=== PATIENT | male | born 1950 | race Caucasian/White ===

== ENCOUNTER → 2017-01-08 | Outpatient (CLI) | payer MEDICARE, OTHER ==
[~2017-01-08] MED LIST: ACET65TA; ATENPOW; ATENPOW PO; ATOR40TA PO; DEPA250T32 PO; DEPA500T PO; DIGO0.257 PO; ECOT325T5; ECOT325T5 PO; GABA600T PO; HYDR-3716 PO; LEXAPRO; VICO5TAB OR; zoloft PO
--- NOTE | 2017-01-08 13:51 | REP ---
Clinical: Lung screening. History of nicotine dependence. Comparison: None Technique: Axial low-dose noncontrast images from the thoracic inlet to the upper abdomen using lung screening technique. Findings: The lung santiago are well-aerated. No consolidation, significant nodule or mass lesion is appreciated. However, there is mild bibasilar scarring and bronchiectasis which likely represents chronic change and 4 mm nodule in the medial right lower lobe (image 54) cannot be excluded. No pleural effusion/reaction or pneumothorax. Mediastinum demonstrates either large hiatal hernia or suggestions for prior esophagogastric surgery. Impression: Lung-RADS category 2. Chronic-appearing changes at the bilateral lung bases with possible 4 mm right lower lobe pulmonary nodule. Signed by Felix Ford MD 01/08/2017 01:42 P
== END ==
LOC: M RAD 12:51
PROVIDERS: ATTEND Emergency Medicine
DX: Z12.2 Encounter for screening for malignant neoplasm of respiratory organs (principal); F17.210 Nicotine dependence, cigarettes, uncomplicated

== ENCOUNTER 2017-04-11 09:43 | Outpatient (CLI) | payer MEDICARE, OTHER ==
[~2017-04-11] VITALS: Ht 170.2 cm; Wt 86.2 kg
[~2017-04-11 09:43] MED LIST changes: +ASPI1TAB PO; +ATEN25TA PO; +ATIV1TAB10 PO; -ATOR40TA PO; +ATOR40TA75 PO; +DEPA500T2 PO; +FERR325T3 PO; +VITA100072 PO
[2017-04-11] MEDS ORDERED: NS 1,000 ML IV ONE (10:15)
[2017-04-11] MEDS ORDERED: LIDOCAINE 2% INJ 100 MG/5 ML SDV (FOR ANES.) As Ordered ONE (11:34)
[2017-04-11] MEDS ORDERED: PROPOFOL 200 MG/20 ML VIAL As Ordered ONE (11:34)
--- NOTE | 2017-04-11 11:47 | ROOR ---
Patient Name: Judah Romo Procedure Date: 04/11/2017 11:13 AM Date of : 1950 Age: 66 Room: [facility] Gender: Male Note Status: Finalized Procedure: Total Colonoscopy to Cecum Indications: Screening for colorectal malignant neoplasm Providers: Freddy Treadwell MD Referring MD: OTTO SALMERON MD Requesting Provider: Medicines: Monitored Anesthesia Care Complications: No immediate complications. Procedure: Pre-Anesthesia Assessment: - The heart rate, respiratory rate, oxygen saturations, blood pressure, adequacy of pulmonary ventilation, and response to care were monitored throughout the procedure. The Colonoscope was introduced through the anus and advanced to the cecum, identified by appendiceal orifice and ileocecal valve. The colonoscopy was performed without difficulty. The patient tolerated the procedure well. The quality of the bowel preparation was excellent. Findings: The perianal and digital rectal examinations were normal. Non-bleeding internal hemorrhoids were found during retroflexion. The hemorrhoids were small and Grade I (internal hemorrhoids that do not prolapse). Multiple small and large-mouthed diverticula were found in the recto-sigmoid colon, sigmoid colon and descending colon. The exam was otherwise without abnormality on direct and retroflexion views. Impression: - Non-bleeding internal hemorrhoids. - Diverticulosis in the recto-sigmoid colon, in the sigmoid colon and in the descending colon. - The examination was otherwise normal on direct and retroflexion views. - No specimens collected. - The exam was otherwise normal to the cecum. Recommendation: - Patient has a contact number available for emergencies. The signs and symptoms of potential delayed complications were discussed with the patient. Return to normal activities tomorrow. Written discharge instructions were provided to the patient. - High fiber diet. - Discharge patient to home. - Continue present medications. - Repeat colonoscopy in 10 years for screening purposes. - Return to referring physician. - The findings and recommendations were discussed with the patient's family. Freddy Treadwell MD Freddy Treadwell MD 04/11/2017 11:47:00 AM This report has been signed electronically. Number of Addenda: 0 Note Initiated On: 04/11/2017 11:13 AM Estimated Blood Loss: Estimated blood loss: none.
[2017-04-11 12:14] VITALS: BP 132/73
== END 2017-04-11 12:16 | disposition home or self-care (01) ==
LOC: M OPP 09:43
PROVIDERS: ATTEND Internal Medicine Gastroenterology
DX: Z12.11 Encounter for screening for malignant neoplasm of colon (principal); K64.0 First degree hemorrhoids; K57.30 Diverticulosis of large intestine without perforation or abscess without bleeding; I10 Essential (primary) hypertension; E78.5 Hyperlipidemia, unspecified; D50.9 Iron deficiency anemia, unspecified; M19.90 Unspecified osteoarthritis, unspecified site; M54.5 Low back pain; K59.00 Constipation, unspecified; L40.9 Psoriasis, unspecified; I67.1 Cerebral aneurysm, nonruptured; F41.9 Anxiety disorder, unspecified; F32.9 Major depressive disorder, single episode, unspecified; R56.9 Unspecified convulsions; J44.9 Chronic obstructive pulmonary disease, unspecified; G47.30 Sleep apnea, unspecified; R06.83 Snoring; R06.02 Shortness of breath; R07.89 Other chest pain; F17.210 Nicotine dependence, cigarettes, uncomplicated; Z79.82 Long term (current) use of aspirin; Z79.899 Other long term (current) drug therapy

== ENCOUNTER → 2017-07-04 | Outpatient (CLI) | payer MEDICARE, OTHER ==
[~2017-07-04] MED LIST changes: +ISOVUE-370 76% 100ML VIAL (Q9967) As Ordered ONE
--- NOTE | 2017-07-04 14:43 | REP ---
Clinical: Follow-up pulmonary nodule. Comparison: 12/19/2016. Technique: Axial contrast enhanced images from the thoracic inlet to the upper abdomen using 100 ml Isovue 370 intravenous contrast material with coronal and sagittal re-formations. Findings: The lung santiago demonstrate mild chronic age-related interstitial changes and subtle perihilar bronchiectasis. Minimal scarring to the medial lower lobes and lingula remains stable. Previously identified subtle ground-glass opacity and 4 mm medial right lower lobe nodule have resolved and likely represented areas of atelectasis. No acute consolidation, significant nodule or mass lesion is appreciated. No pleural effusion or reaction. No pneumothorax. No adenopathy. Moderate hiatal hernia identified at the gastroesophageal junction. Thoracic aorta, heart and pericardium are within normal limits. Surrounding musculoskeletal structures demonstrate age-related changes without focal osseous abnormality. Limited evaluation of the upper abdomen demonstrates hepatic and renal hypodensities likely representing cysts along with normal bilateral adrenal glands. Impression: 1. Minimal chronic age-related changes to the lung santiago as described above. No acute mediastinal or pleuroparenchymal process. 2. Previously identified subtle basilar ground-glass opacities and 4 mm right lower lobe nodule have resolved and likely represented elements of atelectasis. 3. Hepatic and renal hypodensities most compatible with cysts. Signed by Felix Ford MD 07/04/2017 02:33 P
== END ==
LOC: M RAD 13:45
PROVIDERS: ATTEND Emergency Medicine
DX: D38.1 Neoplasm of uncertain behavior of trachea, bronchus and lung (principal)
CPT/HCPCS: 71260; Q9967

== ENCOUNTER 2019-01-19 16:06 | Inpatient (IN) | payer MEDICARE, OTHER ==
[~2019-01-19] VITALS: Ht 167.6 cm; Wt 81.8 kg
[~2019-01-19 16:06] MED LIST changes: -ASPI1TAB PO; +ASPI81TA26 PO; -GABA600T PO; +GABA600T4 PO; -ISOVUE-370 76% 100ML VIAL (Q9967) As Ordered ONE; +LEXA1TAB; -LEXAPRO; +VITA100018 PO; -VITA100072 PO
[2019-01-19] MEDS ORDERED: CARV3.12 PO (16:15)
[2019-01-19] MEDS ORDERED: ROSU40TA3 PO (16:15)
[2019-01-19] MEDS ORDERED: ELIQ5TAB PO (16:15)
[2019-01-19] MEDS ORDERED: DULO1CAP3 PO (16:15)
[2019-01-19] MEDS ORDERED: MORPHINE 4 MG/ML 1ML VIAL/SYRINGE (J2270) IV ONE (17:30)
[2019-01-19] MEDS ORDERED: NS 500 ML IV ONE ×2 (17:30→19:30)
--- NOTE | 2019-01-19 17:45 | REP ---
Clinical: Syncope. Comparison: 05/25/2009 . Findings: Age-related atrophy and microvascular ischemic changes are appreciated. The ventricles and sulci are symmetric. Saunders-white differentiation is maintained. There is no evidence for acute intracranial hemorrhage, mass/mass effect, pathology or infarction. No extra-axial fluid collection. Calvarium is intact. Paranasal sinuses and mastoid air cells are clear. Impression: Age related atrophy and microvascular ischemic changes. No acute intracranial hemorrhage, infarction, or mass/mass effect. Electronically Signed by Felix Ford MD 01/19/2019 05:37 P
--- NOTE | 2019-01-19 18:01 | REP ---
Clinical: Left-sided rib pain. Technique: Frontal view of the chest with four views of the left hemithorax. Findings: Old healed left rib fractures are identified. No obvious acute rib fracture is appreciated. Frontal view of the chest demonstrates no acute cardiopulmonary process. Impression: Old healed left rib fractures. No acute rib fracture identified. Electronically Signed by Felix Ford MD 01/19/2019 05:53 P
[2019-01-19 18:17] LABS: BASO # 0.1 10^3/uL (0.0-0.2); BASO % 0.7 % (0.0-1.0); EOS # 0.2 10^3/uL (0.0-0.50); EOS % 1.9 % (0.0-3.0); HEMATOCRIT 34.1 % (42.0-52.0); HEMOGLOBIN 10.7 g/dl (13.5-17.5); LYMPH # 2.6 10^3/uL (1.5-4.5); MEAN CORPUSCULAR HEMOGLOBIN 26.6 pg (27.0-33.0); MEAN CORPUSCULAR HGB CONC 31.4 g/dl (32.0-36.5); MEAN CORPUSCULAR VOLUME 84.8 fl (80.0-96.0); MONO # 0.9 10^3/uL (0.0-0.8); MONO % 10.2 % (0.0-5.0); NEUTROPHILS # 4.7 10^3/uL (1.8-7.7); NEUTROPHILS % 55.8 % (36.0-66.0); PLATELET COUNT, AUTOMATED 276 10^3/uL (150-450); RED BLOOD COUNT 4.02 10^6/uL (4.30-6.10); WHITE BLOOD COUNT 8.4 10^3/uL (4.0-10.0)
[2019-01-19 18:31] LABS: INR 1.01; PROTHROMBIN TIME 13.4 SECONDS (12.1-14.4)
[2019-01-19 18:32] LABS: PARTIAL THROMBOPLASTIN TIME 31.9 SECONDS (25.4-37.6)
[2019-01-19 18:46] LABS: BLOOD UREA NITROGEN 21 MG/DL (7-18); CALCIUM LEVEL 8.6 MG/DL (8.8-10.2); CARBON DIOXIDE LEVEL 25 MEQ/L (21-32); CHLORIDE LEVEL 108 MEQ/L (98-107); CK-MB VALUE MASS < 1.0 NG/ML (<3.6); CPK CREATINE PHOSPHOKINASE 97 U/L (39-308); CREATININE FOR GFR 0.79 MG/DL (0.70-1.30); GLOMERULAR FILTRATION RATE > 60.0 (>49); GLUCOSE, FASTING 92 MG/DL (70-100); MB/CK RELATIVE INDEX 1.03 (< OR =4); POTASSIUM SERUM 3.7 MEQ/L (3.5-5.1); SODIUM LEVEL 142 MEQ/L (136-145); TROPONIN I < 0.02 NG/ML (< 0.10); VALPROIC ACID (DEPAKOTE) 19.4 UG/ML (50.0-100.0)
[2019-01-19] MEDS ORDERED: PANTOPRAZOLE 40MG INJ (PROTONIX) (C9113) IV ONE (19:30)
[2019-01-19] MEDS ORDERED: MORPHINE 2 MG/ML 1ML SYRINGE (J2270) IV ONE (19:30)
--- NOTE | 2019-01-19 19:49 | ECGEPIP ---
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
[2019-01-19] MEDS ORDERED: MAALOX 30 ML SUSP *UDC PO PRN (20:00)
[2019-01-19] MEDS ORDERED: MOM 30ML SUSPENSION UDC PO PRN (20:00)
[2019-01-19] MEDS ORDERED: ACETAMINOPHEN TAB 650MG DOSE (2X325MG) PO PRN (20:00)
[2019-01-19] MEDS ORDERED: HYDR-643 PO (20:29)
--- NOTE | 2019-01-19 20:29 | HPEPDOC ---
General Date of Admission Jan 19, 2019 at 19:55 Date of Service: Jan 19, 2019 Chief Complaint The patient is a 68-year-old male admitted with a reason for visit of Gi Bleed, Synocpe. Source: Patient, Family, Old records History of Present Illness Mr. Romo is a 68 years old man with hx/o AF on Eliquis. He was brought to Er for evaluation of weakness and dizziness for a week. Pt and family report syncopal episode on while standing on. He has left chest wall pain due to fall. He also reports melena for about one week. Pt denies any other symptoms including abdominal pain. Pt reports findings of benign polyps in colonoscopy in 2017. In the ER, pt had Hb of 10; no recent labs to compare. FOBT is positive. Vitals are normal. Pt feels extremely weak, and unable to ambulate. Discussed with GI Dr. Treadwell; recommend holding Eliquis and possible scope on Sun. Home Medications Scheduled Divalproex Sodium (Depakote ER) 500 Mg Tab, 500 MG PO BID, (Reported) Lorazepam (Ativan) 0.5 Mg Tab, 0.5 MG PO TID, (Reported) Scheduled PRN Hydrocodone/Acetaminophen (Hydrocodone-Acetamin 7.5-325) 1 Tab Tab, 1 TAB PO QIDP PRN for PAIN, (Reported) Miscellaneous Medications Apixaban (Eliquis) 5 Mg Tablet, (Reported) Carvedilol (Carvedilol) 3.125 Mg Tablet, (Reported) Cyanocobalamin (Vitamin B-12) (Vitamin B-12) 1,000 Mcg Tab, 1,000 MCG PO, (Reported) Duloxetine Hcl (Duloxetine HCl) 60 Mg Capsule., (Reported) Rosuvastatin Calcium (Rosuvastatin Calcium) 40 Mg Tablet, (Reported) Allergies Coded Allergies: No Known Allergies (Verified , 04/05/17) Past Medical History Medical History AF, HLD, Seizure d/o Surgical History Gamma knife procedure ofr brain aneurysm Family History Significant Family History: No pertinent family hx Social History * Smoker: current smoker Alcohol: occationally Drugs: denies A-FIB/CHADSVASC A-FIB History Current/History of A-Fib/PAF?: Yes Current PO Anticoag Therapy: Yes Treatment Treatment ordered: NONE Reason Anticoagulant not given: Current bleeding Review of Systems Constitutional: Denies: Chills, Fever Eyes: Denies: Pain Skin: Denies: Rash, Lesions Pulmonary: Denies: Dyspnea, Cough Cardiovascular: Denies: Chest Pain, Palpitations, Edema Gastrointestinal: Denies: Nausea, Vomiting, Abdominal Pain, Diarrhea Genitourinary: Denies: Dysuria, Frequency Musculoskeletal: Denies: Neck Pain, Back Pain Neurological: Reports: Weakness; Denies: Numbness, Change in speech, Confusion Psych: Reports: Mood Normal; Denies: Anxiety Physical Examination General Exam: Positive: Alert, Cooperative, No Acute Distress Eye Exam: Positive: PERRLA ENT Exam: Positive: Atraumatic Neck Exam: Positive: Supple; Negative: JVD Chest Exam: Positive: Clear to auscultation, Normal air movement Heart Exam: Positive: Rate Normal, Irregular Rhythm Abdomen Exam: Positive: Normal bowel sounds, Soft; Negative: Tenderness Vital Signs Vital Signs Date Time Temp Pulse Resp B/P (MAP) Pulse Ox O2 Delivery O2 Flow Rate FiO2 01/19/19 19:48 18 01/19/19 19:21 83 159/76 (103) 76 158/73 (101) 92 168/91 (116) 01/19/19 19:21 98.1 98 Room Air Laboratory Data Labs 24H Laboratory Tests 2 01/19/19 17:51: Immature Granulocyte % (Auto) 0.4, White Blood Count 8.4, Red Blood Count 4.02L, Hemoglobin 10.7L, Hematocrit 34.1L, Mean Corpuscular Volume 84.8, Mean Corpuscular Hemoglobin 26.6L, Mean Corpuscular Hemoglobin Concent 31.4L, Red Cell Distribution Width 16.1H, Platelet Count 276, Neutrophils (%) (Auto) 55.8, Lymphocytes (%) (Auto) 31.0, Monocytes (%) (Auto) 10.2H, Eosinophils (%) (Auto) 1.9, Basophils (%) (Auto) 0.7, Neutrophils # (Auto) 4.7, Lymphocytes # (Auto) 2.6, Monocytes # (Auto) 0.9H, Eosinophils # (Auto) 0.2, Basophils # (Auto) 0.1, Nucleated Red Blood Cells % (auto) 0.0, Prothrombin Time 13.4, Prothromb Time International Ratio 1.01, Activated Partial Thromboplast Time 31.9, Anion Gap 9, Glomerular Filtration Rate > 60.0, Blood Urea Nitrogen 21H, Creatinine 0.79, Sodium Level 142, Potassium Level 3.7, Chloride Level 108H, Carbon Dioxide Level 25, Calcium Level 8.6L, Total Creatine Kinase 97, Creatine Kinase MB < 1.0, Creatine Kinase MB Relative Index 1.03, Troponin I < 0.02, Thyroid Stimulating Hormone (TSH) 1.220, Valproic Acid (Depakene) Level 19.4L CBC/BMP Laboratory Tests 01/19/19 17:51 Red Blood Count 4.02 L, Mean Corpuscular Volume 84.8, Mean Corpuscular Hemoglobin 26.6 L, Mean Corpuscular Hemoglobin Concent 31.4 L, Red Cell Di stribution Width 16.1 H, Neutrophils (%) (Auto) 55.8, Lymphocytes (%) (Auto) 31.0, Monocytes (%) (Auto) 10.2 H, Eosinophils (%) (Auto) 1.9, Basophils (%) (Auto) 0.7, Neutrophils # (Auto) 4.7, Lymphocytes # (Auto) 2.6, Monocytes # (Auto) 0.9 H, Eosinophils # (Auto) 0.2, Basophils # (Auto) 0.1, Calcium Level 8.6 L, Total Creatine Kinase 97 Assessment/Plan Symptomatic Anemia due to GI Bleeding, on Eliquis for AF - Admit to inpatient; GI consulted - IV PPI, Clear liquid diet - Monitor h/h - Hold Eliquis - No indication for blood transfusion at this time - Echo in the morning - Pt declined offer for NRT Continue med for other chronic illness Plan / VTE VTE Prophylaxis Ordered?: Yes VTE Exclusion Mechanical Proph: N/A:VTE Prophy Ordered VTE Exclusion Pharmacological: Active Bleeding Plan Anticipated Discharge: Home JUICE MANCILLA MD Jan 19, 2019 20:29
[2019-01-19] MEDS ORDERED: LORazepam 0.5 MG TAB PO PRN (21:45)
[2019-01-19 23:45] VITALS: BP 144/82
[2019-01-19] MEDS: DOCUSATE SODIUM 100 MG CAP PO SCH (23:46)
[2019-01-19] MEDS: CARVedilol 3.125 MG TAB PO SCH (23:47)
[2019-01-19] MEDS: DIVALPROEX 500MG *ER* TAB PO SCH (23:48)
[2019-01-19] MEDS: ROSUVASTATIN 10 MG TAB (CRESTOR) PO SCH (23:48)
[2019-01-19] MEDS: PERCOCET 5MG/325MG TAB PO PRN (23:49)
[2019-01-20] MEDS: PERCOCET 5MG/325MG TAB PO PRN ×4 (04:26→21:10)
[2019-01-20 06:00] VITALS: BP 114/63
[2019-01-20 06:31] LABS: HEMATOCRIT 30.5 % (42.0-52.0); HEMOGLOBIN 9.5 g/dl (13.5-17.5); MEAN CORPUSCULAR HEMOGLOBIN 27.3 pg (27.0-33.0); MEAN CORPUSCULAR HGB CONC 31.1 g/dl (32.0-36.5); MEAN CORPUSCULAR VOLUME 87.6 fl (80.0-96.0); PLATELET COUNT, AUTOMATED 249 10^3/uL (150-450); RED BLOOD COUNT 3.48 10^6/uL (4.30-6.10); WHITE BLOOD COUNT 8.6 10^3/uL (4.0-10.0)
[2019-01-20 06:57] LABS: BLOOD UREA NITROGEN 20 MG/DL (7-18); CALCIUM LEVEL 8.4 MG/DL (8.8-10.2); CARBON DIOXIDE LEVEL 28 MEQ/L (21-32); CHLORIDE LEVEL 111 MEQ/L (98-107); CREATININE FOR GFR 0.69 MG/DL (0.70-1.30); GLOMERULAR FILTRATION RATE > 60.0 (>49); GLUCOSE, FASTING 90 MG/DL (70-100); POTASSIUM SERUM 4.2 MEQ/L (3.5-5.1); SODIUM LEVEL 143 MEQ/L (136-145)
[2019-01-20] MEDS: DULoxetine 30 MG CAP (CYMBALTA) PO SCH (09:16)
[2019-01-20] MEDS: DOCUSATE SODIUM 100 MG CAP PO SCH ×2 (09:16→21:10)
[2019-01-20] MEDS: CARVedilol 3.125 MG TAB PO SCH ×2 (09:17→21:10)
[2019-01-20] MEDS: PANTOPRAZOLE 40MG INJ (PROTONIX) (C9113) IV SCH ×2 (09:18→21:09)
[2019-01-20] MEDS: DIVALPROEX 500MG *ER* TAB PO SCH ×2 (09:18→21:09)
[2019-01-20 14:00] VITALS: BP 132/75
[2019-01-20 14:04] LABS: HEMATOCRIT 31.4 % (42.0-52.0); HEMOGLOBIN 9.7 g/dl (13.5-17.5)
--- NOTE | 2019-01-20 16:58 | IPNPDOC ---
Text Note Date of Service The patient was seen on 01/20/19. NOTE Mr. Romo is seen on bedside rounds this morning, he is doing well, has some right sided chest wall pain from where he fell prior to admission. His breathing is good., he otherwise feels okay, he has no complaints today. SUBJECTIVE: Patient is sitting comfortably in bed, NAD. Otherwise patient denies chest pain, shortness breath, nausea, vomiting, fevers, chills OBJECTIVE PHYSICAL EXAMINATION: VITAL SIGNS: Please see below. GENERAL: [Pleasant 68 y/o male sitting up in bed awake alert oriented speaking in complete sentences no acute distress HEENT: Moist mucous membranes no elevation and CVP] CARDIOVASCULAR: S1 S2 regular no additional heart sounds appreciated RESPIRATORY: Clear to auscultation bilaterally ABDOMINAL: Bowel sounds present abdomen soft and nontender, no hepatosplenomegaly, no masses appreciated, no rebound ridgity or guarding EXTREMITIES: No clubbing cyanosis or edema NEUROLOGICAL: Spontaneously moves all 4 extremities, no focal deficits appre ciated PSYCHOLOGICAL: Appropriate affect LABORATORY DATA, MICROBIOLOGY: Please see below. ASSESSMENT AND PLAN: This is a 68 yo male admitted for weakness, light headedness and syncope and found to be FOBT positive and anemic. PROBLEMS: 1. Acute blood loss anemia -FOBT positive, GI consulted appreciate their help, plan for colonoscopy Sun01.22.19, clear liquid diet tomorrow and Golytely, NPO after midnight tomorrow night -h/h today is 9.5/30.5 stable, no transfusions yet -continue to monitor -Holding home eliqus, c/w IV PPI 2. Chronic A. fiib -Home eliquis on hold as discussed above -C/w Coreg., rate controlled now 3. DLP -c.w statin therapy 4. Depression/anxiety -c/w home medications DISPOSITION: Pending Colonoscopy on Sun with GI., c/w close monitoring h/h, transfuse if needed. VS,Fishbone, I+O VS, Fishbone, I+O Laboratory Tests 01/19/19 17:51 Red Blood Count 4.02 L, Mean Corpuscular Volume 84.8, Mean Corpuscular Hemoglobin 26.6 L, Mean Corpuscular Hemoglobin Concent 31.4 L, Red Cell Distribution Width 16.1 H, Neutrophils (%) (Auto) 55.8, Lymphocytes (%) (Auto) 31.0, Monocytes (%) (Auto) 10.2 H, Eosinophils (%) (Auto) 1.9, Basophils (%) (Auto) 0.7, Neutrophils # (Auto) 4.7, Lymphocytes # (Auto) 2.6, Monocytes # (Auto) 0.9 H, Eosinophils # (Auto) 0.2, Basophils # (Auto) 0.1, Calcium Level 8.6 L, Total Creatine Kinase 97 01/20/19 06:17 Red Blood Count 3.48 L, Mean Corpuscular Volume 87.6, Mean Corpuscular Hemoglobin 27.3, Mean Corpuscular Hemoglobin Concent 31.1 L, Red Cell Distribution Width 16.2 H, Calcium Level 8.4 L 01/20/19 13:51 Vital Signs Date Time Temp Pulse Resp B/P (MAP) Pulse Ox O2 Delivery O2 Flow Rate FiO2 01/20/19 14:51 16 01/20/19 09:17 152/95 01/20/19 09:17 76 01/20/19 06:00 97.1 96 01/19/19 23:00 Room Air I&O- Last 24 Hours up to 6 AM 01/20/19 05:59 Intake Total 500 ml Output Total 0 ml Balance 500 ml GME ATTESTATION GME ATTESTATION My faculty preceptor for this patient encounter was physically present during the encounter and was fully available. All aspects of the patient interview, examination, medical decision making process, and medical care plan development were reviewed and approved by the faculty preceptor. The faculty preceptor is aware and concurs with the plan as stated in the body of this note and will attest to such by his/her cosignature. ATTENDING NOTE I, Chetna Uriarte, have both independently examined this patient as well as reviewed the documentation. I have discussed in detail with the resident the findings and plan of treatment as documented in the residents documentation and agree with what is stated. I will continue to follow the patient and offer further guidance to the patients care as necessary during this hospital stay. KEVIN SUERO DO Jan 20, 2019 16:58 CHETNA URIARTE MD Jan 20, 2019 17:31
[2019-01-20] MEDS: hydrOXYzine 10 MG TAB PO SCH ×2 (21:09)
[2019-01-20] MEDS: ROSUVASTATIN 10 MG TAB (CRESTOR) PO SCH (21:11)
[2019-01-20 22:00] VITALS: BP 136/97
[2019-01-21] MEDS: PERCOCET 5MG/325MG TAB PO PRN ×5 (01:55→19:42)
[2019-01-21 06:00] VITALS: BP 133/62
--- NOTE | 2019-01-21 06:47 | ECHO ---
DATE OF PROCEDURE: 01/20/2019 AGE: 68 GENDER: Male. HEIGHT: 66 inches. WEIGHT: 180 pounds. BODY SURFACE AREA: 1.92 meters squared, LOCATION: Inpatient [address] [place] [address], Room 4236. REFERRING PHYSICIAN: Rey Xavier MD INDICATIONS: Syncope. MEASUREMENTS 2D MEASUREMENTS: RV - 3.6 cm LV - 3.7 cm Septum 1.1 cm Posterior wall 1.1 cm Aortic root 3.4 cm LA - 3.4 cm LVEF 65% DOPPLER MEASUREMENTS: AV - 1.7 m/s LVOT - 1.2 m/s LVOT diameter 2.0 cm MV-E 80, A 80, E/A ratio 1 Early mitral deceleration time 264 ms E prime 5.7, A prime 11, E/E prime ratio 14 PCWP 14.6 mmHg PV - 0.8 m/s Pulmonary artery acceleration time 123 ms PASP - 27 mmHg COMMENTS: Normal sinus rhythm without intraventricular conduction disturbance. Slightly challenging study in light of the patient's prior smoking history, but diagnostically useful information was still obtained. M-mode and two-dimensional echocardiography was performed with pulsed, continuous wave, color flow and tissue Doppler studies. Normal left ventricular size, wall thickness and wall motion. Normal left atrial size with Doppler assessment showing a degree of LV diastolic dysfunction with estimated mean left atrial pressure upper limits of normal. Normal right heart chamber sizes, wall motion and estimated pulmonary arterial pressure. Normal appearing valvular structures and function. Normal aortic root size. No apparent intracardiac mass or pericardial effusion. Unable to account for the patient's syncopal spell on the basis of a structural or functional cardiac abnormality from this study. [facility]
[2019-01-21] MEDS ORDERED: GOLYTELY SOLN 4000 ML BTL PO ONE (07:00)
[2019-01-21 08:23] LABS: BASO # 0.1 10^3/uL (0.0-0.2); BASO % 0.7 % (0.0-1.0); EOS # 0.3 10^3/uL (0.0-0.50); EOS % 3.5 % (0.0-3.0); HEMATOCRIT 30.9 % (42.0-52.0); HEMOGLOBIN 9.7 g/dl (13.5-17.5); LYMPH # 2.9 10^3/uL (1.5-4.5); LYMPH % 36.2 % (24.0-44.0); MEAN CORPUSCULAR HEMOGLOBIN 26.8 pg (27.0-33.0); MEAN CORPUSCULAR HGB CONC 31.4 g/dl (32.0-36.5); MEAN CORPUSCULAR VOLUME 85.4 fl (80.0-96.0); MONO # 0.8 10^3/uL (0.0-0.8); MONO % 9.3 % (0.0-5.0); NEUTROPHILS # 4.1 10^3/uL (1.8-7.7); NEUTROPHILS % 49.9 % (36.0-66.0); PLATELET COUNT, AUTOMATED 259 10^3/uL (150-450); RED BLOOD COUNT 3.62 10^6/uL (4.30-6.10); WHITE BLOOD COUNT 8.1 10^3/uL (4.0-10.0)
[2019-01-21 08:43] LABS: BLOOD UREA NITROGEN 19 MG/DL (7-18); CARBON DIOXIDE LEVEL 25 MEQ/L (21-32); CHLORIDE LEVEL 108 MEQ/L (98-107); CREATININE FOR GFR 0.62 MG/DL (0.70-1.30); GLOMERULAR FILTRATION RATE > 60.0 (>49); GLUCOSE, FASTING 91 MG/DL (70-100); SODIUM LEVEL 139 MEQ/L (136-145)
[2019-01-21] MEDS: DOCUSATE SODIUM 100 MG CAP PO SCH ×2 (09:02→21:12)
[2019-01-21] MEDS: DULoxetine 30 MG CAP (CYMBALTA) PO SCH (09:02)
[2019-01-21] MEDS: DIVALPROEX 500MG *ER* TAB PO SCH ×2 (09:03→21:11)
[2019-01-21] MEDS: PANTOPRAZOLE 40MG INJ (PROTONIX) (C9113) IV SCH ×2 (09:03→21:10)
[2019-01-21] MEDS: CARVedilol 3.125 MG TAB PO SCH ×2 (09:05→21:11)
--- NOTE | 2019-01-21 11:00 | IPNPDOC ---
Date Seen The patient was seen on 01/21/19. Progress Note Mr. Romo is seen on bedside rounds this morning sitting comfortably. He is doing well but complains of some left sided chest wall pain from where he fell prior to admission during a syncopal episode. He states his left chest wall feels sore and is causing difficulty sleeping and breathing deeply. He reports some LLQ tenderness. He denies sob and chest pain. SUBJECTIVE: Patient is a 68 year old man sitting comfortably in bed, NAD. Patient reports left sided chest wall pain and LLQ discomfort. He denies chest pain, sob, nausea, vomiting, fever, chills and dizziness. OBJECTIVE PHYSICAL EXAMINATION: VITAL SIGNS: Please see below. GENERAL: Pleasant 68 y/o male sitting in bed awake, alert, and oriented speaking in complete sentences and in no acute distress. HEENT: Moist mucous membranes no elevation in CVP CARDIOVASCULAR: S1 S2 regular, no additional heart sounds appreciated RESPIRATORY: Clear to auscultation bilaterally ABDOMINAL: Bowel sounds present in all 4 quadrants. Abdomen soft, no hepatosplenomegaly, no masses appreciated. Tender LLQ on light and deep palpation. RUQ, RLQ, and LUQ nontender to palpation. No rebound rigidity or guarding. EXTREMITIES: No clubbing cyanosis or edema NEUROLOGICAL: Spontaneously moves all 4 extremities, no focal deficits appreciated. PSYCHOLOGICAL: Appropriate affect LABORATORY DATA, IMAGING STUDIES, MICROBIOLOGY: Please see below. ASSESSMENT AND PLAN: This is a 68 yo male admitted for weakness, light headedness and syncope and found to be FOBT positive and anemic. PROBLEMS: 1. Acute blood loss anemia: - FOBT positive, GI consulted, appreciate their help, plan and started prep for colonoscopy Wed 01.22.19, clear liquid diet today and Goltely, NPO after midnight tonight. - h/h today is 9.7/30.9 stable, no transfusions yet - Continue to monitor - Holding home Eliqus, c/w IV PPI 2. Chronic A. Fib - Home Eliquis on hold as discussed above - c/w Coreg., rate controlled now 3. DLP - C/w Statin therapy 4. Depression/anxiety -c/w home medications 5. Left sided chest pain - likely 2/2 rib fractures - Rib XR 01/19: Old healed left rib fractures. No acute rib fracture identified. - increase amount of pain medications to alleviate pain - Added incentive spirometry DISPOSITION: Pending Colonoscopy on Sun with GI., c/w close monitoring h/h, transfuse if needed. VS, I&O, 24H, Fishbone Vital Signs/I&O Vital Signs Date Time Temp Pulse Resp B/P (MAP) Pulse Ox O2 Delivery O2 Flow Rate FiO2 01/21/19 09:05 71 146/71 01/21/19 07:06 20 01/21/19 06:00 97.0 97 01/19/19 23:00 Room Air I&O- Last 24 Hours up to 6 AM 01/21/19 06:00 Intake Total 540 ml Output Total 550 ml Balance -10 ml Laboratory Data 24H LABS Laboratory Tests 2 01/21/19 07:57: Immature Granulocyte % (Auto) 0.4, White Blood Count 8.1, Red Blood Count 3.62L, Hemoglobin 9.7L, Hematocrit 30.9L, Mean Corpuscular Volume 85.4, Mean Corpuscular Hemoglobin 26.8L, Mean Corpuscular Hemoglobin Concent 31.4L, Red Cell Distribution Width 16.0H, Platelet Count 259, Neutrophils (%) (Auto) 49.9, Lymphocytes (%) (Auto) 36.2, Monocytes (%) (Auto) 9.3H, Eosinophils (%) (Auto) 3.5H, Basophils (%) (Auto) 0.7, Neutrophils # (Auto) 4.1, Lymphocytes # (Auto) 2.9, Monocytes # (Auto) 0.8, Eosinophils # (Auto) 0.3, Basophils # (Auto) 0.1, Nucleated Red Blood Cells % (auto) 0.0, Anion Gap 6L, Glomerular Filtration Rate > 60.0, Blood Urea Nitrogen 19H, Creatinine 0.62L, Sodium Level 139, Potassium Level 4.0, Chloride Level 108H, Carbon Dioxide Level 25, Calcium Level 9.0, Magnesium Level 2.0 CBC/BMP Laboratory Tests 01/20/19 13:51 01/21/19 07:57 Red Blood Count 3.62 L, Mean Corpuscular Volume 85.4, Mean Corpuscular Hemoglobin 26.8 L, Mean Corpuscular Hemoglobin Concent 31.4 L, Red Cell Distribution Width 16.0 H, Neutrophils (%) (Auto) 49.9, Lymphocytes (%) (Auto) 36.2, Monocytes (%) (Auto) 9.3 H, Eosinophils (%) (Auto) 3.5 H, Basophils (%) (Auto) 0.7, Neutrophils # (Auto) 4.1, Lymphocytes # (Auto) 2.9, Monocytes # (Auto) 0.8, Eosinophils # (Auto) 0.3, Basophils # (Auto) 0.1, Calcium Level 9.0 GME ATTESTATION GME ATTESTATION My faculty preceptor for this patient encounter was physically present during the encounter and was fully available. All aspects of the patient interview, examination, medical decision making process, and medical care plan development were reviewed and approved by the faculty preceptor. The faculty preceptor is aware and concurs with the plan as stated in the body of this note and will attest to such by his/her cosignature. ATTENDING NOTE I, Chetna Uriarte, have both independently examined this patient as well as reviewed the documentation. I have discussed in detail with the resident the findings and plan of treatment as documented by the resident. I agree with their findings and treatment plan. I will continue to follow the patient and offer further guidance to the patients care as necessary during this hospital stay. YONAS PALMA OMS-3 Jan 21, 2019 11:00 CHETNA URIARTE MD Jan 21, 2019 14:23
[2019-01-21 14:00] VITALS: BP 115/72
[2019-01-21] MEDS: ROSUVASTATIN 10 MG TAB (CRESTOR) PO SCH (21:11)
[2019-01-21] MEDS: hydrOXYzine 10 MG TAB PO SCH (21:11)
[2019-01-21 22:00] VITALS: BP 118/68
[2019-01-22] MEDS: PERCOCET 5MG/325MG TAB PO PRN ×2 (03:25→08:42)
[2019-01-22 06:00] VITALS: BP 120/70
[2019-01-22 06:12] LABS: BASO # 0.1 10^3/uL (0.0-0.2); BASO % 0.6 % (0.0-1.0); EOS # 0.3 10^3/uL (0.0-0.50); EOS % 3.3 % (0.0-3.0); HEMATOCRIT 30.4 % (42.0-52.0); HEMOGLOBIN 9.5 g/dl (13.5-17.5); LYMPH # 2.4 10^3/uL (1.5-4.5); LYMPH % 29.4 % (24.0-44.0); MEAN CORPUSCULAR HEMOGLOBIN 27.4 pg (27.0-33.0); MEAN CORPUSCULAR HGB CONC 31.3 g/dl (32.0-36.5); MEAN CORPUSCULAR VOLUME 87.6 fl (80.0-96.0); MONO # 0.8 10^3/uL (0.0-0.8); MONO % 9.7 % (0.0-5.0); NEUTROPHILS # 4.7 10^3/uL (1.8-7.7); NEUTROPHILS % 56.5 % (36.0-66.0); PLATELET COUNT, AUTOMATED 268 10^3/uL (150-450); RED BLOOD COUNT 3.47 10^6/uL (4.30-6.10); WHITE BLOOD COUNT 8.3 10^3/uL (4.0-10.0)
[2019-01-22 06:29] LABS: BLOOD UREA NITROGEN 20 MG/DL (7-18); CALCIUM LEVEL 8.8 MG/DL (8.8-10.2); CARBON DIOXIDE LEVEL 24 MEQ/L (21-32); CHLORIDE LEVEL 107 MEQ/L (98-107); CREATININE FOR GFR 0.58 MG/DL (0.70-1.30); GLOMERULAR FILTRATION RATE > 60.0 (>49); GLUCOSE, FASTING 79 MG/DL (70-100); POTASSIUM SERUM 3.8 MEQ/L (3.5-5.1); SODIUM LEVEL 140 MEQ/L (136-145)
[2019-01-22] MEDS: PANTOPRAZOLE 40MG INJ (PROTONIX) (C9113) IV SCH (08:41)
[2019-01-22 08:42] VITALS: BP 188/88
[2019-01-22] MEDS: CARVedilol 3.125 MG TAB PO SCH (08:42)
[2019-01-22] MEDS: DULoxetine 30 MG CAP (CYMBALTA) PO SCH (08:43)
[2019-01-22] MEDS: DOCUSATE SODIUM 100 MG CAP PO SCH (08:43)
[2019-01-22] MEDS: DIVALPROEX 500MG *ER* TAB PO SCH (08:43)
[2019-01-22 09:45] LABS: ALBUMIN 2.9 GM/DL (3.2-5.2); ALT/SGPT 14 U/L (12-78); BILIRUBIN,DIRECT 0.1 MG/DL (0.0-0.2); BILIRUBIN,TOTAL 0.4 MG/DL (0.2-1.0)
--- NOTE | 2019-01-22 12:05 | IPNPDOC ---
Text Note Date of Service The patient was seen on 01/22/19. NOTE Mr. Romo is seen on bedside rounds this morning sitting comfortably. He is playing on his computer. He states he wants his liver checked out because hes on a lot of pain meds at home for chronic back pain, he just thinks they should be monitored as such. He finished his GoLytely. He is doing well but complains of some left sided chest wall pain from where he fell prior to admission during a syncopal episode, but this is better since we have started Percocet for pain. He denies sob and chest pain. SUBJECTIVE: Patient is a 68 year old man sitting comfortably in bed playing on his computer, [employer]. Patient reports left sided chest wall pain and LLQ discomfort that has improved since being given Percocet. He denies chest pain, sob, nausea, vomiting, fever, chills and dizziness. OBJECTIVE PHYSICAL EXAMINATION: VITAL SIGNS: Please see below. GENERAL: Pleasant 68 y/o male sitting in bed awake, alert, and oriented speaking in complete sentences and in no acute distress. HEENT: Moist mucous membranes no elevation in CVP CARDIOVASCULAR: S1 S2 regular, no additional heart sounds appreciated RESPIRATORY: Clear to auscultation bilaterally without wheezing rales or r honchi, some minor left upper chest wall pain on palpation without erythema, bruising, swelling or mass ABDOMINAL: Bowel sounds present in all 4 quadrants. Abdomen soft, no hepatosplenomegaly, no masses appreciated. Nontender. No rebound rigidity or guarding. EXTREMITIES: No clubbing cyanosis or edema NEUROLOGICAL: Spontaneously moves all 4 extremities, no focal deficits appreciated. PSYCHOLOGICAL: Appropriate affect LABORATORY DATA, IMAGING STUDIES, MICROBIOLOGY: Please see below. ASSESSMENT AND PLAN: This is a 68 yo male admitted for weakness, light headedness and syncope and found to be FOBT positive and anemic. PROBLEMS: 1. Acute blood loss anemia: - FOBT positive, GI consulted, appreciate their help, plan and completed prep for colonoscopy, he is having this done today with GI - h/h today is 9.5/30.4 stable, no transfusions yet - Continue to monitor - Holding home Eliqus, c/w IV PPI 2. Chronic A. Fib - Home Eliquis on hold as discussed above - c/w Coreg., rate controlled now 3. DLP - C/w Statin therapy 4. Depression/anxiety -c/w home medications 5. Left sided chest pain - likely 2/2 rib fractures - Rib XR 01/19: Old healed left rib fractures. No acute rib fracture identified - increasing amount of pain medications helped to alleviate pain - c/w incentive spirometry DISPOSITION: Pending Colonoscopy today with GI., c/w close monitoring h/h, transfuse if needed. VS,Fishbone, I+O VS, Fishbone, I+O Laboratory Tests 01/22/19 05:32 Red Blood Count 3.47 L, Mean Corpuscular Volume 87.6, Mean Corpuscular Hemoglobin 27.4, Mean Corpuscular Hemoglobin Concent 31.3 L, Red Cell Distribution Width 16.0 H, Neutrophils (%) (Auto) 56.5, Lymphocytes (%) (Auto) 29.4, Monocytes (%) (Auto) 9.7 H, Eosinophils (%) (Auto) 3.3 H, Basophils (%) (Auto) 0.6, Neutrophils # (Auto) 4.7, Lymphocytes # (Auto) 2.4, Monocytes # (Auto) 0.8, Eosinophils # (Auto) 0.3, Basophils # (Auto) 0.1 Vital Signs Date Time Temp Pulse Resp B/P (MAP) Pulse Ox O2 Delivery O2 Flow Rate FiO2 01/22/19 09:40 16 01/22/19 08:42 188/88 01/22/19 08:42 69 01/22/19 06:00 97.7 91 01/19/19 23:00 Room Air I&O- Last 24 Hours up to 6 AM 01/22/19 06:00 Intake Total 960 ml Output Total 0 ml Balance 960 ml GME ATTESTATION GME ATTESTATION My faculty preceptor for this patient encounter was physically present during the encounter and was fully available. All aspects of the patient interview, examination, medical decision making process, and medical care plan development were reviewed and approved by the faculty preceptor. The faculty preceptor is aware and concurs with the plan as stated in the body of this note and will at test to such by his/her cosignature. KEVIN SUERO DO Jan 22, 2019 12:05
[2019-01-22 13:05] VITALS: BP 138/64
--- NOTE | 2019-01-22 14:17 | ROOR ---
Patient Name: Judah Romo Procedure Date: 01/22/2019 12:45 PM Date of : 1950 Age: 68 Gender: Male Note Status: Finalized Procedure: Upper GI endoscopy Indications: Iron deficiency anemia, Melena Providers: Freddy Treadwell MD Referring MD: Annie Saenz MD Requesting Provider: Medicines: Monitored Anesthesia Care Complications: No immediate complications. Procedure: Pre-Anesthesia Assessment: - The heart rate, respiratory rate, oxygen saturations, blood pressure, adequacy of pulmonary ventilation, and response to care were monitored throughout the procedure. The Endoscope was introduced through the mouth, and advanced to the second part of duodenum. The upper GI endoscopy was accomplished without difficulty. The patient tolerated the procedure well. Findings: The Z-line was regular and was found 35 cm from the incisors. A medium-sized hiatal hernia was present. No other significant abnormalities were identified in a careful examination of the stomach. Diffuse mildly erythematous mucosa without active bleeding and with no stigmata of bleeding was found in the duodenal bulb and in the first portion of the duodenum. The exam was otherwise without abnormality. Impression: - Z-line regular, 35 cm from the incisors. - Medium-sized hiatal hernia. - Erythematous duodenopathy. - The examination was otherwise normal. - No specimens collected. - The examination was otherwise normal. Recommendation: - Patient has a contact number available for emergencies. The signs and symptoms of potential delayed complications were discussed with the patient. Return to normal activities tomorrow. Written discharge instructions were provided to the patient. - High fiber diet. - Continue present medications. - Use Prilosec (omeprazole) 40 mg PO daily. - [facility]. - The findings and recommendations were discussed with the referring physician. - The findings and recommendations were discussed with the patient. Freddy Treadwell MD Freddy Treadwell MD 01/22/2019 2:17:01 PM Electronically signed by Freddy Treadwell MD Number of Addenda: 0 Note Initiated On: 01/22/2019 12:45 PM Estimated Blood Loss: Estimated blood loss: none.
--- NOTE | 2019-01-22 14:39 | ROOR ---
Patient Name: Judah Romo Procedure Date: 01/22/2019 12:43 PM Date of : 1950 Age: 68 Gender: Male Note Status: Finalized Procedure: Total Colonoscopy to Cecum + Cold Snare Polypectomy + Hemoclips Indications: Melena, Unexplained iron deficiency anemia Providers: Freddy Treadwell MD Referring MD: Annie Saenz MD Requesting Provider: Medicines: Monitored Anesthesia Care Complications: No immediate complications. Procedure: Pre-Anesthesia Assessment: - The heart rate, respiratory rate, oxygen saturations, blood pressure, adequacy of pulmonary ventilation, and response to care were monitored throughout the procedure. The Colonoscope was introduced through the anus and advanced to the cecum, identified by appendiceal orifice and ileocecal valve. The colonoscopy was performed without difficulty. The patient tolerated the procedure well. The quality of the bowel preparation was excellent. Findings: The perianal and digital rectal examinations were normal. Non-bleeding internal hemorrhoids were found during retroflexion. The hemorrhoids were small and Grade I (internal hemorrhoids that do not prolapse). Multiple small and large-mouthed diverticula were found in the recto-sigmoid colon, sigmoid colon and descending colon. A small polyp was found at 20 cm proximal to the anus. The polyp was sessile. The polyp was removed with a cold snare. Resection and retrieval were complete. A small polyp was found in the hepatic flexure. The polyp was semi-pedunculated. The polyp was removed with a cold snare. Resection and retrieval were complete. To prevent bleeding after the polypectomy, one hemostatic clip was successfully placed (MR conditional). There was no bleeding at the end of the procedure. The exam was otherwise without abnormality on direct and retroflexion views. Impression: - Non-bleeding internal hemorrhoids. - Diverticulosis in the recto-sigmoid colon, in the sigmoid colon and in the descending colon. - One small polyp at 20 cm proximal to the anus, removed with a cold snare. Resected and retrieved. - One small polyp at the hepatic flexure, removed with a cold snare. Resected and retrieved. Clip (MR conditional) was placed. - The examination was otherwise normal on direct and retroflexion views. - The exam was otherwise normal to the cecum. Recommendation: - Patient has a contact number available for emergencies. The signs and symptoms of potential delayed complications were discussed with the patient. Return to normal activities tomorrow. Written discharge instructions were provided to the patient. - High fiber diet. - Discharge patient to home. - Continue present medications. - Await pathology results. - Telephone GI clinic for pathology results in 1 week. - Repeat colonoscopy in 5 years for surveillance based on pathology results. - Return to referring physician. - The findings and recommendations were discussed with the patient's family. Freddy Treadwell MD Freddy Treadwell MD 01/22/2019 2:38:47 PM Electronically signed by Freddy Treadwell MD Number of Addenda: 0 Note Initiated On: 01/22/2019 12:43 PM Estimated Blood Loss: Estimated blood loss: none.
--- NOTE | 2019-01-22 14:40 | CR ---
DATE OF CONSULTATION: 01/22/2019 This is a 68-year-old white male who has been seen in consultation by GI for evaluation of melena and mild anemia. The patient has known atrial fibrillation and has been on Eliquis for approximately 1 year, apparently has had atrial fibrillation (AFib) for at least 2 years. He has had weakness and dizziness and melena for approximately 2 weeks prior to admission. No complaints of abdominal pain, weight loss, change in bowel habits, or bright red blood per rectum. The patient had weakness and dizziness to the point where he had a syncopal episode. He has no fevers, night sweats, or shaking chills. He denies any history of hematemesis and denies any episodes of abdominal pain. Laboratory studies on admission showed a hemoglobin of 10.7, hematocrit 34.1, platelets were 276,0000. Hemoglobin and hematocrit on 01/22/2019 showed a count of 9.5 and 30.4. The patient did not require any blood transfusions. The patient's international normalized ratio (INR) was 1.4. Laboratory studies also included a CT of the head, which was normal, no acute processes were seen and rib films on the left, which did not show any fracture since the patient sustained trauma from the syncopal episode. His last colonoscopy was in 2017, which was normal except for hemorrhoids and diverticulosis. PHYSICAL EXAMINATION: General: Well-developed, well-nourished, white male, in no acute distress. Appears stated age. Abdomen: Soft, nontender. No masses, guarding, rebound, hepatosplenomegaly. Bowel sounds positive. ANALYSIS: 1. Melena. 2. Anemia of unknown etiology. 3. The patient has atrial fibrillation and has been off his Eliquis since admission. PLAN: The plan will be to set the patient up for upper and lower endoscopy for further evaluation of a possible cause of the patient's anemia.
[2019-01-22 15:15] VITALS: BP 153/68
[2019-01-22] MEDS ORDERED: OMEP40CA2 PO (15:28)
[2019-01-22 15:45] VITALS: BP 149/68
[2019-01-23 10:24] VITALS: BP 149/68
== END 2019-01-22 16:50 | disposition home or self-care (01) | DRG 378 ==
LOC: M ED 16:06 → M ED INP 19:55 → M MSPAV 23:25
PROVIDERS: ADMIT Internal Medicine; ATTEND Internal Medicine
PROC: 0DBF8ZX Excision of Right Large Intestine, Via Natural or Artificial Opening Endoscopic, Diagnostic (ICD-10-PCS; 2019-01-22)
PROC: 0DBQ8ZX Excision of Anus, Via Natural or Artificial Opening Endoscopic, Diagnostic (ICD-10-PCS; 2019-01-22)
PROC: 0DJ08ZZ Inspection of Upper Intestinal Tract, Via Natural or Artificial Opening Endoscopic (ICD-10-PCS; principal; 2019-01-22 15:00)
DX: K92.2 Gastrointestinal hemorrhage, unspecified (principal); D62 Acute posthemorrhagic anemia; I48.2 Chronic atrial fibrillation; E78.5 Hyperlipidemia, unspecified; G40.909 Epilepsy, unspecified, not intractable, without status epilepticus; F32.9 Major depressive disorder, single episode, unspecified; K63.5 Polyp of colon; K64.0 First degree hemorrhoids; K57.30 Diverticulosis of large intestine without perforation or abscess without bleeding; K44.9 Diaphragmatic hernia without obstruction or gangrene; K62.0 Anal polyp; F41.9 Anxiety disorder, unspecified; Z86.010 Personal history of colon polyps; Z79.01 Long term (current) use of anticoagulants; Z79.899 Other long term (current) drug therapy

== ENCOUNTER 2019-05-23 07:57 | Inpatient (IN) | payer MEDICARE, OTHER ==
[~2019-05-23] VITALS: Ht 170.2 cm; Wt 78.1 kg
[2019-05-23] VITALS (13 sets, daily range): BP systolic 129–170; BP diastolic 70–102
[~2019-05-23 07:57] MED LIST changes: +CARV3.12 PO; +DULO1CAP6 PO; +ELIQ5TAB PO; +HYDR-643 PO; +OMEP40CA97 PO; +ROSU40TA4 PO
[2019-05-23] MEDS ORDERED: ONDANSETRON 4MG/2ML VIAL (J2405) IV ONE (08:15)
[2019-05-23] MEDS ORDERED: IPRATROPIUM 0.5MG/ALBUTEROL 2.5MG INH SOL UD 3ML (DUONEB)(J7620) NEB ONE (08:15)
--- NOTE | 2019-05-23 08:37 | REP ---
CT brain without contrast: History: Trauma. Comparison head CT study January 19, 2019. 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 Bone window settings demonstrate an intact bony calvarium. No skull fracture is appreciated. There is some mucosal thickening in the left ethmoid and and in the visualized maxillary sinuses. No intraorbital abnormality is seen. On soft tissue window settings, there is mild generalized atrophy. There is no evidence of intracranial hemorrhage. No extra-axial fluid collection is seen. No mass or midline shift is seen. There is no evidence of infarct. Saunders-white differentiation pattern is normal. Impression: Mild generalized volume loss. Otherwise negative head CT. No skull fracture or intracranial injury seen. Electronically Signed by Robles Mendoza MD 05/23/2019 08:29 A
--- NOTE | 2019-05-23 08:40 | REP ---
CT study of the cervical spine without contrast: History: Trauma. Technique: Helical scanning is acquired and overlapping 2 mm high resolution axial images were generated and reviewed at bone and soft tissue window settings. Coronal and sagittal multiplanar re-formations images are generated. CT findings: There is no evidence of cervical spine element fracture. No skull base fracture is seen. Cervical vertebral body heights are preserved. Alignment is normal. Facet joints are normally aligned bilaterally at each cervical level on multiplanar re-formations images. There is no evidence of intraspinal or paraspinal hematoma. No extra vertebral abnormality is seen. There are mild degenerative spondylosis changes in the cervical spine. There is bilateral uncovertebral spurring at the C5-6 disc level mild in degree. Anterior discogenic spurring is seen at multiple levels. 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 Some facet hypertrophy is present bilaterally. Impression: Degenerative spondylosis changes. Otherwise negative CT study of the cervical spine without contrast. No fracture seen. Electronically Signed by Robles Mendoza MD 05/23/2019 08:32 A
--- NOTE | 2019-05-23 08:56 | REP ---
CHEST X-RAY: Two views. HISTORY: Trauma. Comparison chest x-ray January 19, 2019. FINDINGS: There is volume loss in the right hemithorax. There appears to be dilated bowel loop above the slightly elevated right hemidiaphragm. There are multiple posterior rib deformities on the right consistent with fractures somewhat displaced. These involve rib numbers 4, 5, 6, 7, 8, and probably, rib #9. There are old healed rib fractures on the left. There is no visible pneumothorax. The patient is rotated somewhat to the right. There is evidence of a hiatal hernia behind the heart. The heart is not enlarged. Thoracic aorta is tortuous as before. IMPRESSION: Multiple displaced right posterior rib fractures. Hiatal hernia. Some volume loss right hemithorax suspected. Patient is rotated. No evidence of pneumothorax. Electronically Signed by Robles Mendoza MD 05/23/2019 10:50 A
[2019-05-23] MEDS: MOM 30ML SUSPENSION UDC PO SCH (09:00)
[2019-05-23] MEDS: MULTIVITAMINS/MINERALS THERAP 1 TAB PO SCH (09:00)
[2019-05-23] MEDS: DOCUSATE SODIUM 100 MG CAP PO SCH ×2 (09:00→21:05)
[2019-05-23] MEDS: FOLIC ACID 1 MG TAB PO SCH (09:00)
[2019-05-23] MEDS: HEPARIN SOD (PORCINE) 5000 UNITS/ML VIAL SC SCH ×2 (09:00→21:06)
[2019-05-23] MEDS: MORPHINE 2 MG/ML 1ML VIAL (J2270) IV PRN ×2 (09:08→10:20)
[2019-05-23 09:27] LABS: BASO % 0.2 % (0.0-1.0); EOS % 0.1 % (0.0-3.0); HEMATOCRIT 39.4 % (42.0-52.0); HEMOGLOBIN 12.1 g/dl (13.5-17.5); LYMPH # 1.7 10^3/uL (1.5-5.0); LYMPH % 13.6 % (24.0-44.0); MEAN CORPUSCULAR HGB CONC 30.7 g/dl (32.0-36.5); MEAN CORPUSCULAR VOLUME 81.4 fl (80.0-96.0); MONO # 1.9 10^3/uL (0.0-0.8); MONO % 15.7 % (0.0-5.0); NEUTROPHILS # 8.5 10^3/uL (1.5-8.5); NEUTROPHILS % 69.6 % (36.0-66.0); PLATELET COUNT, AUTOMATED 298 10^3/uL (150-450); RED BLOOD COUNT 4.84 10^6/uL (4.30-6.10); WHITE BLOOD COUNT 12.3 10^3/uL (4.0-10.0)
[2019-05-23 09:56] LABS: ALBUMIN 3.3 GM/DL (3.2-5.2); ALT/SGPT 17 U/L (12-78); BILIRUBIN,DIRECT 0.2 MG/DL (0.0-0.2); BILIRUBIN,TOTAL 0.4 MG/DL (0.2-1.0); BLOOD UREA NITROGEN 21 MG/DL (7-18); CALCIUM LEVEL 8.9 MG/DL (8.8-10.2); CARBON DIOXIDE LEVEL 27 MEQ/L (21-32); CHLORIDE LEVEL 103 MEQ/L (98-107); CREATININE FOR GFR 0.75 MG/DL (0.70-1.30); GLOMERULAR FILTRATION RATE > 60.0 (>49); GLUCOSE, FASTING 130 MG/DL (70-100); POTASSIUM SERUM 4.1 MEQ/L (3.5-5.1); SODIUM LEVEL 141 MEQ/L (136-145); TOTAL PROTEIN 7.8 GM/DL (6.4-8.2)
[2019-05-23 09:57] LABS: INR 1.2; PROTHROMBIN TIME 14.9 SECONDS (11.8-14.0)
[2019-05-23] MEDS ORDERED: OMEP-221 PO (10:52)
--- NOTE | 2019-05-23 10:58 | REP ---
REASON FOR EXAM: Trauma. COMPARISON: Multiple, the latest 07/04/2017. Lack of intravenous contrast decreases the sensitivity of the exam. There is no gross mediastinal or hilar adenopathy. There is a large hiatal hernia. There is a small right pleural effusion. Limited evaluation of the imaged upper abdomen shows a cyst in the posterior segment of the right lobe of the liver and suspected left renal cysts, the larger of the two measures 2.1 cm and both having Hounsfield density readings of water density. A small right renal cyst measuring 1.2 cm is suspected, however, this has higher than water density Hounsfield unit readings. These were present on the prior 07/04/2017 CT, but have gotten larger and there are associated peripheral calcifications and the large cyst on the left representing a change. There is also either a new or previously not imaged intrarenal calcification in the interpolar region of the left kidney anteriorly. This not causing obstructive phenomena. There is a tiny pericardial effusion. Bone window technique throughout the exam shows multiple fractures involving the right 3rd-10th ribs inclusive. Evaluation of the lung santiago shows a large opacity in the right lower lobe with some air bronchograms. There is no evidence of a pneumothorax. There is increased soft tissue density in the right lower lobe bronchus obscured by motion artifact. I cannot exclude the possibility of right and left mainstem bronchus fluid levels due to the extreme motion artifact. Present it would be subtle. I cannot exclude the possibility of right lower lobe bronchial obstruction. I see no definite evidence of a bronchopleural fistula at this time. IMPRESSION: 1. Abnormal right lower lobe opacity suspicious for atelectasis/pulmonary contusion/possible aspiration pneumonia. This is seen in conjunction with right lung potential bronchial abnormalities as described above. 2. Multiple right sided rib fractures as described above. 3. Large hiatal hernia. I cannot discount the possibility of at least a portion of this hernia being posttraumatic. A smaller hiatal hernia was present on the 07/04/2017 exam. Other findings involving the imaged upper abdomen as described above which may require additional CT abdomen and pelvis followup. A phone call was placed to the emergency department and although these findings do not fall into the critical value category nor do they necessarily fall into the unexpected findings category since the patient has been involved in trauma the findings were discussed with the patient's ER provider, Dr. Breanna Euceda at this time. Electronically Signed by Stu Baugh DO 05/23/2019 11:39 A
[2019-05-23] MEDS ORDERED: DIVALPROEX 500MG *ER* TAB PO ONE (11:15)
[2019-05-23] MEDS: HYDROMORPHONE HCL 0.5 MG/ 0.5 ML SYRINGE (J1170 PER 1) IV PRN ×2 (11:31→13:02)
[2019-05-23] MEDS ORDERED: NORCO, ANEXSIA 5/325MG TABLET (HYDROcodone/ACETAMINOPHEN) PO PRN (12:00)
[2019-05-23] MEDS ORDERED: BISACODYL 10 MG SUPP PR PRN (12:00)
[2019-05-23] MEDS ORDERED: PERCOCET 5MG/325MG TAB PO PRN ×2 (12:00)
[2019-05-23] MEDS ORDERED: ACETAMINOPHEN TAB 650MG DOSE (2X325MG) PO PRN (12:00)
[2019-05-23] MEDS ORDERED: ONDANSETRON 4MG/2ML VIAL (J2405) IV PRN (12:00)
[2019-05-23] MEDS ORDERED: NS 1,000 ML IV SCH ×2 (12:07→23:15)
[2019-05-23] MEDS ORDERED: MORPHINE 1MG/ML IN 0.9% NACL 100ML IV BAG IV PRN (12:15)
[2019-05-23] MEDS ORDERED: diphenhydrAMINE INJ 50MG/ML VIAL (J1200) IV PRN (12:15)
[2019-05-23] MEDS ORDERED: NALBUPHINE HCL 10 MG/ML AMP (J2300) IV PRN (12:15)
[2019-05-23] MEDS ORDERED: NALOXONE INJ 0.4 MG/1 ML VIAL (J2310) IV PRN (12:15)
[2019-05-23] MEDS ORDERED: EPIDURAL/PCA KEYS XX PRN (12:15)
[2019-05-23] MEDS: KCL 20MEQ IN D5/NS 1000ML 1,000 ML IV SCH (13:53)
[2019-05-23] MEDS: KETOROLAC 30 MG/ML VIAL (J1885) IV SCH ×2 (13:54→21:06)
--- NOTE | 2019-05-23 14:51 | CR.PDOC ---
General Date of Consultation: May 23, 2019 Consultation REASON FOR CONSULTATION/CHIEF COMPLAINT: Respiratory distress secondary to multiple right sided rib fracture HISTORY OF PRESENT ILLNESS: Pt is a 68 yo male with PMH of paroxysmal A. fib on eliquis, seizure disorder, and anemia presented to [facility] ER after falling in his bathroom around 2AM this morning. It was noted that patient was drinking with his friend last night and 2 of them shared 3 bottles of wine as well as beer. Pt reported it was mechanical fall as he slipped, denied any lightheadedness, dizziness, vertigo, palpitation, or other prodrome prior to the fall. Patient's who lived next door heard him yelling then saw him laying on the right side on the floor. Patient is unsure if he lost consciousness, and it is unknown how long he has been on the floor after he fell. Denies any confusion after the fall, and there was no seizure activities observed by . Patient was noted to hit left sided of his forehead in addition to the right side of the chest wall. Reported right sided chest wall pain extending to the right sided back which is aggravated with inspiration, movement, breathing, and coughing. He has a medical hx of seizure disorder with the last seizure activity noted in 05/24/09 and denies any recent change of seizure meds. ALLERGIES: Please see below. HOME MEDICATIONS: Please see below. PAST MEDICAL HISTORY: 1. Paroxysmal A. fib 2. Seizure disorder 3. Hyperlipidemia 4. Mild anemia 5. Melena 6. Duodenitis 7. Hiatal hernia 8. Diverticulosis 9. Hemorrhoids 10. Colon polyps 11. Depression/anxiety 12. Brain aneurysm 13. Alcohol use disorder 14. Tobacco use disorder PAST SURGICAL HISTORY: 1. Gamma knife procedure X2, 03/29/2007 and 06/07/2007 2. Upper and lower endoscopy 01/22/2019 SOCIAL HISTORY: Marital status and/or living arrangements: . noted to live next door Tobacco use: 2pk/year for 30 years ETOH: Average 6pk beer per week Illicit drug use: Denies IV drug use: Denies REVIEW OF SYSTEMS: CONSTITUTIONAL: Denies fever or chills HEENT: Hitting left sided forehead CARDIOVASCULAR: Denies palpitation RESPIRATORY: no dyspnea or cough reported MUSCULOSKELETAL: Reported right sided chest wall pain GASTROINTESTINAL: Denies nausea or vomiting. NEUROLOGICAL: seizure disorder history ENDOCRINE: positive for alcohol use HEMATOLOGIC/LYMPHATIC: history of anemia PHYSICAL EXAMINATION: VITAL SIGNS: 89% O2 sat on 12 L oxygen FiO2 35, temp 97.5, HR 107, RR 38 GENERAL APPEARANCE: Alert and awake, appears to be moderate distress HEENT: Head normocephalic, atraumatic, mucosa appears to be dry. Poor dentation. Mallampalti score at 4 although limited examination due to mask and clinical condition. Venturi mask noted on face RESPIRATORY: Paradoxical breathing and splinting. Decreased breath sounds on right. No prolonged expiratory phase. Decreased breath sounds bilaterally worse on right. No rales, rhonchi, or wheezing. CARDIOVASCULAR: Tachycardic, sinus rhythm. No murmur noted ABDOMEN: Soft, bowel sound aus in all 4 quadrants, no guarding or distention EXTREMITIES: Radial pulse pal equally b/l, no obvious leg swelling or edema noted. NEUROLOGICAL: CN2-12 grossly intact. Pt memory grossly intact. Interactive and responds appropriately PSYCHIATRIC: Appropriate to situation LABORATORY DATA: CBC WBC 12.3, Hg 12.1, Hct 39.4, plt 298, MCV 81.4. PT 14.9, INR 1.2 Chest X ray: Multiple displaced right posterior rib fractures. Hiatal hernia and some right hemithorax volume loss Head CT: mild degenerative volume loss. Cervical spine CT: Degenerative spondylosis changes Chest CT without contrast: RLL opacity due to lung contusion vs atelectasis vs possible aspiration pneumonia. Multiple right rib fractures . Large hiatal hernia ASSESSMENT/PLAN: 1. Respiratory distress secondary to flail chest. -paradoxical breathing and splinting noted -high risk for hypoxemic and ventilation failure -currently will attempt aggressive hyperinflation with CPAP set at 10cm H20 -Continue to monitor pulse ox with vital signs -reported flail chest 2/2 mechanical fall from slipping 2. Abnormal chest CT findings -right lower lobe opacity due to lung contusion vs atelectasis vs possible aspi ration pneumonia -multiple right rib fractures -large hiatal hernia -Aggressive hyperventilation with CPAP. Continue to monitor pulse ox and pt's clinical condition. Pt may require BiPAP for ventilatory support -hold eliquis for now. INR 1.2 3. Flail chest/multiple right sided rib fracture -secondary to mechanical fall -pt also noted to drink heavily sharing 3 bottles of wine with a friend in ad dition to beer -currently patient is on NUMEROLOGIST,Toradol, and tylenol for pain control. Plan for epidural analgesia for pain control to prevent prolonged use of NIPPV; Anticipating Sunday as he has been on eliquis with last dose likely on 05/22/19 -Respiratory orders xopenex PRN and albuterol scheduled. Acapella -OOB encourage ambulation 4. Atrial fibrillation -Hold home eliquis -cont home med Carvedilol. Pt currently sinus tachycardia -Continue on tele monitor 5. Seizure disorder -Continue home medication depakote -Seizure precaution -Hospitalist team was consulted, and we appreciate for Dr. Brantley's assist and input. Critical care time spent with this patient was 35 minutes. The above physical findings, imaging results, assessment, and plans were discussed with supervising attending Dr. Greene. Vital Signs/I&O Vital Signs Date Time Temp Pulse Resp B/P (MAP) Pulse Ox O2 Delivery O2 Flow Rate FiO2 05/23/19 13:02 97.5 107 38 150/82 87 12.0 35 05/23/19 10:05 Venturi Mask Laboratory Data Labs 24H Laboratory Tests 2 05/23/19 09:10: Immature Granulocyte % (Auto) 0.8, White Blood Count 12.3H, Red Blood Count 4.84, Hemoglobin 12.1L, Hematocrit 39.4L, Mean Corpuscular Volume 81.4, Mean Corpuscular Hemoglobin 25.0L, Mean Corpuscular Hemoglobin Concent 30.7L, Red Cell Distribution Width 18.4H, Platelet Count 298, Neutrophils (%) (Auto) 69.6H, Lymphocytes (%) (Auto) 13.6L, Monocytes (%) (Auto) 15.7H, Eosinophils (%) (Auto) 0.1, Basophils (%) (Auto) 0.2, Neutrophils # (Auto) 8.5, Lymphocytes # (Auto) 1.7, Monocytes # (Auto) 1.9H, Eosinophils # (Auto) 0.0, Basophils # (Auto) 0.0, Nucleated Red Blood Cells % (auto) 0.0, Prothrombin Time 14.9H, Prothromb Time International Ratio 1.20, Anion Gap 11, Glomerular Filtration Rate > 60.0, Calcium Level 8.9, Aspartate Amino Transf (AST/SGOT) 24, Alanine Aminotransferase (ALT/SGPT) 17, Alkaline Phosphatase 61, Total Bilirubin 0.4, Direct Bilirubin 0.2, Total Protein 7.8, Albumin 3.3, Albumin/Globulin Ratio 0.73L, Thyroid Stimulating Hormone (TSH) 2.120 05/23/19 09:21: POC Glucose (Misc Panel) 139H, POC Sodium (Misc Panel) 139, POC Potassium (Misc Panel) 3.9, POC Chloride (Misc Panel) 103, POC Total CO2 (Misc Panel) 28.0H, POC Blood Urea Nitrogen (Misc Panel 21, POC Ionized Calcium (Misc Panel) 4.6, POC Creatinine (Misc Panel) 0.6, POC Hematocrit (Misc Panel) 40.0 05/23/19 10:03: POC Total CO2 (Misc Panel) 27.0, POC pH (Misc Panel) 7.415, POC Base Excess (Misc Panel) 2.0, POC Saturated Percent O2 (Misc) 90L, POC pO2 (Misc Panel) 58.0L, POC pCO2 (Misc Panel) 40.6, POC HCO3 (Misc Panel) 26.1H CBC/BMP Laboratory Tests 05/23/19 09:10 Red Blood Count 4.84, Mean Corpuscular Volume 81.4, Mean Corpuscular Hemoglobin 25.0 L, Mean Corpuscular Hemoglobin Concent 30.7 L, Red Cell Distribution Width 18.4 H, Neutrophils (%) (Auto) 69.6 H, Lymphocytes (%) (Auto) 13.6 L, Monocytes (%) (Auto) 15.7 H, Eosinophils (%) (Auto) 0.1, Basophils (%) (Auto) 0.2, Neutrophils # (Auto) 8.5, Lymphocytes # (Auto) 1.7, Monocytes # (Auto) 1.9 H, Eosinophils # (Auto) 0.0, Basophils # (Auto) 0.0 Allergies Coded Allergies: No Known Allergies (Verified , 04/05/17) Home Medications Scheduled Apixaban (Eliquis) 5 Mg Tablet, 5 MG PO BID, (Reported) Carvedilol (Carvedilol) 3.125 Mg Tablet, 3.125 MG PO BID, (Reported) Cyanocobalamin (Vitamin B-12) (Vitamin B-12) 1,000 Mcg Tab, 1,000 MCG PO DAILY, (Reported) Divalproex Sodium (Depakote ER) 500 Mg Tab, 500 MG PO BID, (Reported) Duloxetine Hcl (Duloxetine HCl) 60 Mg Capsule.dr, 60 MG PO DAILY, (Reported) Omeprazole (Omeprazole) 40 Mg Capsule.dr, 40 MG PO DAILY, (Reported) Rosuvastatin Calcium (Rosuvastatin Calcium) 40 Mg Tablet, 40 MG PO QHS, (Reported) Scheduled PRN Hydrocodone/Acetaminophen (Hydrocodone-Acetamin 7.5-325) 1 Tab Tab, 1 TAB PO QID PRN for PAIN, (Reported) Hydroxyzine HCl (Hydroxyzine HCl) 10 Mg Tablet, 10 MG PO QHS PRN for SLEEP, (Rep orted) Lorazepam (Ativan) 0.5 Mg Tab, 0.5 MG PO TID PRN for ANXIETY, (Reported) TARUN DENIS DO May 23, 2019 14:51
[2019-05-23] MEDS ORDERED: LORazepam 2 MG TAB PO PRN (15:15)
[2019-05-23] MEDS: LEVALBUTEROL 1.25 MG/0.5 ML CONCENTRATE NEB NEB SCH ×2 (15:35→19:20)
[2019-05-23] MEDS ORDERED: ALBUTEROL SULFATE 2.5 MG/0.5 ML INH NEB SOLN NEB PRN (15:45)
--- NOTE | 2019-05-23 16:24 | CR ---
DATE OF CONSULTATION: 05/23/2019 The patient is seen at the request of Dr. Arora of the emergency room. HISTORY: The history is very difficult to obtain both from the patient and from his . The course of events over the last 24 hours is slightly unclear. He has multiple rib fractures, flail chest with lung contusions. His story perhaps starts last night. Initially, his found him at 2:00 o'clock in the morning on the floor in the bathroom. First it was thought that he had fallen down some steps; however, the does not think that he actually went down the steps but rather fell in the bathroom. Prior to her discovery of him at 2:00 o'clock in the morning, she was sleeping next door. A friend had left a note on the dining room table probably some time in the early evening indicating that Mr. Romo's dinner was ready but the friend who had come to see him could not get him up off the floor. So he has probably been down at least since the early evening yesterday. He managed to yell out his 's name and she heard him next door and came and got him to bed and then called the ambulance after he was complaining that he could not breathe. She also discovered numerous bottles of wine and another type of drink of which I am not familiar. He does smoke and drink. Today when I see him in the emergency room, he is visibly short of breath and audibly wheezing. He is having difficulty talking, although he has been medicated with narcotic IV analgesia. He has known atrial fibrillation for which he is on Eliquis. According to the patient's , he has not had a cough. He smokes up to two packs a day of [place]'s. There is no sputum productions, according to the . He has not complained of chest pain prior to last night's incident. There has been no dysphagia, no weight loss that she knows of. It should be noted that obtaining history from his is also rather difficult. She also does not know if he has had fevers, chills or sweats. PAST MEDICAL ILLNESSES: According to his : 1. Atrial fibrillation. 2. Prior seizures. 3. Perhaps anxiety. PAST SURGICAL HISTORY: Unknown. ALLERGIES: None. MEDICATIONS AT HOME: - Eliquis 5 mg twice a day - carvedilol 3.125 mg twice a day - vitamin B12 1000 mcg daily - Depakote ER 500 mg twice a day - duloxetine 60 mg daily - Frederick 7.5/325 four times a day as needed for pain - hydroxyzine 10 mg as needed for sleep at night - lorazepam 0.5 mg as needed for anxiety three times a day - omeprazole 40 mg daily - Crestor 40 mg at night TRAVEL HISTORY: They have been to [place] and to [place] but nothing on the [facility] or [place]. EXPOSURES: No exposures to tuberculosis. They have a toy poodle at home and a cat. 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 HABITS: Smokes two packs per day of [place]'s. He also has an unknown but sounding as a significant alcohol history. He denies illicit drugs. REVIEW OF SYSTEMS: According to the : CONSTITUTIONAL: Without fevers, chills, sweats or weight loss. EYES: Without diplopia. Without amaurosis fugax. NOSE: Without epistaxis. MOUTH: Has his own teeth. RESPIRATORY: He has chronic obstructive pulmonary disease (COPD). See history of present illness. CARDIAC: Has atrial fibrillation but no prior myocardial infarctions and she denies that he has peripheral edema. GASTROINTESTINAL: Without nausea, vomiting, diarrhea. Does not recall his bowel movements. GENITOURINARY: Without hematuria. ENDOCRINE: Without diabetes. Without thyroid disease. PSYCHIATRIC: With the above depression and anxiety. NEUROLOGIC: He has seizures, which started about 6 years ago at a time when he was probably drinking in a cabin with other people for about 3 days. PHYSICAL EXAMINATION: Well developed, well nourished, 68-year-old white male in acute distress with audible wheezing and not able to complete full sentences. Temperature 97.5, heart rate 102 in sinus tachycardia, blood pressure is 154/89, he is 88% saturated on 12 liters nasal cannula with an FiO2 of 35%. EYES: Pupils are equal, round and reactive to light. Extraocular muscles intact. Sclerae nonicteric. NOSE: Without deformity. MOUTH: Mucous membranes are pink and moist. Lips and commissures without lesions. There is no thrush. NECK: Supple. There is no jugular venous distention (JVD). No subcutaneous emphysema. No thyromegaly or lymphadenopathy. 2+ carotids without bruits. LUNGS: Audible wheezing in both inspiration and expiration. He is tender over the right lateral chest. CARDIAC: Sinus tachycardia. I do not detect murmurs, clicks, gallops or rubs. I cannot feel his point of maximum impulse (PMI). ABDOMEN: Soft, nontender. Bowel sounds are present but hypoactive. There is no hepatomegaly. Costovertebral angle on the right referable to rib fractures. EXTREMITIES: No pretibial edema. No calf tenderness. No differential swelling of the upper extremities. SKIN: Warm, dry and perfused without cyanosis or mottling, including that of the nail beds and knees. NEUROLOGIC: Gross motor and gross sensation intact. Grossly II-XII intact. PSYCHIATRIC: Shows him to be rather somnolent secondary to IV narcotics for pain control. He is able to answer some historical questions. INVESTIGATIONS: His white count is 12.3 with a hemoglobin and hematocrit of 12.1 and 39.4, respectively, with a platelet count of 298. Differential shows 69% neutrophils, 13% lymphocytes, 50% monocytes. There are no immature forms and no toxic granulations. His electrolytes are normal with a BUN and creatinine of 21 and 0.75, glucose of 130, calcium 8.9 with corresponding albumin of 3.3. AST and ALT are normal. PT/INR 14.9 and 1.20, respectively. His chest x-ray shows multiple displaced rib fractures on the right side with volume also on the right side. I do not see any pneumothorax. There is air appearance in the esophagus, although I may be being fooled by the chest wall swelling. His CT scan done this morning shows multiple rib fractures of 3, 4, 5, 6, 7, 8, 9, 10 with flail segments at rib 10, 9, 8, 7, 6 giving him a 6 segment flail. Lung windows show lung contusions and atelectasis of the right lower lobe with probable contra coup lung contusion on the left upper lobe lingula. The atelectasis compression of the right lower lobe is probably a lung contusion. There is some air in the esophagus but not as much as I thought that there was on the chest x-ray. IMPRESSION: 1. Multiple rib fractures. 2. Flail chest. 3. Lung contusions. 4. Expected respiratory failure. 5. Probable alcohol abuse. 6. Tobacco abuse. 7. Atrial fibrillation on Eliquis, now in a sinus rhythm. PLAN/DISCUSSION: While it is difficult to reconstruct the events of last night, U suspect alcohol had something to do with it. It looks as though he probably fell and hit his chest on the bathtub rather than falling down the stairs. The main contributor to rib fractures will be pain control and the fact that he has Eliquis on board, we will not be able to place an epidural for about 2 days until Sunday. I suspect that he will need intermittent BiPAP support or at least CPAP support and I have asked Dr. Greene of pulmonology to see him. This could be a fatal injury. I would treat him expectantly for alcohol withdrawal. At this point in time, he does not need to be on antibiotics. We will try and mobilize him and give him chest expansion therapy, including Acapella, PEP, and incentive spirometry. FRANK
[2019-05-23] MEDS ORDERED: FLUBLOK(EGG FREE)(QUAD)INFLUENZA VACC 0.5ML SYRINGE (90682)18YRS&OLDER IM PRN (16:30)
[2019-05-23] MEDS: THIAMINE 100 MG TAB PO SCH ×2 (17:10→21:05)
--- NOTE | 2019-05-23 17:35 | CR ---
DATE OF CONSULTATION: 05/23/2019 PRIMARY CARE PROVIDER: Unknown. Consult is for the hospitalist group. Hospitalists were consulted by inventory control coordinator for general medical care. The patient had recent hospitalization on 01/19/2019 to 01/22/2019 for acute blood loss anemia, had a history of atrial fibrillation and was anticoagulated with Eliquis prior to that admission. EGD and colonoscopy, small polyps found. No bleeding area found. Had rib pain then from frequent falls and apparently was admitted this time after falling and fracturing multiple ribs with a flail chest. PAST MEDICAL HISTORY: Shows atrial fibrillation, hyperlipidemia, seizure disorder, heavy alcohol abuse. SURGICAL HISTORY: Last history and physical (H and P) says he underwent Gamma knife procedure for a brain aneurysm, I am not sure exactly what was treated there. He was not able to give me a further history today. ALLERGIES: None. SOCIAL HISTORY: Heavy alcohol use. He smokes. HOME MEDICATIONS: - Eliquis 5 mg twice a day - carvedilol 3.125 mg twice a day - vitamin B12 1000 mcg by mouth daily - Depakote extended release (ER)500 mg twice a day - duloxetine 60 mg daily - omeprazole 40 mg daily - rosuvastatin 40 mg daily PHYSICAL EXAMINATION: He has labored respirations in the intensive care unit (ICU). is at the bedside. He is not able to answer questions due to dyspnea. HEENT: Unremarkable. HEART: Regular rhythm, no murmur. No peripheral edema. NECK: No masses. LUNGS: Have rhonchi, decreased breath sounds. Right chest wall is tender to palpate. ABDOMEN: Soft, nontender, no masses. IMPRESSION: 1. Flail chest per inventory control coordinator/Dr. Lomas. 2. Seizure disorder. Continue his Depakote extended release (ER). 3. Recent gastrointestinal (GI) bleed. Nothing was found on upper endoscopy. He is currently receiving ketorolac. He has proton pump inhibitor (PPI) coverage with Protonix. 4. Alcohol abuse. Clinical [place] Withdrawal Assessment (CIWA) protocol has been ordered. 5. Atrial fibrillation. Recommend holding Eliquis until his cardiopulmonary situation stabilizes. Hospitalist will be providing general medical care while in the intensive care unit (ICU) per Dr. Greene's request.
[2019-05-23] MEDS: DIVALPROEX 500MG *ER* TAB PO SCH (21:05)
[2019-05-24] VITALS (183 sets, daily range): BP systolic 65–222; BP diastolic 39–99; O2SAT 100
[2019-05-24] MEDS: LEVALBUTEROL 1.25 MG/0.5 ML CONCENTRATE NEB NEB SCH ×4 (01:15→19:26)
[2019-05-24] MEDS: KCL 20MEQ IN D5/NS 1000ML 1,000 ML IV SCH ×3 (01:48→20:43)
[2019-05-24] MEDS: KETOROLAC 30 MG/ML VIAL (J1885) IV SCH ×4 (01:48→20:44)
[2019-05-24 05:23] LABS: BASO % 0.2 % (0.0-1.0); EOS % 0.2 % (0.0-3.0); HEMATOCRIT 34.4 % (42.0-52.0); HEMOGLOBIN 10.5 g/dl (13.5-17.5); LYMPH # 1.8 10^3/uL (1.5-5.0); LYMPH % 16.4 % (24.0-44.0); MEAN CORPUSCULAR HEMOGLOBIN 24.9 pg (27.0-33.0); MEAN CORPUSCULAR HGB CONC 30.5 g/dl (32.0-36.5); MEAN CORPUSCULAR VOLUME 81.7 fl (80.0-96.0); MONO # 1.5 10^3/uL (0.0-0.8); MONO % 13.4 % (0.0-5.0); NEUTROPHILS # 7.6 10^3/uL (1.5-8.5); NEUTROPHILS % 69.5 % (36.0-66.0); PLATELET COUNT, AUTOMATED 258 10^3/uL (150-450); RED BLOOD COUNT 4.21 10^6/uL (4.30-6.10)
[2019-05-24 05:48] LABS: BLOOD UREA NITROGEN 27 MG/DL (7-18); CALCIUM LEVEL 8.8 MG/DL (8.8-10.2); CARBON DIOXIDE LEVEL 30 MEQ/L (21-32); CHLORIDE LEVEL 105 MEQ/L (98-107); CREATININE FOR GFR 0.71 MG/DL (0.70-1.30); GLOMERULAR FILTRATION RATE > 60.0 (>49); GLUCOSE, FASTING 121 MG/DL (70-100); POTASSIUM SERUM 3.9 MEQ/L (3.5-5.1); SODIUM LEVEL 140 MEQ/L (136-145)
--- NOTE | 2019-05-24 08:47 | REP ---
PA and lateral chest: Comparison is 05/23/2019. The patient is rotated. There are multiple displaced right rib fractures, unchanged. Suspect there is a small pneumothorax medially in the right apex. There is atelectasis inferiorly in the right lung. Left lung is clear. Cardiac size is normal. I suspect there is a large hiatal hernia with an air-fluid level. Impression: Multiple displaced right rib fractures, unchanged. Possible small right apical pneumothorax medially. Large hiatal hernia with air-fluid level. Electronically Signed by Vinnie Ellison MD 05/24/2019 08:39 A
[2019-05-24] MEDS: DOCUSATE SODIUM 100 MG CAP PO SCH ×2 (09:09→20:44)
[2019-05-24] MEDS: MULTIVITAMINS/MINERALS THERAP 1 TAB PO SCH (09:09)
[2019-05-24] MEDS: THIAMINE 100 MG TAB PO SCH ×2 (09:09→20:44)
[2019-05-24] MEDS: FOLIC ACID 1 MG TAB PO SCH (09:09)
[2019-05-24] MEDS: DIVALPROEX 500MG *ER* TAB PO SCH ×2 (09:09→20:44)
[2019-05-24] MEDS: PANTOPRAZOLE 40MG TAB (PROTONIX) PO SCH (09:09)
[2019-05-24] MEDS: MOM 30ML SUSPENSION UDC PO SCH (09:10)
[2019-05-24 09:45] LABS: INR 1.22; PROTHROMBIN TIME 15.2 SECONDS (11.8-14.0)
[2019-05-24 09:46] LABS: PARTIAL THROMBOPLASTIN TIME 35.4 SECONDS (25.0-38.4)
[2019-05-24] MEDS ORDERED: MIDAZOLAM INJ 2 MG/2 ML VIAL (J2250) As Ordered ONE (10:28)
[2019-05-24] MEDS ORDERED: MIDAZOLAM INJ 2 MG/2 ML VIAL (J2250) IV SCH (10:30)
[2019-05-24] MEDS ORDERED: EPIDURAL/PCA KEYS XX PRN ×2 (12:00→20:15)
[2019-05-24] MEDS ORDERED: FENTANYL/BUPIVACAINE BAG 250 ML EPIDURAL SCH (12:00)
[2019-05-24] MEDS ORDERED: diphenhydrAMINE INJ 50MG/ML VIAL (J1200) IV PRN ×2 (12:00→20:15)
[2019-05-24] MEDS ORDERED: METOCLOPRAMIDE INJ 10MG/2ML VIAL (J2765) IV PRN ×2 (12:00→20:15)
[2019-05-24] MEDS ORDERED: WALLBOXKEY XX PRN ×2 (12:00→20:15)
[2019-05-24] MEDS ORDERED: NALOXONE INJ 0.4 MG/1 ML VIAL (J2310) IV PRN ×2 (12:00→20:15)
[2019-05-24] MEDS ORDERED: ONDANSETRON 4MG/2ML VIAL (J2405) IV PRN ×2 (12:00→20:15)
[2019-05-24] MEDS ORDERED: LIDOCAINE 1% MDV 20ML VIAL As Ordered ONE (12:09)
[2019-05-24] MEDS ORDERED: PHENYLEPHRINE INJ 10MG/ML VIAL (J2370) As Ordered ONE (12:50)
[2019-05-24] MEDS: PHENYLEPHRINE INJ 10MG/ML VIAL (J2370) IV PRN ×4 (12:52→13:43)
[2019-05-24] MEDS: PHENYLEPHRINE HCL INJ 50 MG in D5W 500 ML IV SCH ×2 (12:59→14:00)
--- NOTE | 2019-05-24 13:00 | CCN ---
DATE: 05/24/2019 NOTE: Mr. Romo remains sick, critically ill with acute hypoxemic respiratory failure secondary to flail chest. He did well overnight on CPAP therapy with less paradoxical motion of his chest and acceptable oxygen saturations. He did desaturate when placed on nasal cannula to go to x-ray this morning. He is able to take pills. He indicates his pain is reasonably well controlled, but he still has some underlying discomfort. He is using a morphine TERMINAL BLOCK ASSEMBLER pump. The plan is to have an epidural placed today. He denies a significant cough. No chest pressure. No nausea or emesis. No other complaints. His who is present this morning states that she has clarified his history. She states his friend who was cooking dinner him heard him fall and came around to check on him. He was found lying down near the bottom of the stairs. Apparently he told his friend that he wanted to just lie there a few minutes. They have 24 steps and do not know how many of the steps tripped down, but one of the steps was broken. His then heard him yelling out for her and she went and found him naked in the bathroom upstairs with his clothes off. She said his clothes were wet. She is assuming he was trying to take a bath. OBJECTIVE/PHYSICAL EXAMINATION: GENERAL: Mr. Romo is lying in bed synchronous with the CPAP device. VITAL SIGNS: Temperature 97.5, pulse 62, blood pressure 145/75 with a MAP of 98, pulse SpO2 99% on CPAP at 10 cm, H2 an FiO2 of 0.4. HEENT: Anicteric, PERRL. Nares and oropharynx not examined secondary to full face mask. NECK: Supple, without apparent JVD, though exam difficult with straps in place. Trachea is midline. CHEST: Less paradoxical motion on CPAP. LUNGS: Symmetric excursion with less splinting than yesterday, good air entry. No wheeze, rhonchi or significant crackle on exam done anteriorly. Normal I:E. No accessory muscle usage or retractions. CARDIOVASCULAR: Regular rate and rhythm with a normal S1-S2, no murmur, rub or gallop appreciated. ABDOMEN: Positive bowel sounds, soft, nondistended, nontender, no hepatosplenomegaly or masses appreciated. EXTREMITIES: Warm and well-perfused without clubbing, cyanosis or edema. Palpable pedal pulses bilaterally. LABORATORY DATA: INR 1.22, PTT 35.4. CBC shows a hemoglobin of 10.5, hematocrit 34.4, platelet count during 258,000, white blood cell count 11,000 with a differential of 70% neutrophils, 16% lymphocytes and 13% monocytes. Chemistries show sodium 140, potassium 3.9, chloride 105, bicarbonate 30, anion gap 5, BUN 27, creatinine 0.71, glucose 121, calcium 8.8. Yesterday's intake and output showed 1201 in and 400 out making him positive 801. Weight 79.2. Thus far today 540 in and no recorded output. I reviewed his chest x-ray as well as report from earlier today. The film was rotated. There remain multiple displaced right rib fractures. On the lateral view it appears that perhaps there was some improvement in the right lower lobe opacity. There is a hiatal hernia. IMPRESSION: 1. Acute hypoxemic respiratory failure secondary to flail chest. 2. Right lower lobe opacity. Likely contusion and/or atelectasis. Aspiration would be in the differential. 3. Multiple broken ribs after a fall. 4. Atrial fibrillation. 5. Seizure disorder, on Depakote. 6. Atrial fibrillation on carvedilol. Anticoagulation being held secondary to multiple broken ribs. 7. Significant alcohol usage. On the CIWA protocol. On a multivitamin, folate and thiamine. 8. Significant tobacco usage. 9. Deep vein thrombosis (DVT) prophylaxis in place with subcutaneous heparin, sequential compression devices (SCD) and thromboembolic deterrent stockings (TEDS). 10. Stress ulcer prophylaxis with proton pump inhibitor. RECOMMENDATIONS: 1. Will continue on CPAP for the majority of the day. 2. Will try high flow nasal cannula to see if he will be able to eat with that device in place. If not, will need to consider placing an NG tube. This has been discussed with the patient and his . 3. Will add a nicotine patch. 4. Continue on alcohol withdrawal precautions.
[2019-05-24] MEDS ORDERED: LR 500 ML IV ONE (13:45)
[2019-05-24] MEDS ORDERED: ePHEDrine SULFATE 25 MG/5 ML(5MG/ML) SYRINGE As Ordered ONE (13:55)
[2019-05-24 14:41] LABS: ABG BASE EXCESS 2.5 (-2.0-2.0); ABG HCO3 26.2 MEQ/L (22.0-26.0); ABG O2 SATURATION 99.1 % (95.0-99.0); ABG PARTIAL PRESSURE CO2 37.3 mmHg (35.0-45.0); ABG PARTIAL PRESSURE O2 169.9 mmHg (75.0-100.0); ABG STANDARD HCO3 26.7 MEQ/L (22.0-26.0); ABG TOTAL CO2 27.4 MEQ/L (23.0-31.0); ABG pH (ARTERIAL) 7.465 UNITS (7.350-7.450)
[2019-05-24] MEDS: HEPARIN SOD (PORCINE) 5000 UNITS/ML VIAL SC SCH ×2 (14:53→20:43)
[2019-05-24] MEDS: OXAZEPAM 10 MG CAP PO SCH ×2 (14:53→18:40)
[2019-05-24] MEDS: CARVedilol 3.125 MG TAB PO SCH ×2 (14:54→18:40)
[2019-05-24] MEDS ORDERED: MIDAZOLAM INJ 2 MG/2 ML VIAL (J2250) IV ONE ×2 (15:00)
[2019-05-24] MEDS ORDERED: NS 500 ML IV ONE ×2 (15:00→18:30)
[2019-05-24] MEDS: NICOTINE 21MG/24HR 1 EA TRANSDERMAL TD SCH (15:10)
[2019-05-24] MEDS ORDERED: NS 1,000 ML IV SCH (16:45)
[2019-05-24 20:07] LABS: HEMATOCRIT 33.8 % (42.0-52.0); HEMOGLOBIN 10.1 g/dl (13.5-17.5); MEAN CORPUSCULAR HEMOGLOBIN 25.1 pg (27.0-33.0); MEAN CORPUSCULAR HGB CONC 29.9 g/dl (32.0-36.5); MEAN CORPUSCULAR VOLUME 84.1 fl (80.0-96.0); PLATELET COUNT, AUTOMATED 271 10^3/uL (150-450); RED BLOOD COUNT 4.02 10^6/uL (4.30-6.10); WHITE BLOOD COUNT 15.6 10^3/uL (4.0-10.0)
[2019-05-24 20:31] LABS: BLOOD UREA NITROGEN 23 MG/DL (7-18); CALCIUM LEVEL 8.1 MG/DL (8.8-10.2); CARBON DIOXIDE LEVEL 25 MEQ/L (21-32); CHLORIDE LEVEL 106 MEQ/L (98-107); CREATININE FOR GFR 0.87 MG/DL (0.70-1.30); GLOMERULAR FILTRATION RATE > 60.0 (>49); GLUCOSE, FASTING 166 MG/DL (70-100); POTASSIUM SERUM 3.9 MEQ/L (3.5-5.1); SODIUM LEVEL 138 MEQ/L (136-145)
[2019-05-24] MEDS: FENTANYL/BUPIVACAINE/NACL BAG 250 ML EPIDURAL SCH (20:40)
[2019-05-25] VITALS (32 sets, daily range): BP systolic 80–172; BP diastolic 47–74; O2SAT 96–99
[2019-05-25] MEDS: LEVALBUTEROL 1.25 MG/0.5 ML CONCENTRATE NEB NEB SCH ×4 (01:02→19:38)
[2019-05-25] MEDS: KETOROLAC 30 MG/ML VIAL (J1885) IV SCH ×4 (03:09→21:38)
[2019-05-25 05:01] LABS: BASO % 0.3 % (0.0-1.0); EOS # 0.1 10^3/uL (0.0-0.5); EOS % 0.8 % (0.0-3.0); HEMOGLOBIN 8.5 g/dl (13.5-17.5); LYMPH % 22.3 % (24.0-44.0); MEAN CORPUSCULAR HEMOGLOBIN 25.2 pg (27.0-33.0); MEAN CORPUSCULAR HGB CONC 30.4 g/dl (32.0-36.5); MEAN CORPUSCULAR VOLUME 83.1 fl (80.0-96.0); NEUTROPHILS # 5.9 10^3/uL (1.5-8.5); NEUTROPHILS % 65.3 % (36.0-66.0); PLATELET COUNT, AUTOMATED 196 10^3/uL (150-450); RED BLOOD COUNT 3.37 10^6/uL (4.30-6.10)
[2019-05-25 05:22] LABS: BLOOD UREA NITROGEN 23 MG/DL (7-18); CALCIUM LEVEL 7.5 MG/DL (8.8-10.2); CARBON DIOXIDE LEVEL 26 MEQ/L (21-32); CHLORIDE LEVEL 113 MEQ/L (98-107); CREATININE FOR GFR 0.62 MG/DL (0.70-1.30); GLOMERULAR FILTRATION RATE > 60.0 (>49); GLUCOSE, FASTING 106 MG/DL (70-100); POTASSIUM SERUM 4.1 MEQ/L (3.5-5.1); SODIUM LEVEL 144 MEQ/L (136-145)
--- NOTE | 2019-05-25 07:56 | ECGEPIP ---
[facility] - ED Test Date: 2019-05-23 Pat Name: GOOD GOMEZ Department: Room: - Gender: Male Fixture Maker: TC : [id number] Requested By: Breanna Euceda Order Number: [id number] Reading MD: Breanna Euceda Measurements Intervals [place] Rate: 90 P: 36 NH: 152 QRS: 44 QRSD: 91 T: 45 QT: 329 QTc: 404 Interpretive Statements SINUS RHYTHM INCOMPLETE RIGHT BUNDLE BRANCH BLOCK similar to prior EKG 01/19/19 Electronically Signed on 05-25-2019 7:56:08 EDT by Breanna Euceda
--- NOTE | 2019-05-25 08:22 | REP ---
Portable chest, 07:45 p.m., single AP view with the patient semi upright: Comparison is 08:19 a.m. this same date. The suspected pneumothorax medially in the right apex on the comparison study is not identified on the current study. Multiple right rib fractures are again identified. There is an incomplete inspiratory effort with under aeration of the lung bases. The costophrenic angles are mildly effaced as an interval change. This could be from the incomplete inspiratory effort or could represent small bilateral pleural effusions. Cardiac size is normal. The nitesh and mediastinum are unremarkable. There is an epidural catheter as an interval change. Electronically Signed by Vinnie Ellison MD 05/25/2019 08:13 A
--- NOTE | 2019-05-25 08:31 | REP ---
Chest AP and lateral views with the patient sitting: Comparison is 05/24/2019 at 07:45 p.m. There are multiple right rib fractures. The the patient is rotated. There is a small right apical pneumothorax. The costophrenic angles are effaced bilaterally suggesting bilateral pleural fluid collections, effusions versus hemothorax. The left lung is clear. Cardiac size is normal. There is an epidural catheter. Impression: Small right apical pneumothorax. Bilateral pleural fluid collections. Multiple right rib fractures. Electronically Signed by Vinnie Ellison MD 05/25/2019 08:22 A
[2019-05-25] MEDS: NICOTINE 21MG/24HR 1 EA TRANSDERMAL TD SCH (09:00)
--- NOTE | 2019-05-25 09:07 | IPN ---
DATE OF SERVICE: 05/24/2019 Mr. Romo got his epidural done today by Dr. Salmeron. Throughout the day, his pain has been well controlled, however he has been hypotensive. He is doubly concentrated and Dr. Ashton has opted to drop it back down to a single concentration fentanyl. On the duller concentration, he is absolutely pain free at 6 mL/hr. His vital signs show a T-max of 98.9 with a heart rate that ranges between 59 and 62 in sinus rhythm, respiratory rate of 16-24 on CPAP of 10 on FiO2 of 60%. His intake and output over the past 24 hours has been 1200 in and 400 out for a positivity of 800 mL. Since 12 midnight and for the past 20 hours, he has had 311 in and 238 out for a positivity of merely 3 liters. His urine output is hovering around 25-30 mL/hr. His total urine output has been only 238 mL. There is no weight on him today. On physical examination, I hear breath sounds with equal entry on either side on his CPAP. He has inspiratory rales on the right side. Percussion note is full to the diaphragm. He does have a chest paradox consistent with his flail on the lateral chest wall. This is more evident posteriorly. Percussion notes are full to the diaphragm. Cardiac exam is without murmurs, clicks, gallops or rubs. I cannot feel his PMI. S1 and S2 are normal. Abdomen is soft, nontender, bowel sounds are positive but hypoactive. He is tympanic however and slightly distended. He has been passing flatus. Extremities show no pretibial edema. No calf tenderness. No differential swelling of the upper extremities. Skin is warm, dry and perfused without cyanosis or mottling including that of the nail beds and knees. Neck is supple. There is no jugular venous distention. No subcutaneous emphysema. Trachea is midline. Mouth shows his mucous membranes to be pink and moist. Lips and commissures are without lesions. No thrush. Eyes show his pupils to be equal and reactive. Extraocular motor intact. Sclera anicteric. Neuro shows II through XII intact with gross motor and gross sensation intact. Gait is not tested. Psychiatric shows him to be awake and alert, and able to answer questions through his CPAP mask. His white count this morning was 11.0 with hemoglobin and hematocrit of 10.5 and 34.4, platelet count of 258 and stable. Differential shows 69% neutrophils, 16% lymphocytes, 13% monocytes. There are no immature forms. No toxic granulations. His electrolytes are essentially normal with a BUN and creatinine of 27 and 0.71, glucose of 121 and calcium of 8.8. PT/INR 15.2 and 1.22 respectively with a PTT of 35 seconds. Blood gases this morning show a pH of 7.46, pCO2 of 37, pO2 of 169, on the above oxygen settings, the base excess of 2.5. His chest x-ray this morning shows that he is quite rotated. I do not actually see a pneumothorax. I think that he is just rotated giving the impression of an air space. He has multiple fractured displaced ribs. On a chest x-ray this evening when he was hypotensive, his lung is again fully expanded to the chest wall. There is minimal blunting of the right costophrenic angle. He has multiple rib fractures and there is no evidence of pneumothorax and there is no subcutaneous emphysema. IMPRESSION: 1. Multiple rib fractures. 2. Flail chest both right side. 3. Lung contusion. 4. Expected respiratory failure on CPAP now. 5. Probable alcohol abuse. 6. Prior tobacco abuse. 7. History of atrial fibrillation. 8. History of prior seizures. 9. Hypoxia. PLAN AND DISCUSSION: I came in this evening to look at his chest x-ray. I was concerned with his hypotension and not responding to fluid challenges or to phenylephrine, I was concerned there was going to be a large hemothorax. His chest x-ray, however, shows his lung fully expanded to the chest wall with only minimal blunting of the right costophrenic angle. With decrease in concentration in the epidural by Dr. Salmeron, his blood pressure is improved. We will continue on the same course. He is on Toradol and I have reordered creatinine this evening along with a hemoglobin and hematocrit which I suspect is going to be decreased from hemodilution.
[2019-05-25] MEDS: PANTOPRAZOLE 40MG TAB (PROTONIX) PO SCH (09:38)
[2019-05-25] MEDS: HEPARIN SOD (PORCINE) 5000 UNITS/ML VIAL SC SCH ×2 (09:38→21:39)
[2019-05-25] MEDS: THIAMINE 100 MG TAB PO SCH ×2 (09:38→21:38)
[2019-05-25] MEDS: DOCUSATE SODIUM 100 MG CAP PO SCH ×2 (09:38→21:38)
[2019-05-25] MEDS: MULTIVITAMINS/MINERALS THERAP 1 TAB PO SCH (09:38)
[2019-05-25] MEDS: OXAZEPAM 10 MG CAP PO SCH ×3 (09:39→21:38)
[2019-05-25] MEDS: DIVALPROEX 500MG *ER* TAB PO SCH ×2 (09:39→21:39)
[2019-05-25] MEDS: MOM 30ML SUSPENSION UDC PO SCH (09:39)
[2019-05-25] MEDS: FOLIC ACID 1 MG TAB PO SCH (09:39)
[2019-05-25] MEDS: KCL 20MEQ IN D5/NS 1000ML 1,000 ML IV SCH (09:42)
[2019-05-25] MEDS ORDERED: FUROSEMIDE 20 MG/2 ML VIAL (J1940) IV ONE (10:30)
--- NOTE | 2019-05-25 11:06 | IPN ---
DATE: 05/25/2019 This is now the second hospital day for Mr. Romo. He had some difficulty with pain last night but the epidural was increased. He still remains relatively hypotensive, but the phenylephrine is off, and his current blood pressure is in the low 100s systolically. He is coughing but not bringing up any sputum. He sounds as though he has a lot of mucous within his tracheobronchial tree that he is not mobilizing. Urine output has been adequate but marginal. On physical examination, is maximum temperature (T max) is 98.6 with a heart rate that ranges between 55 and 61 and is sinus rhythm, respiratory rate of 18 to 24 without the use of accessory muscles, who is 99% saturated now on 40% FiO2. His blood pressure is ranging between 87/47 to presently 105/58. His intake and output the past 24 hours has been recorded as 4653 in and 408 out for a positivity of 4200 mL. He weighs 79.4 kg today compared to 79.2 kg on 05/23/2019. On physical examination, he has bilateral rhonchi, which do not clear with coughing on both sides. These occurred during expiration and inspiration. I do not hear any wheezing. Percussion note is full to the diaphragm. Cardiac exam is without murmurs, clicks, gallops or rubs. I cannot feel his point of maximum impulse (PMI). S1, S2 are normal. Abdomen is soft and nontender. Bowel sounds are positive. He is slightly distended and tympanitic. Extremities show trace pretibial edema. No calf tenderness. No differential swelling of the upper extremities. His skin is warm, dry and perfused without cyanosis or mottling, including that of the nail beds and the knees. Neck is supple. There is no jugular venous distention, no subcutaneous emphysema. Trachea is midline. Mouth shows his mucous membranes to be pink and moist. Lips and commissures without lesions. There is no thrush. Eyes show his pupils to be equal and reactive. Extraocular motions intact. Sclerae anicteric. Neurologic shows II-XII intact along with gross motor and gross sensation intact. Gait is not tested. Psychiatric shows him to be awake and alert, oriented times three. His white count today is 9.0 down from 15.6 yesterday. Hemoglobin and hematocrit is 8.5 and 28.0, down from 10.5 and 34.4 yesterday secondary to hemodilution. Platelet count is 196. Differential shows 65% neutrophils, 22% lymphocytes, and 11% monocytes. There are no immature forms. No toxic granulations. His electrolytes are essentially normal with a BUN and creatinine of 23 and 0.62, improved from 23 and 0.87 yesterday. Glucose is 106 with a calcium of 7.5. His chest x-ray is done AP/lateral today with the plate behind his back rather than anterior to his chest. It does show a left pleural effusion. The lung is expanded to the chest wall. There looks to be a small pneumothorax now at the apical portion of the right lung. There is no subcutaneous emphysema, however. He has some atelectatic changes in the right lower lobe. IMPRESSION: 1. Multiple rib fractures. 2. Flail chest on right side. 3. Lung contusion. 4. Respiratory failure, hypoxia. 5. Alcohol abuse. 6. Prior tobacco abuse. 7. History of atrial fibrillation, in sinus rhythm now. 8. History of prior seizures. 9. Hypoxia. 10. New left pleural effusion. PLAN AND DISCUSSION: I am going to gently diurese him with 20 mg of IV Lasix. His BUN and creatinine are acceptable. I am gratified that he does not have a large right-sided hemothorax. The purists would critique me for starting to diurese him considering that he is probably vasodilated from his epidural. I have asked them to use the phenylephrine as needed for a blood pressure less than 100 systolic. I will also start him on hypertonic saline nebs to get him to mobilize his secretions.
[2019-05-25] MEDS: SODIUM CHLORIDE HYPERTONIC 3% 15ML NEB SOL INH SCH ×4 (11:32→23:59)
[2019-05-25] MEDS: CARVedilol 3.125 MG TAB PO SCH ×2 (12:00→23:56)
[2019-05-25] MEDS: LR 1,000 ML IV SCH ×2 (12:52→23:56)
--- NOTE | 2019-05-25 13:23 | CCN ---
DATE: 05/25/2019 CRITICAL CARE NOTE NOTE: Mr. Romo remains critically ill with acute respiratory failure secondary to flail chest. Yesterday he had an epidural placed. Following that procedure, there were time periods when he was hypotensive. He was also likely intravascularly dry as he had not eaten in over 36 hours and had been using alcohol. He, therefore, was given 1.5 total liter bolus. He also had adjustments in his epidural. He was on Brijesh-Synephrine until around 6:00 a.m. His pain is now well controlled. He has been started on Serax, which was held yesterday because of his hypotension. His heart rate is in the 60s, so his carvedilol is still held. He is sleeping comfortably. He arouses to voice. He has a good cough and has been using the Acapella. No other concerns expressed. OBJECTIVE: PHYSICAL EXAMINATION General: Ms. Romo is lying in bed in no acute distress. He is on 2 liters. He has reasonable chest movement and is not significantly paradoxical. Vital signs: Temperature 97.6 with a maximum temperature (T max) of 98.6, pulse 67, respiratory rate 20, blood pressure 133/64 with a mean arterial pressure (MAP) of 87, SPO2 of 97% on 2 liters. HEENT: Anicteric, pupils equal, round, and reactive to light and accommodation. Nares: Patent bilaterally with moist mucosa. Oropharynx: Clear, moist mucosa. Neck: Supple, without jugular venous distention (JVD), without thyromegaly or masses, trachea is midline. Lungs: Symmetric excursion, fair air entry, scattered rhonchi. No wheeze or crackle (anteriorly). Normal I:E. No accessory muscle usage or retractions. Cardiovascular: Regular rate and rhythm with a normal S1, S2. No murmur, rub or gallop appreciated. Abdomen: Positive bowel sounds, soft, nondistended, nontender, no hepatosplenomegaly or masses appreciated. Extremities: Warm and well perfused, without clubbing, cyanosis, or edema. LABORATORY DATA: CBC from this morning showed a hemoglobin of 8.5, hematocrit 28.0, platelet count 196,000, white blood cell count 9000 with a differential of 65% neutrophils, 22% lymphocytes, 11% monocytes. Chemistry shows sodium 144, potassium 4.1, chloride 113, bicarbonate 26, anion gap 5, BUN 23, creatinine 0.6, glucose 106, calcium 7.5. Yesterday's intake and output were 4653 in and 408 out making him positive 4245. Thus far today 1923 in and 1335 out making him positive 588. Weight 79.4 kg. Yesterday's Gram stain shows a good quality with many WBCs and few gram-positive cocci in pairs, chains and clusters. Culture is pending. Procalcitonin is pending. I reviewed his chest x-ray as well as the report from earlier today. That x-ray showed normal appearing cardiac silhouette and pulmonary vascular shadows. There are bilateral tiny effusions. Otherwise the left lung is clear. The right lung shows a small apical pneumothorax and multiple rib fractures. There is also slight opacity in the right lower lobe. IMPRESSION: 1. Acute hypoxemic respiratory failure secondary to flail chest. 2. Right lower lobe opacity. Likely contusion and/or atelectasis. Aspiration pneumonitis is in the differential. 3. Multiple broken ribs after a fall. 4. History of atrial fibrillation, in sinus rhythm. Off anticoagulation. 5. Seizure disorder, on Depakote. 6. Significant alcohol usage, on Clinical [place] Withdrawal Assessment (CIWA) protocol. Also on multivitamin, folate and thiamine. 7. Significant tobacco usage, on nicotine patch. 8. Deep vein thrombosis (DVT) prophylaxis and stress ulcer prophylaxis in place. 9. Anemia. I suspect that this is dilutional as I suspect he was mildly dehydrated when he came in, and he was given fluids yesterday as part of the response to his hypotension. RECOMMENDATIONS: 1. Agree with gentle diuresis. 2. Will change his continuous positive airway pressure (CPAP) to hyperinflation therapy. He will, therefore, receive 20 minutes at a pressure of 10 cm of water four times daily, and this could be used as needed. I have spoken to nursing to institute it should he start having more paradoxical movement in his chest or get hypoxemic. 3. Encourage oral intake. 4. Will change his IV fluid to lactated Ringer's (LR) given his hyperkalemic metabolic acidosis, but will decrease the rate. We continue to decrease the rate as he increases oral intake. 5. Await procalcitonin level. If it is elevated, would consider starting antibiotics, although he now has a normal white count and no temperature. Also would consider antibiotics depending upon the quantity of growth if there is any growth on his sputum culture.
[2019-05-25] MEDS: FENTANYL/BUPIVACAINE/NACL BAG 250 ML EPIDURAL SCH (15:17)
[2019-05-25 17:16] LABS: MAGNESIUM LEVEL 1.9 MG/DL (1.8-2.4); POTASSIUM SERUM 4.1 MEQ/L (3.5-5.1)
[2019-05-25] MEDS ORDERED: KETOROLAC 30 MG/ML VIAL (J1885) IV ONE (18:30)
[2019-05-25] MEDS: LEVALBUTEROL 1.25 MG/0.5 ML CONCENTRATE NEB NEB PRN (23:58)
[2019-05-26] VITALS (26 sets, daily range): BP systolic 124–191; BP diastolic 59–86
[2019-05-26] MEDS: KETOROLAC 30 MG/ML VIAL (J1885) IV SCH ×4 (01:04→19:26)
[2019-05-26] MEDS: LEVALBUTEROL 1.25 MG/0.5 ML CONCENTRATE NEB NEB SCH ×4 (02:00→20:05)
[2019-05-26] MEDS: LEVALBUTEROL 1.25 MG/0.5 ML CONCENTRATE NEB NEB PRN (05:09)
[2019-05-26] MEDS: SODIUM CHLORIDE HYPERTONIC 3% 15ML NEB SOL INH SCH ×5 (05:09→23:37)
[2019-05-26 05:22] LABS: BASO % 0.4 % (0.0-1.0); EOS # 0.3 10^3/uL (0.0-0.5); EOS % 2.6 % (0.0-3.0); HEMATOCRIT 28.5 % (42.0-52.0); HEMOGLOBIN 8.8 g/dl (13.5-17.5); LYMPH # 3.3 10^3/uL (1.5-5.0); LYMPH % 33.9 % (24.0-44.0); MEAN CORPUSCULAR HEMOGLOBIN 25.3 pg (27.0-33.0); MEAN CORPUSCULAR HGB CONC 30.9 g/dl (32.0-36.5); MEAN CORPUSCULAR VOLUME 81.9 fl (80.0-96.0); MONO # 1.1 10^3/uL (0.0-0.8); MONO % 11.2 % (0.0-5.0); NEUTROPHILS # 4.9 10^3/uL (1.5-8.5); NEUTROPHILS % 51.4 % (36.0-66.0); PLATELET COUNT, AUTOMATED 210 10^3/uL (150-450); RED BLOOD COUNT 3.48 10^6/uL (4.30-6.10); WHITE BLOOD COUNT 9.6 10^3/uL (4.0-10.0)
[2019-05-26 05:36] LABS: BLOOD UREA NITROGEN 20 MG/DL (7-18); CALCIUM LEVEL 7.8 MG/DL (8.8-10.2); CARBON DIOXIDE LEVEL 27 MEQ/L (21-32); CHLORIDE LEVEL 111 MEQ/L (98-107); CREATININE FOR GFR 0.66 MG/DL (0.70-1.30); GLOMERULAR FILTRATION RATE > 60.0 (>49); GLUCOSE, FASTING 88 MG/DL (70-100); POTASSIUM SERUM 4.2 MEQ/L (3.5-5.1); SODIUM LEVEL 143 MEQ/L (136-145)
[2019-05-26] MEDS: FENTANYL/BUPIVACAINE/NACL BAG 250 ML EPIDURAL SCH (07:15)
[2019-05-26] MEDS ORDERED: LIDOCAINE 2% W/EPIN INJ 20ML **PRES FREE As Ordered ONE (07:36)
[2019-05-26] MEDS ORDERED: MIRALAX *UNIT DOSE* 17GM PACKET PO PRN (11:00)
[2019-05-26] MEDS: NICOTINE 21MG/24HR 1 EA TRANSDERMAL TD SCH (11:12)
[2019-05-26] MEDS: DOCUSATE SODIUM 100 MG CAP PO SCH ×2 (11:24→20:24)
[2019-05-26] MEDS: MULTIVITAMINS/MINERALS THERAP 1 TAB PO SCH (11:24)
[2019-05-26] MEDS: THIAMINE 100 MG TAB PO SCH (11:24)
[2019-05-26] MEDS: PANTOPRAZOLE 40MG TAB (PROTONIX) PO SCH (11:25)
[2019-05-26] MEDS: CARVedilol 3.125 MG TAB PO SCH (11:25)
[2019-05-26] MEDS: FOLIC ACID 1 MG TAB PO SCH (11:26)
[2019-05-26] MEDS: HEPARIN SOD (PORCINE) 5000 UNITS/ML VIAL SC SCH (11:26)
[2019-05-26] MEDS: OXAZEPAM 10 MG CAP PO SCH ×2 (11:26→20:25)
[2019-05-26] MEDS: DIVALPROEX 500MG *ER* TAB PO SCH ×2 (11:26→20:25)
[2019-05-26] MEDS: MOM 30ML SUSPENSION UDC PO SCH (11:26)
--- NOTE | 2019-05-26 11:38 | REP ---
MRI THORACIC SPINE WITHOUT CONTRAST: HISTORY: Pain. Question hematoma. Multiple right rib fractures with flail chest. Two days status post epidural catheter placement. Comparison is made with images from chest CT May 23, 2019. TECHNIQUE: Sagittal and axial T1- and T2-weighted scans are acquired in the usual fashion with and without fat saturation. Sequences include spin echo, turbo spin echo, and STIR imaging sequences. MRI FINDINGS: Thoracic kyphosis is exaggerated. There is a mild thoracic scoliotic curvature as well. Thoracic vertebral body heights are preserved. No thoracic vertebral body fracture is seen. STIR images show no evidence of ligament disruption. There is however a fairly large elongate dorsal epidural complex fluid collection with areas of T2 hypointensity consistent with blood breakdown products. This dorsal epidural collection extends from the level of the T1-2 disc proximally throughout the thoracic spine to the level of the dorsal aspect of the lumbar canal at the L1 level. Axial T2 images demonstrate compression of the thecal sac to some degree throughout this distribution. There is cord compression and dorsal deformity in the mid thoracic spine at T5-T6. Seen at T3-T4 and T2-3. The findings compatible with a epidural hematoma. I cannot definitely resolve the epidural catheter itself. There is no visible thoracic disc protrusion. Thoracic kyphosis is somewhat exaggerated as seen on the chest CT. No neural foraminal encroachment is appreciated. IMPRESSION: Large dorsally distributed epidural fluid collection consistent with hematoma extending from the T1-2 disc proximally to the L1 vertebral body level distally. There is extensive thecal sac compression. There is cord compression visible from T2-3 through T5-6. Electronically Signed by Robles Mendoza MD 05/26/2019 03:04 P
--- NOTE | 2019-05-26 11:56 | REP ---
PA and lateral chest: Comparison is 05/25/2019. Multiple right rib fractures are again identified, unchanged. There is a small right apical pneumothorax, unchanged. Small right pleural fluid collection, unchanged. The left pleural fluid collection has decreased. Atelectasis inferiorly in the left lung as an interval change. Epidural catheter, unchanged. The patient is rotated. Electronically Signed by Vinnie Ellison MD 05/26/2019 11:48 A
--- NOTE | 2019-05-26 11:59 | CCN ---
DATE: 05/26/2019 Patient is examined at the bedside with in the room. He reported 10/10 sharp pain at the site of the epidural when he receives pain medication. At the time of examination, he reports no pain at the site of the epidural. The patient also reports intermittent right sided chest wall pain at the posterior aspect when he coughs or takes in a deep breath. At the time of examination, he reports no chest wall pain. The patient has been doing well with his CPAP hyperinflation therapy. He denies any numbness, tingling, loss of sensation or weakness in any parts of the body. The patient also denies any other complaints including fever, chills, shortness of breath/dyspnea, chest pain or diarrhea. He reported constipation stating that he has not had a bowel movement since admission. OBJECTIVE/PHYSICAL EXAMINATION: Vitals: Pulse 56, respiratory rate 18, pulse oximetry 93% on room air, blood pressure 163/72. The patient is lying on the bed in left lateral recumbent position, without any acute distress. HEENT: Head normocephalic, atraumatic. No scleral icterus. Pupils equal and round. Nares are patent bilaterally with moist mucosa. Neck: Supple. No jugular venous distention (JVD). No obvious thyromegaly noted. Trachea midline. Lungs: Scattered rhonchi. Symmetric excursion with fair air entry. No wheezing or crackles noted. Normal I:E ratio. No accessory muscle use or retractions. Cardiovascular: Regular rhythm. Regular rate at the time of auscultation. Normal S1 and S2. No murmurs, rubs or gallops. Abdomen: Mild hypoactive bowel sounds auscultated in all four quadrants. No tenderness, guarding or distention noted. Extremities: Well perfused and warm. No obvious clubbing or cyanosis noted. Bilateral radial pulses equal, palpated. Neurological: Patient following commands and moving all 4 extremities. CN 2-12 grossly intact. No numbness, tingling, or loss of sensation upon touch in bilateral upper and lower extremities. Patient able to move his torso as well. LABS: CBC from May 26 in the morning show WBC 9.6, hemoglobin 8.8, hematocrit 8.5, platelets 210. Chemistries/BMP - sodium 143, potassium 4.2, chloride 111, carbon dioxide 27, anion gap 5, BUN 20, creatinine 0.66, GFR greater than 60, fasting glucose 88, calcium 7.8. Sputum gram stain showed many white blood cells with few gram positive cocci in pairs, chains and clusters. CXR 05/26/19 showed atelectasis in left lower lobe with small bilateral pleural effusions. Formal radiology report pending MRI thoracic spine pending. IMPRESSION: 1. Acute hypoxemic respiratory failure secondary to flail chest. 2. Right lower lobe opacity likely contusion versus atelectasis. 3. Multiple broken ribs secondary to mechanical fall. 4. History of atrial fibrillation, currently in sinus rhythm. Anticoagulation with Eliquis held. 5. Seizure disorder on Depakote. 6. Alcohol use disorder on CIWA, multivitamin, folate and thiamine. 7. Tobacco use disorder on nicotine patch. 8. Questionable epidural hematoma in thoracic spine region. MRI of thoracic spine pending. 9. Normocytic anemia which appears to be stable. Hemoglobin drop 05/25/2019 is likely secondary to volume expansion Patient suspected to be mildly dehydrated upon admission. Status post fluid bolus on 05/24/2019. RECOMMENDATIONS: Patient will remain on CPAP for hyperinflation therapy, 20 minutes with CPAP pressure 10 cm of water four times daily. Nursing staff instructed to keep an eye on paradoxical chest movements or splinting. Patient will remain on Lactated Ringer's at a rate of 17 mL/hour with encouraged by mouth intake. The patient's procalcitonin level returned to 0.08, thus it is unlikely that he has aspiration pneumonia. At this time we will not start the patient on antibiotics. The patient's sputum culture showed gram positive cocci in pairs, chains and clusters, however it is questionable if this is oral tim as the patient's procalcitonin is 0.08. Deep vein thrombosis (DVT) prophylaxis. The patient is on sequential compression devices (SCD) and thromboembolic deterrent stockings (TEDS). The patient is also on heparin 5000 units subcu every 12 hours. Will consider to discontinue subcu heparin if MRI of the thoracic spine confirms epidural hematoma. Gastrointestinal (GI) prophylaxis. Protonix 40 mg by mouth daily. Diet. Regular diet. MTDD
[2019-05-26] MEDS ORDERED: BISACODYL 10 MG SUPP PR PRN (12:00)
[2019-05-26] MEDS ORDERED: NALBUPHINE HCL 10 MG/ML AMP (J2300) IV PRN (14:15)
[2019-05-26] MEDS ORDERED: EPIDURAL/PCA KEYS XX PRN (14:15)
[2019-05-26] MEDS ORDERED: diphenhydrAMINE INJ 50MG/ML VIAL (J1200) IV PRN (14:15)
[2019-05-26] MEDS ORDERED: NALOXONE INJ 0.4 MG/1 ML VIAL (J2310) IV PRN (14:15)
[2019-05-26] MEDS ORDERED: ONDANSETRON 4MG/2ML VIAL (J2405) IV PRN (14:15)
[2019-05-26] MEDS: LR 1,000 ML IV SCH (14:34)
[2019-05-26] MEDS ORDERED: MORPHINE 1MG/ML IN 0.9% NACL 100ML IV BAG IV PRN (16:00)
--- NOTE | 2019-05-26 20:26 | IPN ---
DATE: 05/26/2019 This morning, Dr. Ruth went to check the epidural and upon injecting the epidural, the patient had excruciating pain. That led him to suspect an epidural hematoma and indeed a MRI was obtained emergently, which showed a linear hematoma. He is neurologically intact. The epidural has been discontinued, and he is now on a PRESSROOM SUPERVISOR morphine pump. His vital signs show a maximum temperature (t-max) of 98.4, with a heart rate that ranges between 51 and 59 in a sinus rhythm, respiratory rate of 16 to 19 without the use of accessory muscles, who is 95 to 97% saturated on 2 liters cannula, and whose blood pressure is ranging between 191/86 to 149/70. His intake and output over the past 24 hours has been recorded as 3158 in and 1570 out for a positivity of 1588 mL. He has put out 1570 mL in urine output. He has taken in 750 mL in oral intake. PHYSICAL EXAMINATION: LUNGS: His lungs show crackles and decreased excursion on the right side. He has tenderness along the posterolateral chest wall. Percussion note is full to the diaphragm. CARDIAC EXAM: Without murmurs, clicks, gallops or rubs. I cannot feel his point of maximum impulse (PMI). S1, S2 are normal. ABDOMEN: Soft, nontender. Bowel sounds positive but hypoactive. He has not yet had a bowel movement. EXTREMITIES: Show no pretibial edema. No calf tenderness. No differential swelling of the upper extremities. SKIN: Warm, dry and perfused without cyanosis or mottling, including that of the nail beds and knees. NECK: Supple. There is no jugular venous distention. No subcutaneous emphysema. Trachea is midline. MOUTH: Shows his mucous membranes to be pink and moist. Lips and commissures without lesions. There is no thrush. EYES: Show his pupils to be equal and reactive. Extraocular motion intact. Sclerae anicteric. NEUROLOGIC: Shows II through XII intact with gross motor and gross sensation intact. Gait is not tested. It is notable that his neuro examination is within normal limits. There is no sensory deficit in his lower legs, nor is there motor deficit. PSYCHIATRIC: Shows him to be awake and alert, oriented times three. LABORATORY DATA: His white count today is 9.6 with a hemoglobin and hematocrit of 8.8 and 28.5, essentially unchanged from yesterday with a platelet count of 210 and stable. Differential shows 51% neutrophils, 33% lymphocytes, 11% monocytes. There are no immature forms and no toxic granulations. His electrolytes are essentially normal with a BUN and creatinine of 20 and 0.66, unchanged from yesterday, with a glucose of 88 and calcium of 7.8. There are no blood gases on him today. His chest x-ray done PA and lateral with a proper PA film shows multiple displaced rib fractures. Costophrenic angle on the right side is slightly blunted, and he has atelectatic changes in the left lower base. He is rotated. I do not see any infiltrates. His MRI of his thoracic spine is discussed above. His white count today is 9.0 down from 15.6 yesterday. Hemoglobin and hematocrit is 8.5 and 28.0, down from 10.5 and 34.4 yesterday secondary to hemodilution. Platelet count is 196. Differential shows 65% neutrophils, 22% lymphocytes, and 11% monocytes. There are no immature forms. No toxic granulations. His electrolytes are essentially normal with a BUN and creatinine of 23 and 0.62, improved from 23 and 0.87 yesterday. Glucose is 106 with a calcium of 7.5. His chest x-ray is done AP/lateral today with the plate behind his back rather than anterior to his chest. It does show a left pleural effusion. The lung is expanded to the chest wall. There looks to be a small pneumothorax now at the apical portion of the right lung. There is no subcutaneous emphysema, however. He has some atelectatic changes in the right lower lobe. IMPRESSION: 1. Multiple displaced rib fractures. 2. Flail chest. 3. Lung contusion. 4. Respiratory failure, hypoxia, improving. 5. Alcohol abuse. 6. Prior tobacco abuse. 7. History of atrial fibrillation, in sinus rhythm now. 8. History of prior seizures. 9. Hypoxia. 10. New left pleural effusion. 11. Epidural hematoma. PLAN AND DISCUSSION: Again, the linchpin of his treatment is going to be pain control. He can no longer use the epidural and we have therefore converted him to a PRESSROOM SUPERVISOR pump. He is continuing on CPAP four times a day. I would recommend that we decrease his IV intake and start to diurese him. We need to get him up out of bed.
[2019-05-27] VITALS (8 sets, daily range): BP systolic 136–161; BP diastolic 65–116
[2019-05-27] MEDS: KETOROLAC 30 MG/ML VIAL (J1885) IV SCH ×4 (01:15→20:21)
[2019-05-27] MEDS ORDERED: FUROSEMIDE 20 MG/2 ML VIAL (J1940) IV ONE ×2 (02:15→05:15)
[2019-05-27] MEDS: SODIUM CHLORIDE HYPERTONIC 3% 15ML NEB SOL INH SCH ×5 (02:19→19:22)
[2019-05-27] MEDS: LEVALBUTEROL 1.25 MG/0.5 ML CONCENTRATE NEB NEB SCH ×4 (02:19→19:22)
--- NOTE | 2019-05-27 03:46 | REPVR ---
PROCEDURE INFORMATION: Exam: XR Chest, 1 View Exam date and time: 05/27/2019 3:13 AM Clinical history: 68 years old, male; Shortness of breath; Patient HX: FX ribs right side; Additional info: Increase in o2 supplementation needs w/ flail chest dx TECHNIQUE: Imaging protocol: XR of the chest Views: 1 view. COMPARISON: CR Chest, 2 view PA, Lat 05/26/2019 9:42 AM FINDINGS: Lungs: Decreased left base atelectasis since the prior study. Increased right base infiltrate and atelectasis. Pleural space: Increased right subpleural thickening and right pleural effusion. Heart/Mediastinum: The heart and mediastinum are essentially unchanged. Bones/joints: The osseous structures are unchanged with multiple right rib fractures. Other findings: Rotation to the left. IMPRESSION: 1. Increased right subpleural thickening, right pleural effusion and right base infiltrate and atelectasis since 05/26/2019. 2. Decreased left base atelectasis since the prior study. 3. Otherwise essentially stable chest. Electronically signed by: Dimitry Strickland On 05/27/2019 03:46:12 AM
[2019-05-27 05:37] LABS: BLOOD UREA NITROGEN 16 MG/DL (7-18); CALCIUM LEVEL 8.4 MG/DL (8.8-10.2); CARBON DIOXIDE LEVEL 28 MEQ/L (21-32); CHLORIDE LEVEL 104 MEQ/L (98-107); CREATININE FOR GFR 0.61 MG/DL (0.70-1.30); GLOMERULAR FILTRATION RATE > 60.0 (>49); GLUCOSE, FASTING 100 MG/DL (70-100); POTASSIUM SERUM 4.2 MEQ/L (3.5-5.1); SODIUM LEVEL 139 MEQ/L (136-145)
[2019-05-27 05:38] LABS: BASO % 0.3 % (0.0-1.0); EOS # 0.4 10^3/uL (0.0-0.5); EOS % 3.8 % (0.0-3.0); HEMATOCRIT 32.5 % (42.0-52.0); LYMPH # 2.1 10^3/uL (1.5-5.0); LYMPH % 22.2 % (24.0-44.0); MEAN CORPUSCULAR HGB CONC 30.8 g/dl (32.0-36.5); MEAN CORPUSCULAR VOLUME 81.3 fl (80.0-96.0); MONO # 1.2 10^3/uL (0.0-0.8); MONO % 12.8 % (0.0-5.0); NEUTROPHILS # 5.8 10^3/uL (1.5-8.5); NEUTROPHILS % 60.2 % (36.0-66.0); PLATELET COUNT, AUTOMATED 258 10^3/uL (150-450); WHITE BLOOD COUNT 9.6 10^3/uL (4.0-10.0)
--- NOTE | 2019-05-27 08:58 | REP ---
PA and lateral chest: Comparisons are 05/26/2019 and 05/27/2019. There are multiple right rib fractures are unchanged. No pneumothorax is identified. There are bilateral pleural effusions, unchanged. The right base atelectasis continues to improve. Cardiac size is normal. Impression: The right pneumothorax is no longer identified. The atelectasis in the left base has improved. Electronically Signed by Vinnie Ellison MD 05/27/2019 08:49 A
[2019-05-27] MEDS: NICOTINE 21MG/24HR 1 EA TRANSDERMAL TD SCH (09:00)
[2019-05-27] MEDS: THIAMINE 100 MG TAB PO SCH (09:00)
[2019-05-27] MEDS: MULTIVITAMINS/MINERALS THERAP 1 TAB PO SCH (09:16)
[2019-05-27] MEDS: FOLIC ACID 1 MG TAB PO SCH (09:16)
[2019-05-27] MEDS: MOM 30ML SUSPENSION UDC PO SCH (09:16)
[2019-05-27] MEDS: PANTOPRAZOLE 40MG TAB (PROTONIX) PO SCH (09:16)
[2019-05-27] MEDS: DOCUSATE SODIUM 100 MG CAP PO SCH ×2 (09:16→21:56)
[2019-05-27] MEDS: DIVALPROEX 500MG *ER* TAB PO SCH ×2 (09:17→21:56)
[2019-05-27] MEDS: OXAZEPAM 10 MG CAP PO SCH ×2 (09:17→21:57)
[2019-05-27] MEDS: CARVedilol 3.125 MG TAB PO SCH ×2 (12:00)
--- NOTE | 2019-05-27 12:48 | CCN ---
DATE: 05/27/2019 HISTORY OF PRESENT ILLNESS: The patient is examined at the bedside today. He reported there is only chest pain when he coughs or is taking a deep breath. As noted, patient has an epidural hematoma extending from T1 to T2 disc approximately to the L1 vertebral body level. The patient is no longer on pain control from epidural. He has been FLAMER AFTER LASTING for pain control. For his chest wall pain, he reported sharp/burning 5/10 chest wall pain on the right side radiating to the back as well as right-sided scapula. He denies any pain at the thoracic spine region or any numbness tingling, loss of sensation. Patient also denies any weakness in any parts of the body as well. It was noted that overnight patient had a period of dyspnea and 2 of 20 mg IV Lasix was given. Patient also had a brief period with increasing oxygen needs. He was noted that this morning when patient walks to get his chest x-ray done, he reported dyspnea and oxygen was increased to 12 liters. At rest, patient has been titrating well on 2 liters of oxygen. Patient denies any fever, chills, nausea or vomiting. OBJECTIVE/PHYSICAL EXAMINATION: VITALS: Temperature 97.0, pulse 78, respiratory rate 20, blood pressure 145/75, pulse ox most recent 94% on 2 liters nasal cannula. Patient was lying on the bed supine without any acute distress. HEENT: Head normocephalic, atraumatic. No scleral icterus. Pupil equal and round. Nares are patent bilaterally with moist mucosa. Nasal cannula in place. NECK: Supple. No jugular venous distention (JVD). No obvious thyromegaly noted. Trachea remains midline. LUNGS: Mild to minimal crackles bilaterally in the inferior lung santiago. Symmetric excursions with fair air entry. No accessory muscle use or retractions. Normal I:E ratios. No wheezing or rhonchi noted. CARDIOVASCULAR: Regular rate and rhythm. No murmur. Normal S1, S2. No rales or gallops. ABDOMEN: Mild hypoactive bowel sounds auscultated in all four quadrants. No tenderness guarding or distention. EXTREMITIES: Well perfused and warm. Bilateral radial pulses are equal. No obvious edema, cyanosis or clubbing noted. NEUROLOGIC: Patient follows commands and moving all four extremities and torso. Sensations intact in trunk and throughout bilateral lower extremities including thigh and leg. No numbness, tingling, loss of sensation upon touch in bilateral upper and lower extremities. Cranial nerves II through XII grossly intact. SKIN: Epidural in place in the thoracic spine region. No active bleeding noted. LABS: 05/27/2019 showed CBC: WBC 9.6, hemoglobin 10.0, hematocrit 32.5, platelet 258. BMP: Sodium 139, potassium 4.2, chloride 104, carbon dioxide 28, anion gap 7, BUN 16, creatinine 0.61, GFR is greater than 60, fasting glucose 100, calcium 8.4. Sputum Gram stain positive for many white blood cells with a few gram positive cocci in pairs, chains and clusters. Chest x-ray from 05/27/2019 at 3:00 a.m. showed increased right subpleural thinning, right pleural effusions and right base infiltrate and atelectasis since 05/26/2019. Decreased left base atelectasis compared to prior imaging. Chest x-ray from 05/27/2019 at 8:00 a.m. reviewed with attending showed right-sided small pleural effusion with atelectasis noted in the right lower lobe. I reviewed MRI thoracic spine imaging. Large dorsally distributed epidural air fluid collection consistent with a hematoma extending from T1-2 to L1 vertebral body level. Extensive thecal sac compression. Cord compression visible through T2-3 to T5-6. IMPRESSION: 1. Acute hypoxemic respiratory failure secondary to flail chest. 2. Multiple broken ribs secondary to mechanical fall. 3. History of atrial fibrillation currently in sinus rhythm. Anticoagulation with Eliquis continues to be held. 4. Thoracic spine epidural hematoma. 5. Seizure disorder on Depakote. 6. Alcohol use disorder on CIWA, multivitamin, folate and thiamine. RECOMMENDATION: Patient had a period of dyspnea overnight with increasing oxygen needs responding well to diuresis. Will recommend patient to continue CPAP for hyperinflation therapy 20 minutes at 10 cm of water four times daily and nightly CPAP. Continue to monitor paradoxical chest movements or splinting. The patient's IV fluids have been discontinued. Currently, he is only on 15 mL per hour to keep vein open. Will continue to monitor patient's input and output and gentle diuresis. Patient may receive a low dose IV Lasix in the afternoon. Pain management has been switched to OxyContin 20 mg twice a day with morphine 2 mg every 2 hours as needed for breakthrough pain. For patient's epidural hematoma, at this time we will refrain from anticoagulation use. Hopefully, the epidural hematoma will spontaneously resolve. His hemoglobin has stabilized with no active bleeding noted upon external visualization. Patient remains to be without any neurological deficits including weakness, numbness, tingling or loss of sensation. At this time, we will discontinue neural checks and continue to monitor the patient closely. For deep venous thrombosis (DVT) prophylaxis, patient will be on diligent use of sequential compression devices (SCDs) and thromboembolic deterrent stockings (TEDS). Lovenox has been discontinued due to the epidural hematoma. Gastrointestinal (GI) prophylaxis with Protonix 40 mg by mouth daily. MTDD
[2019-05-27] MEDS: oxyCODONE 20 MG CR TAB PO SCH ×2 (13:19→21:56)
[2019-05-28] VITALS (9 sets, daily range): BP systolic 117–164; BP diastolic 67–86
[2019-05-28] MEDS: CARVedilol 3.125 MG TAB PO SCH ×2 (00:59→11:25)
[2019-05-28] MEDS: KETOROLAC 30 MG/ML VIAL (J1885) IV SCH ×2 (01:02→07:58)
[2019-05-28] MEDS: MORPHINE 4 MG/ML 1ML VIAL/SYRINGE (J2270) IV PRN ×5 (01:21→23:40)
[2019-05-28] MEDS: LEVALBUTEROL 1.25 MG/0.5 ML CONCENTRATE NEB NEB SCH ×4 (01:56→20:18)
[2019-05-28] MEDS: SODIUM CHLORIDE HYPERTONIC 3% 15ML NEB SOL INH SCH ×6 (01:57→20:18)
[2019-05-28 05:10] LABS: BASO % 0.4 % (0.0-1.0); EOS # 0.4 10^3/uL (0.0-0.5); HEMOGLOBIN 9.2 g/dl (13.5-17.5); LYMPH # 2.7 10^3/uL (1.5-5.0); LYMPH % 26.6 % (24.0-44.0); MEAN CORPUSCULAR HGB CONC 30.7 g/dl (32.0-36.5); MEAN CORPUSCULAR VOLUME 81.5 fl (80.0-96.0); MONO # 1.3 10^3/uL (0.0-0.8); MONO % 13.3 % (0.0-5.0); NEUTROPHILS # 5.6 10^3/uL (1.5-8.5); NEUTROPHILS % 54.9 % (36.0-66.0); PLATELET COUNT, AUTOMATED 267 10^3/uL (150-450); RED BLOOD COUNT 3.68 10^6/uL (4.30-6.10); WHITE BLOOD COUNT 10.1 10^3/uL (4.0-10.0)
[2019-05-28 05:32] LABS: BLOOD UREA NITROGEN 19 MG/DL (7-18); CALCIUM LEVEL 8.1 MG/DL (8.8-10.2); CARBON DIOXIDE LEVEL 32 MEQ/L (21-32); CHLORIDE LEVEL 103 MEQ/L (98-107); CREATININE FOR GFR 0.73 MG/DL (0.70-1.30); GLOMERULAR FILTRATION RATE > 60.0 (>49); GLUCOSE, FASTING 102 MG/DL (70-100); SODIUM LEVEL 140 MEQ/L (136-145)
[2019-05-28] MEDS: MOM 30ML SUSPENSION UDC PO SCH (08:00)
[2019-05-28] MEDS: MULTIVITAMINS/MINERALS THERAP 1 TAB PO SCH (08:01)
[2019-05-28] MEDS: FOLIC ACID 1 MG TAB PO SCH (08:01)
[2019-05-28] MEDS: DIVALPROEX 500MG *ER* TAB PO SCH ×2 (08:01→20:56)
[2019-05-28] MEDS: DOCUSATE SODIUM 100 MG CAP PO SCH ×2 (08:01→20:56)
[2019-05-28] MEDS: OXAZEPAM 10 MG CAP PO SCH (08:01)
[2019-05-28] MEDS: THIAMINE 100 MG TAB PO SCH (08:01)
[2019-05-28] MEDS: PANTOPRAZOLE 40MG TAB (PROTONIX) PO SCH (08:01)
[2019-05-28] MEDS: NICOTINE 21MG/24HR 1 EA TRANSDERMAL TD SCH (08:01)
--- NOTE | 2019-05-28 08:15 | REP ---
PA and lateral chest: Comparisons are 05/27/2019 and 05/26/2019. They is questionably a tiny right apical pneumothorax. The right pleural effusion is unchanged. The the left costophrenic angle is excluded at the film margin. I suspect there is an infiltrate in the left lower lobe. Cardiac size is normal. The epidural catheter is unchanged. Electronically Signed by Vinnie Ellison MD 05/28/2019 08:07 A
[2019-05-28] MEDS: oxyCODONE 15 MG CR TAB PO SCH ×2 (09:07→20:55)
--- NOTE | 2019-05-28 09:14 | IPN ---
DATE: 05/27/2019 Early this morning at about 4:30 I received a call from the nursing staff with the report that Mr. Romo had begun to desaturate and required increasing oxygen supplementation. The nurse reports she heard increased rales. Chest x-ray was taken which showed increased lung markings and the hospitalist ordered Lasix. At the time the nurse called me, the patient had diuresed and was back down to 4 liters nasal cannula and sitting up and doing well. I therefore decided not to add any more Lasix at the time. This morning, Mr. Romo is doing well. He is resting comfortably and on 2 liters nasal cannula. His vital signs show a maximum temperature (t-max) of 98.0, with a heart rate that ranges between 61 and 68 in a sinus rhythm, respiratory rate of 18 to 20 without the use of accessory muscles, who is 94% saturated on 2 liters cannula, and whose blood pressure is ranging between 136/71 to 145/75. His intake and output over the past 24 hours has been recorded as 2854 in and 1330 out for a positivity of 1500 mL. Over the past two days, he is positive nearly 7000 mL. His weight today is 85 kg compared to 83.7 kg yesterday. Most notably, Mr. Romo is neurologically intact and is able to move all of his extremities, including his feet and toes. There is no sensory loss. On physical examination, his lungs show crackles on both sides with the right greater than the left. Percussion note is full to the diaphragm. Cardiac exam is without murmurs, clicks, gallops or rubs. I cannot feel his point of maximum impulse (PMI). S1 and S2 are normal. Abdomen is soft, nontender. Bowel sounds positive. He is tympanitic and slightly distended. He has had a bowel movement. Extremities show trace pretibial edema. No calf tenderness. No differential swelling of the upper extremities. Skin is warm, dry and perfused without cyanosis or mottling, including that of the nail beds and knees. Neck is supple. There is no jugular venous distention. No subcutaneous emphysema. Trachea is midline. Mouth shows his mucous membranes to be pink and moist. Lips and commissures without lesions. There is no thrush. Eyes show his pupils to be equal and reactive. Extraocular motion intact. Sclerae anicteric. Neurologic shows II through XII intact along with gross motor and gross sensation intact. Gait is not tested. Psychiatric shows him to be awake and alert and able to answer questions cogently. His white count today is 9.6 with a hemoglobin and hematocrit of 10.0 and 32.5 with a platelet count of 258. Differential shows 60% neutrophils, 22% lymphocytes, 12% monocytes. There are no immature forms and no toxic granulations. Electrolytes today are normal with a BUN and creatinine of 16 and 0.61, a glucose of 100 and calcium 8.4. Chest x-ray done PA and lateral this morning shows a right pleural effusion with a clear left costophrenic angle. Displaced rib fractures are evident. I do not see the pneumothorax I saw yesterday. The mediastinum is in the middle. Lateral chest x-ray shows the pleural effusion posteriorly. IMPRESSION: 1. Multiple displaced rib fractures. 2. Flail chest, three segments. 3. Lung contusion. 4. Respiratory failure and hypoxia, improving. 5. Alcohol abuse. 6. Prior tobacco abuse. 7. History of atrial fibrillation, now in sinus rhythm. 8. History of prior seizures. 9. Hypoxia. 10. Left pleural effusion, seemingly resolved. 11. Right pleural effusion, possibly hemothorax, worse. 11. Epidural hematoma. 12. Intake and output imbalance with increased interstitial volume. PLAN AND DISCUSSION: He is being diuresed. We are all gratified that he is not showing any neurologic defects from the epidural hematoma. He is now on a PHOTOGRAPHY MANAGER pump again and his pain looks to be fairly well controlled. In order to wean him from the PHOTOGRAPHY MANAGER pump, we can either supplement that with oral oxycodone/Percocet or Fentanyl patch. The main stay of his care again is pain control which will allow lung expansion. I would vigorously diurese him.
[2019-05-28] MEDS: FUROSEMIDE 20 MG TAB PO SCH (10:16)
--- NOTE | 2019-05-28 10:50 | IPN ---
DATE: 05/28/2019 Mr. Romo is doing remarkably well considering the extent of his injuries. His pain is being well controlled now on oxycodone. He walked to chest x-ray today. He obviously is still in pain, but he is functional. His vital signs show a maximum temperature (t-max) of 98.1, with a heart rate that ranges between 63 and 77 in a sinus rhythm, respiratory rate of 18 to 20 without the use of accessory muscles, who is 92% saturated now on 1 liter nasal cannula, and whose blood pressure is ranging between 117/70 to 136/77. His intake and output over the past 24 hours has been recorded as 1250 in and 3325 out for a negativity of 2000 mL. He weighs 84.4 kg today compared to 85 kg yesterday. On physical examination, he has markedly decreased breath sounds on both sides secondary to poor inspiratory effort. When I ask him to take deeper breaths, breath sounds are still decreased, particularly on the right side. Percussion note is dull at the very right base. I hear no rhonchi or rales. Cardiac exam is without murmurs, clicks, gallops or rubs. I cannot feel his point of maximum impulse (PMI). S1 and S2 are normal. Abdomen is soft, nontender. Bowel sounds positive. There is no hepatomegaly. He has costovertebral angle (CVA) tenderness referable to his rib fractures on the right. He has had a bowel movement. Extremities show maybe trace pretibial edema. No calf tenderness. No differential swelling of the upper extremities. Skin is warm, dry and perfused without cyanosis or mottling, including that of the nail beds and knees. Neck is supple. There is no jugular venous distention. No subcutaneous emphysema. Trachea is midline. Mouth shows his mucous membranes to be pink and moist. Lips and commissures without lesions. There is no thrush. Eyes show his pupils to be equal and reactive. Extraocular motion intact. Sclerae anicteric. Neurologic shows II through XII intact along with gross motor and gross sensation intact. It is particularly notable that he can move both feet and toes and he has full sensation in his lower extremities. His white count today is 10.1 with a hemoglobin and hematocrit of 9.2 and 30.0. Platelet count is 267. Differential shows 54% neutrophils, 26% lymphocytes and 13% monocytes. There are no immature forms and no toxic granulations. His electrolytes are normal with a BUN and creatinine of 19 and 0.73 and a glucose of 102 and calcium of 8.1. Chest x-ray today shows a blunting of the right costophrenic angle with a pleural effusion. There looks to be also atelectasis of the left lower basilar segment. I see no other infiltrates. Rib fractures are displaced. The left lung is clear. IMPRESSION: 1. Multiple displaced rib fractures. 2. Flail chest, three segments. 3. Lung contusion. 4. Respiratory failure and hypoxia, improving. 5. Alcohol abuse. 6. Prior tobacco abuse. 7. History of atrial fibrillation, now in sinus rhythm. 8. History of prior seizures. 9. Hypoxia. 10. Left pleural effusion, seemingly resolved. 11. Right pleural effusion, possibly hemothorax, stable. 11. Epidural hematoma. PLAN AND DISCUSSION: I would continue to diurese him. He is doing remarkably well all things considered. We should continue to mobilize him and treat his pain. It should be noted that he is growing Staphylococcus aureus from a sputum culture of 05/24/2019 with only a few colonies. I suspect this is more of a contaminant and I would not treat that.
--- NOTE | 2019-05-28 11:23 | CCN ---
DATE: 05/28/2019 HISTORY OF PRESENT ILLNESS: The patient is examined at the bedside today. He reports exertional dyspnea as well as an episode of dyspnea overnight. The patient is currently saturating well at 92% on 1 liter of oxygen nasal cannula compared to 2 liter yesterday. Reports right-sided chest wall pain from the shoulder radiating down anteriorly and posteriorly. He reports it there is no pain on resting but only 7/10 sharp pain with movement. The patient also reported pleuritic chest pain across anterior epigastric area radiating to the back. The patient reported that the pain is worse with inhalation and movement and improves upon leaning forward. The patient reports no pain at the site of thoracic epidural insertion site. Denies any numbness, tingling, loss of sensation or any muscle weakness in extremities. He did reports generalized weakness. The patient reports cough with yellow color sputum that is baseline. 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 The patient was initially noted to have mild shaking. However, he reported that it is due to pain. Denies any agitation or palpitations. OBJECTIVE/PHYSICAL EXAMINATION: VITAL SIGNS: Temperature 98.1, pulse 77, respiratory rate 20, blood pressure 143/67, pulse oximetry 92% on 1 liter nasal cannula. On physical exam, the patient is lying on the bed supine, appears to be in mild distress. HEENT: Head normocephalic, atraumatic. No scleral icterus. Pupil equal and round bilaterally. Nares are patent bilaterally with nasal cannula in place. Moist mucosa. NECK: Supple. No obvious jugular venous distention (JVD). Trachea appears to be midline. LUNGS: Mild diminished breath sounds bilaterally. Symmetrical excursions with fair air entry. No to minimal accessory muscle use. No obvious retractions noted. Normal I:E ratio. No wheezing, rhonchi or crackles noted. CARDIOVASCULAR: Regular rate and rhythm. No murmur. Normal S1 and S2. No rales, gallops or friction rub. ABDOMEN: Bowel sounds auscultated in all four quadrants. No tenderness, guarding or distention. EXTREMITIES: Well perfused and warm. Bilateral radial pulse equal. No edema, swelling, cyanosis or clubbing noted on extremities. NEUROLOGIC: The patient's cognitive function and memory grossly intact. Patient follows commands and moving all four extremities and torso. Sensations intact in all thoracic dermatome region. No numbness, tingling or loss of sensation upon touch. Cranial nerves II-XII grossly intact. LABS: 05/28/2019 CBC: WBC 10.1, hemoglobin 9.2, hematocrit 30.0, platelets 267. Chemistry BMP: Sodium 140, potassium 4.0, chloride 103, carbon dioxide 32, anion gap 5, BUN 19, creatinine 0.73, GFR greater than 60, fasting glucose 102, calcium 8.1. Chest x-ray from 05/28/[address] was reviewed [address] Dr[address] Greene. Chest x-ray showed right-sided pleural effusion roughly unchanged compared to yesterday. Sputum culture showed Staphylococcus aureus noted. Normal tim present. IMPRESSION: 1. Acute hypoxemic respiratory failure secondary to flail chest. 2. Multiple broken ribs on right secondary to mechanical fall. 3. History of atrial fibrillation. The patient remains to be sinus rhythm. Anticoagulation with Eliquis continued to be held. 4. Thoracic spine epidural hematoma. 5. Seizure disorder on Depakote. 6. Alcohol use disorder on clinical institute withdrawal assessment for alcohol (CIWA) protocol. Continue multivitamin, folate and thiamine. 7. Right-sided pleural effusion, possible hemothorax. 8. Alcohol use disorder. 9. Prior tobacco abuse. RECOMMENDATION: The patient reported dyspnea overnight with exertional dyspnea. He is currently saturating well on 1 liter of nasal cannula oxygen. Will continue CPAP for hyperinflation therapy 20 minutes at 10 cm of water four times daily. The patient reported difficulty in using CPAP overnight, thus at this time we will continue the hyperinflation therapy as scheduled with nightly CPAP. Continue to monitor paradoxical chest movements or splinting. Right-sided pleural effusion: The patient was auto diuresing yesterday with a negative 2075 mL balance yesterday. However due to the presence of right-sided pleural effusion and possible hemothorax, we will place the patient on Lasix by mouth 20 mg and continue to monitor intake and output status with possible increasing Lasix dose. The patient reported no pain on the chest wall during resting with pain only with movement that resolved quickly. At this time, we will increase the patient's OxyContin 20 mg twice a day to 30 mg twice a day. Continue IV morphine 2 mg every 2 hours as needed for breakthrough pain as well as continue IV Toradol. We will continue to refrain from anticoagulation use at this time due to epidural hematoma. The patient remains to have no neurological deficits, including any focal weakness, numbness, tingling or loss of sensation. The patient has very borderline leukocytosis at 10.1 due to the presence of epidural placement, blood culture times two was ordered, however it is very unlikely that patient has bacteremia. He was lacking systemic symptoms due to infection and sputum culture appears to be normal tim. Deep venous thrombosis (DVT) prophylaxis, sequential compressive device (SCD) and thromboembolism deterrents (TEDs). Will be encouraged ambulation. DVT prophylaxis Protonix by mouth 40 mg daily. MTDD
[2019-05-28 16:15] LABS: MAGNESIUM LEVEL 2.1 MG/DL (1.8-2.4)
[2019-05-29] VITALS (7 sets, daily range): BP systolic 132–159; BP diastolic 62–74
[2019-05-29] MEDS: CARVedilol 3.125 MG TAB PO SCH ×3 (00:38→23:44)
[2019-05-29] MEDS: LEVALBUTEROL 1.25 MG/0.5 ML CONCENTRATE NEB NEB SCH ×4 (01:02→20:14)
[2019-05-29] MEDS: SODIUM CHLORIDE HYPERTONIC 3% 15ML NEB SOL INH SCH ×5 (01:03→20:15)
[2019-05-29] MEDS: MORPHINE 4 MG/ML 1ML VIAL/SYRINGE (J2270) IV PRN ×5 (04:36→20:11)
[2019-05-29 05:05] LABS: BASO # 0.1 10^3/uL (0.0-0.2); BASO % 0.5 % (0.0-1.0); EOS # 0.4 10^3/uL (0.0-0.5); EOS % 3.4 % (0.0-3.0); HEMATOCRIT 33.5 % (42.0-52.0); HEMOGLOBIN 10.3 g/dl (13.5-17.5); LYMPH # 2.9 10^3/uL (1.5-5.0); LYMPH % 24.3 % (24.0-44.0); MEAN CORPUSCULAR HEMOGLOBIN 25.1 pg (27.0-33.0); MEAN CORPUSCULAR HGB CONC 30.7 g/dl (32.0-36.5); MEAN CORPUSCULAR VOLUME 81.5 fl (80.0-96.0); MONO # 1.6 10^3/uL (0.0-0.8); MONO % 13.5 % (0.0-5.0); NEUTROPHILS # 6.7 10^3/uL (1.5-8.5); NEUTROPHILS % 57.5 % (36.0-66.0); PLATELET COUNT, AUTOMATED 311 10^3/uL (150-450); RED BLOOD COUNT 4.11 10^6/uL (4.30-6.10); WHITE BLOOD COUNT 11.7 10^3/uL (4.0-10.0)
[2019-05-29 05:27] LABS: BLOOD UREA NITROGEN 14 MG/DL (7-18); CALCIUM LEVEL 8.9 MG/DL (8.8-10.2); CARBON DIOXIDE LEVEL 29 MEQ/L (21-32); CHLORIDE LEVEL 104 MEQ/L (98-107); CREATININE FOR GFR 0.76 MG/DL (0.70-1.30); GLOMERULAR FILTRATION RATE > 60.0 (>49); GLUCOSE, FASTING 96 MG/DL (70-100); POTASSIUM SERUM 4.4 MEQ/L (3.5-5.1); SODIUM LEVEL 139 MEQ/L (136-145)
[2019-05-29] MEDS: MULTIVITAMINS/MINERALS THERAP 1 TAB PO SCH (08:00)
[2019-05-29] MEDS: DIVALPROEX 500MG *ER* TAB PO SCH ×2 (08:00→21:56)
[2019-05-29] MEDS: MOM 30ML SUSPENSION UDC PO SCH (08:00)
[2019-05-29] MEDS: FUROSEMIDE 20 MG TAB PO SCH (08:00)
[2019-05-29] MEDS: DOCUSATE SODIUM 100 MG CAP PO SCH ×2 (08:00→21:56)
[2019-05-29] MEDS: THIAMINE 100 MG TAB PO SCH (08:00)
[2019-05-29] MEDS: PANTOPRAZOLE 40MG TAB (PROTONIX) PO SCH (08:00)
[2019-05-29] MEDS: oxyCODONE 15 MG CR TAB PO SCH ×3 (08:01→21:57)
[2019-05-29] MEDS: FOLIC ACID 1 MG TAB PO SCH (08:02)
--- NOTE | 2019-05-29 08:06 | REP ---
Chest x-ray: Two views. History: Flail chest, lung contusion. Comparison chest x-ray May 28, 2019. Findings: Multiple displaced right rib fractures are again seen. There are multiple old appearing left rib fractures. There is no visible pneumothorax. There is blunting of the right lateral and both posterior pleural angles. There is discoid atelectasis in the left lower lobe. These findings are unchanged. Electronically Signed by Robles Mendoza MD 05/29/2019 07:58 A
--- NOTE | 2019-05-29 10:41 | IPN ---
DATE: 05/29/2019 Mr. Romo is doing reasonably well this morning. He did note that he had to get up several times last night for urination and he had some chest pain when getting up. At his baseline, he has good pain control but with a lot of movement, he does note some discomfort. He has a cough that is productive of yellowish sputum. He denies chest pressure. No nausea or emesis. He had a bowel movement yesterday. He is able to take good oral intake. PHYSICAL EXAMINATION: GENERAL: Mr. Romo is sitting in a chair in no acute distress speaking in complete full sentences. He has occasional cough. VITAL SIGNS: Temperature 99.2 which is his T-max. Pulse 72, respiratory rate 20, blood pressure 155/74 with a MAP of 99. sPO2 94% on room air. HEENT: Anicteric, nares: Patent bilaterally moist mucosa. Oropharynx clear. No lesions. NECK: Supple, without thyromegaly or masses, trachea is midline. LYMPH: No cervical or supraclavicular lymphadenopathy. LUNGS: Slightly asymmetric excursion. Diminished breath sounds at the right base. Minimal bibasilar crackles. No rhonchi. No wheezes. Normal I:E. No accessory muscle usage or retractions. CARDIOVASCULAR: Regular rate and rhythm with a normal S1, S2, no murmur, rub or gallop appreciated. ABDOMEN: Positive bowel sounds, soft, nondistended, nontender. EXTREMITIES: Without clubbing, cyanosis or edema. Palpable pedal pulses bilaterally. LABORATORY DATA: CBC shows a hemoglobin of 10.3, hematocrit of 33.5, platelet count 311, white blood cell count 11,700 with a differential of 58% neutrophils, 24% lymphocytes, and 14% monocytes. Chemistry shows sodium 139, potassium 4.4, chloride 104, bicarbonate 29, anion gap 6, BUN 14, creatinine 0.8, glucose 96, calcium 9.0. I reviewed his chest x-ray as well as the report from earlier today. That x-ray showed normal-appearing cardiac silhouette and pulmonary vascular shadows. Normal-appearing mediastinal and hilar regions. Multiple displaced right rib fractures. There is a small right pleural effusion tracking upward. There is discoid atelectasis of left base. No change in his chest x-ray compared to that from 05/28/2019 ASSESSMENT: 1. Acute hypoxemic respiratory failure secondary to flailed chest, improving in that he intermittently requires oxygen. 2. Multiple broken ribs secondary to mechanical fall leading to flail chest. For pain management, he is doing well with OxyContin and as-needed morphine. 3. Right pleural effusion likely hemothorax. 4. Thoracic spine epidural hematoma, no clinical symptoms and likely resolving. 5. Seizure disorder, on Depakote. 6. Alcohol abuse, on Clinical [facility] Withdrawal Assessment (CIWA) protocol but no longer receiving standing medications and it is on as needed, which he has not required. He is also receiving folate, thiamine and a multivitamin. 7. Tobacco abuse on admission, on nicotine patch. 8. History of paroxysmal atrial fibrillation, not on anticoagulation. He is on Coreg. 9. Deep venous thrombosis (DVT) prophylaxis with sequential compression device (SCD) and thromboembolic deterrent stockings (TEDS). RECOMMENDATIONS: 1. Will continue hyperinflation therapy with four times daily CPAP. I also prefer he wear it at night but has declined. 2. While his sputum only a few Staphylococcus aureus and his procalcitonin was negative on admission, given we know that he is colonized with staph aureus and with his increasing white count and productive cough, we will re-send a sputum for Gram stain and culture to again see the quantity available but also will start him on an antibiotic. It is sensitive to azithromycin so will place him on the azithromycin. 3. Continue with gentle diuresis. 4. Continue with sequential compression device (SCD) and thromboembolic deterrent stockings (TEDS) as anticoagulation needs to be prevented because of his hematoma.
[2019-05-29] MEDS: AZITHROMYCIN 250 MG TAB PO SCH (21:57)
[2019-05-30] VITALS (8 sets, daily range): BP systolic 114–150; BP diastolic 58–78
[2019-05-30] MEDS: MORPHINE 4 MG/ML 1ML VIAL/SYRINGE (J2270) IV PRN ×4 (00:31→23:16)
[2019-05-30] MEDS: LEVALBUTEROL 1.25 MG/0.5 ML CONCENTRATE NEB NEB SCH ×3 (07:13→19:59)
[2019-05-30] MEDS: SODIUM CHLORIDE HYPERTONIC 3% 15ML NEB SOL INH SCH ×4 (07:14→19:59)
[2019-05-30] MEDS: DIVALPROEX 500MG *ER* TAB PO SCH ×2 (08:22→20:53)
[2019-05-30] MEDS: oxyCODONE 15 MG CR TAB PO SCH ×3 (08:22→20:53)
[2019-05-30] MEDS: DOCUSATE SODIUM 100 MG CAP PO SCH ×2 (08:22→20:53)
[2019-05-30] MEDS: THIAMINE 100 MG TAB PO SCH (08:22)
[2019-05-30] MEDS: PANTOPRAZOLE 40MG TAB (PROTONIX) PO SCH (08:22)
[2019-05-30] MEDS: MULTIVITAMINS/MINERALS THERAP 1 TAB PO SCH (08:22)
[2019-05-30] MEDS: FOLIC ACID 1 MG TAB PO SCH (08:23)
[2019-05-30] MEDS: MOM 30ML SUSPENSION UDC PO SCH (08:23)
[2019-05-30] MEDS: FUROSEMIDE 20 MG TAB PO SCH (08:23)
--- NOTE | 2019-05-30 09:22 | REP ---
PA and lateral chest: Comparisons are 04/29/2019 and 05/29/2019. Multiple right rib fractures are unchanged. Multiple old healed left rib fractures are unchanged. There is a right pleural effusion. There is an air-fluid level within a hiatal hernia. The lateral view there is a second air-fluid level as an interval change. This could represent a second air-fluid level within a large hiatal hernia s or could represent a hemopneumothorax. Impression: On the lateral view there are two air-fluid levels as described, one appears to be within a hiatal hernia, the second could also be within the hiatal hernia or could represent a pneumo hemothorax. This is a change from the comparison studies. No apical pneumothorax is identified on the right on the left. Electronically Signed by Vinnie Ellison MD 05/30/2019 09:13 A
--- NOTE | 2019-05-30 10:06 | IPN ---
DATE OF VISIT: 05/30/2019 I attended Judah Huicristino in the progressive care unit. The patient has been examined and the chart reviewed. He is feeling a bit more comfortable today. He has been able to be up and around ambulating in the room. Currently sitting in the chair. Maximum temperature (Tmax) overnight 98.2. Blood pressure 118-140 systolic. Heart rate generally 60-70s with a sinus mechanism. Respiratory rate in the mid teens without accessory muscle use. On exam, he is awake, alert and appropriate. Vital signs have been reviewed. Skin/integumentary no rashes. HEENT is normocephalic, atraumatic. Pupils react. Neck is supple. Trache is the midline. Chest shows diminished breath sound intensity on the right, especially at the base. His flail chest is still palpable. Left chest is clear. Cardiac exam is generally regular. Peripheral pulses palpable. No edema. Abdomen soft with active bowel sounds. No convincing organomegaly or masses. Extremities without cyanosis or clubbing. Neurologically, he is awake, alert and appropriate. Psychiatric with normal mood and affect. No new imaging today. IMPRESSION: 1. Atelectasis secondary to multiple rib fractures. 2. Pain secondary to the above. RECOMMENDATIONS: At this point, we will encourage increased ambulation. His pain control appears to be adequate. Bowel care has been ordered by the primary service. He has been able to eat and drink reasonably. Will continue as outlined above with expansion therapy hopefully preventing primary pneumonitis. He will be followed closely while he is here in the hospital. Further recommendations will be made in the progress record as new information becomes available.
--- NOTE | 2019-05-30 10:52 | IPN ---
DATE: 05/29/2019 Mr. Romo is sitting up comfortably this morning. However, he did have increased pain yesterday night. His oxycodone has been increased and he is in tolerable pain today. His vital signs show a maximum temperature (Tmax) of 99.2, with a heart rate that ranges between 68-81 in a sinus rhythm, respiratory rate of 16-22 without the use of accessory muscles, who is 94-97% saturated on 1 liter nasal cannula, and whose blood pressure is ranging between 159/69-124/78. His intake and output for the past 24 hours has been recorded as 885 in and 1475 out for a negativity of 590 mL. Urine output has been 1475 mL. He weighs 81.6 kg today compared to 84.4 kg yesterday. On physical examination, he has decreased breath sounds on the right side secondary to decreased excursion. I hear rhonchi, which does not completely clear with coughing. Percussion notes are full to the diaphragm. Cardiac exam is without murmurs, clicks, gallops or rubs. I cannot feel his point of maximum impulse (PMI). S1 and S2 are normal. Abdomen is soft, nontender. Bowel sounds positive. There is no hepatomegaly and no costovertebral angle (CVA) tenderness. Extremities show no pretibial edema, no calf tenderness. No differential swelling of the upper extremities. Skin is warm, dry and perfused without cyanosis or mottling, including that of the nail beds and knees. Neck is supple. There is no jugular venous distention. No subcutaneous emphysema. Trachea is midline. Mouth shows his mucous membranes to be pink and moist. Lips and commissures without lesions. There is no thrush. Eyes show his pupils to be equal and reactive. Extraocular motion intact. Sclerae anicteric. Neuro shows II-XII intact along with gross motor and gross sensation intact, and gait is not tested. Psychiatric shows him to be awake, alert, oriented times three with appropriate mood and affect and conversational. His white count today is 11.7 with hemoglobin and hematocrit of 10.3and 33.5, platelet count of 311. Differential shows 57% neutrophils, 24% lymphocytes and 13% monocytes. There are no immature forms, no toxic granulations. His electrolytes are normal with a BUN and creatinine of 14 and 0.76 and a glucose of 96 and a calcium of 8.9. Chest x-ray today shows his multiple displaced rib fractures. There looks to be increasing right pleural effusion. I see no infiltrates, however, there looks to be at least compression atelectasis in the left lower lobe. There is no subcutaneous emphysema, and the lung is fully expanded to the chest wall. IMPRESSION: 1. Multiple displaced rib fractures. 2. Flail chest, three segments. 3. Lung contusion. 4. Respiratory failure and hypoxia, improving. 5. Prior alcohol abuse. 6. Prior tobacco abuse. 7. History of atrial fibrillation, now in sinus rhythm. 8. History of prior seizures. 9. Hypoxia. 10. Left pleural effusion, seemingly resolved. 11. Right pleural effusion, slightly worse. 11. Epidural hematoma. PLAN AND DISCUSSION: He again completely neurologically intact. The right effusion looks minimally increased, although it may be secondary to poor expiration. Will continue him n oxygen supplementation. Dr. Greene has started him on azithromycin. He did grow out species of Staphylococcus aureus with a few colonies. It is sensitive to everything except penicillin G. Our next major steps are mobilizing him and continued lung expansion. I am gratified that his pain is relatively well under controlled with oral medication.
--- NOTE | 2019-05-30 10:57 | IPN ---
DATE: 05/30/2019 Mr. Romo is doing relatively well today. He is again sitting comfortably in a chair. He walked down to x-ray today behind the wheelchair. His vital signs show a maximum temperature (t-max) of 98.2, with a heart rate that ranges between 75 and 65 in a sinus rhythm, respiratory rate of 14 to 22 without the use of accessory muscles, who is 92% saturated now on air, and whose blood pressure is ranging between 118/64 to 142/76. His intake and output over the past 24 hours has been recorded as 620 and 1545 out for a negativity of 925 mL. He weighs 82 kg today compared to 81.6 kg yesterday. He has been transferred to the progressive care unit (PCU) and is in a different bed for weighing. On physical examination, his right lung still shows decreased breath sounds with some coarse rales, most of which clear with coughing. He did bring up some white sputum yesterday. His left lung shows normal vesicular sounds. Percussion notes are full to the diaphragm with some dullness at the very base on the right hemithorax. Cardiac exam is without murmurs, clicks, gallops or rubs. I cannot feel his point of maximum impulse (PMI). S1 and S2 are normal. Abdomen is soft, nontender. Bowel sounds are positive. He is slightly distended. There is no hepatomegaly. Extremities show no trace pretibial edema. No calf tenderness. No differential swelling of the upper extremities. Skin is warm, dry and perfused without cyanosis or mottling, including that of the nail beds and knees. Neck is supple. There is no jugular venous distention. No subcutaneous emphysema. Trachea is midline. Mouth shows his mucous membranes to be pink and moist. Lips and commissures without lesions. There is no thrush. Eyes show his pupils to be equal and reactive. Extraocular motion intact. Sclerae anicteric. Neurologic shows II through XII intact along with gross motor and gross sensation intact. Gait is not tested. Psychiatric shows him to be awake, alert and oriented times three with appropriate mood and affect and conversational. His white count and chemistries are pending today. His chest x-ray today shows improvement in the right pleural effusion. The multiple rib fractures of course are still present and displaced. There is no subcutaneous emphysema. The lung is fully expanded to the chest wall. I see no infiltrates, although on the lateral film there looks to be segmental atelectasis posteriorly. This could possibly represent a consolidation, but it looks more feathery. He is continuing on azithromycin. His pain medication includes OxyContin 30 mg by mouth three times a day. He is also on morphine sulfate for breakthrough pain, the last dose having been given earlier this morning at 6 o'clock. IMPRESSION: 1. Multiple displaced rib fractures. 2. Flail chest, three segments. 3. Lung contusion. 4. Respiratory failure and hypoxia, improving. 5. Alcohol abuse. 6. Prior tobacco abuse. 7. History of atrial fibrillation, now in sinus rhythm. 8. History of prior seizures. 9. Hypoxia. 10. Left pleural effusion, resolved. 11. Right pleural effusion, improving. 11. Epidural hematoma. PLAN AND DISCUSSION: We will continue to progressively mobilize him. Will obtain occupational and physical therapy evaluation and treatment. His pain control seems to be fairly adequate.
[2019-05-30] MEDS: CARVedilol 3.125 MG TAB PO SCH ×2 (12:56→23:19)
[2019-05-30] MEDS: AZITHROMYCIN 250 MG TAB PO SCH (20:53)
[2019-05-31] MEDS: LEVALBUTEROL 1.25 MG/0.5 ML CONCENTRATE NEB NEB SCH ×4 (03:05→20:41)
[2019-05-31] MEDS: SODIUM CHLORIDE HYPERTONIC 3% 15ML NEB SOL INH SCH ×6 (03:05→20:42)
[2019-05-31 04:00] VITALS: BP 125/66
[2019-05-31] MEDS: MORPHINE 4 MG/ML 1ML VIAL/SYRINGE (J2270) IV PRN ×6 (05:56→21:11)
[2019-05-31 06:25] LABS: BASO # 0.1 10^3/uL (0.0-0.2); BASO % 0.5 % (0.0-1.0); EOS # 0.3 10^3/uL (0.0-0.5); EOS % 3.1 % (0.0-3.0); HEMATOCRIT 29.6 % (42.0-52.0); LYMPH # 2.1 10^3/uL (1.5-5.0); LYMPH % 21.1 % (24.0-44.0); MEAN CORPUSCULAR HEMOGLOBIN 24.8 pg (27.0-33.0); MEAN CORPUSCULAR HGB CONC 30.4 g/dl (32.0-36.5); MEAN CORPUSCULAR VOLUME 81.5 fl (80.0-96.0); MONO # 1.9 10^3/uL (0.0-0.8); MONO % 18.9 % (0.0-5.0); NEUTROPHILS # 5.5 10^3/uL (1.5-8.5); NEUTROPHILS % 55.6 % (36.0-66.0); PLATELET COUNT, AUTOMATED 338 10^3/uL (150-450); RED BLOOD COUNT 3.63 10^6/uL (4.30-6.10)
[2019-05-31 06:54] LABS: BLOOD UREA NITROGEN 22 MG/DL (7-18); CALCIUM LEVEL 8.7 MG/DL (8.8-10.2); CARBON DIOXIDE LEVEL 30 MEQ/L (21-32); CHLORIDE LEVEL 100 MEQ/L (98-107); GLOMERULAR FILTRATION RATE > 60.0 (>49); GLUCOSE, FASTING 93 MG/DL (70-100); SODIUM LEVEL 135 MEQ/L (136-145)
[2019-05-31 08:00] VITALS: BP 135/66
[2019-05-31] MEDS ORDERED: MORPHINE 4 MG/ML 1ML VIAL/SYRINGE (J2270) IV ONE (08:00)
[2019-05-31] MEDS: MOM 30ML SUSPENSION UDC PO SCH (08:59)
[2019-05-31] MEDS: MULTIVITAMINS/MINERALS THERAP 1 TAB PO SCH (09:00)
[2019-05-31] MEDS ORDERED: FUROSEMIDE 40 MG/4 ML VIAL (J1940) IV ONE (09:00)
[2019-05-31] MEDS: THIAMINE 100 MG TAB PO SCH (09:00)
[2019-05-31] MEDS: PANTOPRAZOLE 40MG TAB (PROTONIX) PO SCH (09:00)
[2019-05-31] MEDS: oxyCODONE 15 MG CR TAB PO SCH ×3 (09:00→20:06)
[2019-05-31] MEDS: FOLIC ACID 1 MG TAB PO SCH (09:00)
[2019-05-31] MEDS: DIVALPROEX 500MG *ER* TAB PO SCH ×2 (09:01→20:06)
[2019-05-31] MEDS: FUROSEMIDE 20 MG TAB PO SCH (09:01)
[2019-05-31] MEDS: DOCUSATE SODIUM 100 MG CAP PO SCH ×2 (09:01→20:05)
--- NOTE | 2019-05-31 09:41 | REP ---
REASON FOR EXAM: Flail chest after trauma. COMPARISON: 05/30/2019 Note is again made of multiple right-sided rib fracture status quo. Once again, there are patchy opacities seen in the right lung particularly in the right lung base with a hazy opacity along the right left lateral chest wall. This is all unchanged. Subtle curvilinear opacities have developed in the left lower lobe. Cardiomediastinal silhouette is unchanged. There is an exaggerated thoracic kyphosis status quo. IMPRESSION: Right pleural effusion with bilateral lung field opacities likely subsegmental atelectasis. Certainly, developing pneumonia could not be ruled out by this exam. There are multiple right-sided rib fractures status quo. Other findings as described above. Electronically Signed by Stu Baugh DO 05/31/2019 09:44 A
--- NOTE | 2019-05-31 10:32 | IPN ---
DATE: 05/31/2019 Mr. Romo had increased pain today and needed an IV dose of morphine prior to going down to chest x-ray. When I see him this morning he is sitting fairly comfortable on a chair. He is coughing up white sputum. His vital signs show a maximum temperature (t-max) of 98.3, with a heart rate that ranges between 75 and 67 in a sinus rhythm, respiratory rate of 18 to 20 without the use of accessory muscles, who is 95% saturated now on room air, with a blood pressure that is ranging between 135/66 to 125/66. His intake and output over the past 24 hours has been recorded as near even of 1810 and 1725 out for a positivity of 85 mL. His weight is pending today. On physical examination, his right lower hemithorax now shows transmitted bronchophony. This is a new finding as I have not heard that previously. His percussion note is dull at the very base on the right side. The left side shows normal vesicular sounds. Cardiac exam is without murmurs, clicks, gallops or rubs. I cannot feel his point of maximum impulse (PMI). S1 and S2 are normal. Abdomen is soft, nontender. Bowel sounds are positive. There is no hepatomegaly. He has referred costovertebral angle (CVA) tenderness secondary to his rib fractures on the right side. Extremities show trace pretibial edema. No calf tenderness. No differential swelling of the upper extremities. Skin is warm, dry and perfused without cyanosis or mottling, including that of the nail beds and knees. Neck is supple. There is no jugular venous distention. No subcutaneous emphysema. Trachea is midline. Mouth shows his mucous membranes to be pink and moist. Lips and commissures without lesions. There is no thrush. Eyes show his pupils to be equal and reactive. Extraocular motion intact. Sclerae anicteric. Neurologic shows II through XII intact along with gross motor and gross sensation intact. Gait is also intact. Psychiatric shows him to be awake, alert and oriented times three with appropriate mood and affect and conversational. His white count today is 10.0, down from 11.7 yesterday. Hemoglobin and hematocrit are 9.0 and 29.6, down from 10.3 and 33.5. Platelet count is 338 and stable. Differential shows 55% neutrophils, 21% lymphocytes, 18% monocytes. There are no immature forms and no toxic granulations. His electrolytes are essentially normal with a BUN and creatinine of 22 and 0.8 with a glucose of 93 and a calcium of 8.7. His chest x-ray shows more consolidation in the right lower hemithorax posteriorly. This corresponds to the physical findings of bronchophony and transmitted breath sounds. His right costophrenic angle is minimally blunted. I do not see a large pleural effusion on the lateral film. IMPRESSION: 1. Multiple displaced rib fractures. 2. Flail chest, three segments. 3. Lung contusion. 4. Respiratory failure with hypoxia, improving. 5. Alcohol abuse. 6. Prior tobacco abuse. 7. History of atrial fibrillation, now in sinus rhythm. 8. History of prior seizures. 9. Hypoxia. 10. Left pleural effusion, resolved. 11. Right pleural effusion, stable. 11. Epidural hematoma. 12. New finding of right lower lobe segmental consolidation. PLAN AND DISCUSSION: His latest microbiology shows yeast-like organisms. Normal tim is present however. He has many gram positive cocci in pairs and chains per gram stain. He was previously growing staphylococcus aureus which was sensitive to everything except penicillin G and he remains on erythromycin. I will diurese him today with 40 mg of Lasix IV. Will continue to ambulate and undertake lung expansion therapy. I am a little concerned about the consolidation, no doubt secondary to decreased lung expansion.
[2019-05-31] MEDS: CARVedilol 3.125 MG TAB PO SCH ×2 (11:47→23:46)
[2019-05-31 12:00] VITALS: BP 114/67
[2019-05-31 16:00] VITALS: BP 132/69
[2019-05-31 20:00] VITALS: BP 123/75
[2019-05-31] MEDS: AZITHROMYCIN 250 MG TAB PO SCH (20:06)
[2019-06-01] VITALS (7 sets, daily range): BP systolic 106–137; BP diastolic 55–72
[2019-06-01] MEDS: MORPHINE 4 MG/ML 1ML VIAL/SYRINGE (J2270) IV PRN ×5 (00:42→19:25)
[2019-06-01] MEDS: LEVALBUTEROL 1.25 MG/0.5 ML CONCENTRATE NEB NEB SCH ×4 (00:52→20:39)
[2019-06-01] MEDS: SODIUM CHLORIDE HYPERTONIC 3% 15ML NEB SOL INH SCH ×6 (00:53→20:39)
[2019-06-01 06:16] LABS: BASO # 0.1 10^3/uL (0.0-0.2); BASO % 0.7 % (0.0-1.0); EOS # 0.3 10^3/uL (0.0-0.5); EOS % 3.7 % (0.0-3.0); HEMATOCRIT 30.3 % (42.0-52.0); HEMOGLOBIN 9.3 g/dl (13.5-17.5); LYMPH # 2.2 10^3/uL (1.5-5.0); LYMPH % 26.2 % (24.0-44.0); MEAN CORPUSCULAR HEMOGLOBIN 25.5 pg (27.0-33.0); MEAN CORPUSCULAR HGB CONC 30.7 g/dl (32.0-36.5); MONO # 1.6 10^3/uL (0.0-0.8); MONO % 18.9 % (0.0-5.0); NEUTROPHILS # 4.2 10^3/uL (1.5-8.5); NEUTROPHILS % 49.6 % (36.0-66.0); PLATELET COUNT, AUTOMATED 357 10^3/uL (150-450); RED BLOOD COUNT 3.65 10^6/uL (4.30-6.10); WHITE BLOOD COUNT 8.5 10^3/uL (4.0-10.0)
[2019-06-01 06:37] LABS: BLOOD UREA NITROGEN 19 MG/DL (7-18); CALCIUM LEVEL 8.6 MG/DL (8.8-10.2); CARBON DIOXIDE LEVEL 31 MEQ/L (21-32); CHLORIDE LEVEL 100 MEQ/L (98-107); CREATININE FOR GFR 0.75 MG/DL (0.70-1.30); GLOMERULAR FILTRATION RATE > 60.0 (>49); GLUCOSE, FASTING 94 MG/DL (70-100); POTASSIUM SERUM 3.9 MEQ/L (3.5-5.1); SODIUM LEVEL 134 MEQ/L (136-145)
[2019-06-01] MEDS: MOM 30ML SUSPENSION UDC PO SCH (09:06)
[2019-06-01] MEDS: THIAMINE 100 MG TAB PO SCH (09:07)
[2019-06-01] MEDS: PANTOPRAZOLE 40MG TAB (PROTONIX) PO SCH (09:07)
[2019-06-01] MEDS: FUROSEMIDE 20 MG TAB PO SCH (09:07)
[2019-06-01] MEDS: FOLIC ACID 1 MG TAB PO SCH (09:07)
[2019-06-01] MEDS: DOCUSATE SODIUM 100 MG CAP PO SCH ×2 (09:07→20:27)
[2019-06-01] MEDS: MULTIVITAMINS/MINERALS THERAP 1 TAB PO SCH (09:07)
[2019-06-01] MEDS: DIVALPROEX 500MG *ER* TAB PO SCH ×2 (09:07→20:28)
[2019-06-01] MEDS: oxyCODONE 15 MG CR TAB PO SCH ×3 (09:08→20:29)
--- NOTE | 2019-06-01 09:20 | IPN ---
DATE OF SERVICE: 06/01/2019 Mr. Romo is feeling better today. He is walking around, and he has not needed breakthrough morphine. He is being maintained on OxyContin. His vital signs show a maximum temperature (Tmax) of 97.5, with a heart rate that ranges between 70 and 85 in a sinus rhythm, respiratory rate is constant at 18 without the use of accessory muscles, who is 96% to 97% saturated on room air, and his blood pressure is ranging between 106/55 to 122/57. His intake and output over the past 24 hours has been recorded as 480 in and 850 out for a negativity of 1370 mL. He was given 40 mg of intravenous (IV) Lasix yesterday in addition to the 20 by mouth that he is on. Weight today 82.5 kg compared to 82 kg 2 days ago. On physical examination, I still hear bronchophony and E:A egophony in the right lower quadrant. Breath sounds are decreased in the right hemithorax additionally. His percussion note is dull at the very base. The left side shows normal vesicular sounds. Cardiac examination is without murmurs, clicks, gallops, or rubs. I cannot feel his point of maximum impulse (PMI). S1 and S2 are normal. Abdomen is soft, nontender. Bowel sounds are positive. There is no hepatomegaly. He has costovertebral angle (CVA) tenderness referable to his right rib fractures. Extremities show no pretibial edema. No calf tenderness. No differential swelling of the upper extremities. Skin is warm, dry, and perfused without cyanosis or mottling, including that of the nail beds and the knees. Neck is supple. There is no jugular venous distention. No subcutaneous emphysema. Trachea is midline. Mouth shows his mucous membranes to be pink and moist. Lips and commissures without lesions. There is no thrush. Eyes show his pupils to be equal and reactive. Extraocular motion intact. Sclerae anicteric. Neurologic shows II-XII intact, along with gross motor and gross sensation intact. Gait is not tested. Psychiatric shows him to be awake, alert, and oriented times three with appropriate mood and affect and conversational. His white count today is down to 8.5 with a hemoglobin and hematocrit of 9.3 and 30.3, respectively, with a platelet count of 357 and stable. Differential shows 49% neutrophils, 26% lymphocytes, 18% monocytes. There are no immature forms and no toxic granulations. His electrolytes are essentially normal with a marginally low sodium of 134. BUN and creatinine are 19 and 0.75 with a glucose of 94 and a calcium of 8.6. His chest x-ray today shows what looks to be an increased pleural effusion on the lateral film over yesterday. I do not know whether that is truly an effusion or whether it is a resolving consolidation. His lateral chest x-ray shows more pleural thickening in and around the rib fractures. Costophrenic angle is marginally blunted on the right side. IMPRESSION: 1. Multiple displaced rib fractures. 2. Flail chest, three segments. 3. Lung contusion. 4. Respiratory failure with hypoxia, resolving. 5. Alcohol abuse. 6. Prior tobacco abuse. 7. History of atrial fibrillation, now in sinus rhythm. 8. History of prior seizures. 9. Left pleural effusion, resolved. 10. Right pleural effusion, possibly worsening. 11. Epidural hematoma, clinically stable. PLAN AND DISCUSSION: We will continue with his pain control for what may possibly be an increased effusion on the chest x-ray. I will send him to get a CT scan. If there is fluid, I will drain it so as not to allow his lung to become entrapped later on.
--- NOTE | 2019-06-01 09:50 | REP ---
REASON: Followup. COMPARISON: Multiple. Cardiomediastinal silhouette, lung santiago, osseous structures are all unchanged. History of right-sided flail chest status quo with right lung opacities all stable. IMPRESSION: No change. Electronically Signed by Stu Baugh DO 06/01/2019 09:51 A
--- NOTE | 2019-06-01 10:19 | REP ---
REASON: Assess right pleural effusion. COMPARISON: 05/23/2019 also without contrast. The mediastinum and pulmonary hilum have not changed significantly. Note is again made of a large hiatal hernia. There is no vania adenopathy. There is a right pleural effusion which has increased slightly compared to the prior exam. There is no left pleural effusion or pericardial effusion. The imaged upper abdomen is unchanged from the prior exam. Once again, there are multiple right-sided rib fractures status quo. Evaluation of the lung santiago show a consolidation with air bronchograms in the right lower lobe surrounded by the effusion and increased slightly from the prior exam. There is fluid in the right major fissure. IMPRESSION: 1. Right pleural effusion with suspected compressive right lower lobe subsegmental atelectasis. Certainly, pneumonia cannot be ruled out. 2. Right-sided pleural effusion as described above. 3. Other findings which appear stable as described above. Electronically Signed by Stu Baugh DO 06/01/2019 10:56 A
[2019-06-01] MEDS: CARVedilol 3.125 MG TAB PO SCH (12:11)
[2019-06-01] MEDS: AZITHROMYCIN 250 MG TAB PO SCH (20:29)
[2019-06-02] MEDS: MORPHINE 4 MG/ML 1ML VIAL/SYRINGE (J2270) IV PRN ×5 (00:20→23:53)
[2019-06-02] MEDS: CARVedilol 3.125 MG TAB PO SCH ×3 (00:24→23:53)
[2019-06-02] MEDS: SODIUM CHLORIDE HYPERTONIC 3% 15ML NEB SOL INH SCH ×5 (01:31→19:58)
[2019-06-02] MEDS: LEVALBUTEROL 1.25 MG/0.5 ML CONCENTRATE NEB NEB SCH ×4 (01:31→19:58)
[2019-06-02 04:00] VITALS: BP 112/63
[2019-06-02 06:04] LABS: BASO # 0.1 10^3/uL (0.0-0.2); BASO % 0.7 % (0.0-1.0); EOS # 0.2 10^3/uL (0.0-0.5); EOS % 2.9 % (0.0-3.0); HEMATOCRIT 31.6 % (42.0-52.0); HEMOGLOBIN 9.5 g/dl (13.5-17.5); LYMPH # 2.4 10^3/uL (1.5-5.0); LYMPH % 27.9 % (24.0-44.0); MEAN CORPUSCULAR HEMOGLOBIN 25.1 pg (27.0-33.0); MEAN CORPUSCULAR HGB CONC 30.1 g/dl (32.0-36.5); MEAN CORPUSCULAR VOLUME 83.4 fl (80.0-96.0); MONO # 1.7 10^3/uL (0.0-0.8); MONO % 19.7 % (0.0-5.0); NEUTROPHILS # 4.1 10^3/uL (1.5-8.5); NEUTROPHILS % 48.2 % (36.0-66.0); PLATELET COUNT, AUTOMATED 365 10^3/uL (150-450); RED BLOOD COUNT 3.79 10^6/uL (4.30-6.10); WHITE BLOOD COUNT 8.4 10^3/uL (4.0-10.0)
[2019-06-02 06:29] LABS: BLOOD UREA NITROGEN 18 MG/DL (7-18); CALCIUM LEVEL 8.6 MG/DL (8.8-10.2); CARBON DIOXIDE LEVEL 29 MEQ/L (21-32); CHLORIDE LEVEL 101 MEQ/L (98-107); CREATININE FOR GFR 0.76 MG/DL (0.70-1.30); GLOMERULAR FILTRATION RATE > 60.0 (>49); GLUCOSE, FASTING 95 MG/DL (70-100); POTASSIUM SERUM 4.6 MEQ/L (3.5-5.1); SODIUM LEVEL 134 MEQ/L (136-145)
[2019-06-02 08:00] VITALS: BP 115/55
[2019-06-02] MEDS: FUROSEMIDE 20 MG TAB PO SCH (08:35)
[2019-06-02] MEDS: PANTOPRAZOLE 40MG TAB (PROTONIX) PO SCH (08:35)
[2019-06-02] MEDS: THIAMINE 100 MG TAB PO SCH (08:35)
[2019-06-02] MEDS: oxyCODONE 15 MG CR TAB PO SCH ×3 (08:36→20:39)
[2019-06-02] MEDS: FOLIC ACID 1 MG TAB PO SCH (08:36)
[2019-06-02] MEDS: MULTIVITAMINS/MINERALS THERAP 1 TAB PO SCH (08:36)
[2019-06-02] MEDS: DIVALPROEX 500MG *ER* TAB PO SCH ×2 (08:36→20:38)
[2019-06-02] MEDS: DOCUSATE SODIUM 100 MG CAP PO SCH ×2 (08:36→20:40)
[2019-06-02] MEDS: MOM 30ML SUSPENSION UDC PO SCH (08:38)
--- NOTE | 2019-06-02 08:39 | REP ---
Chest x-ray: Two views. History: Lung contusion. Flail chest. Comparison chest x-ray: June 01, 2019. Findings: There are multiple rather displaced acute right rib fractures again noted. Old healed rib fractures are noted on the left. There is some elevation of the right hemidiaphragm which is unchanged. There is no evidence of pneumothorax. The right lateral pleural angle remains slightly blunted. Heart is not enlarged. No infiltrate is seen. Impression: Small right effusion. Multiple displaced right rib fractures again noted. No new infiltrate. Electronically Signed by Robles Mendoza MD 06/02/2019 09:44 A
--- NOTE | 2019-06-02 08:48 | IPN ---
DATE: 06/02/2019 Mr. Cabrera looks a bit more short of breath today sitting in his chair. He thinks that he is more short of breath and did not get up and around yesterday as he had done the previous days. His pain is being fairly well controlled with the OxyContin. His vital signs show a maximum temperature (t-max) of 99.1 with a heart rate that ranges between 72 and 63 in a sinus rhythm, respiratory rate of 14 to 16 without the use of accessory muscles, who is 94% saturated on room air, and his blood pressure is ranging between 109/65 to 112/63. His intake and output over the past 24 hours has been recorded as 1680 in and 1150 out for a positivity of 530 mL. He weighs 81.4 kg today compared to 82.5 kg yesterday. He has put out 1150 mL in urine output and has taken 1680 mL in oral intake. PHYSICAL EXAMINATION: LUNGS: His left lung shows normal vesicular sounds and he has decreased breath sounds in the right lower hemithorax, along with a dull percussion note in the right lower hemithorax. I hear no wheezes, rhonchi or rales, although the respiratory excursions are decreased. CARDIAC EXAM: Without murmurs, clicks, gallops or rubs. I cannot feel his point of maximum impulse (PMI). S1, S2 are normal. ABDOMEN: Soft, nontender. Bowel sounds positive. He is slightly distended. There is no hepatomegaly. No costovertebral angle tenderness on the left. He has costovertebral angle tenderness referable to his rib fractures on the right. EXTREMITIES: Show no pretibial edema. No calf tenderness. No differential swelling of the upper extremities. SKIN: Warm, dry and perfused without cyanosis or mottling, including that of the nail beds and knees. NECK: Supple. There is no jugular venous distention. No subcutaneous emphysema. Trachea is midline. MOUTH: Shows his mucous membranes to be pink and moist. Lips and commissures without lesions. There is no thrush. EYES: Show his pupils to be equal and reactive. Extraocular motion intact. Sclerae anicteric. NEUROLOGIC: Shows II through XII intact with gross motor and gross sensation intact. Gait is not tested. PSYCHIATRIC: Shows him to be awake and alert, oriented times three with appropriate mood and affect and conversational. His white count today is 8.4 with a hemoglobin and hematocrit of 9.5 and 31.6, respectively. This is essentially unchanged from yesterday. Platelet count is 365 and stable. Differential shows 48% neutrophils, 27% lymphocytes, 19% monocytes. There are no immature forms and no toxic granulations. His electrolytes again are essentially normal today with a marginally low sodium of 134. BUN and creatinine are 18 and 0.76 with a glucose of 95 and a calcium of 8.6. His chest x-ray again shows a right sided pleural effusion. I did do a CT on him yesterday and it confirms the presence of a moderate pleural effusion in the right hemithorax. There is underlying left lower lung compression giving rise to the E-to-A egophony. There are air bronchograms within it. Adrenals have a normal configuration. IMPRESSION: 1. Multiple rib fractures. 2. Flail chest, three segments. 3. Lung contusion. 4. Respiratory failure with hypoxia, resolving. 5. Alcohol abuse. 6. Prior tobacco abuse. 7. History of atrial fibrillation, now in sinus rhythm. 8. History of prior seizures. 9. Left pleural effusion, resolved. 10. Right pleural effusion, increasing. 11. Epidural hematoma, clinically stable. PLAN/DISCUSSION: I will have x-ray place a pigtail catheter in his posterior chest to drain the fluid. I suspect that it is osmotically diluted old blood from his rib fractures. We will connect it to a Pleur-evac and drain it completely over the next day or so. I feel that it is important to drain this pleural effusion so his lung does not become entrapped. Furthermore, he is more symptomatic today.
[2019-06-02 09:17] LABS: LDH LACTATE DEHYDROGENASE 465 U/L (87-241)
[2019-06-02] MEDS ORDERED: LIDOCAINE 1% MDV 20ML VIAL As Ordered ONE (11:08)
--- NOTE | 2019-06-02 12:20 | REP ---
CHEST X-RAY: Two views. HISTORY: Post right thoracentesis and pigtail catheter placement. COMPARISON STUDY: June 02, 2019. FINDINGS: Multiple displaced right-sided rib fractures are again noted. The right percutaneous pigtail catheter is seen in the right posterior pleural angle. There is no evidence of pneumothorax. Electronically Signed by Robles Mendoza MD 06/02/2019 01:53 P
[2019-06-02 12:40] VITALS: BP 134/71
[2019-06-02 13:10] LABS: PH BODY FLUID 7.468 UNITS (NOT ESTABLISHED); SOURCE, BODY FLUID pH PLEURAL
[2019-06-02 13:34] LABS: AMYLASE, BODY FLUID 20 U/L (NOT ESTABLISHED); CHOLESTEROL, BODY FLUID 91 MG/DL (NOT ESTABLISHED); LDH, BODY FLUID 246 U/L (NOT ESTABLISHED); SOURCE, BODY FLUID ALBUMIN PLEURAL; SOURCE, BODY FLUID AMYLASE PLEURAL; SOURCE, BODY FLUID CHOL PLEURAL; SOURCE, BODY FLUID GLUCOSE PLEURAL; SOURCE, BODY FLUID LDH PLEURAL; SOURCE, BODY FLUID TOT PROTEIN PLEURAL; SOURCE, BODY FLUID TRIG PLEURAL; TOTAL PROTEIN, BODY FLUID 4.8 G/DL (NOT ESTABLISHED); TRIGLYCERIDE, BODY FLUID 53 MG/DL (NOT ESTABLISHED)
[2019-06-02 13:51] LABS: APPEARANCE, BODY FLUID TURBID (CLEAR); PLEURAL FL COLOR RED (COLORLESS); SOURCE, BODY FLUID PLEURAL
--- NOTE | 2019-06-02 15:40 | REP ---
ULTRASOUND-GUIDED RIGHT THORACENTESIS WITH CATHETER PLACEMENT The procedure was performed under the direct supervision of Dr. Mendoza. The risks and benefits of the procedure were explained to the patient and informed consent was obtained. The right pleural effusion was localized using ultrasound guidance. The skin was prepped and draped in a sterile fashion. 1% lidocaine was used as a local anesthetic. Using ultrasound guidance an 8-Ur[employer] Skater APDL catheter was inserted using trocar technique. 200 ml of low viscosity red colored fluid was withdrawn and sent to lab for analysis. The catheter was affixed to the skin and a sterile dressing was applied. The catheter was connected to a Pleur-Evac. The patient tolerated the procedure well and there were no immediate complications. After the appropriate amount of monitored convalescence the patient was discharged from the department. Electronically Signed by CHEYENNE Hess 06/02/2019 11:42 A Electronically Signed by Robles Mendoza MD 06/02/2019 01:58 P
[2019-06-02 16:00] VITALS: BP 104/58
[2019-06-02 20:00] VITALS: BP 117/59
[2019-06-02] MEDS: AZITHROMYCIN 250 MG TAB PO SCH (20:39)
[2019-06-02 23:59] VITALS: BP 137/72
[2019-06-03] MEDS: SODIUM CHLORIDE HYPERTONIC 3% 15ML NEB SOL INH SCH ×5 (02:24→19:29)
[2019-06-03] MEDS: LEVALBUTEROL 1.25 MG/0.5 ML CONCENTRATE NEB NEB SCH ×4 (02:24→19:29)
[2019-06-03 04:00] VITALS: BP 107/58
[2019-06-03 05:42] LABS: BASO # 0.1 10^3/uL (0.0-0.2); BASO % 0.6 % (0.0-1.0); EOS # 0.2 10^3/uL (0.0-0.5); EOS % 2.5 % (0.0-3.0); HEMATOCRIT 30.4 % (42.0-52.0); HEMOGLOBIN 9.2 g/dl (13.5-17.5); LYMPH # 2.6 10^3/uL (1.5-5.0); LYMPH % 29.6 % (24.0-44.0); MEAN CORPUSCULAR HEMOGLOBIN 24.9 pg (27.0-33.0); MEAN CORPUSCULAR HGB CONC 30.3 g/dl (32.0-36.5); MEAN CORPUSCULAR VOLUME 82.2 fl (80.0-96.0); MONO # 1.3 10^3/uL (0.0-0.8); MONO % 14.8 % (0.0-5.0); NEUTROPHILS # 4.6 10^3/uL (1.5-8.5); PLATELET COUNT, AUTOMATED 401 10^3/uL (150-450); WHITE BLOOD COUNT 8.8 10^3/uL (4.0-10.0)
[2019-06-03 06:06] LABS: BLOOD UREA NITROGEN 19 MG/DL (7-18); CALCIUM LEVEL 8.5 MG/DL (8.8-10.2); CARBON DIOXIDE LEVEL 29 MEQ/L (21-32); CHLORIDE LEVEL 105 MEQ/L (98-107); CREATININE FOR GFR 0.81 MG/DL (0.70-1.30); GLOMERULAR FILTRATION RATE > 60.0 (>49); GLUCOSE, FASTING 100 MG/DL (70-100); POTASSIUM SERUM 4.1 MEQ/L (3.5-5.1); SODIUM LEVEL 139 MEQ/L (136-145)
[2019-06-03] MEDS: MORPHINE 4 MG/ML 1ML VIAL/SYRINGE (J2270) IV PRN ×3 (07:52→18:35)
[2019-06-03 08:00] VITALS: BP 108/56
[2019-06-03] MEDS: MOM 30ML SUSPENSION UDC PO SCH (09:02)
[2019-06-03] MEDS: DOCUSATE SODIUM 100 MG CAP PO SCH ×2 (09:02→20:43)
[2019-06-03] MEDS: DIVALPROEX 500MG *ER* TAB PO SCH ×2 (09:03→20:43)
[2019-06-03] MEDS: THIAMINE 100 MG TAB PO SCH (09:03)
[2019-06-03] MEDS: PANTOPRAZOLE 40MG TAB (PROTONIX) PO SCH (09:03)
[2019-06-03] MEDS: MULTIVITAMINS/MINERALS THERAP 1 TAB PO SCH (09:03)
[2019-06-03] MEDS: FOLIC ACID 1 MG TAB PO SCH (09:03)
[2019-06-03] MEDS: FUROSEMIDE 20 MG TAB PO SCH (09:03)
[2019-06-03] MEDS: oxyCODONE 15 MG CR TAB PO SCH ×3 (09:04→20:45)
--- NOTE | 2019-06-03 09:36 | REP ---
Two-view chest x-ray: 06/03/2019. Indication: Pleural effusion. Comparison: Yesterday. Findings: Pigtail catheter is essentially stable in position. Multiple displaced right-sided rib fractures and chronic left-sided rib deformities are stable. There is no pneumothorax. Impression: No pneumothorax. Electronically Signed by Murphy Hernandez DO 06/03/2019 09:27 A
[2019-06-03 12:00] VITALS: BP 124/70
--- NOTE | 2019-06-03 12:39 | IPN ---
DATE OF SERVICE: 06/03/2019 Mr. Romo is breathing better after having been drained of nearly now 1000 mL of old blood. His pain control is still acceptable. His vital signs show a maximum temperature (Tmax) of 98.0 with a heart rate that ranges between 78 and 67 in a sinus rhythm, respiratory rate of 18-20 without the use of accessory muscles, who is 94% to 98% saturated on room air, and whose blood pressure is ranging between 107/58 to 134/71. His intake and output over the past 24 hours has been recorded as 220 in and 1940 out for a negativity of 1720 mL with 440 mL out of the chest tube in addition to the initial drainage of 200 mL. Weight today is 78.7 kg compared to 81.4 kg yesterday. On physical examination: His lungs show equal breath sound on either side. Percussion note in full to the diaphragm. I hear some crackles at the base of the right hemidiaphragm. CARDIAC EXAMINATION: Is without murmurs, clicks, gallops, or rubs. I cannot feel his point of maximum impulse (PMI). S1 and S2 are normal. ABDOMEN: If soft, nontender. Bowel sounds positive. He is distended and tympanitic. He had a bowel movement this morning, however, albeit small. EXTREMITIES: Show no pretibial edema. No calf tenderness. No differential swelling of the upper extremities. SKIN: Is warm, dry, and perfused without cyanosis or mottling, including that of the nail beds and the knees. NECK: Is supple. There is no jugular venous distention. No subcutaneous emphysema. Trachea is midline. MOUTH: Shows his mucous membranes to be pink and moist. Lips and commissures without lesions. There is no thrush. EYES: Show his pupils to be equal and reactive. Extraocular motion intact. Sclerae anicteric. NEUROLOGIC: Shows II-XII intact, along with gross motor and gross sensation intact. Gait is not tested. PSYCHIATRIC: Shows him to be awake and alert, oriented times three with appropriate mood and affect and conversational. His white count today is 8.8 with a hemoglobin and hematocrit of 9.2 and 30.4 essentially unchanged from yesterday, with a platelet count of 401 and stable. Differential shows 52% neutrophils, 29% lymphocytes, 14% monocytes. There are no immature forms and no toxic granulations. His electrolytes are normal with a BUN and creatinine of 19 and 0.81 with a glucose of 100 and a calcium of 8.5. His chest x-ray today shows an improvement in the right pleural effusion. Ribs still look to be markedly displaced. I did have the CT scan of 2 days ago reconstructed with a 3D representation of the thoracic cage, and the chest x-ray is certainly misleading. There is little volume loss on the reconstruction, and there is minimal displacement of those ribs. He does have four flail segments. It should be noted that there is no paradoxical motion at this point in time. IMPRESSION: 1. Multiple rib fractures. 2. Flail chest, four segments. 3. Lung contusion. 4. Respiratory failure with hypoxia, resolving. 5. Alcohol abuse. 6. Prior tobacco abuse. 7. History of atrial fibrillation, now in sinus rhythm. 8. History of prior seizures. 9. Left pleural effusion, resolved. 10. Right pleural effusion, resolved with a pigtail catheter. 11. Epidural hematoma, clinically stable. PLAN AND DISCUSSION: I will keep this pigtail catheter in at least another day. We will still have to work on mobilizing him. Once he can be mobilized, we can start thinking about sending him home. If we cannot mobilize him sufficiently, we may need to send him to a rehabilitation unit for 2-3 weeks.
[2019-06-03] MEDS: CARVedilol 3.125 MG TAB PO SCH (12:45)
[2019-06-03 16:00] VITALS: BP 120/62
[2019-06-03 20:00] VITALS: BP 147/75
[2019-06-03] MEDS: AZITHROMYCIN 250 MG TAB PO SCH (20:44)
[2019-06-03 23:59] VITALS: BP 118/58
[2019-06-04] MEDS: CARVedilol 3.125 MG TAB PO SCH ×3 (00:05→23:56)
[2019-06-04] MEDS: LEVALBUTEROL 1.25 MG/0.5 ML CONCENTRATE NEB NEB SCH ×4 (00:37→20:22)
[2019-06-04] MEDS: SODIUM CHLORIDE HYPERTONIC 3% 15ML NEB SOL INH SCH ×6 (00:37→20:23)
[2019-06-04 04:00] VITALS: BP 110/60
[2019-06-04] MEDS: MORPHINE 4 MG/ML 1ML VIAL/SYRINGE (J2270) IV PRN ×2 (05:58→09:00)
[2019-06-04 07:04] LABS: BASO # 0.1 10^3/uL (0.0-0.2); BASO % 0.6 % (0.0-1.0); EOS # 0.4 10^3/uL (0.0-0.5); EOS % 4.4 % (0.0-3.0); HEMATOCRIT 31.2 % (42.0-52.0); HEMOGLOBIN 9.3 g/dl (13.5-17.5); LYMPH # 2.4 10^3/uL (1.5-5.0); LYMPH % 28.2 % (24.0-44.0); MEAN CORPUSCULAR HEMOGLOBIN 24.5 pg (27.0-33.0); MEAN CORPUSCULAR HGB CONC 29.8 g/dl (32.0-36.5); MEAN CORPUSCULAR VOLUME 82.3 fl (80.0-96.0); MONO # 1.2 10^3/uL (0.0-0.8); MONO % 14.4 % (0.0-5.0); NEUTROPHILS # 4.3 10^3/uL (1.5-8.5); PLATELET COUNT, AUTOMATED 418 10^3/uL (150-450); RED BLOOD COUNT 3.79 10^6/uL (4.30-6.10); WHITE BLOOD COUNT 8.3 10^3/uL (4.0-10.0)
[2019-06-04 07:34] LABS: BLOOD UREA NITROGEN 19 MG/DL (7-18); CALCIUM LEVEL 8.4 MG/DL (8.8-10.2); CARBON DIOXIDE LEVEL 30 MEQ/L (21-32); CHLORIDE LEVEL 105 MEQ/L (98-107); CREATININE FOR GFR 0.76 MG/DL (0.70-1.30); GLOMERULAR FILTRATION RATE > 60.0 (>49); GLUCOSE, FASTING 94 MG/DL (70-100); POTASSIUM SERUM 4.2 MEQ/L (3.5-5.1); SODIUM LEVEL 139 MEQ/L (136-145)
[2019-06-04 07:38] VITALS: BP 139/73
[2019-06-04] MEDS: MOM 30ML SUSPENSION UDC PO SCH (09:00)
--- NOTE | 2019-06-04 09:00 | REP ---
Two-view chest: 06/04/2019. Indication: Pleural effusion. Comparison: Yesterday. Findings: Right-sided flail chest is redemonstrated. Pigtail catheters similar in position and configuration. There is no pneumothorax. Study is otherwise unchanged. Impression: Stable examination compared to yesterday. Electronically Signed by Murphy Hernandez DO 06/04/2019 08:52 A
[2019-06-04] MEDS: FUROSEMIDE 20 MG TAB PO SCH (09:06)
[2019-06-04] MEDS: DIVALPROEX 500MG *ER* TAB PO SCH ×2 (09:06→21:27)
[2019-06-04] MEDS: PANTOPRAZOLE 40MG TAB (PROTONIX) PO SCH (09:06)
[2019-06-04] MEDS: DOCUSATE SODIUM 100 MG CAP PO SCH ×2 (09:06→21:00)
[2019-06-04] MEDS: THIAMINE 100 MG TAB PO SCH (09:06)
[2019-06-04] MEDS: MULTIVITAMINS/MINERALS THERAP 1 TAB PO SCH (09:06)
[2019-06-04] MEDS: oxyCODONE 15 MG CR TAB PO SCH ×3 (09:07→21:26)
[2019-06-04] MEDS: FOLIC ACID 1 MG TAB PO SCH (09:07)
[2019-06-04 12:00] VITALS: BP 119/65
[2019-06-04 16:00] VITALS: BP 104/61
--- NOTE | 2019-06-04 19:42 | IPN ---
DATE: 06/04/2019 Mr. Romo had some increased pain this morning for which IV morphine helped. He is again sitting comfortably in a chair and he has been ambulating with physical therapy and with a walker. We walked down to his chest x-ray today. His vital signs show a maximum temperature (Tmax) of 98.1 with a heart rate that ranges between 67 and 75 in a sinus rhythm, respiratory rate of 18-20 without the use of accessory muscles, who is 90% to 94% saturated on room air, and whose blood pressure is ranging between 139/73 to 110/60. His intake and output over the past 24 hours has been recorded as 680 in and 1025 out for a negativity of 3450 mL. He has put 25 mL out the pigtail catheter and has no air leak. Weight is pending today. On physical examination: He has some faint crackles during inspiration at the right base. The remainder of his lung sounds show normal vesicular sounds. Air movement is improved. Percussion note in full to the diaphragm. CARDIAC EXAMINATION: Is without murmurs, clicks, gallops, or rubs. I cannot feel his point of maximum impulse (PMI). S1 and S2 are normal. ABDOMEN: If soft, nontender. Slightly distended and bowel sounds are positive. There is no hepatomegaly. There is CVA tenderness referable to his right rib fractures. EXTREMITIES: Show no pretibial edema. No calf tenderness. No differential swelling of the upper extremities. SKIN: Warm, dry, and perfused without cyanosis or mottling, including that of the nail beds and the knees. NECK: Is supple. There is no jugular venous distention. No subcutaneous emphysema. Trachea is midline. MOUTH: Shows his mucous membranes to be pink and moist. Lips and commissures without lesions. There is no thrush. EYES: Show his pupils to be equal and reactive. Extraocular motion intact. Sclerae anicteric. NEUROLOGIC: Shows II-XII intact, along with gross motor and gross sensation intact. Gait is not tested. PSYCHIATRIC: Shows him to be awake and alert, oriented times three with appropriate mood and affect and conversational. His white count today is 8.3 with a hemoglobin and hematocrit of 9.3 and 31.2, essentially unchanged from yesterday, with a platelet count of 418 and stable. Differential shows 52% neutrophils, 28% lymphocytes, 14% monocytes. There are no immature forms and no toxic granulations. His chemistries are normal today with a BUN and creatinine of 19 and 0.76, glucose of 94, and a calcium of 8.4. His chest x-ray today shows an improvement in the right pleural effusion. In fact I do not see a pleural effusion on the right side on the lateral film. Pigtail catheter is in good place. Rib fractures look markedly displaced however on CT reconstruction they are not. I see no other infiltrates. IMPRESSION: 1. Multiple rib fractures. 2. Flail chest, four segments. 3. Lung contusion. 4. Respiratory failure with hypoxia, resolved. 5. Alcohol abuse. 6. Prior tobacco abuse. 7. History of atrial fibrillation, now in sinus rhythm. 8. History of prior seizures. 9. Left pleural effusion, resolved. 10. Right pleural effusion, resolved with a pigtail catheter. 11. Epidural hematoma, clinically stable. PLAN AND DISCUSSION: I will discontinue her pigtail catheter today. Our next goal will be to place him in a rehabilitation unit but I do not think that he is going to be well enough to go home or physically fit enough to go home in the next week. For some reason the hospitalist service discontinued their care and I will ask them to resume their care and begin to arrange rehabilitation. The main goal of interventions now are pain control and physical therapy including ambulation.
[2019-06-04 20:00] VITALS: BP 111/61
[2019-06-05] VITALS: BP 129/65
[2019-06-05] MEDS: SODIUM CHLORIDE HYPERTONIC 3% 15ML NEB SOL INH SCH ×5 (01:43→23:59)
[2019-06-05] MEDS: LEVALBUTEROL 1.25 MG/0.5 ML CONCENTRATE NEB NEB SCH ×4 (01:43→19:58)
[2019-06-05 04:00] VITALS: BP 108/55
[2019-06-05 05:48] LABS: BASO # 0.1 10^3/uL (0.0-0.2); BASO % 0.8 % (0.0-1.0); EOS # 0.4 10^3/uL (0.0-0.5); EOS % 4.5 % (0.0-3.0); HEMATOCRIT 31.7 % (42.0-52.0); HEMOGLOBIN 9.6 g/dl (13.5-17.5); LYMPH # 2.6 10^3/uL (1.5-5.0); MEAN CORPUSCULAR HEMOGLOBIN 24.9 pg (27.0-33.0); MEAN CORPUSCULAR HGB CONC 30.3 g/dl (32.0-36.5); MEAN CORPUSCULAR VOLUME 82.3 fl (80.0-96.0); MONO % 13.1 % (0.0-5.0); NEUTROPHILS # 3.8 10^3/uL (1.5-8.5); NEUTROPHILS % 48.3 % (36.0-66.0); PLATELET COUNT, AUTOMATED 434 10^3/uL (150-450); RED BLOOD COUNT 3.85 10^6/uL (4.30-6.10); WHITE BLOOD COUNT 7.8 10^3/uL (4.0-10.0)
[2019-06-05 06:22] LABS: BLOOD UREA NITROGEN 18 MG/DL (7-18); CALCIUM LEVEL 8.6 MG/DL (8.8-10.2); CARBON DIOXIDE LEVEL 31 MEQ/L (21-32); CHLORIDE LEVEL 105 MEQ/L (98-107); CREATININE FOR GFR 0.77 MG/DL (0.70-1.30); GLOMERULAR FILTRATION RATE > 60.0 (>49); GLUCOSE, FASTING 93 MG/DL (70-100); SODIUM LEVEL 138 MEQ/L (136-145)
[2019-06-05 08:00] VITALS: BP 111/64
[2019-06-05] MEDS: oxyCODONE 15 MG CR TAB PO SCH ×3 (08:36→20:53)
[2019-06-05] MEDS: DOCUSATE SODIUM 100 MG CAP PO SCH ×2 (08:37→20:52)
[2019-06-05] MEDS: PANTOPRAZOLE 40MG TAB (PROTONIX) PO SCH (08:37)
[2019-06-05] MEDS: MOM 30ML SUSPENSION UDC PO SCH (08:37)
[2019-06-05] MEDS: FOLIC ACID 1 MG TAB PO SCH (08:37)
[2019-06-05] MEDS: FUROSEMIDE 20 MG TAB PO SCH (08:37)
[2019-06-05] MEDS: THIAMINE 100 MG TAB PO SCH (08:37)
[2019-06-05] MEDS: MULTIVITAMINS/MINERALS THERAP 1 TAB PO SCH (08:37)
[2019-06-05] MEDS: DIVALPROEX 500MG *ER* TAB PO SCH ×2 (08:37→20:52)
[2019-06-05] MEDS: CARVedilol 3.125 MG TAB PO SCH (11:30)
[2019-06-05] MEDS ORDERED: CALCIUM CARBONATE 500 MG CHEW U/D PO PRN (11:30)
[2019-06-05] MEDS: MORPHINE 4 MG/ML 1ML VIAL/SYRINGE (J2270) IV PRN (11:31)
[2019-06-05 12:00] VITALS: BP 140/82
--- NOTE | 2019-06-05 13:49 | IPN ---
DATE: 06/05/2019 Mr. Romo again is sitting comfortably. The nursing staff tells me that he is able to ambulate with supervision. His pain is being fairly well controlled. His vital signs show a maximum temperature (Tmax) of 98.1 with a heart rate that ranges between 72 and 79 in a sinus rhythm, respiratory rate of 18-20 without the use of accessory muscles, who is 94-95% saturated on room air and whose blood pressure is ranging between 140/82-111/64. His intake and output for the past 24 hours has been recorded as 1380 in and 725 out for a positivity of 655 mL. He weighs 80.5 kg compared to 78.7 kg yesterday. On physical examination, he has equal breath sounds on either side with some late expiratory wheezing on the right side. Percussion note is full to the diaphragm. Cardiac exam is without murmurs, clicks, gallops, or rubs. I cannot feel his point of maximum impulse (PMI). S1 and S2 are normal. Abdomen is soft, nontender, slightly distended. Bowel sounds are positive. Extremities show no pretibial edema. No calf tenderness. No differential swelling of the upper extremities. Skin is warm, dry, and perfused without cyanosis or mottling, including that of the nail beds and the knees. Neck is supple. There is no jugular venous distention. No subcutaneous emphysema. Trachea is midline. Mouth shows his mucous membranes to be pink and moist. Lips and commissures without lesions. There is no thrush. Eyes show his pupils to be equal and reactive. Extraocular motion intact. Sclerae anicteric. Neuro shows II-XII intact, along with gross motor and gross sensation intact. Gait is not tested. Psychiatric shows him to be awake and alert, oriented times three with appropriate mood and affect and conversational. His white count is 7.8 with a hemoglobin and hematocrit of 9.6 and 31.7, unchanged from yesterday, with a platelet count of 434 and stable. Differential shows 48% neutrophils, 33% lymphocytes, 13% monocytes. There are no immature forms. No toxic granulations. His electrolytes are normal with a BUN and creatinine of 18 and 0.77, a glucose of 93 and calcium of 8.6. There is no chest x-ray on him today. IMPRESSION: 1. Multiple rib fractures, right side. 2. Flail chest, four segments, right side. 3. Lung contusion, resolving. 4. Respiratory failure and hypoxia, resolved. 5. Alcohol abuse. 6. Prior tobacco abuse. 7. History of atrial fibrillation, now in sinus rhythm. 8. History of prior seizures. 9. Left pleural effusion, resolved. 10. Right pleural effusion, resolved with a pigtail catheter. 11. Epidural hematoma, clinically stable. PLAN AND DISCUSSION: I have again asked the hospitalist to assume care. He is going to need a period of rehab in an outside facility. Nonetheless, we should vigorously starting ambulating him and physical therapy should become actively involved in his rehabilitation until he is transferred. I will obtain a chest x-ray on him tomorrow.
[2019-06-05] MEDS ORDERED: LORazepam 0.5 MG TAB PO PRN (15:30)
--- NOTE | 2019-06-05 15:40 | CR.PDOC ---
General Date of Consultation: Jun 05, 2019 Referring Provider: Rocael Lomas M.D. Consultation REASON FOR CONSULTATION/CHIEF COMPLAINT: [We are re-consulted to assist with medical management in this 68-year-old male who is status post flail chest.]. HISTORY OF PRESENT ILLNESS: [This is a 68-year-old male who sustained multiple chest fractures after a fall. The patient had flail chest. There were complications of bilateral pleural effusions and respiratory failure. Of interest, the patient had had a fall with multiple rib fractures earlier in the year. The patient attributes his falls to having multiple projects around the house.]. ALLERGIES: Please see below. HOME MEDICATIONS: Please see below. PAST MEDICAL HISTORY: Reported history includes chronic anemia, chronic atrial fibrillation, dyslipidemia, seizure disorder, brain aneurysm requiring surgical intervention--this was 20 years ago, obstructive sleep apnea, gastroesophageal reflux disease with recent GI bleed, anxiety disorder, epidural hematoma in the past Again, most recently patient has had rib fractures, flail chest, bilateral pleural effusions. 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 He is an active smoker. He of course has not smoked while he's been in the hospital. He does not feel he requires a nicotine patch. He feels he is committed to smoking cessation.] ETOH: [The patient does not feel he has heavy or inappropriate alcohol use. There is reference to alcohol dependency in his medical record. The patient reports that alcohol is "all around him" at home. He reports that his daughter is an alcoholic.] Illicit drug use: [Patient reports using marijuana in his youth REVIEW OF SYSTEMS: The patient notes remarkable activity intolerance since admission and worsening of his baseline anxiety disorder. Otherwise, 10 system review is negative. PHYSICAL EXAMINATION: VITAL SIGNS: Please see below. GENERAL APPEARANCE: [Patient is seen sitting up in a chair. He reports being ea sily fatigued.]. HEENT: [Neck is supple with no adenopathy or thyromegaly, oral mucosa is moist, no scleral icterus or injection]. RESPIRATORY: [Bilateral coarse breath sounds, especially to expiration, no active cough]. CARDIOVASCULAR: [Regular rate and rhythm, no appreciable murmur]. ABDOMEN: [Soft, nontender, nondistended, normal bowel tones]. EXTREMITIES: [No peripheral edema, pedal pulses are palpable]. NEUROLOGICAL: [No focal neuromotor deficit. Activity is limited by fatigue and weakness]. PSYCHIATRIC: [Presents with elements of anxiety and depression.]. LABORATORY DATA: Please see below. ASSESSMENT/PLAN: Mr. Romo is a 68-year-old male who's had an extended period of hospitaliz ation due to respiratory failure associated with flail chest. The patient sustained multiple rib fractures in a fall. There were complications of lung contusions with bilateral pleural effusions as well. The patient is status post extended respiratory support. He also required drainage with chest tube. He has remarkable residual pain superimposed on his chronic back pain and reports only moderate pain control. This overall affects his demeanor and his overall activity tolerance. Plans are for the patient to be assessed by physical and occupational therapy services and evaluated for placement in the acute rehabilitation facility. The patient reports an underlying history of fairly significant anxiety. He states that at home he has been on low-dose Ativan. Certain had been raised during this hospital stay that his anxiety symptoms may be part of an alcohol withdrawal syndrome. It has been well past an interval for alcohol withdrawal. Patient may benefit from the addition of an antidepressant to his regimen to address both depression and anxiety. The patient has a history of chronic back pain. He also has more recent residual pain from his flail chest and intervention for his pleural effusions. I will restore his Cymbalta as part of his pain control regimen. Patient has chronic atrial fibrillation. He remains on rate control and anticoagulation medications. Patient has a history of seizure disorder. Seizures appear to be controlled with his Depakote. We will continue to follow with the patient from an internal medicine standpoint. Vital Signs/I&O Vital Signs Date Time Temp Pulse Resp B/P (MAP) Pulse Ox O2 Delivery O2 Flow Rate FiO2 06/05/19 11:46 20 06/05/19 11:30 79 140/82 06/05/19 08:00 97.7 90 06/04/19 09:00 1.0 40 I&O- Last 24 Hours up to 6 AM 06/05/19 06:00 Intake Total 1260 ml Output Total 725 ml Balance 535 ml Laboratory Data Labs 24H Laboratory Tests 2 06/05/19 05:29: Immature Granulocyte % (Auto) 0.3, Neutrophils (%) (Auto) 48.3, Lymphocytes (%) (Auto) 33.0, Monocytes (%) (Auto) 13.1H, Eosinophils (%) (Auto) 4.5H, Basophils (%) (Auto) 0.8, Neutrophils # (Auto) 3.8, Lymphocytes # (Auto) 2.6, Monocytes # (Auto) 1.0H, Eosinophils # (Auto) 0.4, Basophils # (Auto) 0.1, Nucleated Red Blood Cells % (auto) 0.0, Anion Gap 2L, Glomerular Filtration Rate > 60.0, Calcium Level 8.6L CBC/BMP Laboratory Tests 06/05/19 05:29 Microbiology Microbiology 06/02/19 Acid Fast Stain, Received Pending 06/02/19 Mycobacterial Culture, Received Pending 06/02/19 Fungal Smear, Received Pending 06/02/19 Fungal Culture, Received Pending 06/02/19 Gram Stain - Final, Complete 06/02/19 Anaerobic Culture - Final, Complete 06/02/19 Body Fluid Culture - Final, Complete 05/29/19 Gram Stain - Final, Complete 05/29/19 Sputum Culture - Final, Complete Staphylococcus Aureus Yeast Like Organism 05/28/19 Blood Culture - Final, Complete NO GROWTH AFTER 5 DAYS 05/28/19 Blood Culture - Final, Complete NO GROWTH AFTER 5 DAYS Allergies Coded Allergies: No Known Allergies (Verified , 04/05/17) Home Medications Scheduled Apixaban (Eliquis) 5 Mg Tablet, 5 MG PO BID, (Reported) Carvedilol (Carvedilol) 3.125 Mg Tablet, 3.125 MG PO BID, (Reported) Cyanocobalamin (Vitamin B-12) (Vitamin B-12) 1,000 Mcg Tab, 1,000 MCG PO DAILY, (Reported) Divalproex Sodium (Depakote ER) 500 Mg Tab, 500 MG PO BID, (Reported) Duloxetine Hcl (Duloxetine HCl) 60 Mg Capsule.dr, 60 MG PO DAILY, (Reported) Omeprazole (Omeprazole) 40 Mg Capsule.dr, 40 MG PO DAILY, (Reported) Rosuvastatin Calcium (Rosuvastatin Calcium) 40 Mg Tablet, 40 MG PO QHS, (Reported) Scheduled PRN Hydrocodone/Acetaminophen (Hydrocodone-Acetamin 7.5-325) 1 Tab Tab, 1 TAB PO QID PRN for PAIN, (Reported) Hydroxyzine HCl (Hydroxyzine HCl) 10 Mg Tablet, 10 MG PO QHS PRN for SLEEP, (Reported) Lorazepam (Ativan) 0.5 Mg Tab, 0.5 MG PO TID PRN for ANXIETY, (Reported) GINGER GOMEZ MD Jun 05, 2019 15:40
[2019-06-05 16:00] VITALS: BP 121/68
[2019-06-05] MEDS ORDERED: CitaloPRAM (CeleXA) 20 MG TAB PO SCH (16:00)
[2019-06-05 20:00] VITALS: BP 139/80
[2019-06-05] MEDS: hydrOXYzine 10 MG TAB PO SCH (20:54)
[2019-06-06] VITALS (7 sets, daily range): BP systolic 110–138; BP diastolic 60–82
[2019-06-06] MEDS: CARVedilol 3.125 MG TAB PO SCH ×3 (00:05→23:50)
[2019-06-06] MEDS: SODIUM CHLORIDE HYPERTONIC 3% 15ML NEB SOL INH SCH ×5 (01:55→20:00)
[2019-06-06] MEDS: LEVALBUTEROL 1.25 MG/0.5 ML CONCENTRATE NEB NEB SCH ×4 (01:56→20:52)
[2019-06-06 06:09] LABS: BASO # 0.1 10^3/uL (0.0-0.2); BASO % 0.6 % (0.0-1.0); EOS # 0.4 10^3/uL (0.0-0.5); EOS % 4.3 % (0.0-3.0); HEMATOCRIT 32.1 % (42.0-52.0); HEMOGLOBIN 9.5 g/dl (13.5-17.5); LYMPH # 3.1 10^3/uL (1.5-5.0); LYMPH % 35.9 % (24.0-44.0); MEAN CORPUSCULAR HEMOGLOBIN 24.5 pg (27.0-33.0); MEAN CORPUSCULAR HGB CONC 29.6 g/dl (32.0-36.5); MEAN CORPUSCULAR VOLUME 82.9 fl (80.0-96.0); MONO # 1.1 10^3/uL (0.0-0.8); MONO % 12.5 % (0.0-5.0); NEUTROPHILS % 46.2 % (36.0-66.0); PLATELET COUNT, AUTOMATED 446 10^3/uL (150-450); RED BLOOD COUNT 3.87 10^6/uL (4.30-6.10); WHITE BLOOD COUNT 8.6 10^3/uL (4.0-10.0)
[2019-06-06 06:31] LABS: BLOOD UREA NITROGEN 20 MG/DL (7-18); CALCIUM LEVEL 8.4 MG/DL (8.8-10.2); CARBON DIOXIDE LEVEL 32 MEQ/L (21-32); CHLORIDE LEVEL 105 MEQ/L (98-107); GLOMERULAR FILTRATION RATE > 60.0 (>49); GLUCOSE, FASTING 93 MG/DL (70-100); SODIUM LEVEL 140 MEQ/L (136-145)
[2019-06-06] MEDS: MORPHINE 4 MG/ML 1ML VIAL/SYRINGE (J2270) IV PRN (07:29)
--- NOTE | 2019-06-06 08:17 | REP ---
Chest x-ray: Two views. History: Flail chest. Comparison chest x-ray: June 04, 2019. Findings: Displaced rib fractures again noted along the right posterolateral chest wall unchanged. Old healed rib fractures are noted on the left. There is slight blunting of the right lateral pleural angle. This is improved on the lateral radiograph. The pigtail catheter previously noted in the right posterior pleural angle has been removed. No new infiltrate. There is no evidence of pneumothorax. Electronically Signed by Robles Mendoza MD 06/06/2019 08:09 A
[2019-06-06] MEDS: MULTIVITAMINS/MINERALS THERAP 1 TAB PO SCH (08:48)
[2019-06-06] MEDS: oxyCODONE 15 MG CR TAB PO SCH ×3 (08:48→20:55)
[2019-06-06] MEDS: DIVALPROEX 500MG *ER* TAB PO SCH ×2 (08:49→20:54)
[2019-06-06] MEDS: DULoxetine 30 MG CAP (CYMBALTA) PO SCH (08:49)
[2019-06-06] MEDS: DOCUSATE SODIUM 100 MG CAP PO SCH ×2 (08:49→20:54)
[2019-06-06] MEDS: THIAMINE 100 MG TAB PO SCH (08:49)
[2019-06-06] MEDS: PANTOPRAZOLE 40MG TAB (PROTONIX) PO SCH (08:50)
[2019-06-06] MEDS: FOLIC ACID 1 MG TAB PO SCH (08:50)
[2019-06-06] MEDS: FUROSEMIDE 20 MG TAB PO SCH (08:50)
[2019-06-06] MEDS: CitaloPRAM (CeleXA) 10 MG TABLET PO SCH (08:50)
[2019-06-06] MEDS: MOM 30ML SUSPENSION UDC PO SCH (08:50)
[2019-06-06] MEDS ORDERED: SLF 3 ML SYR IV PRN (12:30)
[2019-06-06] MEDS: SLF 3 ML SYR IV SCH ×2 (16:54→20:55)
--- NOTE | 2019-06-06 17:04 | IPN ---
DATE: 06/06/2019 Mr. Romo became confused this morning and had more pain. I was in the operating room and Dr. Carreno in the hospitalist group reduced his narcotic and analgesia. This afternoon when I see him he is sitting comfortably in the chair. Vital signs showed T-max of 97.9 with a heart rate that ranges between 76 and 65 in a sinus rhythm, respiratory rate of 18 to 20 without the use of accessory muscles who is 98 to 92% saturated on room air and whose blood pressure is ranging between 122/69 to 113/60. His intake and output over the past 24 hours has been reported as 900 in and 1250 out for a negativity of 350 mL. He weighs 79.2 kg compared to 80.5 kg yesterday. PHYSICAL EXAMINATION: He has some coarse rales on the right side most of which clear with coughing. Percussion note is full to the full to the diaphragm. He is filter press tender in the right posterior chest. Cardiac exam is without murmurs, clicks, gallops or rubs. I cannot feel his point of maximal impulse (PMI). S1 and S2 are normal. Abdomen is soft and nontender. Bowel sounds are positive. He is still slightly distended and tympanitic. He has costovertebral angle (CVA) tenderness referable to the rib fractures on the right side. Extremities show no pretibial edema. No calf tenderness. No differential swelling of the upper extremities. Skin is warm, dry and perfused without cyanosis or mottling including that of the nail beds and the knees. Neck is supple. There is no jugular venous distention. No subcutaneous emphysema. Trachea is midline. Mouth shows his mucous membranes to be pink and moist. Lips and commissures without lesions. There is no thrush. Eyes show his pupils to be equal and reactive. Extraocular muscles intact. Sclera anicteric. Neuro shows II through XII intact. Gross motor and gross sensation intact. Gait is not tested. Psychiatric shows him to be awake, alert and oriented times three with appropriate mood, affect and conversational. His white count today is 8.6 with a hemoglobin and hematocrit of 9.5 and 32.1, all unchanged from yesterday with a platelet count of 446 and stable. Differential shows 46% neutrophils, 35% lymphocytes, 12% monocytes. There are no immature forms, no toxic granulations. Electrolytes are normal with a BUN and creatinine of 20 and 0.8 with a glucose of 93 and calcium 8.4. His chest x-ray today again shows displaced rib fractures which do not correlate with the reconstruction on the CT scan. He has minimal blunting of the right costophrenic angle. It looks as though he may start to be having a return of the posterior effusion on the lateral film. IMPRESSION: 1. Multiple rib fractures right side. 2. Flail chest four segments right side. 3. Lung contusions, resolving. 4. Respiratory failure and hypoxia, resolved. 5. Prior alcohol abuse. 6. Prior tobacco abuse. 7. History of atrial fibrillation, now in sinus rhythm. 8. History of prior seizures. 9. Left pleural effusion, resolved. 10. Right pleural effusion, returning. 11. Epidural hematoma, clinically stable. PLAN AND DISCUSSION: We will need to find a rehabilitation unit for him. If [facility] will take him for acute rehabilitation that would be the best of all worlds. I do not think he is safe enough to go home as of yet, but should do after about two weeks. I will leave his pain analgesia to the hospitalist group at this point in time.
--- NOTE | 2019-06-06 18:50 | IPNPDOC ---
Text Note Date of Service The patient was seen on 06/06/19. NOTE SUBJECTIVE: Patient's overall status is variable. Patient was seen by this casualty underwriter working well with physical therapy and working on climbing stairs. He did not experience shortness of breath or respiratory distress with this activity. Others have reported that he has had episodes of desaturations and fatigue; it has also been reported the patient had an episode of hallucinations. The patient's severity of pain complaint is also variable. OBJECTIVE: Please see vital signs below--patient was noted to have O2 sats of 97-99% on room air with activity by this casualty underwriter HENT: Neck is supple with no adenopathy or thyromegaly, oral mucosa is moist, he has no scleral icterus or injection. Respiratory: Patient has bilateral coarse expiratory breath sounds, but no acti ve cough. Cardiovascular: Regular rate and rhythm, no appreciable murmur. Abdomen: Soft, nontender, nondistended, normal bowel tones. Extremities: No peripheral edema, pedal pulses are palpable. Neuro: Patient does not exhibit any focal neuromotor deficit, patient was able to ambulate well, making use of a walker with minimal assistance. Psych: Patient continues with elements of anxiety and depression ASSESSMENT/PLAN: 1. Flail chest. Flail chest was due to multiple rib fractures sustained in a fall. There were complications of lung contusions and bilateral pleural effusions requiring chest tube drainage. The patient had an extended hospital stay with acute hypoxic respiratory failure. Chest tube has been removed. Patient has residual pain; we continue to adjust his pain management regimen. Patient has been on OxyContin, which may be contributory to hallucinations; dosage has been reduced and we'll need to find alternative regimen. Cymbalta has been restored to his pain control regimen. 2. Depression with anxiety features. Patient relates a long-term history of anxiety, but also exhibited depression during this hospital stay. Patient has been started on low-dose Celexa. 3. Chronic atrial fibrillation. Patient remains on rate control medications and anticoagulation medications. 4. Patient has a history of seizure disorder. Seizure control was maintained with his Depakote. We are hopeful of this patient being acceptable to the acute rehabilitation unit. VS,Fishbone, I+O VS, Fishbone, I+O Laboratory Tests 06/06/19 05:52 Vital Signs Date Time Temp Pulse Resp B/P (MAP) Pulse Ox O2 Delivery O2 Flow Rate FiO2 06/06/19 16:54 97.6 71 18 110/62 91 Room Air 1.0 40 I&O- Last 24 Hours up to 6 AM 06/06/19 06:00 Intake Total 1020 ml Output Total 1580 ml Balance -560 ml GINGER GOMEZ MD Jun 06, 2019 18:50
[2019-06-06] MEDS: hydrOXYzine 10 MG TAB PO SCH (20:55)
[2019-06-07] VITALS: BP 110/61
[2019-06-07] MEDS: LEVALBUTEROL 1.25 MG/0.5 ML CONCENTRATE NEB NEB SCH ×4 (02:14→19:21)
[2019-06-07 04:00] VITALS: BP 103/59
[2019-06-07] MEDS: SODIUM CHLORIDE HYPERTONIC 3% 15ML NEB SOL INH SCH ×6 (04:00→19:21)
[2019-06-07] MEDS: SLF 3 ML SYR IV SCH ×3 (04:59→20:26)
[2019-06-07 06:01] LABS: BASO # 0.1 10^3/uL (0.0-0.2); BASO % 0.6 % (0.0-1.0); EOS # 0.4 10^3/uL (0.0-0.5); EOS % 4.7 % (0.0-3.0); HEMATOCRIT 29.9 % (42.0-52.0); HEMOGLOBIN 9.1 g/dl (13.5-17.5); LYMPH # 2.2 10^3/uL (1.5-5.0); LYMPH % 26.8 % (24.0-44.0); MEAN CORPUSCULAR HEMOGLOBIN 25.1 pg (27.0-33.0); MEAN CORPUSCULAR HGB CONC 30.4 g/dl (32.0-36.5); MEAN CORPUSCULAR VOLUME 82.4 fl (80.0-96.0); MONO # 1.2 10^3/uL (0.0-0.8); MONO % 14.6 % (0.0-5.0); NEUTROPHILS # 4.4 10^3/uL (1.5-8.5); NEUTROPHILS % 52.9 % (36.0-66.0); PLATELET COUNT, AUTOMATED 431 10^3/uL (150-450); RED BLOOD COUNT 3.63 10^6/uL (4.30-6.10); WHITE BLOOD COUNT 8.3 10^3/uL (4.0-10.0)
[2019-06-07 06:30] LABS: BLOOD UREA NITROGEN 21 MG/DL (7-18); CALCIUM LEVEL 8.8 MG/DL (8.8-10.2); CARBON DIOXIDE LEVEL 29 MEQ/L (21-32); CHLORIDE LEVEL 105 MEQ/L (98-107); CREATININE FOR GFR 0.76 MG/DL (0.70-1.30); GLOMERULAR FILTRATION RATE > 60.0 (>49); GLUCOSE, FASTING 91 MG/DL (70-100); POTASSIUM SERUM 4.1 MEQ/L (3.5-5.1); SODIUM LEVEL 139 MEQ/L (136-145)
[2019-06-07 08:00] VITALS: BP 131/72
--- NOTE | 2019-06-07 08:16 | REP ---
Chest x-ray: Two views. History: Flail chest. Findings: Multiple right-sided rib fractures are again seen. Old healed rib fractures are noted on the left. There is mild plate-like atelectasis in the right base and there is blunting of the right posterior pleural angle consistent with a small amount of right pleural effusion. This is essentially unchanged from yesterday's radiograph. Electronically Signed by Robles Mendoza MD 06/07/2019 08:07 A
[2019-06-07] MEDS: MOM 30ML SUSPENSION UDC PO SCH (08:53)
[2019-06-07] MEDS: DIVALPROEX 500MG *ER* TAB PO SCH ×2 (08:54→20:26)
[2019-06-07] MEDS: DOCUSATE SODIUM 100 MG CAP PO SCH ×2 (08:54→20:26)
[2019-06-07] MEDS: PANTOPRAZOLE 40MG TAB (PROTONIX) PO SCH (08:54)
[2019-06-07] MEDS: FOLIC ACID 1 MG TAB PO SCH (08:54)
[2019-06-07] MEDS: DULoxetine 30 MG CAP (CYMBALTA) PO SCH (08:55)
[2019-06-07] MEDS: oxyCODONE 15 MG CR TAB PO SCH ×2 (08:55→20:25)
[2019-06-07] MEDS: THIAMINE 100 MG TAB PO SCH (08:55)
[2019-06-07] MEDS: FUROSEMIDE 20 MG TAB PO SCH (08:55)
[2019-06-07] MEDS: MULTIVITAMINS/MINERALS THERAP 1 TAB PO SCH (08:55)
[2019-06-07] MEDS: CitaloPRAM (CeleXA) 10 MG TABLET PO SCH (08:55)
[2019-06-07 12:00] VITALS: BP 112/62
[2019-06-07] MEDS: KETOROLAC 30 MG/ML VIAL (J1885) IV SCH ×3 (13:41→23:55)
[2019-06-07] MEDS: CARVedilol 3.125 MG TAB PO SCH ×2 (13:41→23:54)
--- NOTE | 2019-06-07 13:41 | IPN ---
DATE: 06/07/2019 Mr. Romo was a bit confused and reportedly hallucinating this morning, as I was informed by the nursing staff. He is on 50 mg three times a day of OxyContin, having been reduced from 30 three times a day yesterday. Upon my examination, he is perfectly lucid and conversational. This happened earlier this morning. His pain is being fairly well controlled and he does ambulate down to x-ray. His vital signs show a maximum temperature (t-max) of 99.7 with a heart rate that is ranging between 72 and 66 in a sinus rhythm, respiratory rate of 16 to 18 without the use of accessory muscles, who is 94 to 97% saturated on room air. Blood pressure is ranging between 110/61 to 103/59. His intake and output over the past 24 hours has been recorded as only 420 in and 580 out for a negativity of 160 mL. He weighs 79.3 kg today, which is unchanged from yesterday's of 79.2. He is recorded as only taking in 420 mL of oral intake. PHYSICAL EXAMINATION: LUNGS: He has slightly decreased breath sounds on the right side but a percussion note that is full to the diaphragm. He is not as tender posteriorly as he has been to percussion. I hear no wheezes, rhonchi or rales. CARDIAC EXAM: Without murmurs, clicks, gallops or rubs. I cannot feel his point of maximum impulse (PMI). S1, S2 are normal. ABDOMEN: Soft, nontender but tympanitic and distended. Bowel sounds are positive. There is no hepatomegaly. He does have costovertebral angle tenderness referable to his right rib fractures. EXTREMITIES: Show no pretibial edema. No calf tenderness. No differential swelling of the upper extremities. SKIN: Warm, dry and perfused without cyanosis or mottling, including that of the nail beds and knees. NECK: Supple. There is no jugular venous distention. No subcutaneous emphysema. Trachea is midline. MOUTH: Shows his mucous membranes to be pink and moist. Lips and commissures without lesions. There is no thrush. EYES: Show his pupils to be equal and reactive. Extraocular motion intact. Sclerae anicteric. NEUROLOGIC: Shows II through XII intact with gross motor and gross sensation intact. Gait is not tested. PSYCHIATRIC: Shows him to be awake and alert, oriented times three with appropriate mood and affect and conversational. His white count today is 8.3 with a hemoglobin and hematocrit of 9.1 and 29.9, slightly down from 9.5 and 32.1 yesterday. Platelet count is 431. Differential shows 52% neutrophils, 26% lymphocytes, and 14% monocytes. There are no immature forms and no toxic granulations. His electrolytes are normal with a BUN and creatinine of 21 and 0.76, glucose of 91 and a calcium of 8.8. Chest x-ray today shows return of his right pleural effusion. He looks to have an air fluid level on the PA film; however, on the lateral film it is truly meniscus. I will observe that carefully, although he may need to have that drained, and I will probably repeat his CAT scan on Sunday. He is not in any respiratory distress. IMPRESSION: 1. Multiple rib fractures, right side. 2. Flail chest, four segments, right side. 3. Lung contusions, resolved. 4. Respiratory failure and hypoxia, resolved. 5. Prior tobacco abuse. 6. Prior alcohol abuse. 7. History of atrial fibrillation, now in sinus rhythm. 8. History of prior seizures. 9. Left pleural effusion, resolved. 10. Right pleural effusion, returning. 11. Epidural hematoma, clinically stable. PLAN/DISCUSSION: I will let the hospitalist group adjust his narcotic medications. It looks as though they may need to come some more. We still have to try and place him in a rehabilitation unit. It would be optimal if he went to the acute rehabilitation unit here in the hospital. I suspect his rehabilitation period will be about 2 weeks. I do not see where he is on Toradol anymore, and I will restart that and continue to check his daily BUN and creatinine. Perhaps that will allow us to decrease his narcotic analgesia.
--- NOTE | 2019-06-07 15:27 | IPNPDOC ---
Text Note Date of Service The patient was seen on 06/07/19. NOTE SUBJECTIVE: The patient is up in a chair. He is awake, alert, conversant and cooperative with exam. There continued to be reports of him having hallucinations, but it just may be that he is dreaming vividly. The patient does not otherwise relate any complaints of pain. Patient has had difficulty with rib fractures resulting in flail chest and pleural effusions requiring chest tube drainage. He is remarkably medically stable. OBJECTIVE: Please see vital signs below--O2 sats are 94-97% on room air Physical exam: HENT: Neck is supple with no adenopathy or thyromegaly, oral mucosa is moist, he has no scleral icterus or injection. Respiratory: Patient has bilateral coarse expiratory breath sounds, but no active cough. Cardiovascular: Regular rate and rhythm, no appreciable murmur. Abdomen: Soft, nontender, nondistended, normal bowel tones. Extremities: No peripheral edema, pedal pulses are palpable. Neuro: Patient does not exhibit any focal neuromotor deficit, patient was able to ambulate well, making use of a walker with minimal assistance. Psych: Patient continues with elements of anxiety and depression ASSESSMENT/PLAN: 1. Flail chest. Flail chest was due to multiple rib fractures sustained in a fall. There were complications of lung contusions and bilateral pleural effusions requiring chest tube drainage. The patient had an extended hospital stay with acute hypoxic respiratory failure. Chest tube has been removed. Patient has residual pain; we continue to adjust his pain management regimen. Patient has been on OxyContin, which may be contributory to hallucinations; dosage is being reduced and we'll need to find alternative regimen. Cymbalta has been restored to his pain control regimen. 2. Depression with anxiety features. Patient relates a long-term history of anxiety, but also exhibited depression during this hospital stay. Patient has been started on low-dose Celexa. 3. Chronic atrial fibrillation. Patient remains on rate control medications and anticoagulation medications. 4. Patient has a history of seizure disorder. Seizure control was maintained with his Depakote. 5. Nutrition. Patient had been reported to have very poor intake with nutritional concerns. Nutrition notes reviewed; patient appears to be slowly increasing his intake and making an effort. We can always make additional use of nutritional supplements. We are hopeful of this patient being acceptable to the acute rehabilitation unit. VS,Esmer, I+O VS, Fishbone, I+O Laboratory Tests 06/07/19 05:36 Vital Signs Date Time Temp Pulse Resp B/P (MAP) Pulse Ox O2 Delivery O2 Flow Rate FiO2 06/07/19 13:41 67 112/62 06/07/19 12:00 97.6 20 94 Room Air 06/06/19 16:54 1.0 40 I&O- Last 24 Hours up to 6 AM 06/07/19 06:00 Intake Total 300 ml Output Total 0 ml Balance 300 ml GINGER GOMEZ MD Jun 07, 2019 15:27
[2019-06-07 16:00] VITALS: BP 115/55
[2019-06-07 20:00] VITALS: BP 102/56
[2019-06-07] MEDS: hydrOXYzine 10 MG TAB PO SCH (20:24)
[2019-06-08] VITALS: BP 104/67
[2019-06-08] MEDS: LEVALBUTEROL 1.25 MG/0.5 ML CONCENTRATE NEB NEB SCH ×4 (01:25→19:21)
[2019-06-08 04:00] VITALS: BP 110/66
[2019-06-08] MEDS: SLF 3 ML SYR IV SCH ×3 (05:12→20:22)
[2019-06-08 05:24] LABS: BASO # 0.1 10^3/uL (0.0-0.2); BASO % 0.8 % (0.0-1.0); EOS # 0.4 10^3/uL (0.0-0.5); EOS % 5.9 % (0.0-3.0); HEMATOCRIT 30.9 % (42.0-52.0); HEMOGLOBIN 9.3 g/dl (13.5-17.5); LYMPH # 2.9 10^3/uL (1.5-5.0); LYMPH % 47.1 % (24.0-44.0); MEAN CORPUSCULAR HEMOGLOBIN 24.8 pg (27.0-33.0); MEAN CORPUSCULAR HGB CONC 30.1 g/dl (32.0-36.5); MEAN CORPUSCULAR VOLUME 82.4 fl (80.0-96.0); MONO # 0.7 10^3/uL (0.0-0.8); NEUTROPHILS # 2.1 10^3/uL (1.5-8.5); NEUTROPHILS % 34.9 % (36.0-66.0); PLATELET COUNT, AUTOMATED 399 10^3/uL (150-450); RED BLOOD COUNT 3.75 10^6/uL (4.30-6.10); WHITE BLOOD COUNT 6.1 10^3/uL (4.0-10.0)
[2019-06-08 05:43] LABS: BLOOD UREA NITROGEN 23 MG/DL (7-18); CALCIUM LEVEL 8.8 MG/DL (8.8-10.2); CARBON DIOXIDE LEVEL 28 MEQ/L (21-32); CHLORIDE LEVEL 105 MEQ/L (98-107); CREATININE FOR GFR 0.83 MG/DL (0.70-1.30); GLOMERULAR FILTRATION RATE > 60.0 (>49); GLUCOSE, FASTING 83 MG/DL (70-100); SODIUM LEVEL 139 MEQ/L (136-145)
[2019-06-08] MEDS: KETOROLAC 30 MG/ML VIAL (J1885) IV SCH ×3 (06:10→18:41)
[2019-06-08] MEDS: SODIUM CHLORIDE HYPERTONIC 3% 15ML NEB SOL INH SCH ×5 (07:10→19:21)
[2019-06-08 08:00] VITALS: BP 149/69
[2019-06-08] MEDS: CitaloPRAM (CeleXA) 10 MG TABLET PO SCH (08:19)
[2019-06-08] MEDS: MOM 30ML SUSPENSION UDC PO SCH (08:19)
[2019-06-08] MEDS: DIVALPROEX 500MG *ER* TAB PO SCH ×2 (08:19→20:19)
[2019-06-08] MEDS: MULTIVITAMINS/MINERALS THERAP 1 TAB PO SCH (08:19)
[2019-06-08] MEDS: FOLIC ACID 1 MG TAB PO SCH (08:19)
[2019-06-08] MEDS: FUROSEMIDE 20 MG TAB PO SCH (08:19)
[2019-06-08] MEDS: DOCUSATE SODIUM 100 MG CAP PO SCH ×2 (08:19→20:20)
[2019-06-08] MEDS: DULoxetine 30 MG CAP (CYMBALTA) PO SCH (08:19)
[2019-06-08] MEDS: THIAMINE 100 MG TAB PO SCH (08:19)
[2019-06-08] MEDS: PANTOPRAZOLE 40MG TAB (PROTONIX) PO SCH (08:19)
[2019-06-08] MEDS: oxyCODONE 15 MG CR TAB PO SCH ×2 (08:20→20:19)
--- NOTE | 2019-06-08 08:34 | REP ---
Chest x-ray: Two views. History: Flail chest. Comparison study: June 07, 2019. Findings: EKG monitoring electrodes overlie the right chest. Multiple recent right rib fractures are again seen. Old rib fractures are noted on the left as before. There is a hiatal hernia behind the heart. Slight blunting of the right lateral pleural angle persists. There is blunting posteriorly as well unchanged. There is no evidence of pneumothorax or new infiltrate. Electronically Signed by Robles Mendoza MD 06/08/2019 08:26 A
--- NOTE | 2019-06-08 11:24 | IPN ---
DATE: 06/08/2019 Mr. Romo is resting comfortable in bed. His pain is being well controlled. He is now on OxyContin 50 mg twice a day which seems to be holding him. He is awake and alert. His vital signs show a maximum temperature (t-max) of 98.5 with a heart rate that is ranging between 59 and 65 and is sinus rhythm, respiratory rate of 18 to 22 without the use of accessory muscles, who is 96% saturated now on room air. His blood pressure is ranging between 104/65 to 149/69. His intake and output over the past 24 hours has been recorded as 600 in and nothing out. I suspect the intake and output are off. He weighs 74.3 kg. He weighed 79.3 kg yesterday. He has had two voids which evidently have not been recorded. PHYSICAL EXAMINATION: He has equal breath sounds on either side. I hear no wheezes, rhonchi, or rales. Percussion was full to the diaphragm. Most significantly his excruciating pain to percussion and to auscultation is now gone. CARDIAC EXAM: Without murmurs, clicks, gallops or rubs. I cannot feel his point of maximum impulse (PMI). S1, S2 are normal. ABDOMEN: Soft, nontender but tympanitic and slightly distended. He did have bowel movement yesterday. Bowel sounds are positive. EXTREMITIES: Show no pretibial edema. No calf tenderness. No differential swelling of the upper extremities. SKIN: Warm, dry and perfused without cyanosis or mottling, including that of the nail beds and knees. NECK: Supple. There is no jugular venous distention. No subcutaneous emphysema. Trachea is midline. MOUTH: Shows his mucous membranes to be pink and moist. Lips and commissures without lesions. There is no thrush. EYES: Show his pupils to be equal and reactive. Extraocular motion intact. Sclerae anicteric. NEUROLOGIC: Shows II through XII intact with gross motor and gross sensation intact. Gait is not tested. PSYCHIATRIC: Shows him to be awake and alert, oriented times three with appropriate mood and affect and conversational. His white count today is 6.1 with a hemoglobin and hematocrit of 9.3 and 30.9, unchanged from yesterday with a platelet count of 399, stable. Differential shows 34% neutrophils, 47% lymphocytes, and 11% monocytes. There are no immature forms and no toxic granulations. Normal electrolytes with a BUN and creatinine of 23 and 0.83, glucose of 83 and a calcium of 8.8. His chest x-ray today again shows the posterior pleural effusion which is stable from yesterday. I see no other infiltrates. IMPRESSION: 1. Multiple rib fractures, right side. 2. Flail chest, four segments, right side, stabilized. 3. Lung contusions, resolved. 4. Respiratory failure and hypoxia, resolved. 5. Prior tobacco abuse. 6. Prior alcohol abuse. 7. History of atrial fibrillation, now in sinus rhythm. 8. History of prior seizures. 9. Left pleural effusion, resolved. 10. Right pleural effusion, stable. 11. Epidural hematoma, clinically stable. PLAN AND DISCUSSION: Yesterday I was contemplating a CT scan with a pleuracentesis, however, I am more inclined today to watch the chest x-ray to see if this pleural effusion gets any worse. Over the last 24 hours this has been stable. We are still awaiting placement at acute rehabilitation. I will ask for home safety evaluation.
[2019-06-08 12:00] VITALS: BP 131/75
[2019-06-08] MEDS: CARVedilol 3.125 MG TAB PO SCH (12:00)
--- NOTE | 2019-06-08 14:51 | IPNPDOC ---
Text Note Date of Service The patient was seen on 06/08/19. NOTE SUBJECTIVE: The patient is up in a chair. He is awake, alert, conversant and cooperative with exam. There continued to be reports of him having hallucinations, but it just may be that he is dreaming vividly, he is immediately alert during these episodes. The patient does have some increased pain with increased activity that he rates a 5 out of 10. Patient has had difficulty with rib fractures resulting in flail chest and pleural effusions requiring chest tube drainage. He is remarkably medically stable. OBJECTIVE: Please see vital signs below--O2 sats are 94-97% on room air Physical exam: HENT: Neck is supple with no adenopathy or thyromegaly, oral mucosa is moist, he has no scleral icterus or injection. Respiratory: Patient has bilateral coarse expiratory breath sounds, but no active cough, I don't really elicit pain to palpation of the chest wall Cardiovascular: Regular rate and rhythm, no appreciable murmur. Abdomen: Soft, nontender, nondistended, normal bowel tones. Extremities: No peripheral edema, pedal pulses are palpable. Neuro: Patient does not exhibit any focal neuromotor deficit, patient was able to ambulate well, making use of a walker with minimal assistance. Psych: Patient continues with elements of anxiety and depression, he is ot herwise able to articulate goals of improved appetite and improved mobility. ASSESSMENT/PLAN: 1. Flail chest. Flail chest was due to multiple rib fractures sustained in a fall. There were complications of lung contusions and bilateral pleural effusions requiring chest tube drainage. The patient had an extended hospital stay with acute hypoxic respiratory failure. Chest tube has been removed. Patient has residual pain; we continue to adjust his pain management regimen. Patient has been on OxyContin, which may be contributory to hallucinations; dosage is being reduced and we should be able to transition to a less concentrated formulation such as Vicodin or [place]. Cymbalta has been restored to his pain control regimen. 2. Depression with anxiety features. Patient relates a long-term history of anxiety, but also exhibited depression during this hospital stay. Patient has been started on low-dose Celexa. 3. Chronic atrial fibrillation. Patient remains on rate control medications and anticoagulation medications. 4. Patient has a history of seizure disorder. Seizure control was maintained with his Depakote. 5. Nutrition. Patient had been reported to have very poor intake with nutritional concerns. Nutrition notes reviewed; patient appears to be slowly increasing his intake and making an effort. We can always make additional use of nutritional supplements. We are hopeful of this patient being acceptable to the acute rehabilitation unit. VS,Rigoe, I+O VS, [place], I+O Laboratory Tests 06/08/19 05:09 Vital Signs Date Time Temp Pulse Resp B/P (MAP) Pulse Ox O2 Delivery O2 Flow Rate FiO2 06/08/19 12:00 98.1 56 18 131/75 (93) 94 Room Air 06/06/19 16:54 1.0 40 I&O- Last 24 Hours up to 6 AM 06/08/19 06:00 Intake Total 600 ml Output Total 0 ml Balance 600 ml GINGER GOMEZ MD Jun 08, 2019 14:51
[2019-06-08 16:00] VITALS: BP 101/56
[2019-06-08 20:00] VITALS: BP 122/58
[2019-06-08] MEDS: hydrOXYzine 10 MG TAB PO SCH (20:19)
[2019-06-09] VITALS: BP 153/65
[2019-06-09 01:04] VITALS: BP 153/65
[2019-06-09] MEDS: CARVedilol 3.125 MG TAB PO SCH (01:04)
[2019-06-09] MEDS: KETOROLAC 30 MG/ML VIAL (J1885) IV SCH ×3 (01:05→13:00)
[2019-06-09] MEDS: LEVALBUTEROL 1.25 MG/0.5 ML CONCENTRATE NEB NEB SCH ×2 (01:07→08:47)
[2019-06-09] MEDS: SODIUM CHLORIDE HYPERTONIC 3% 15ML NEB SOL INH SCH ×2 (01:07→08:47)
[2019-06-09 04:00] VITALS: BP 118/67
[2019-06-09 05:53] LABS: BASO # 0.1 10^3/uL (0.0-0.2); BASO % 1.2 % (0.0-1.0); EOS # 0.3 10^3/uL (0.0-0.5); EOS % 4.8 % (0.0-3.0); HEMATOCRIT 30.3 % (42.0-52.0); HEMOGLOBIN 9.2 g/dl (13.5-17.5); LYMPH # 2.6 10^3/uL (1.5-5.0); LYMPH % 44.7 % (24.0-44.0); MEAN CORPUSCULAR HEMOGLOBIN 24.9 pg (27.0-33.0); MEAN CORPUSCULAR HGB CONC 30.4 g/dl (32.0-36.5); MEAN CORPUSCULAR VOLUME 82.1 fl (80.0-96.0); MONO # 0.6 10^3/uL (0.0-0.8); MONO % 10.5 % (0.0-5.0); NEUTROPHILS # 2.3 10^3/uL (1.5-8.5); NEUTROPHILS % 38.5 % (36.0-66.0); PLATELET COUNT, AUTOMATED 423 10^3/uL (150-450); RED BLOOD COUNT 3.69 10^6/uL (4.30-6.10); WHITE BLOOD COUNT 5.9 10^3/uL (4.0-10.0)
[2019-06-09] MEDS: SLF 3 ML SYR IV SCH (06:14)
[2019-06-09 06:15] LABS: BLOOD UREA NITROGEN 31 MG/DL (7-18); CALCIUM LEVEL 8.6 MG/DL (8.8-10.2); CARBON DIOXIDE LEVEL 29 MEQ/L (21-32); CHLORIDE LEVEL 107 MEQ/L (98-107); GLOMERULAR FILTRATION RATE > 60.0 (>49); GLUCOSE, FASTING 81 MG/DL (70-100); POTASSIUM SERUM 4.1 MEQ/L (3.5-5.1); SODIUM LEVEL 142 MEQ/L (136-145)
[2019-06-09 08:00] VITALS: BP 114/64
[2019-06-09] MEDS: MOM 30ML SUSPENSION UDC PO SCH (09:00)
[2019-06-09] MEDS ORDERED: FOLI1TAB11 PO ×2 (09:46→12:45)
[2019-06-09] MEDS ORDERED: MULTCAP PO ×2 (09:46→12:45)
[2019-06-09] MEDS ORDERED: OXYC15TA66 PO ×2 (09:46→12:45)
[2019-06-09] MEDS ORDERED: CELE10TA PO ×2 (09:46→12:45)
[2019-06-09] MEDS ORDERED: THIA100TA PO ×2 (09:46→12:45)
[2019-06-09] MEDS ORDERED: FURO20TA2 PO ×2 (09:46→12:45)
[2019-06-09] MEDS: DIVALPROEX 500MG *ER* TAB PO SCH (09:50)
[2019-06-09] MEDS: FUROSEMIDE 20 MG TAB PO SCH (09:50)
[2019-06-09] MEDS: CitaloPRAM (CeleXA) 10 MG TABLET PO SCH (09:50)
[2019-06-09] MEDS: oxyCODONE 15 MG CR TAB PO SCH (09:50)
[2019-06-09] MEDS: PANTOPRAZOLE 40MG TAB (PROTONIX) PO SCH (09:50)
[2019-06-09] MEDS: DOCUSATE SODIUM 100 MG CAP PO SCH (09:50)
[2019-06-09] MEDS: THIAMINE 100 MG TAB PO SCH (09:51)
[2019-06-09] MEDS: MULTIVITAMINS/MINERALS THERAP 1 TAB PO SCH (09:51)
[2019-06-09] MEDS: DULoxetine 30 MG CAP (CYMBALTA) PO SCH (09:51)
[2019-06-09] MEDS: FOLIC ACID 1 MG TAB PO SCH (09:51)
--- NOTE | 2019-06-09 10:07 | REP ---
CHEST, TWO VIEWS: Two views of the chest are performed. COMPARISON: 06/08/2019 Once again, multiple right rib fractures are visualized. The heart is not enlarged. Hiatal hernia is again noted. There is mild tortuosity of the thoracic aorta. The mediastinal silhouette is unchanged. Right pleural effusion appears stable. No pneumothorax is seen. IMPRESSION: Stable exam. Electronically Signed by Vinnie Saunders MD 06/10/2019 05:28 P
[2019-06-09 12:00] VITALS: BP 118/67
--- NOTE | 2019-06-09 14:09 | DS.PDOC ---
Discharge Summary General Date of Admission May 23, 2019 at 12:12 Date of Discharge 06/09/2019 Discharge Summary PROCEDURES PERFORMED DURING STAY: Chest tube Epidural ADMITTING DIAGNOSES / DISCHARGE DIAGNOSES: Multiple rib fractures, right side. Flail chest, four segments, right side, stabilized. Lung contusions, resolved. Respiratory failure and hypoxia, resolved. Prior tobacco abuse. Prior alcohol abuse. History of atrial fibrillation, now in sinus rhythm. History of prior seizures. Left pleural effusion, resolved. Right pleural effusion, stable. Epidural hematoma, clinically stable. Depression / Anxiety Seizure disorder Poor nutrition DVT prophylaxis COMPLICATIONS/CHIEF COMPLAINT: Shortness of breath / Chest pain HISTORY OF PRESENT ILLNESS / HOSPITAL COURSE: Patient is a 68-year-old male with past medical history of paroxysmal A. fib, seizure disorder, dyslipidemia, Anxiety / Depression, alcohol abuse, active tobacco use who presented to the emergency room with complaints of right- sided chest pain after a mechanical fall at home. In the emergency room, patient was found to have several right-sided fractures and was admitted to intensivists service for further evaluation and treatment. Cardiac thoracic surgery was called on consultation. Throat hospitalization. Patient was found to have multiple rib fractures, flail chest, lung contusions and respiratory failure with hypoxia. Patient was initially put on BiPAP while in the ICU. Please continue to work with physical therapy and occupation therapy. Patient ultimately received an epidural for pain control. This is been discontinued. He did develop a hematoma from epidural that was evaluated by MRI. Patient daily to work with physical therapy and occupational therapy and was officially cleared on 06/09/2019. Cardiac thoracic surgery has cleared patient for chart home with outpatient follow-up with her next 10 days. Anesthesia was contacted about restarting anticoagulation for his atrial fibrillation, given his epidural hematoma has stabilized; they have reported that anticoagulation can resume at this time. Patient has been advised to follow-up with his primary care provider as well as Dr. Lomas within the next 7-10 days he's been advised to remain compliant with treatment plan and medications and return to the emergency room if he experiences any problems. DISCHARGE MEDICATIONS: Please see below. ALLERGIES: Please see below. PHYSICAL EXAMINATION ON DISCHARGE: Vitals (See below) General: Lying in bed, no acute distress, comfortable, AAOx3 HEENT: NC, AT CVS: RRR, +S1S2 Lungs: Fair air entry b/l, -w/r/r Abdomen: Soft, ND, NT Extremities: - Edema, - Calf tenderness LABORATORY DATA: Please see below. ACTIVITY: [As tolerated]. DISCHARGE PLAN: Advised to follow up with primary care provider as well as Dr. Lomas within the next 7-10 days Advised to remain compliant with treatment plan and medications Advised to return to the emergency room if he experiences any problems. DISPOSITION: Home with services DISCHARGE CONDITION: [Stable]. TIME SPENT ON DISCHARGE: 40 minutes Vital Signs/I&Os Vital Signs Date Time Temp Pulse Resp B/P (MAP) Pulse Ox O2 Delivery O2 Flow Rate FiO2 06/09/19 12:00 97.6 60 19 118/67 (84) 99 Room Air 06/09/19 09:50 1.0 40 I&O- Last 24 Hours up to 6 AM 06/09/19 06:00 Intake Total 1440 ml Output Total 800 ml Balance 640 ml Laboratory Data Labs 24H Laboratory Tests 2 06/09/19 05:36: Immature Granulocyte % (Auto) 0.3, Neutrophils (%) (Auto) 38.5, Lymphocytes (%) (Auto) 44.7H, Monocytes (%) (Auto) 10.5H, Eosinophils (%) (Auto) 4.8H, Basophils (%) (Auto) 1.2H, Neutrophils # (Auto) 2.3, Lymphocytes # (Auto) 2.6, Monocytes # (Auto) 0.6, Eosinophils # (Auto) 0.3, Basophils # (Auto) 0.1, Nucleated Red Blood Cells % (auto) 0.0, Anion Gap 6L, Glomerular Filtration Rate > 60.0, Calcium Level 8.6L CBC/BMP Laboratory Tests 06/09/19 05:36 Microbiology Microbiology 06/02/19 Acid Fast Stain, Received Pending 06/02/19 Mycobacterial Culture, Received Pending 06/02/19 Fungal Smear, Received Pending 06/02/19 Fungal Culture, Received Pending 06/02/19 Gram Stain - Final, Complete 06/02/19 Anaerobic Culture - Final, Complete 06/02/19 Body Fluid Culture - Final, Complete Discharge Medications Scheduled Apixaban (Eliquis) 5 Mg Tablet, 5 MG PO BID, (Reported) Carvedilol (Carvedilol) 3.125 Mg Tablet, 3.125 MG PO BID, (Reported) Citalopram Hydrobromide (Celexa) 10 Mg Tablet, 10 MG PO DAILY Cyanocobalamin (Vitamin B-12) (Vitamin B-12) 1,000 Mcg Tab, 1,000 MCG PO DAILY, (Reported) Divalproex Sodium (Depakote ER) 500 Mg Tab, 500 MG PO BID, (Reported) Duloxetine Hcl (Duloxetine HCl) 60 Mg Capsule.dr, 60 MG PO DAILY, (Reported) Folic Acid (Folic Acid) 1 Mg Tablet, 1 MG PO DAILY Furosemide (Furosemide) 20 Mg Tablet, 20 MG PO DAILY Multivitamin (Multivitamins) 1 Each Capsule, 1 CAP PO DAILY Omeprazole (Omeprazole) 40 Mg Capsule.dr, 40 MG PO DAILY, (Reported) Oxycodone HCl (Oxycontin) 15 Mg Tab.er.12h, 15 MG PO BID Rosuvastatin Calcium (Rosuvastatin Calcium) 40 Mg Tablet, 40 MG PO QHS, (Reported) Thiamine Hcl (Vitamin B-1) 100 Mg Tablet, 100 MG PO DAILY Scheduled PRN Hydrocodone/Acetaminophen (Hydrocodone-Acetamin 7.5-325) 1 Tab Tab, 1 TAB PO QID PRN for PAIN, (Reported) Hydroxyzine HCl (Hydroxyzine HCl) 10 Mg Tablet, 10 MG PO QHS PRN for SLEEP, (Reported) Lorazepam (Ativan) 0.5 Mg Tab, 0.5 MG PO TID PRN for ANXIETY, (Reported) Allergies Coded Allergies: No Known Allergies (Verified , 04/05/17) CAN URIARTE MD Jun 09, 2019 14:09
== END 2019-06-09 15:13 | disposition home or self-care (01) | DRG 205 ==
LOC: EDBD 07:57 → M ED 07:57 → M ED INP 12:12 → M ICU 12:53 → M PCU 05-29 16:12
PROVIDERS: ADMIT Thoracic Surgery (Cardiothoracic Vascular Surgery); ATTEND General Practice
PROC: 0W9930Z Drainage of Right Pleural Cavity with Drainage Device, Percutaneous Approach (ICD-10-PCS; principal; 2019-06-02 11:00)
DX: S27.329A Contusion of lung, unspecified, initial encounter (principal); J96.01 Acute respiratory failure with hypoxia; S22.5XXA Flail chest, initial encounter for closed fracture; S22.41XA Multiple fractures of ribs, right side, initial encounter for closed fracture; J90 Pleural effusion, not elsewhere classified; J98.11 Atelectasis; T85.830A Hemorrhage due to nervous system prosthetic devices, implants and grafts, initial encounter; J94.2 Hemothorax; I48.20 Chronic atrial fibrillation, unspecified; F10.10 Alcohol abuse, uncomplicated; I48.0 Paroxysmal atrial fibrillation; G40.909 Epilepsy, unspecified, not intractable, without status epilepticus; D64.9 Anemia, unspecified; W18.09XA Striking against other object with subsequent fall, initial encounter; Y92.002 Bathroom of unspecified non-institutional (private) residence as the place of occurrence of the external cause; Y99.8 Other external cause status; E78.5 Hyperlipidemia, unspecified; K44.9 Diaphragmatic hernia without obstruction or gangrene; K57.90 Diverticulosis of intestine, part unspecified, without perforation or abscess without bleeding; F32.9 Major depressive disorder, single episode, unspecified; F41.9 Anxiety disorder, unspecified; F17.210 Nicotine dependence, cigarettes, uncomplicated; Z79.01 Long term (current) use of anticoagulants; Z79.899 Other long term (current) drug therapy; Y83.1 Surgical operation with implant of artificial internal device as the cause of abnormal reaction of the patient, or of later complication, without mention of misadventure at the time of the procedure

== ENCOUNTER 2019-06-13 13:19 | Outpatient (RCR) | payer MEDICARE, OTHER ==
[~2019-06-13 13:19] MED LIST changes: +CELE10TA PO; +FOLI1TAB11 PO; +FURO20TA2 PO; +MULTCAP PO; +OMEP-221 PO; +OXYC15TA66 PO; +THIA100TA PO
== END 2019-06-19 ==
LOC: M PT 13:19
PROVIDERS: ATTEND Family Medicine
DX: S22.41XA Multiple fractures of ribs, right side, initial encounter for closed fracture (principal); S22.5XXA Flail chest, initial encounter for closed fracture; X58.XXXA Exposure to other specified factors, initial encounter; Y92.9 Unspecified place or not applicable; Y93.9 Activity, unspecified; Y99.9 Unspecified external cause status

== ENCOUNTER 2019-07-02 13:56 | Outpatient (RCR) | payer MEDICARE, OTHER | END 2019-07-19 | LOC: M PT 13:56 | PROVIDERS: ATTEND Family Medicine | DX: S22.41XA Multiple fractures of ribs, right side, initial encounter for closed fracture (principal); S22.5XXA Flail chest, initial encounter for closed fracture; X58.XXXA Exposure to other specified factors, initial encounter; Y92.9 Unspecified place or not applicable; Y93.9 Activity, unspecified; Y99.9 Unspecified external cause status ==

== ENCOUNTER → 2019-10-28 | Outpatient (REF) | payer MEDICARE, OTHER | LOC: M LAB REF 16:47 | PROVIDERS: ATTEND Nurse Practitioner Family | DX: R31.0 Gross hematuria (principal) ==

== ENCOUNTER → 2019-11-28 | Outpatient (REF) | payer MEDICARE, OTHER ==
[2019-11-28 17:52] LABS: APPEARANCE, URINE CLOUDY (CLEAR); BACTERIA, URINE AUTO NEGATIVE (NEGATIVE); BILIRUBIN, URINE AUTO NEGATIVE (NEGATIVE); BLOOD, URINE BLOOD 3+ (NEGATIVE); CALCIUM OXALATE CRYSTALS MODERATE; COLOR, URINE AMBER (YELLOW); GLUCOSE, URINE (UA) AUTO NEGATIVE (NEGATIVE); KETONE, URINE AUTO TRACE mg/dL (NEGATIVE); LEUKOCYTE ESTERASE, URINE AUTO NEGATIVE (NEGATIVE); MUCUS, URINE SMALL (NEGATIVE); NITRITE, URINE AUTO NEGATIVE (NEGATIVE); PROTEIN, URINE AUTO 1+ mg/dL (NEGATIVE); RBC, URINE AUTO TNTC /HPF (0-3); SPECIFIC GRAVITY URINE AUTO 1.026 (1.002-1.035); SQUAMOUS EPITHELIAL CELL UR AU 0 /HPF (0-6); WBC, URINE AUTO 4 /HPF (0-3)
== END ==
LOC: M SMT 16:44
PROVIDERS: ATTEND Urology
DX: R31.0 Gross hematuria (principal)
CPT/HCPCS: 81001; 87086; G0463

== ENCOUNTER → 2019-12-05 | Outpatient (CLI) | payer MEDICARE, OTHER ==
[~2019-12-05] MED LIST changes: +ISOVUE-370 76% 100ML VIAL (Q9967) As Ordered ONE
--- NOTE | 2019-12-06 07:23 | REP ---
CT ABDOMEN AND PELVIS WITH AND WITHOUT IV CONTRAST (CT UROGRAM): TECHNIQUE: CT abdomen and pelvis performed prior to and following the intravenous administration of 100 mL of Isovue-370. Sagittal, coronal and 3D MIP reconstruction images are performed. There is fibrotic scarring in the visualized lung bases particularly in the right lower lobe. There are old right rib fractures notes. There is a large hiatal hernia present. There is no cardiomegaly. There are a couple of small cysts in the liver. The gallbladder is grossly unremarkable. The spleen is unremarkable with normal size. Adrenal glands are normal. The pancreas demonstrates no mass. There is a 6 mm calculus in the lower pole of the left kidney. Several small cysts are seen of each kidney. The largest on the right is in the lower pole and measures 1.9 cm in diameter. The largest on the left is in the upper pole and measures 3 cm in diameter. There is mild dilatation of the left pelvicaliceal system with no dilatation of the ureter. The findings suggest a possible partial left UPJ obstruction. The appearance is similar to the prior CT of the chest 06/01/2019. There is no right hydronephrosis. Neither ureter demonstrates a stone or abnormal soft tissue thickening. The urinary bladder is not well distended and not well evaluated. Prostate is moderately enlarged and impresses upon the base of the bladder. There is mild atherosclerotic calcification of the abdominal aorta without aneurysm. I see no adenopathy. There is no free air or free fluid. There is no bowel wall thickening. The appendix is normal. There are degenerative changes of the spine. There is a tiny umbilical hernia containing fat as well as small bilateral inguinal hernias containing fat. IMPRESSION: 1. Large hiatal hernia. 2. Right lower lobe scarring with adjacent old right rib fractures. 3. There is a 6 mm calculus in the lower pole of the left renal collecting system. The left renal collecting system is mildly dilated, possibly due to a partial left UPJ obstruction. There are multiple bilateral renal cysts as discussed above. Urinary bladder is not well distended and not well evaluated. The prostate is moderately enlarged. 4. There is a very small umbilical hernia and very small bilateral inguinal hernias all containing fat. Electronically Signed by Vinnie Saunders MD 12/08/2019 10:52 A
== END ==
LOC: M RAD 13:58
PROVIDERS: ATTEND Urology
DX: R31.0 Gross hematuria (principal)
CPT/HCPCS: 74178; Q9967

== ENCOUNTER → 2019-12-23 | Outpatient (CLI) | payer MEDICARE, OTHER ==
[~2019-12-23] MED LIST changes: -ISOVUE-370 76% 100ML VIAL (Q9967) As Ordered ONE
[2019-12-23 12:08] LABS: HEMATOCRIT 33.9 % (42.0-52.0); HEMOGLOBIN 10.1 g/dl (13.5-17.5); MEAN CORPUSCULAR HEMOGLOBIN 23.9 pg (27.0-33.0); MEAN CORPUSCULAR HGB CONC 29.8 g/dl (32.0-36.5); MEAN CORPUSCULAR VOLUME 80.1 fl (80.0-96.0); PLATELET COUNT, AUTOMATED 311 10^3/uL (150-450); RED BLOOD COUNT 4.23 10^6/uL (4.30-6.10); WHITE BLOOD COUNT 7.9 10^3/uL (4.0-10.0)
[2019-12-23 12:19] LABS: INR 0.99; PROTHROMBIN TIME 12.8 SECONDS (11.8-14.0)
[2019-12-23 12:20] LABS: PARTIAL THROMBOPLASTIN TIME 33.9 SECONDS (25.0-38.4)
--- NOTE | 2019-12-23 12:23 | REP ---
REASON: Preoperative evaluation. COMPARISON: Multiple, the latest 09/06/2018. Cardiomediastinal silhouette and lung santiago are unchanged. Multiple healed bilateral rib fractures status quo. Hiatal hernia status quo. Basilar fibrotic changes are mild and unchanged. No acute patchy parenchymal opacities or pleural effusions have developed. The heart is not enlarged. IMPRESSION: Stable appearing chronic changes. Electronically Signed by Stu Baugh DO 12/23/2019 12:34 P
[2019-12-23 12:44] LABS: BLOOD UREA NITROGEN 18 MG/DL (7-18); CALCIUM LEVEL 9.1 MG/DL (8.8-10.2); CARBON DIOXIDE LEVEL 26 MEQ/L (21-32); CHLORIDE LEVEL 106 MEQ/L (98-107); CREATININE FOR GFR 0.75 MG/DL (0.70-1.30); GLOMERULAR FILTRATION RATE > 60.0 (>49); GLUCOSE, FASTING 114 MG/DL (70-100); POTASSIUM SERUM 4.4 MEQ/L (3.5-5.1); SODIUM LEVEL 139 MEQ/L (136-145)
--- NOTE | 2019-12-23 23:27 | ECGEPIP ---
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
== END ==
LOC: M LAB 10:59
PROVIDERS: ATTEND Urology
DX: Z01.818 Encounter for other preprocedural examination (principal); Z12.5 Encounter for screening for malignant neoplasm of prostate; N20.0 Calculus of kidney; N39.0 Urinary tract infection, site not specified; R31.0 Gross hematuria
CPT/HCPCS: 36415; 71046; 80048; 85027; 85610; 85730; 93005; G0103

== ENCOUNTER → 2019-12-30 | Outpatient (REF) | payer MEDICARE, OTHER ==
[~2019-12-30] MED LIST changes: +LEVO750T14 PO
== END ==
LOC: M SMT 11:39
PROVIDERS: ATTEND Urology
DX: R31.0 Gross hematuria (principal); N20.0 Calculus of kidney; Z01.818 Encounter for other preprocedural examination; N39.0 Urinary tract infection, site not specified

== ENCOUNTER → 2019-12-30 | Outpatient (CLI) | payer MEDICARE, OTHER ==
[~2019-12-30] MED LIST changes: -LEVO750T14 PO
== END ==
LOC: M LABSMTC 10:58
PROVIDERS: ATTEND Anesthesiology
DX: Z01.818 Encounter for other preprocedural examination (principal); Z11.59 Encounter for screening for other viral diseases
CPT/HCPCS: C9803; U0003

== ENCOUNTER 2020-01-02 10:14 | Day surgery (SDC) | payer MEDICARE, OTHER ==
[~2020-01-02] VITALS: Ht 170.2 cm; Wt 87.1 kg
[~2020-01-02 10:14] MED LIST changes: +LIDOCAINE 1% MDV 20ML VIAL SQ PRN; +LIDOCAINE 2% 100MG/5ML SDV (FOR ANES.) As Ordered ONE; +MIDAZOLAM INJ 2MG/2ML VIAL (J2250 PER 1MG) As Ordered ONE; +ONDANSETRON 4MG/2ML VIAL As Ordered ONE; +ROCURONIUM BROMIDE 50 MG/5 ML VIAL As Ordered ONE; +ceFAZolin SOD 2 GM in IV 1 EA IV ONE; +dexameTHASONE 4 MG/ML 1ML VIAL (J1100 PER 1MG) As Ordered ONE; +fentaNYL 100 MCG/2 ML INJECTION (J3010) As Ordered ONE; +propofoL 200 MG/20 ML VIAL As Ordered ONE
[2020-01-02] MEDS ORDERED: CONRAY-60 60% 50ML VIAL (Q9961) As Ordered ONE (12:57)
[2020-01-02] MEDS ORDERED: ACETAMINOPHEN 1000MG 100ML IV BTL (OFIRMEV) (J0131 PER 10MG) As Ordered ONE (13:25)
[2020-01-02] MEDS ORDERED: fentaNYL 100 MCG/2 ML INJECTION (J3010) As Ordered ONE (14:24)
[2020-01-02] MEDS ORDERED: ONDANSETRON 4MG/2ML VIAL IV PRN (14:30)
[2020-01-02] MEDS ORDERED: LR 1,000 ML IV SCH (14:30)
[2020-01-02] MEDS: fentaNYL 100 MCG/2 ML INJECTION (J3010) IV PRN ×4 (14:31→14:58)
[2020-01-02] MEDS: oxyCODONE 5MG TAB PO PRN ×2 (14:36→15:10)
[2020-01-02] MEDS ORDERED: PERCOCET 5MG/325MG TAB PO PRN (14:45)
--- NOTE | 2020-01-02 15:18 | REP ---
RETROGRADE PYELOGRAM: TWO VIEWS. HISTORY: Cystoscopy. 15 seconds of fluoroscopy time is reported. FINDINGS: A sequence of two last image hold fluoroscopically obtained spot radiographs of the abdomen document left ureteral cannulation, contrast injection, and double pigtail stent placement. Electronically Signed by Robles Mendoza MD 01/02/2020 05:10 P
[2020-01-02 17:40] VITALS: BP 128/67
--- NOTE | 2020-01-06 16:40 | RO ---
DATE OF PROCEDURE: 01/02/2020 PREPROCEDURE DIAGNOSIS: Gross hematuria, left kidney stone. POSTPROCEDURE DIAGNOSIS: Gross hematuria, left kidney stone. PROCEDURE: Cystoscopy, left ureteroscopy with laser lithotripsy and basket extraction of stones, left retrograde pyelogram with intraoperative interpretation of images, left ureteral stent placement. SURGEON: Cesar Flores MD STAVE SAW OPERATOR: None. ANESTHESIA: General. OPERATIVE INDICATIONS: This is a 69-year-old male who was seen in the office for cystoscopy recently for gross hematuria. I was unable to perform the cystoscopy in the office as he was having a lot of bladder spasms. Also, on his CT scan, he had a 6 mm stone in his left kidney. He was brought to the operating room today to better evaluate his bladder with cystoscopy and then to treat his left kidney stone. DESCRIPTION OF PROCEDURE: The patient was brought to the operating room and general anesthesia was induced. Prophylactic antibiotics were infused. He was then placed in the dorsal lithotomy position and prepped and draped in the usual sterile fashion. A rigid cystoscope was inserted into the urethral meatus and advanced into the bladder. The bladder was then thoroughly examined with both the 30- and the 70-degre lenses and no bladder tumors were seen. No mucosal lesions were seen. Both ureteral orifices were orthotopic and effluxed clear urine. I then advanced a guidewire up the left collecting system. I then advanced the ureteral access sheath over the wire. I went up the access sheath with a flexible ureteroscope, and of note, the proximal ureter was very narrow. I was ultimately able to get the scope through the proximal ureter and into the kidney. The kidney was examined, and the 6 mm stone was seen in the mid pole calyx. The stone was fragmented into smaller pieces using a 272 micron laser fiber. All the larger fragments were then removed using a basket. Any fragments remaining were small enough to pass. I examined the remaining calyces and no masses were seen in the kidney and no additional stones were seen. A retrograde pyelogram was performed and was notable for moderate left hydronephrosis with no extravasation. I then withdrew the ureteroscope along with the access sheath and no additional stones were seen within the ureter. No masses were seen inside the ureter. I then utilized a wire to advance a 6-Tamazight x 22- 32 cm JJ ureteral stent into the left collecting system. The wire was removed, and there were adequate curls of the stent in the left renal pelvis and in the bladder. 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 The bladder was emptied of all fluids, and this marked the conclusion of the procedure. The patient was taken out of the dorsal lithotomy position, awakened from anesthesia and transported to the recovery room in stable condition. Estimated blood loss: 10 mL. Complications: None. Specimens: Kidney stones. PLAN: The patient will followup in the clinic for a postop visit. Of note, I suspect his hematuria was related to his enlarged prostate. Also of note, a PSA was obtained on him preoperatively and was elevated. The patient will likely need a prostate biopsy in the near future. We will set him up to remove his stent at the same time that we perform the prostate biopsy. FRANK
== END 2020-01-02 17:43 | disposition home or self-care (01) ==
LOC: M SDC 10:14
PROVIDERS: ATTEND Urology
DX: N20.0 Calculus of kidney (principal); R31.0 Gross hematuria; I10 Essential (primary) hypertension; E78.49 Other hyperlipidemia; G47.30 Sleep apnea, unspecified; Z79.01 Long term (current) use of anticoagulants; Z79.899 Other long term (current) drug therapy; L40.8 Other psoriasis; F41.9 Anxiety disorder, unspecified; F32.9 Major depressive disorder, single episode, unspecified; J44.9 Chronic obstructive pulmonary disease, unspecified
CPT/HCPCS: 52356; 74420; 82365; 88300; C1769; C2617; J0131; J0690; J1100; J2250; J2405; J3010; Q9961

== ENCOUNTER → 2020-01-27 | Outpatient (CLI) | payer MEDICARE, OTHER ==
[~2020-01-27] MED LIST changes: -LIDOCAINE 1% MDV 20ML VIAL SQ PRN; -LIDOCAINE 2% 100MG/5ML SDV (FOR ANES.) As Ordered ONE; -MIDAZOLAM INJ 2MG/2ML VIAL (J2250 PER 1MG) As Ordered ONE; -ONDANSETRON 4MG/2ML VIAL As Ordered ONE; -ROCURONIUM BROMIDE 50 MG/5 ML VIAL As Ordered ONE; -ceFAZolin SOD 2 GM in IV 1 EA IV ONE; -dexameTHASONE 4 MG/ML 1ML VIAL (J1100 PER 1MG) As Ordered ONE; -fentaNYL 100 MCG/2 ML INJECTION (J3010) As Ordered ONE; -propofoL 200 MG/20 ML VIAL As Ordered ONE
--- NOTE | 2020-01-27 16:48 | REPPI ---
TRANSRECTAL ULTRASOUND PROSTATE WITH ULTRASOUND GUIDANCE FOR PROSTATE BIOPSY: Transrectal prostate ultrasound performed. Prostate measures 5.7 x 4.0 x 5.8 cm for a total volume of 70.0 mL. Echotexture is heterogeneous. There are scattered small cysts and calcifications. No peripheral zone mass is seen. Seminal vesicles appear symmetrical. Ultrasound guidance was provide for Dr. Flores who performed ultrasound-guided biopsy of the prostate. Electronically Signed by Vinnie Saunders MD 01/29/2020 12:55 A
== END ==
LOC: M SMT PRO 08:15
PROVIDERS: ATTEND Urology
DX: R97.20 Elevated prostate specific antigen [PSA] (principal)
CPT/HCPCS: 52310; 55700; 76872; 76942; G0416

== ENCOUNTER 2020-06-04 10:16 | Emergency (ER) | payer MEDICARE, OTHER ==
[~2020-06-04] VITALS: Ht 167.6 cm; Wt 82.9 kg
--- NOTE | 2020-06-04 11:19 | REPVR ---
PROCEDURE INFORMATION: Exam: XR Chest, 1 View Exam date and time: 06/04/2020 11:11 AM Age: 69 years old Clinical indication: Shortness of breath; Chest pain; Type not specified TECHNIQUE: Imaging protocol: XR of the chest Views: 1 view. COMPARISON: CR Chest, 2 view PA, Lat 12/23/2019 12:06 PM FINDINGS: Lungs: Mild parenchymal stranding and interstitial prominence. Pleural space: No significant pleural effusion. Heart/Mediastinum: Hiatal hernia. Vasculature: Ectasia of the thoracic aorta. Bones/joints: Old bilateral rib fractures. Degenerative change. IMPRESSION: Mild parenchymal stranding and interstitial prominence. Electronically signed by: Judah Ybarra On 06/04/2020 11:19:20 AM
[2020-06-04 11:20] LABS: BASO % 0.6 % (0.0-1.0); EOS # 0.2 10^3/uL (0.0-0.5); HEMATOCRIT 29.4 % (42.0-52.0); HEMOGLOBIN 8.2 g/dl (13.5-17.5); LYMPH # 1.6 10^3/uL (1.5-5.0); LYMPH % 25.2 % (24.0-44.0); MEAN CORPUSCULAR HEMOGLOBIN 19.5 pg (27.0-33.0); MEAN CORPUSCULAR HGB CONC 27.9 g/dl (32.0-36.5); MEAN CORPUSCULAR VOLUME 69.8 fl (80.0-96.0); MONO # 1.1 10^3/uL (0.0-0.8); NEUTROPHILS # 3.4 10^3/uL (1.5-8.5); NEUTROPHILS % 53.9 % (36.0-66.0); PLATELET COUNT, AUTOMATED 247 10^3/uL (150-450); RED BLOOD COUNT 4.21 10^6/uL (4.30-6.10); WHITE BLOOD COUNT 6.3 10^3/uL (4.0-10.0)
[2020-06-04 11:58] LABS: ALBUMIN 3.4 GM/DL (3.2-5.2); ALT/SGPT 24 U/L (12-78); BILIRUBIN,DIRECT < 0.1 MG/DL (0.0-0.2); BILIRUBIN,TOTAL 0.4 MG/DL (0.2-1.0); LIPASE 85 U/L (73-393); NT-PRO BNP 26 PG/ML (<125); THYROID STIMULATING HORMONE 0.983 uIU/ML (0.358-3.740); TOTAL PROTEIN 7.4 GM/DL (6.4-8.2)
[2020-06-04] MEDS ORDERED: ISOVUE-370 76% 100ML VIAL As Ordered ONE (13:49)
--- NOTE | 2020-06-04 14:15 | REPVR ---
PROCEDURE INFORMATION: Exam: CT Angiography Chest With Contrast Exam date and time: 06/04/2020 1:53 PM Age: 69 years old Clinical indication: Chest pain; Additional info: Cp TECHNIQUE: Imaging protocol: Computed tomographic angiography of the chest with intravenous contrast. 3D rendering (Not supervised by radiologist): MIP and/or 3D reconstructed images were created by the technologist. Radiation optimization: All CT scans at this facility use at least one of these dose optimization techniques: automated exposure control; mA and/or kV adjustment per patient size (includes targeted exams where dose is matched to clinical indication); or iterative reconstruction. Contrast material: ISOVUE 370; Contrast volume: 100 ml; Contrast route: INTRAVENOUS (IV); COMPARISON: CT Chest without contrast 06/01/2019 9:30 AM FINDINGS: Pulmonary arteries: Opacification of the distal pulmonary arterial branches is somewhat limited. No pulmonary embolus in the opacified central pulmonary arteries. Aorta: Ectasia of the thoracic aorta. Lungs: Evaluation of the lung santiago is somewhat limited by motion artifact. Interstitial prominence and mild bibasilar airspace disease. Pleural space: No significant pleural effusion. Heart: No cardiomegaly. Mediastinal space: Large hiatal hernia. Lymph nodes: Subcentimeter lymph nodes. Upper abdomen: Hepatic and renal cysts. Diverticula and prominent stool. Questionable wall thickening in the nondistended stomach. Bones/joints: Old rib fractures. Degenerative change, exaggerated thoracic kyphosis, and ligamentous calcification. IMPRESSION: 1. Opacification of the distal pulmonary arterial branches is somewhat limited. No pulmonary embolus in the opacified central pulmonary arteries. 2. Interstitial prominence and mild bibasilar airspace disease. 3. Additional findings as described above. Electronically signed by: Judah Ybarra On 06/04/2020 14:15:24 PM
[2020-06-04] MEDS ORDERED: LEVO750T14 PO (15:04)
[2020-06-04 15:49] VITALS: BP 135/72
--- NOTE | 2020-06-05 07:43 | ECGEPIP ---
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
== END 2020-06-04 16:22 | disposition home or self-care (01) ==
LOC: M ED 10:16
DX: J18.9 Pneumonia, unspecified organism (principal); I48.91 Unspecified atrial fibrillation; E56.9 Vitamin deficiency, unspecified; Z86.79 Personal history of other diseases of the circulatory system; K44.9 Diaphragmatic hernia without obstruction or gangrene; K76.89 Other specified diseases of liver; N28.1 Cyst of kidney, acquired; Z79.01 Long term (current) use of anticoagulants; Z79.899 Other long term (current) drug therapy; Z88.8 Allergy status to other drugs, medicaments and biological substances
CPT/HCPCS: 36415; 71045; 71275; 80047; 80076; 83605; 83690; 83880; 84443; 84484; 85025; 87040; 93005; 93041; 94760; 99284; Q9967; U0003

== ENCOUNTER → 2020-06-28 | Outpatient (CLI) | payer MEDICARE, OTHER ==
[~2020-06-28] MED LIST changes: +LEVO750T14 PO
--- NOTE | 2020-06-30 00:57 | ECWPNPC ---
PATIENT NAME: GOOD GOMEZ : 1950 GENDER: MALE VISIT DATE: 06/28/2020 DISCHARGE DATE: 06/28/20 1403 VISIT LOCKED DATE TIME: PHYSICIAN: ANGIE GONZALEZ RESOURCE: ANGIE GONZALEZ REASON FOR APPOINTMENT 1. LOW BACK HISTORY OF PRESENT ILLNESS GENERAL: 69-YEAR-OLD GENTLEMAN BEING REFERRED BY [facility] FOR PERSISTENT LOW BACK PAIN. REPORTS LONG HISTORY OF INTERMITTENT EPISODES OF BACK PAIN SINCE HIS 20S. DENIES ANY SPECIFIC PRECIPITATING EVENT. STATES LOW BACK PAIN HAS GOTTEN WORSE OVER THE PAST YEAR. WAS ON HYDROCODONE 7.5/325 3 TABLETS A DAY FOR SEVERAL YEARS. RECENTLY NEUROLOGY HAS BEEN DECREASING HYDROCODONE AND RECENTLY INTRODUCED LYRICA 50 MG TWICE A DAY. TODAY WE HAD A LONG DISCUSSION ON THE USE OF CHRONIC NARCOTIC PAIN MEDICATIONS. POTENTIAL RISKS WERE REVIEWED. HE WILL NOT HAVE SURGERY BUT WOULD ENTERTAIN POSSIBLY LOOKING AT INJECTION THERAPY HERE. MRI OF THE LUMBOSACRAL SPINE IS REVIEWED. - - -. FALL RISK SCREENING: SCREENING :ONE FALL WITH INJURY IN THE PAST YEAR 10/2019 FX 8 RIBS, PT WAS HOSPITALIZED @ [facility] PAIN SCREENING: PATIENT HAS A COMPLAINT OF ACUTE OR CHRONIC PAIN :YES LOCATION OF PAIN:LOW BACK, LEG(S) INTENSITY OF PAIN (SCALE OF 1 TO 10):4 WHAT DOES YOUR PAIN FEEL LIKE:SHARP, THROBBING DURATION:CONTINOUS, CONSTANT PAIN IS INCREASED BY:ACTIVITIES PAIN IS DECREASED BY:USE OF PAIN MEDICATIONS HOT SHOWERS TREATMENT/MEDICATIONS USED TO MANAGE PAIN:OPIOIDS LEVEL OF RELIEF FROM PAIN TREATMENTS IN THE PAST:25% PAIN HAS INTERFERED WITH THE FOLLOWING:BATHING/DRESSING, WALKING ABILITY, HOUSEWORK, SLEEP, TRANSPORTATION, TOILETING NURSING NOTE: - - -. PAIN CENTER INTAKE QUESTIONS: DO YOU HAVE A HISTORY OF MRSA? :NO DO YOU TAKE A BLOOD THINNERS? :YES ELIQUIS A FIB DO YOU HAVE ANY BLEEDING DISORDERS? :NO ANY NEW NUMBNESS OR WEAKNESS IN YOUR LEGS OR ARMS? :YES LEFT HAND AND LEFT LEG ANY PACEMAKER,DEFIBRILLATOR, OR DORSAL COLUMN STIMULATOR? :NO DO YOU HAVE ANY RASHES OR OPEN SORES? :NO ARE YOU ALLERGIC TO IV DYE? :NO ARE YOU DIABETIC? :NO ANY NEW PROBLEMS WITH YOUR MEDICATIONS? :NO HAVE YOU RECEIVED A VACCINE IN THE PAST 30 DAYS? :YES IF SO WHAT VACCINE AND WHEN? FLU VACCINE 1 MOS AGO DO YOU PLAN TO RECEIVE A VACCINE IN THE NEXT 21 DAYS? :NO DO YOU NEED ANY PRESCRIPTION? :NO DO YOU TAKE ANY IMMUNOSUPPRESSIVE MEDICATIONS? :NO CURRENT MEDICATIONS TAKING FOLIC ACID 1 MG TABLET 1 TABLET ORALLY ONCE A DAY TAKING MULTIVITAMIN ADULTS 50+ - TABLET DIRECTED ORALLY TAKING HYDROCODONE-ACETAMINOPHEN 7.5-325 MG TABLET 1 TABLET NEEDED ORALLY EVERY 6 HRS TAKING ELIQUIS 5 MG TABLET DIRECTED ORALLY TAKING CARVEDILOL 3.125 MG TABLET 1 TABLET WITH FOOD ORALLY TWICE A DAY TAKING VITAMIN B-12 1000 MCG TABLET CHEWABLE DIRECTED ORALLY TAKING ROSUVASTATIN CALCIUM 40 MG TABLET 1 TABLET ORALLY ONCE A DAY TAKING VITAMIN D3 50 MCG (2000 UT) CAPSULE 1 CAPSULE ORALLY ONCE A DAY TAKING DEPAKOTE 500 MG TABLET DELAYED RELEASE 1 TABLET ORALLY TWICE A DAY TAKING LORAZEPAM 0.5 MG TABLET 1 TABLET AT BEDTIME NEEDED ORALLY ONCE A DAY TAKING THIAMINE HCL 100 MG TABLET 1 TABLET ORALLY ONCE A DAY TAKING LYRICA 50 MG CAPSULE 1 CAPSULE ORALLY BID TAKING OMEPRAZOLE 40 MG CAPSULE DELAYED RELEASE 1 CAPSULE 30 MINUTES BEFORE MORNING MEAL ORALLY ONCE A DAY TAKING HYDROXYZINE HCL 10 MG TABLET DIRECTED ORALLY BEFORE BEDTIME TAKING DULOXETINE HCL 60 MG CAPSULE DELAYED RELEASE PARTICLES 1 CAPSULE ORALLY ONCE A DAY TAKING LORAZEPAM 0.5 MG TABLET 1 TABLET AT BEDTIME NEEDED ORALLY ONCE A DAY NOT-TAKING LASIX 20 MG TABLET 1 TABLET ORALLY ONCE A DAY NOT-TAKING OMEPRAZOLE 40 MG CAPSULE DELAYED RELEASE 1 CAPSULE 30 MINUTES BEFORE MORNING MEAL ORALLY ONCE A DAY NOT-TAKING HYDROXYZINE HCL 10 MG TABLET DIRECTED ORALLY NOT-TAKING CYMBALTA 60 MG CAPSULE DELAYED RELEASE PARTICLES 1 CAPSULE ORALLY ONCE A DAY NOT-TAKING CITALOPRAM HYDROBROMIDE 10 MG TABLET 1 TABLET ORALLY ONCE A DAY NOT-TAKING FUROSEMIDE 20 MG TABLET 1 TABLET ORALLY ONCE A DAY MEDICATION LIST REVIEWED AND RECONCILED WITH THE PATIENT PAST MEDICAL HISTORY DEPRESSION ARTHRITIS OSTEO EPILEPSY HYPERCHOLESTEROLEMIA AFIB PNEUMONIA ALLERGIES SOMA: "MADE ME WHAKED" - CONTRAINDICATION SURGICAL HISTORY TONSILLECTOMY W/ ADENOIDECTOMY GAMMA KNIFE. BRAIN ANEURYSM COLONOSCOPY/POLYPECTOMY CYSTOSCOPY 12/08/2019 TRUS BIOPSY (PROSTATE) CYSTO STENT REMOVAL 01/27/2020 FAMILY HISTORY FATHER: MOTHER: 1 BROTHER(S) . 1 SON(S) , 1 DAUGHTER(S) . MOTHER COPD, FATHER UNKNOWN, 1 BROTHER , NO KNOWN UROLOGICAL FAMILY HISTORY. SOCIAL HISTORY GENERAL: TOBACCO USE ARE YOU A:FORMER SMOKER LATEX QUESTIONNAIRE LATEX ALLERGY : HAVE YOU EVER DEVELOPED ANY TYPE OF REACTION AFTER HANDLING LATEX PRODUCTS SUCH RUBBER GLOVES, CONDOMS, DIAPHRAGMS, BALLOONS, SOCKS, OR UNDERWEAR?NO LATEX ALLERGY : HAVE YOU EVER DEVELOPED ANY TYPE OF REACTION DURING OR AFTER DENTAL APPOINTMENT, VAGINAL/RECTAL EXAMINATION, SURGICAL PROCEDURE, OR ANY OTHER EXPOSURE?NO LATEX RISK : HAVE YOU EVER HAD ANY DIFFICULTY BREATHING OR HIVES AFTER EATING OR HANDLING ANY FRUITS, OR VEGETABLES; SUCH KIWI, BANANAS, STONE FRUITS, OR CHESTNUTSNO LATEX RISK : DO YOU HAVE A PREVIOUS PERSONAL HISTORY OF MORE THAN NINE SURGERIES, SPINA BIFIDA, OR REPEATED CATHERIZATIONS? NO LATEX RISK : ARE YOU FREQUENTLY EXPOSED TO LATEX PRODUCTS IN YOUR OCCUPATION?NO DATE ASKED : 01/27/2020 ALCOHOL SCREENING DID YOU HAVE A DRINK CONTAINING ALCOHOL IN THE PAST YEAR?YES HOW OFTEN DID YOU HAVE A DRINK CONTAINING ALCOHOL IN THE PAST YEAR?TWO TO FOUR TIMES A MONTH (2 POINTS) HOW MANY DRINKS DID YOU HAVE ON A TYPICAL DAY WHEN YOU WERE DRINKING IN THE PAST YEAR?3 OR 4 (1 POINT) HOW OFTEN DID YOU HAVE SIX OR MORE DRINKS ON ONE OCCASION IN THE PAST YEAR?LESS THAN MONTHLY (1 POINT) POINTS4 INTERPRETATIONPOSITIVE RECREATIONAL DRUG USE DRUG USE?YES MARIJUANA HOW OFTEN AND HOW MUCH? MONTHLY CAFFEINE CAFFEINE USE?YES HOW OFTEN AND HOW MUCH? COFFEE 1 CUP DAILY SEXUAL HX HAD SEX IN THE LAST 12 MONTHS (VAGINAL, ORAL, OR ANAL)?NO HAVE YOU EVER HAD AN STD?NO JEW JEW NO SAMARITAN BELIEFS THAT WOULD IMPACT HEALTH CARE. 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 NEEDED?NO DOMESTIC VIOLENCE STATUS: LIVES WITH SPOUSE DO YOU FEEL SAFE IN YOUR ENVIRONMENT?YES PAIN CLINIC PFS, CLERGY, PUBLIC HEALTH REFERRALS HAS THE PATIENT BEEN EDUCATED REGARDING HIS/HER PLAN OF CARE?YES HAS THE PATIENT BEEN EDUCATED REGARDING PAIN, THE RISK FOR PAIN, THE IMPORTANCE OF EFFECTIVE PAIN MANAGEMENT, AND THE PAIN ASSESSMENT PROCESS?YES ADVANCE DIRECTIVE ADVANCE DIRECTIVE DISCUSSED WITH PATIENT:YES YANNI GOMEZ HOSPITALIZATION/MAJOR DIAGNOSTIC PROCEDURE SURGERY RELATED SEVERAL RIB FX VITAL SIGNS WT 188.0 LBS, HT 70 IN, BMI 26.97 INDEX, BP 122/62 MM HG, HR 88 /MIN, RR 18 /MIN, TEMP 98.1 F, OXYGEN SAT % 98%, NA INITIALS AW 1314, REVIEWED BY: EM. EXAMINATION GENERAL EXAMINATION: GENERALNO ACUTE DISTRESS, WELL NOURISHED AND HYDRATED. PSYCHAPPROPRIATE MOOD AND AFFECT . FACE:UNREMARKABLE. NECK:NO LYMPHADENOPATHY, . LUNGS:CLEAR TO AUSCULTATION BILATERALLY, NO WHEEZES, RHONCHI, RALES. HEART:NO MURMURS, REGULAR RATE AND RHYTHM. LUMBAR: PALPATION: NEGATIVE FOR PAIN OVER L/S SPINE. NEGATIVE FOR PAIN OVER L/S PARSPINALS. DIAGNOSTIC TESTS REVIEWEDMRI L/S SPINE 2019 . ASSESSMENTS SPONDYLOSIS OF LUMBOSACRAL JOINT - M47.817 (PRIMARY) CHRONIC PRESCRIPTION OPIATE USE - Z79.891 TREATMENT SPONDYLOSIS OF LUMBOSACRAL JOINT DECREASE HYDROCODONE-ACETAMINOPHEN TABLET, 7.5-325 MG, 1 TABLET NEEDED, ORALLY, EVERY 8 HOURS NEEDED FOR SEVERE PAIN MDD 3 #45 TABLETS SHOULD LAST 30 DAYS, 30 DAYS, 45, REFILLS 0 INCREASE LYRICA CAPSULE, 100 MG, 1 CAPSULE, ORALLY, BID MDD2, 30 DAYS, 60, REFILLS 2 NOTES: ADVISED TO INCREASE LYRICA 50 MG CAPSULE 1 CAPSULE IN A.M. AND 2 AT NIGHT FOR 7 DAYS. INCREASE LYRICA TO 2 TABLETS MORNING AND NIGHT UNTIL 50 MG CAPSULES ARE USED UP AND THEN WE WILL SEND IN A PRESCRIPTION FOR LYRICA 100 MG CAPSULE TWICE DAILY. ADVISED TO USE HYDROCODONE 7.5/325 ONE EVERY 8 HOURS NEEDED FOR SEVERE PAIN EPISODES WITH 45 TABLETS TO LAST 30 DAYS. HE IS AWARE THAT HE WILL NOT BE ABLE TO USE MARIJUANA LONG WE ARE PRESCRIBING ANY NARCOTIC PAIN MEDICATION. HE IS WILLING TO STOP USING MARIJUANA AND SIGNED NARCOTIC AGREEMENT WITH US TODAY. URINE TOXICOLOGY WILL BE DONE AT FOLLOW-UP. OTHERS NOTES: 06/25/20 LEFTY CHEUNG DIRECTOR BUSINESS INTEGRATION. PROCEDURE CODES FA211 ESTABILISHED PATIENT [facility] CHARGE DISPOSITION & COMMUNICATION FOLLOW UP 3 MONTHS (REASON: MEDICATION MANAGEMENT/URINE TOX) ELECTRONICALLY SIGNED BY CLAUDE VANG ON 06/29/2020 AT 01:45 PM EST DISCLAIMER : THIS IS A VISIT SUMMARY EXTRACTED FROM THE [facility] [employer] [facility] CHART. IT IS NOT A COPY OF THE [facility] PROGRESS NOTE. FRANK
== END ==
LOC: M PAIN 13:00
PROVIDERS: ATTEND Nurse Practitioner Family
DX: M47.817 Spondylosis without myelopathy or radiculopathy, lumbosacral region (principal); F32.9 Major depressive disorder, single episode, unspecified; G40.909 Epilepsy, unspecified, not intractable, without status epilepticus; E78.00 Pure hypercholesterolemia, unspecified; I48.91 Unspecified atrial fibrillation; Z87.891 Personal history of nicotine dependence; Z79.891 Long term (current) use of opiate analgesic; Z79.01 Long term (current) use of anticoagulants; Z79.899 Other long term (current) drug therapy; Z88.8 Allergy status to other drugs, medicaments and biological substances

== ENCOUNTER → 2020-09-28 | Outpatient (CLI) | payer MEDICARE, OTHER ==
--- NOTE | 2020-10-01 06:42 | ECWPNPC ---
PATIENT NAME: GOOD GOMEZ : 1950 GENDER: MALE VISIT DATE: 09/28/2020 DISCHARGE DATE: 09/28/20 1453 VISIT LOCKED DATE TIME: PHYSICIAN: ANGIE GONZALEZ RESOURCE: ANGIE GONZALEZ REASON FOR APPOINTMENT 1. MEDICATION MANAGEMENT/URINE TOX HISTORY OF PRESENT ILLNESS DEPRESSION SCREENING: PHQ-9 LITTLE INTEREST OR PLEASURE IN DOING THINGSNEARLY EVERY DAY FEELING DOWN, DEPRESSED, OR HOPELESSSEVERAL DAYS TROUBLE FALLING OR STAYING ASLEEP, OR SLEEPING TOO MUCHNEARLY EVERY DAY FEELING TIRED OR HAVING LITTLE ENERGYNEARLY EVERY DAY POOR APPETITE OR OVEREATING NOT AT ALL FEELING BAD ABOUT YOURSELF-OR THAT YOU ARE A FAILURE OR HAVE LET YOURSELF OR YOUR FAMILY DOWN NOT AT ALL TROUBLE CONCENTRATING ON THINGS, SUCH READING THE NEWSPAPER OR WATCHING TELEVISION NOT AT ALL MOVING OR SPEAKING SO SLOWLY THAT OTHER PEOPLE COULD HAVE NOTICED. OR THE OPPOSITE- BEING SO FIDGETY OR RESTLESS THAT YOU HAVE BEEN MOVING AROUND A LOT MORE THAN USUALNOT AT ALL THOUGHTS THAT YOU WOULD BE BETTER OFF , OR OF HURTING YOURSELF IN SOME WAY?NOT AT ALL TOTAL SCORE:10 INTERPRETATIONMODERATE DEPRESSION PHQ-2 (2015 EDITION) LITTLE INTEREST OR PLEASURE IN DOING THINGS?NEARLY EVERY DAY FEELING DOWN, DEPRESSED, OR HOPELESS?SEVERAL DAYS TOTAL SCORE4 GENERAL: HERE FOR FOLLOW-UP AND MEDICATION MANAGEMENT OF CHRONIC LOW BACK PAIN. WE STARTED HIM ON LYRICA 100 MG TWICE A DAY AT HIS LAST VISIT. HE IS FINDING THIS SOMEWHAT HELPFUL. ADMITS TO RUNNING OUT OF HYDROCODONE EARLY. AT INITIAL VISIT IN JUNE WE HAD A LONG DISCUSSION ON INTENTIONS OF USE OF NARCOTIC PAIN MEDICATIONS. I'VE ADVISED HIM THAT WE CAN WORK AT ADJUSTING MEDICATIONS BUT I WOULD NEED TO SEE COMPLIANCE IN REGARDS TO TREATMENT PLAN IN ORDER TO CONTINUE CARING FOR HIM WITH NARCOTIC PAIN MEDICATIONS. HE FORGOT TO BRING IN HIS MEDICATIONS TODAY. STATES HE IS UNABLE TO URINATE BUT WILL DO A ORAL SWAB TOXICOLOGY. AT OUR LAST VISIT HE AGREED TO STOP USING MARIJUANA AND STATES THAT HE HASN'T USED MARIJUANA SINCE OUR AGREEMENT. -. FALL RISK SCREENING: SCREENING :NO FALLS REPORTED IN THE LAST YEAR PAIN SCREENING: PATIENT HAS A COMPLAINT OF ACUTE OR CHRONIC PAIN :YES LOCATION OF PAIN:LOW BACK INTENSITY OF PAIN (SCALE OF 1 TO 10):2 WHAT DOES YOUR PAIN FEEL LIKE:ACHING, TENDER, SORE DURATION:CONTINOUS, CONSTANT, ALL DAY PAIN IS INCREASED BY:ACTIVITIES PAIN IS DECREASED BY:USE OF PAIN MEDICATIONS NURSING NOTE: -. PAIN CENTER INTAKE QUESTIONS: DO YOU HAVE A HISTORY OF MRSA? :NO DO YOU TAKE A BLOOD THINNERS? :YES ELIQUIS A FIB DO YOU HAVE ANY BLEEDING DISORDERS? :NO ANY NEW NUMBNESS OR WEAKNESS IN YOUR LEGS OR ARMS? :NO ANY PACEMAKER,DEFIBRILLATOR, OR DORSAL COLUMN STIMULATOR? :NO DO YOU HAVE ANY RASHES OR OPEN SORES? :NO ARE YOU ALLERGIC TO IV DYE? :NO ARE YOU DIABETIC? :NO ANY NEW PROBLEMS WITH YOUR MEDICATIONS? :NO HAVE YOU RECEIVED A VACCINE IN THE PAST 30 DAYS? :NO DO YOU PLAN TO RECEIVE A VACCINE IN THE NEXT 21 DAYS? :YES IF SO WHAT VACCINE AND WHEN? COVID DO YOU NEED ANY PRESCRIPTION? :NO DO YOU TAKE ANY IMMUNOSUPPRESSIVE MEDICATIONS? :NO CURRENT MEDICATIONS TAKING FOLIC ACID 1 MG TABLET 1 TABLET ORALLY ONCE A DAY TAKING MULTIVITAMIN ADULTS 50+ - TABLET DIRECTED ORALLY TAKING ELIQUIS 5 MG TABLET DIRECTED ORALLY TAKING CARVEDILOL 3.125 MG TABLET 1 TABLET WITH FOOD ORALLY TWICE A DAY TAKING VITAMIN B-12 1000 MCG TABLET CHEWABLE DIRECTED ORALLY TAKING ROSUVASTATIN CALCIUM 40 MG TABLET 1 TABLET ORALLY ONCE A DAY TAKING VITAMIN D3 50 MCG (2000 UT) CAPSULE 1 CAPSULE ORALLY ONCE A DAY TAKING DEPAKOTE 500 MG TABLET DELAYED RELEASE 1 TABLET ORALLY TWICE A DAY TAKING LORAZEPAM 0.5 MG TABLET 1 TABLET AT BEDTIME NEEDED ORALLY ONCE A DAY TAKING THIAMINE HCL 100 MG TABLET 1 TABLET ORALLY ONCE A DAY TAKING OMEPRAZOLE 40 MG CAPSULE DELAYED RELEASE 1 CAPSULE 30 MINUTES BEFORE MORNING MEAL ORALLY ONCE A DAY TAKING HYDROXYZINE HCL 10 MG TABLET DIRECTED ORALLY BEFORE BEDTIME TAKING LYRICA 100 MG CAPSULE 1 CAPSULE ORALLY BID MDD2 TAKING CYCLOBENZAPRINE HCL 10 MG TABLET 1 TABLET AT BEDTIME NEEDED ORALLY Q8H PRN FOR SEVERE PAIN MDD3 TAKING HYDROCODONE-ACETAMINOPHEN 7.5-325 MG TABLET 1 TABLET NEEDED ORALLY EVERY 8 HOURS NEEDED FOR SEVERE PAIN MDD 3 #45 TABLETS SHOULD LAST 30 DAYS NOT-TAKING DULOXETINE HCL 60 MG CAPSULE DELAYED RELEASE PARTICLES 1 CAPSULE ORALLY ONCE A DAY NOT-TAKING LORAZEPAM 0.5 MG TABLET 1 TABLET AT BEDTIME NEEDED ORALLY ONCE A DAY NOT-TAKING LASIX 20 MG TABLET 1 TABLET ORALLY ONCE A DAY NOT-TAKING OMEPRAZOLE 40 MG CAPSULE DELAYED RELEASE 1 CAPSULE 30 MINUTES BEFORE MORNING MEAL ORALLY ONCE A DAY NOT-TAKING HYDROXYZINE HCL 10 MG TABLET DIRECTED ORALLY NOT-TAKING CYMBALTA 60 MG CAPSULE DELAYED RELEASE PARTICLES 1 CAPSULE ORALLY ONCE A DAY NOT-TAKING CITALOPRAM HYDROBROMIDE 10 MG TABLET 1 TABLET ORALLY ONCE A DAY NOT-TAKING FUROSEMIDE 20 MG TABLET 1 TABLET ORALLY ONCE A DAY MEDICATION LIST REVIEWED AND RECONCILED WITH THE PATIENT PAST MEDICAL HISTORY DEPRESSION ARTHRITIS OSTEO EPILEPSY HYPERCHOLESTEROLEMIA AFIB PNEUMONIA EPISODE FOR LOW BACK PAIN ALLERGIES SOMA: "MADE ME WHAKED" - CONTRAINDICATION SOCIAL HISTORY GENERAL: TOBACCO USE ARE YOU A:CURRENT SMOKER LATEX QUESTIONNAIRE LATEX ALLERGY : HAVE YOU EVER DEVELOPED ANY TYPE OF REACTION AFTER HANDLING LATEX PRODUCTS SUCH RUBBER GLOVES, CONDOMS, DIAPHRAGMS, BALLOONS, SOCKS, OR UNDERWEAR?NO LATEX ALLERGY : HAVE YOU EVER DEVELOPED ANY TYPE OF REACTION DURING OR AFTER DENTAL APPOINTMENT, VAGINAL/RECTAL EXAMINATION, SURGICAL PROCEDURE, OR ANY OTHER EXPOSURE?NO LATEX RISK : HAVE YOU EVER HAD ANY DIFFICULTY BREATHING OR HIVES AFTER EATING OR HANDLING ANY FRUITS, OR VEGETABLES; SUCH KIWI, BANANAS, STONE FRUITS, OR CHESTNUTSNO LATEX RISK : DO YOU HAVE A PREVIOUS PERSONAL HISTORY OF MORE THAN NINE SURGERIES, SPINA BIFIDA, OR REPEATED CATHERIZATIONS? NO LATEX RISK : ARE YOU FREQUENTLY EXPOSED TO LATEX PRODUCTS IN YOUR OCCUPATION?NO DATE ASKED : 09/28/2020 ALCOHOL USE: YES. ALCOHOL SCREENING DID YOU HAVE A DRINK CONTAINING ALCOHOL IN THE PAST YEAR?YES HOW OFTEN DID YOU HAVE SIX OR MORE DRINKS ON ONE OCCASION IN THE PAST YEAR?LESS THAN MONTHLY (1 POINT) HOW MANY DRINKS DID YOU HAVE ON A TYPICAL DAY WHEN YOU WERE DRINKING IN THE PAST YEAR?3 OR 4 (1 POINT) HOW OFTEN DID YOU HAVE A DRINK CONTAINING ALCOHOL IN THE PAST YEAR?TWO TO FOUR TIMES A MONTH (2 POINTS) POINTS4 INTERPRETATIONPOSITIVE RECREATIONAL DRUG USE DRUG USE?NO CAFFEINE CAFFEINE USE?YES HOW OFTEN AND HOW MUCH? COFFEE 1 CUP DAILY SEXUAL HX HAD SEX IN THE LAST 12 MONTHS (VAGINAL, ORAL, OR ANAL)?NO HAVE YOU EVER HAD AN STD?NO RESTORATIONIST RESTORATIONIST NO CONFUCIANIST BELIEFS THAT WOULD IMPACT HEALTH CARE. LANGUAGE LANGUAGES SPOKEN:OCCITAN LEARNING BARRIERS / SPECIAL NEEDS CHANGE FROM LAST VISIT?YES BARRIERS TO LEARNING?NO HEARING IMPAIRED?NO VISION IMPAIRED?YES :CORRECTIVE LENSES COGNITIVELY IMPAIRED?NO READINESS TO LEARN?YES LEARNING PREFERENCES?NO LEARNING CAPABILITIES PRESENT?YES EMOTIONAL BARRIERS?NO SPECIAL DEVICES?NO DIRECTOR OF REVENUE NEEDED?NO DOMESTIC VIOLENCE STATUS: LIVES WITH SPOUSE DO YOU FEEL SAFE IN YOUR ENVIRONMENT?YES - HAS THE PATIENT BEEN EDUCATED REGARDING HIS/HER PLAN OF CARE?YES HAS THE PATIENT BEEN EDUCATED REGARDING PAIN, THE RISK FOR PAIN, THE IMPORTANCE OF EFFECTIVE PAIN MANAGEMENT, AND THE PAIN ASSESSMENT PROCESS?YES ADVANCE DIRECTIVE ADVANCE DIRECTIVE DISCUSSED WITH PATIENT:YES YANNI GOMEZ REVIEW OF SYSTEMS CONSTITUTIONAL: ANY RECENT FEVER NO . CHILLS NO . WEIGHT CHANGE OF UNKNOWN REASONS NO . GASTROENTEROLOGY: NEW UNEXPLAINABLE CHANGES IN BOWEL CONTROL NO . CONSTIPATION NO . GENITOURINARY: ANY NEW CHANGE IN BLADDER CONTROL? NO . NEUROLOGY: NEW ONSET DIZZINESS OR NEUROLOGICAL CHANGES NOT MENTIONED NO . NEW NUMBNESS OR PAIN PATTERNS NOT MENTIONED AND PERTINENT TO TODAY'S VISIT NO . CARDIOLOGY: NEW CHEST PRESSURE NO . NEW CHEST PAIN NO . RESPIRATORY: UNEXPLAINABLE COUGH NO . NEW SHORTNESS OF BREATH NO . VITAL SIGNS WT 191 LBS, HT 70 IN, BMI 27.40 INDEX, BP 125/71 MM HG, HR 83 /MIN, RR 18 /MIN, TEMP 97.5 F, OXYGEN SAT % 98%, SAFE IN ENV? (Y/N) [employer]. EXAMINATION GENERAL EXAMINATION: GENERALNO ACUTE DISTRESS, WELL NOURISHED AND HYDRATED. PSYCHFLAT AFFECT . LUNGS:CLEAR TO AUSCULTATION BILATERALLY, NO WHEEZES, RHONCHI, RALES. HEART:NO MURMURS, REGULAR RATE AND RHYTHM. LUMBAR:TENDERNESS NOTED OVER LEFT UPPER LUMBAR THORACIC PARASPINAL REGION. SLIGHT TENDERNESS NOTED OVER LEFT SIJ. . ASSESSMENTS SPONDYLOSIS OF LUMBOSACRAL JOINT - M47.817 (PRIMARY) TREATMENT SPONDYLOSIS OF LUMBOSACRAL JOINT INCREASE LYRICA CAPSULE, 200 MG, 1 CAPSULE, ORALLY, BID MDD2, 30 DAYS, 60, REFILLS 2 CONTINUE HYDROCODONE-ACETAMINOPHEN TABLET, 7.5-325 MG, 1 TABLET NEEDED, ORALLY, EVERY 8 HOURS NEEDED FOR SEVERE PAIN MDD 3 #45 TABLETS SHOULD LAST 30 DAYS CONTINUE CYCLOBENZAPRINE HCL TABLET, 10 MG, 1 TABLET AT BEDTIME NEEDED, ORALLY, Q8H PRN FOR SEVERE PAIN MDD3, 30 DAYS, 45, REFILLS 1 NOTES: REVIEWED MRI OF LUMBOSACRAL SPINE AND DISCUSSED TREATMENT OPTIONS. OVERALL HE IS DOING OKAY AND STATES HE'S HAVING A GOOD DAY TODAY. I'VE AGREED TO INCREASE LYRICA TO 200 MG CAPSULE TWICE A DAY. ADVISED TO CONTINUE HYDROCODONE PERIODICALLY FOR SEVERE PAIN EPISODES WITH 45 TABLETS FOR 30 DAY SUPPLY. ADVISED TO BRING PAIN MEDICATIONS INTO ALL APPOINTMENTS AT THE PAIN CLINIC PER CLINIC POLICY. ADVISED NOT TO ADJUST MEDICATION ON HIS OWN OR OVERTAKE HYDROCODONE. ORAL SWAB TOXICOLOGY TODAY. FOLLOW-UP IS SCHEDULED IN 6 WEEKS. PROCEDURE CODES FA211 ESTABILISHED PATIENT [facility] CHARGE DISPOSITION & COMMUNICATION FOLLOW UP 6 WEEKS (REASON: MED GMNT/ORAL TOX EVAL) ELECTRONICALLY SIGNED BY CLAUDE VANG ON 09/30/2020 AT 09:02 PM EST DISCLAIMER : THIS IS A VISIT SUMMARY EXTRACTED FROM THE [employer] CHART. IT IS NOT A COPY OF THE [employer] PROGRESS NOTE. FRANK
== END ==
LOC: M PAIN 13:45
PROVIDERS: ATTEND Nurse Practitioner Family
DX: M47.817 Spondylosis without myelopathy or radiculopathy, lumbosacral region (principal); F32.9 Major depressive disorder, single episode, unspecified; G40.909 Epilepsy, unspecified, not intractable, without status epilepticus; E78.00 Pure hypercholesterolemia, unspecified; I48.91 Unspecified atrial fibrillation; F17.210 Nicotine dependence, cigarettes, uncomplicated; Z79.891 Long term (current) use of opiate analgesic; Z79.899 Other long term (current) drug therapy; Z88.8 Allergy status to other drugs, medicaments and biological substances

== ENCOUNTER 2021-01-08 12:11 | Inpatient (IN) | payer MEDICARE, OTHER ==
[2021-01-08] VITALS (12 sets, daily range): BP systolic 102–138; BP diastolic 57–84
[~2021-01-08] VITALS: Ht 167.6 cm; Wt 85.8 kg
[2021-01-08 12:50] LABS: VENOUS BASE EXCESS -3.2 (-2.0-2.0); VENOUS HCO3 21.1 MEQ/L (23.0-27.0); VENOUS O2 SATURATION 94.5 % (60.0-80.0); VENOUS PARTIAL PRESSURE CO2 34.4 mmHg (38.0-50.0); VENOUS PARTIAL PRESSURE O2 78.3 mmHg (30.0-50.0); VENOUS PH 7.406 UNITS (7.330-7.430); VENOUS STANDARD HCO3 21.7 MEQ/L; VENOUS TOTAL CO2 22.2 MEQ/L (24.0-28.0)
[2021-01-08 12:58] LABS: BASO # 0.1 10^3/uL (0.0-0.2); BASO % 0.3 % (0.0-1.0); EOS # 0.3 10^3/uL (0.0-0.5); EOS % 1.8 % (0.0-3.0); HEMATOCRIT 24.4 % (42.0-52.0); LYMPH # 1.9 10^3/uL (1.5-5.0); LYMPH % 12.5 % (24.0-44.0); MEAN CORPUSCULAR HGB CONC 26.6 g/dl (32.0-36.5); MEAN CORPUSCULAR VOLUME 67.6 fl (80.0-96.0); MONO # 1.7 10^3/uL (0.0-0.8); NEUTROPHILS # 11.4 10^3/uL (1.5-8.5); NEUTROPHILS % 73.9 % (36.0-66.0); PLATELET COUNT, AUTOMATED 304 10^3/uL (150-450); RED BLOOD COUNT 3.61 10^6/uL (4.30-6.10)
--- NOTE | 2021-01-08 13:04 | REP ---
INDICATION: pain right. COMPARISON: None. TECHNIQUE: Right lower extremity duplex venous sonography. FINDINGS: The deep veins are anechoic and fully compressible from the groin to the popliteal fossa in the right lower extremity. Color flow imaging is homogeneous. Spectral Doppler interrogation demonstrates intact respiratory variation in flow and normal manual augmentation of flow. There is no evidence of deep vein thrombosis. IMPRESSION: Negative right lower extremity duplex venous ultrasound. No evidence of deep vein thrombosis. <Electronically signed by Ridge Mendoza > 01/08/21 [id number]
[2021-01-08 13:11] LABS: INR 1.14; PROTHROMBIN TIME 14.9 SECONDS (12.5-14.3)
[2021-01-08 13:15] LABS: WHITE BLOOD COUNT 15.5 10^3/uL (4.0-10.0)
[2021-01-08 13:16] LABS: HEMOGLOBIN 6.5 g/dl (13.5-17.5)
[2021-01-08 13:24] LABS: RSV AMPLIFICATION NEGATIVE (NEGATIVE)
--- NOTE | 2021-01-08 13:24 | REP ---
INDICATION: DYSPNEA/COUGH. COMPARISON: Comparison chest x-ray June 04, 2020. TECHNIQUE: Portable upright AP chest radiograph. FINDINGS: Multiple old healed rib fractures are noted bilaterally. There is bibasilar linear fibrosis again noted. No acute infiltrate is seen. The pleural angles are sharp. The heart is not felt to be enlarged. Aorta is somewhat tortuous. Monitoring electrodes are seen.. IMPRESSION: Multiple bilateral rib fractures. Bibasilar linear fibrosis right a little more so than left. No acute infiltrate.. <Electronically signed by Ridge Mendoza > 01/08/21 [id number]
[2021-01-08 13:38] LABS: ALT/SGPT 15 U/L (12-78); BILIRUBIN,DIRECT < 0.1 MG/DL (0.0-0.2); BILIRUBIN,TOTAL 0.3 MG/DL (0.2-1.0); BLOOD UREA NITROGEN 16 MG/DL (7-18); CALCIUM LEVEL 8.2 MG/DL (8.8-10.2); CARBON DIOXIDE LEVEL 22 MEQ/L (21-32); CHLORIDE LEVEL 109 MEQ/L (98-107); CK-MB VALUE MASS < 1.0 NG/ML (<3.6); CPK CREATINE PHOSPHOKINASE 105 U/L (39-308); CREATININE FOR GFR 0.68 MG/DL (0.70-1.30); GLOMERULAR FILTRATION RATE > 60.0 (>42); GLUCOSE, FASTING 96 MG/DL (70-100); MB/CK RELATIVE INDEX 0.95 (< OR =4); NT-PRO BNP 73 PG/ML (<125); POTASSIUM SERUM 4.2 MEQ/L (3.5-5.1); SODIUM LEVEL 139 MEQ/L (136-145); TROPONIN I < 0.02 NG/ML (< 0.10)
[2021-01-08 14:15] LABS: FERRITIN 3 NG/ML (26-388); IRON (FE) 18 UG/DL (65-175); PERCENT SATURATION 4.1 % (19.7-50.0); TOTAL IRON BINDING CAPACITY 436 UG/DL (250-450)
[2021-01-08] MEDS ORDERED: PREG200C PO (14:21)
[2021-01-08] MEDS ORDERED: THIA100T7 PO (14:21)
[2021-01-08] MEDS ORDERED: ROSU40TA4 PO (14:21)
[2021-01-08] MEDS ORDERED: FOLI1TAB11 PO (14:21)
[2021-01-08] MEDS ORDERED: ACETAMINOPHEN TAB 650MG DOSE (2X325MG) PO PRN (14:30)
[2021-01-08] MEDS ORDERED: MAALOX 30 ML SUSP *UDC PO PRN (14:30)
[2021-01-08] MEDS ORDERED: ANEXSIA, NORCO 7.5MG/325MG TABLET(HYDROCODONE/APAP) PO PRN (14:45)
[2021-01-08] MEDS ORDERED: hydrOXYzine 10 MG TAB PO PRN (14:45)
[2021-01-08] MEDS ORDERED: IRON SUCROSE 100MG 5ML VIAL (J1756 PER 1MG) IV SCH (15:10)
[2021-01-08] MEDS: DULoxetine 30 MG CAP (CYMBALTA) PO SCH (17:28)
[2021-01-08] MEDS: IRON SUCROSE 100 MG in NS 100 ML OVER 1 HR IV SCH (19:16)
[2021-01-08] MEDS: CARVedilol 3.125 MG TAB PO SCH (20:27)
[2021-01-08] MEDS: ROSUVASTATIN 10 MG TAB (CRESTOR) PO SCH (20:27)
[2021-01-08] MEDS: PREGABALIN 100 MG CAP (LYRICA) PO SCH (20:28)
[2021-01-08] MEDS: PANTOPRAZOLE 40MG VIAL (C9113 PER 1) IV SCH (20:28)
[2021-01-08] MEDS: DIVALPROEX 500MG *ER* TAB PO SCH (20:28)
[2021-01-09] VITALS (7 sets, daily range): BP systolic 120–158; BP diastolic 62–98
[2021-01-09 04:16] LABS: HEMOGLOBIN 8.9 g/dl (13.5-17.5); MEAN CORPUSCULAR HEMOGLOBIN 20.4 pg (27.0-33.0); MEAN CORPUSCULAR HGB CONC 28.7 g/dl (32.0-36.5); MEAN CORPUSCULAR VOLUME 70.9 fl (80.0-96.0); PLATELET COUNT, AUTOMATED 287 10^3/uL (150-450); RED BLOOD COUNT 4.37 10^6/uL (4.30-6.10); WHITE BLOOD COUNT 11.4 10^3/uL (4.0-10.0)
[2021-01-09 04:25] LABS: ALBUMIN 2.8 GM/DL (3.2-5.2); ALT/SGPT 13 U/L (12-78); BILIRUBIN,TOTAL 0.4 MG/DL (0.2-1.0); BLOOD UREA NITROGEN 11 MG/DL (7-18); CALCIUM LEVEL 8.3 MG/DL (8.8-10.2); CARBON DIOXIDE LEVEL 22 MEQ/L (21-32); CHLORIDE LEVEL 112 MEQ/L (98-107); CREATININE FOR GFR 0.62 MG/DL (0.70-1.30); GLOMERULAR FILTRATION RATE > 60.0 (>42); GLUCOSE, FASTING 94 MG/DL (70-100); POTASSIUM SERUM 3.8 MEQ/L (3.5-5.1); SODIUM LEVEL 141 MEQ/L (136-145); TOTAL PROTEIN 7.5 GM/DL (6.4-8.2)
[2021-01-09] MEDS ORDERED: NS 1,000 ML IV SCH (07:20)
--- NOTE | 2021-01-09 07:46 | ECGEPIP ---
[facility] - ED Test Date: 2021-01-08 Pat Name: GOOD GOMEZ Department: Room: [place] [address] Gender: Male Folder Operator: RU : 1950 Requested By: Breanna Euceda Order Number: [id number] Reading MD: Elijah Stern Measurements Intervals [place] Rate: 84 P: 27 W[place]: 174 QRS: 6 QRSD: 90 T: 16 QT: 346 QTc: 408 Interpretive Statements Normal sinus rhythm INCOMPLETE RIGHT BUNDLE BRANCH BLOCK SIMILAR TO 06/04/20 Electronically Signed on 01-09-2021 7:46:06 EDT by Elijah Stern
[2021-01-09] MEDS: PANTOPRAZOLE 40MG VIAL (C9113 PER 1) IV SCH ×2 (08:30→20:11)
[2021-01-09] MEDS ORDERED: fentaNYL 100 MCG/2 ML INJECTION (J3010) As Ordered ONE (09:58)
[2021-01-09] MEDS ORDERED: LIDOCAINE 2% 100MG/5ML SDV (FOR ANES.) As Ordered ONE (09:58)
[2021-01-09] MEDS ORDERED: propofoL 200 MG/20 ML VIAL As Ordered ONE (09:58)
--- NOTE | 2021-01-09 10:32 | ROOR ---
Patient Name: Judah Romo Procedure Date: 01/09/2021 9:46 AM Date of : 1950 Age: 70 Room: Main OR Gender: Male Note Status: Finalized Procedure: Upper GI endoscopy Indications: Acute post hemorrhagic anemia, Iron deficiency anemia Providers: Robby Ash MD Referring MD: 2. Inpatient 2. Inpatient Requesting Provider: Medicines: Monitored Anesthesia Care Complications: No immediate complications. Procedure: Pre-Anesthesia Assessment: - Prior to the procedure, a History and Physical was performed, and patient medications and allergies were reviewed. The patient is competent. The risks and benefits of the procedure and the sedation options and risks were discussed with the patient. All questions were answered and informed consent was obtained. Patient identification and proposed procedure were verified by the physician, the nurse and the oxygen therapist in the procedure room. Mental Status Examination: alert and oriented. Airway Examination: normal oropharyngeal airway and neck mobility. Respiratory Examination: clear to auscultation. CV Examination: normal. Prophylactic Antibiotics: The patient does not require prophylactic antibiotics. Prior Anticoagulants: The patient has taken Eliquis (apixaban), last dose was 2 days prior to procedure. ASA Grade Assessment: III - A patient with severe systemic disease. After reviewing the risks and benefits, the patient was deemed in satisfactory condition to undergo the procedure. The anesthesia plan was to use monitored anesthesia care (MAC). Immediately prior to administration of medications, the patient was re-assessed for adequacy to receive sedatives. The heart rate, respiratory rate, oxygen saturations, blood pressure, adequacy of pulmonary ventilation, and response to care were monitored throughout the procedure. The physical status of the patient was re-assessed after the procedure. The Colonoscope [id number] #[id number] was introduced through the mouth, and advanced to the second part of duodenum. The upper GI endoscopy was accomplished without difficulty. The patient tolerated the procedure well. Findings: There is no endoscopic evidence of bleeding, areas of erosion or esophagitis in the entire esophagus. A medium-sized hiatal hernia was present. Four non-bleeding linear gastric ulcers with no stigmata of bleeding were found in the cardia. The largest lesion was 1 mm in largest dimension. Biopsies were taken with a cold forceps for Helicobacter pylori testing. Hieu Ulcers at the fundus, cardia related to the hiatal hernia. No active bleeding The first portion of the duodenum and second portion of the duodenum were normal. Impression: - Medium-sized hiatal hernia. - Non-bleeding gastric ulcers with no stigmata of bleeding. Biopsied. - Normal first portion of the duodenum and second portion of the duodenum. Recommendation: - Admit the patient to hospital [facility] for ongoing care. - Use Protonix (pantoprazole) 40 mg PO daily indefinitely. - Avoid NSAIDs if possible Consider repair of hiatal hernia Procedure Code(s): --- Professional --- 33883, Esophagogastroduodenoscopy, flexible, transoral; with biopsy, single or multiple Diagnosis Code(s): --- Professional --- K44.9, Diaphragmatic hernia without obstruction or gangrene K25.9, Gastric ulcer, unspecified as acute or chronic, without hemorrhage or perforation D62, Acute posthemorrhagic anemia D50.9, Iron deficiency anemia, unspecified CPT copyright 2019 [employer]. All rights reserved. The codes documented in this report are preliminary and upon respiratory care specialist review may be revised to meet current compliance requirements. Robby Ash MD Robby B. Barayuga, MD 01/09/2021 10:32:04 AM Electronically signed by Robby Ash MD Number of Addenda: 0 Note Initiated On: 01/09/2021 9:46 AM Estimated Blood Loss: Estimated blood loss was minimal.
[2021-01-09] MEDS: DULoxetine 30 MG CAP (CYMBALTA) PO SCH (11:10)
[2021-01-09] MEDS: DIVALPROEX 500MG *ER* TAB PO SCH ×2 (11:10→20:11)
[2021-01-09] MEDS: CARVedilol 3.125 MG TAB PO SCH ×2 (11:11→20:12)
[2021-01-09] MEDS: PREGABALIN 100 MG CAP (LYRICA) PO SCH ×2 (11:12→20:11)
[2021-01-09] MEDS ORDERED: LR 1,000 ML IV SCH (11:50)
[2021-01-09] MEDS ORDERED: ONDANSETRON 4MG/2ML VIAL IV PRN (11:50)
--- NOTE | 2021-01-09 13:59 | IPNPDOC ---
Subjective Date Seen The patient was seen on 01/09/21. Subjective Chief Complaint/HPI Judah is well to's morning. He is nothing by mouth awaiting EGD. He denies having any hematemesis or melena. He is not expressing any chest discomfort, shortness of breath or lightheadedness. Objective Physical Examination General Exam: Positive: Alert, No Acute Distress Neck Exam: Positive: Supple; Negative: JVD, thyromegaly Chest Exam: Positive: Clear to auscultation, Normal air movement Heart Exam: Positive: Rate Normal, Regular Rhythm, Normal S1, Normal S2; Negative: Murmurs, Rubs Abdomen Exam: Positive: Normal bowel sounds, Soft; Negative: Tenderness, Hepatospenomegaly Extremity Exam: Positive: Normal pulses; Negative: Clubbing, Cyanosis, Edema Assessment /Plan Assessment # Acute JOSE MIGUEL 2/2 Acute GIB # Acute blood loss anemia - awaiting EGD - continue to hold eliquis - CBC daily - IV protonix bid - IV iron day #2 # PAF - currently nsr - continue low dose coreg - holding # Hx seizure disorder - continue depakote Dispo: possibly home in am Plan/VTE VTE Prophylaxis Ordered?: No VTE Exclusion Mechanical Proph: Low Risk for VTE VTE Exclusion Pharmacological: Bleeding Risk VS, I&O, 24H, Fishbone Vital Signs/I&O Vital Signs Date Time Temp Pulse Resp B/P (MAP) Pulse Ox O2 Delivery O2 Flow Rate FiO2 01/09/21 12:00 2.0 01/09/21 11:11 127/60 01/09/21 10:37 97.0 68 18 96 Nasal Cannula 01/08/21 18:26 97 I&O- Last 24 Hours up to 6 AM 01/09/21 06:00 Intake Total 1100 ml Balance 1100 ml Laboratory Data 24H LABS Laboratory Tests 2 01/09/21 03:46: Nucleated Red Blood Cells % (auto) 0.3H, Anion Gap 7L, Glomerular Filtration Rate > 60.0, Calcium Level 8.3L, Total Bilirubin 0.4, Aspartate Amino Transf (AST/SGOT) 11, Alanine Aminotransferase (ALT/SGPT) 13, Alkaline Phosphatase 48, Total Protein 7.5, Albumin 2.8L, Albumin/Globulin Ratio 0.6 CBC/BMP Laboratory Tests 01/09/21 03:46 Microbiology Microbiology 01/08/21 Blood Culture - Preliminary, Resulted No growth after 24 hours . All specim... 01/08/21 Blood Culture - Preliminary, Resulted No growth after 24 hours . All specim... ARIAN SOMERS MD January 09, 2021 13:59
--- NOTE | 2021-01-09 15:18 | HPE ---
HISTORY AND PHYSICAL DATE OF ADMISSION: 01/08/2021 Patient is seen on 01/08/2021 at 2:30 p.m. in the emergency room. CHIEF COMPLAINT: Shortness of breath for approximately 2 weeks. HISTORY OF PRESENT ILLNESS: Mr. Romo is a 70-year-old gentleman who has a past medical history of atrial fibrillation, for which he is on Eliquis. He also has a history of chronic pain syndrome. He reports taking anywhere from five to six [id number] tablets of ibuprofen. Over the last several weeks he has had increasing shortness of breath and was concerned that he might have a pneumonia. His forced him to come to the emergency room today. On arrival, he was noted to be hemodynamically stable, and hemoglobin level was found to be 6.5. The patient refused to have a rectal exam and denied having any melena or hematemesis. My review of his records indicates that he has a hemoglobin usually between 9-10. His last hemoglobin was 8.2 in May. He had an esophagogastroduodenoscopy (EG) and scope in 2018 when he presented with complaints of gastrointestinal (GI) bleeding. At that time he was noted to have a medium-sized hiatal hernia with some diverticulosis. At present moment, patient denies having any abdominal pain over the last several weeks. He is actually complaining of constipation. ALLERGIES: Carisoprodol. CURRENT HOME MEDICATIONS: - Eliquis 5 mg twice a day - Coreg 3.125 mg twice a day. - Depakote 500 mg twice a day - Duloxetine 60 mg by mouth daily - [place] one tablet every 6 hours as needed for pain - hydroxyzine 10 mg at bedtime as needed for sleep - omeprazole 40 mg daily - Lyrica 200 mg twice a day - rosuvastatin 4 mg at bedtime - thiamine 100 mg by mouth daily MEDICAL HISTORY: Notable for: 1. Internal hemorrhoids, stage I. 2. Diverticulosis. 3. Medium-size hiatal hernia. 4. Paroxysmal atrial fibrillation. 5. Hyperlipidemia. 6. Seizure disorder. 7. He had a cerebral aneurysm, status post gamma knife surgery. SURGICAL HISTORY: Notable for: 1. Cystoscopy in 2019. 2. Colonoscopy and EGD in 2018. SOCIAL HISTORY: The patient is . He smokes a pack per day. He lives with his , Starr. He does not use any alcohol or illicit drugs. FAMILY HISTORY: Notable for his mother, who has chronic obstructive pulmonary disease (COPD). Does not know anything about his father. REVIEW OF SYSTEMS: All systems reviewed with the patient, otherwise negative. PHYSICAL EXAMINATION: Today, the patient's temperature is 99.3, pulse is 87 and regular, respirations 20, blood pressure 107/55, oxygen saturation 97% on 2 liters. General: The patient is alert and oriented times three. He appears pale in color. He is in no distress at this time. His head is atraumatic. Pupils symmetric and reactive to light. He has no scleral icterus. Conjunctivae are pale. Oropharynx without exudate, erythema, or thrush. No petechiae noted on his soft palate. His neck is supple. No palpable thyromegaly. No jugular venous distention (JVD). Lungs sounds are heard without rales, wheezing, or rhonchi. Heart is S1, S2. No audible murmurs or gallops. He is currently in normal sinus rhythm. His abdomen is protuberant, nontender, nondistended with active bowel sounds. No ascites is noted. Extremities are without any significant cyanosis, clubbing, or edema. Neurologic: Cranial nerves II-XII grossly intact. His speech is intact. He has no facial asymmetry. Muscle strength 5/5 in the upper and lower extremities, proximal and distal muscle groups. Gait is not tested secondary to his low hemoglobin count., PERTINENT IMAGING STUDIES: Chest x-ray, one view, is otherwise unremarkable. Right lower extremity venous duplex ultrasound is negative. PERTINENT LABORATORY DATA: White count is 15.5, hemoglobin 6.5, hematocrit 24.4, platelet count 304,000. Sodium 139, potassium 4.2, chloride 109, bicarbonate 22, anion gap 8, BUN is 16, creatinine 0.68, glucose 96, lactic acid 1.1. Iron is 18, TIBC 436, transferrin is 4.1, ferritin is 3. Total bilirubin 0.3, direct bilirubin less than 0.1, AST 8, ALT 15, alkaline phosphatase 52. CPK is 105. Troponin is less than 0.02. NT proBNP is 73. Total protein 7, albumin 3. TSH 0.49. PT is 14.9, INR is 1.14. COVID swab was negative. Valproic acid level was 40. IMPRESSION: 1. Symptomatic anemia, likely secondary to iron deficiency anemia. 2. Chronic nonsteroidal anti-inflammatory drugs (NSAIDs) use. 3. Subtherapeutic valproic acid level. 4. Chronic Eliquis use. 5. Paroxysmal atrial fibrillation. 6. History of hiatal hernia. PLAN: Patient will be admitted to inpatient status. He will be monitored on telemetry. We will monitor him in the progressive care unit (PCU). Patient's Eliquis will be held for now. He will typed and crossed and transfused 2 units of packed red blood cells. Initially we will give him intravenous (IV) iron times three for the next [address] Ash of general surgery will be consulted to see the patient and is not planning on doing any scopes at this time. Patient will be placed on a full liquid diet for now. He will be placed on sequential compression devices (SCDs) for deep venous thrombosis (DVT) prophylaxis. Patient will be a full code. He will be continued on the majority of his home medications. Please see my orders for details.
[2021-01-09] MEDS: IRON SUCROSE 100 MG in NS 100 ML OVER 1 HR IV SCH (17:11)
[2021-01-09] MEDS: ROSUVASTATIN 10 MG TAB (CRESTOR) PO SCH (20:11)
[2021-01-10] VITALS: BP 166/79
[2021-01-10 04:00] VITALS: BP 157/78
[2021-01-10 05:53] LABS: HEMATOCRIT 31.7 % (42.0-52.0); HEMOGLOBIN 9.1 g/dl (13.5-17.5); MEAN CORPUSCULAR HEMOGLOBIN 20.5 pg (27.0-33.0); MEAN CORPUSCULAR HGB CONC 28.7 g/dl (32.0-36.5); MEAN CORPUSCULAR VOLUME 71.6 fl (80.0-96.0); PLATELET COUNT, AUTOMATED 283 10^3/uL (150-450); RED BLOOD COUNT 4.43 10^6/uL (4.30-6.10); WHITE BLOOD COUNT 9.2 10^3/uL (4.0-10.0)
[2021-01-10 08:00] VITALS: BP 158/78
[2021-01-10] MEDS: DIVALPROEX 500MG *ER* TAB PO SCH (08:57)
[2021-01-10] MEDS: PREGABALIN 100 MG CAP (LYRICA) PO SCH (08:57)
[2021-01-10] MEDS: DULoxetine 30 MG CAP (CYMBALTA) PO SCH (08:57)
[2021-01-10] MEDS: PANTOPRAZOLE 40MG VIAL (C9113 PER 1) IV SCH (08:57)
[2021-01-10 08:59] VITALS: BP 158/78
[2021-01-10] MEDS: CARVedilol 3.125 MG TAB PO SCH (08:59)
[2021-01-10] MEDS ORDERED: FERR150C PO (09:15)
[2021-01-10] MEDS ORDERED: PROTPAK PO (09:15)
--- NOTE | 2021-01-10 14:27 | DSES ---
DISCHARGE SUMMARY DATE OF ADMISSION: 01/08/2021 DATE OF DISCHARGE: 01/10/2021 DISCHARGE DIAGNOSES: 1. Acute blood loss anemia causing symptomatic anemia. 2. Acute iron deficiency anemia. 3. Paroxysmal atrial fibrillation. 4. Chronic anticoagulation with Eliquis. 5. History of seizure disorder. COMPUTER ANALYST SUPERVISOR(S) ON THE CASE: Dr. Ash of general surgery. PROCEDURE(S) PERFORMING DURING THIS HOSPITALIZATION: EGD with biopsies. DISPOSITION: The patient is discharged home. CONDITION ON DISCHARGE: Stable. DISCHARGE INSTRUCTIONS: The patient is instructed to take Protonix 40 mg twice a day. He is to abstain from taking any nonsteroidal anti-inflammatory medications. He is advised to resume his Eliquis. He is to monitor his stool for any melena or hematochezia. IMAGING STUDIES DURING THIS HOSPITALIZATION: 1. Chest x-ray, which showed no acute pathology. 2. Right lower extremity venous duplex ultrasound, which showed no evidence of DVT. RELEVANT LABORATORY DATA: Blood cultures x2 showed no growth. COVID swab was negative. On admission, the patient's hemoglobin was 6.5. He was transfused two units of packed red blood cells with improvement in his hemoglobin to 9.1 with hematocrit of 31.17, white count 9.2, platelet count 283,000. Retic percentage was 2%. PT was 14.9, INR 1.14. Sodium 141, potassium 3.8, chloride 112, bicarb 22, anion gap 7, BUN 11, creatinine 0.62, calcium 8.3. Iron level 18, TIBC 436, transferrin 4.1, ferritin 3. AST 8, ALT 15, alkaline phosphatase 52. CPK 105. TSH was 0.49. Albumin was 3. Valproic acid level was 4. HOSPITAL COURSE: Mr. Romo is a 70-year-old gentleman who is chronically on Eliquis for paroxysmal atrial fibrillation. He presented to the hospital with acute shortness of breath. On arrival, the patient was not noted to have any respiratory condition. He was found to have a hemoglobin of 6.5. He refused a digital rectal exam in the emergency room. He was typed and crossed and transfused two units of packed blood cells with improvement in his hemoglobin as is documented above in the lab section. The patient was hydrated with IV fluids, kept n.p.o., and his Eliquis was held. Dr. Barayuga was consulted. The patient was taken for EGD and this showed that he had some nonbleeding gastric ulcers and biopsies were taken. The patient was returned to his room. Today the patient's hemoglobin remains stable and he is discharged home in stable condition. DISCHARGE PHYSICAL EXAMINATION: VITAL SIGNS: At the time of discharge, the patient's temperature is 97, pulse 68, respirations 18, blood pressure 158/78. O2 sat is 97% on room air. GENERAL: The patient is alert and oriented x3. Appears his stated age. He is in no acute distress. SKIN: Improved in color without any visible pallor. HEENT: Head is atraumatic. Pupils symmetric and react to light. Oropharynx is clear. NECK: Supple. LUNGS: Sounds present without rales or rhonchi. HEART: S1, S2. No murmurs, rubs, or gallops. ABDOMEN: Protuberant, nontender, and nondistended with active bowel sounds. No palpable organomegaly. EXTREMITIES: Without any cyanosis, clubbing, or edema. DISCHARGE MEDICATIONS: 1. Ferrex 150 mg daily. 2. Protonix 40 mg twice a day. 3. Eliquis 5 mg twice a day. 4. Coreg 3.125 mg twice a day. 5. Vitamin B12 at 1000 mcg p.o. daily. 6. Depakote ER 500 mg twice a day. 7. Duloxetine 60 mg p.o. daily. 8. Folic acid 1 mg p.o. daily. 9. Balko 7.5/325 one tab q.i.d. as needed for pain. 10. Hydroxyzine 10 mg at bedtime. 11. Omeprazole. 12. Pregabalin 200 mg twice a day. 13. Rosuvastatin 4 mg at bedtime. 14. Thiamine 100 mg p.o. daily. OUTPATIENT FOLLOW-UP: The patient is advised to follow-up biopsy results with Dr. Ash or his PCP. Total of 30 minutes spent completing all discharge paperwork.
== END 2021-01-10 11:32 | disposition home or self-care (01) | DRG 812 ==
LOC: M ED 12:11 → EDBD 12:11 → M ED INP 14:30 → ENRESERV 15:00 → M PCU 15:39
PROVIDERS: ADMIT Internal Medicine; ATTEND Internal Medicine
PROC: 0DB78ZX Excision of Stomach, Pylorus, Via Natural or Artificial Opening Endoscopic, Diagnostic (ICD-10-PCS; principal; 2021-01-09 08:22)
DX: D62 Acute posthemorrhagic anemia (principal); D50.9 Iron deficiency anemia, unspecified; K44.9 Diaphragmatic hernia without obstruction or gangrene; K25.9 Gastric ulcer, unspecified as acute or chronic, without hemorrhage or perforation; G40.909 Epilepsy, unspecified, not intractable, without status epilepticus; I48.0 Paroxysmal atrial fibrillation; Z79.01 Long term (current) use of anticoagulants; G89.4 Chronic pain syndrome; K64.0 First degree hemorrhoids; E78.5 Hyperlipidemia, unspecified; F17.210 Nicotine dependence, cigarettes, uncomplicated; Z79.1 Long term (current) use of non-steroidal anti-inflammatories (NSAID); Z20.822 Contact with and (suspected) exposure to COVID-19; Z79.899 Other long term (current) drug therapy; Z86.79 Personal history of other diseases of the circulatory system; Z88.8 Allergy status to other drugs, medicaments and biological substances

== ENCOUNTER → 2021-01-24 | Outpatient (CLI) | payer MEDICARE, OTHER ==
[~2021-01-24] MED LIST changes: +FERR150C PO; +PREG200C PO; +PROTPAK PO; +THIA100T7 PO
[2021-01-24 16:52] LABS: BASO # 0.1 10^3/uL (0.0-0.2); EOS # 0.3 10^3/uL (0.0-0.5); EOS % 4.8 % (0.0-3.0); HEMATOCRIT 35.8 % (42.0-52.0); HEMOGLOBIN 10.1 g/dl (13.5-17.5); LYMPH % 28.5 % (24.0-44.0); MEAN CORPUSCULAR HEMOGLOBIN 20.9 pg (27.0-33.0); MEAN CORPUSCULAR HGB CONC 28.2 g/dl (32.0-36.5); MEAN CORPUSCULAR VOLUME 74.1 fl (80.0-96.0); MONO # 0.7 10^3/uL (0.0-0.8); MONO % 10.1 % (2.0-8.0); NEUTROPHILS # 3.8 10^3/uL (1.5-8.5); PLATELET COUNT, AUTOMATED 267 10^3/uL (150-450); RED BLOOD COUNT 4.83 10^6/uL (4.30-6.10); WHITE BLOOD COUNT 6.9 10^3/uL (4.0-10.0)
[2021-01-24 17:28] LABS: ALBUMIN 3.2 GM/DL (3.2-5.2); ALT/SGPT 26 U/L (12-78); BILIRUBIN,TOTAL 0.3 MG/DL (0.2-1.0); BLOOD UREA NITROGEN 15 MG/DL (7-18); CALCIUM LEVEL 9.4 MG/DL (8.8-10.2); CARBON DIOXIDE LEVEL 24 MEQ/L (21-32); CHLORIDE LEVEL 109 MEQ/L (98-107); CREATININE FOR GFR 0.64 MG/DL (0.70-1.30); GLOMERULAR FILTRATION RATE > 60.0 (>42); GLUCOSE, FASTING 82 MG/DL (70-100); POTASSIUM SERUM 4.2 MEQ/L (3.5-5.1); SODIUM LEVEL 141 MEQ/L (136-145); TOTAL PROTEIN 7.4 GM/DL (6.4-8.2)
== END ==
LOC: M LAB 15:51
PROVIDERS: ATTEND Nurse Practitioner Family
DX: K92.89 Other specified diseases of the digestive system (principal)

== ENCOUNTER → 2021-02-08 | Outpatient (CLI) | payer MEDICARE, OTHER ==
[~2021-02-08] MED LIST changes: +OMEP40CA4 PO; -OMEP40CA97 PO
--- NOTE | 2021-02-10 01:48 | ECWPNPC ---
PATIENT NAME: GOOD GOMEZ : 1950 GENDER: MALE VISIT DATE: 02/08/2021 DISCHARGE DATE: 02/08/21 1417 VISIT LOCKED DATE TIME: PHYSICIAN: ANGIE GONZALEZ RESOURCE: ANGIE GONZALEZ REASON FOR APPOINTMENT 1. LOW BACK/MED MNGMT HISTORY OF PRESENT ILLNESS GENERAL: HERE FOR FOLLOW-UP OF CHRONIC LOW BACK PAIN. RECENT HOSPITALIZATION FOR ABDOMINAL INFECTION AND VERY LOW BLOOD COUNT. HE HAD TO HAVE BLOOD TRANSFUSION. TODAY HE IS COMPLAINING OF RIGHT KNEE AND LOWER EXTREMITY PAIN. FINDS IT VERY DIFFICULT TO DRIVE DUE TO RIGHT KNEE PAIN. I'VE ADVISED HIM TO HAVE THIS LOOKED AT TODAY AT URGENT CARE TO RULE OUT BLOOD CLOT. HE IS WILLING TO HAVE THAT EVALUATED. HAS UPCOMING PULMONARY APPOINTMENT DUE TO INCREASE IN SHORTNESS OF BREATH OVER THE PAST YEAR. IS NO LONGER USING MEDICAL MARIJUANA. DISCUSSED MEDICATIONS FOR CHRONIC PAIN. -. FALL RISK SCREENING: SCREENING : NO FALLS REPORTED IN THE LAST YEAR. PAIN SCREENING: PATIENT HAS A COMPLAINT OF ACUTE OR CHRONIC PAIN :YES LOCATION OF PAIN:LOW BACK INTENSITY OF PAIN (SCALE OF 1 TO 10):4 WHAT DOES YOUR PAIN FEEL LIKE:CONTINOUS, SHARP, SORE DURATION:CONTINOUS, CONSTANT, ALL DAY PAIN IS INCREASED BY:ACTIVITIES PAIN IS DECREASED BY:USE OF PAIN MEDICATIONS NURSING NOTE: -. PAIN CENTER INTAKE QUESTIONS: DO YOU HAVE A HISTORY OF MRSA? :NO DO YOU TAKE A BLOOD THINNERS? :YES ELIQUIS A FIB DO YOU HAVE ANY BLEEDING DISORDERS? :NO ANY NEW NUMBNESS OR WEAKNESS IN YOUR LEGS OR ARMS? :YES RIGHT KNEE PAIN INTO FOOT ANY PACEMAKER,DEFIBRILLATOR, OR DORSAL COLUMN STIMULATOR? :NO DO YOU HAVE ANY RASHES OR OPEN SORES? :NO ARE YOU ALLERGIC TO IV DYE? :NO ARE YOU DIABETIC? :NO ANY NEW PROBLEMS WITH YOUR MEDICATIONS? :NO HAVE YOU RECEIVED A VACCINE IN THE PAST 30 DAYS? :NO DO YOU PLAN TO RECEIVE A VACCINE IN THE NEXT 21 DAYS? :NO DO YOU NEED ANY PRESCRIPTION? :NO DO YOU TAKE ANY IMMUNOSUPPRESSIVE MEDICATIONS? :NO CURRENT MEDICATIONS TAKING FOLIC ACID 1 MG TABLET 1 TABLET ORALLY ONCE A DAY TAKING MULTIVITAMIN ADULTS 50+ - TABLET DIRECTED ORALLY TAKING ELIQUIS 5 MG TABLET DIRECTED ORALLY TAKING CARVEDILOL 3.125 MG TABLET 1 TABLET WITH FOOD ORALLY TWICE A DAY TAKING VITAMIN B-12 1000 MCG TABLET CHEWABLE DIRECTED ORALLY TAKING ROSUVASTATIN CALCIUM 40 MG TABLET 1 TABLET ORALLY ONCE A DAY TAKING VITAMIN D3 50 MCG (2000 UT) CAPSULE 1 CAPSULE ORALLY ONCE A DAY TAKING DEPAKOTE 500 MG TABLET DELAYED RELEASE 1 TABLET ORALLY TWICE A DAY TAKING LORAZEPAM 0.5 MG TABLET 1 TABLET AT BEDTIME NEEDED ORALLY ONCE A DAY TAKING THIAMINE HCL 100 MG TABLET 1 TABLET ORALLY ONCE A DAY TAKING OMEPRAZOLE 40 MG CAPSULE DELAYED RELEASE 1 CAPSULE 30 MINUTES BEFORE MORNING MEAL ORALLY ONCE A DAY TAKING HYDROXYZINE HCL 10 MG TABLET DIRECTED ORALLY BEFORE BEDTIME TAKING LYRICA 200 MG CAPSULE 1 CAPSULE ORALLY BID MDD2 TAKING CYCLOBENZAPRINE HCL 10 MG TABLET 1 TABLET AT BEDTIME NEEDED ORALLY Q8H PRN FOR SEVERE PAIN MDD3 TAKING HYDROCODONE-ACETAMINOPHEN 7.5-325 MG TABLET 1 TABLET NEEDED ORALLY Q8H PRN MDD3 NOT-TAKING DULOXETINE HCL 60 MG CAPSULE DELAYED RELEASE PARTICLES 1 CAPSULE ORALLY ONCE A DAY NOT-TAKING LORAZEPAM 0.5 MG TABLET 1 TABLET AT BEDTIME NEEDED ORALLY ONCE A DAY NOT-TAKING LASIX 20 MG TABLET 1 TABLET ORALLY ONCE A DAY NOT-TAKING OMEPRAZOLE 40 MG CAPSULE DELAYED RELEASE 1 CAPSULE 30 MINUTES BEFORE MORNING MEAL ORALLY ONCE A DAY NOT-TAKING HYDROXYZINE HCL 10 MG TABLET DIRECTED ORALLY NOT-TAKING CYMBALTA 60 MG CAPSULE DELAYED RELEASE PARTICLES 1 CAPSULE ORALLY ONCE A DAY NOT-TAKING CITALOPRAM HYDROBROMIDE 10 MG TABLET 1 TABLET ORALLY ONCE A DAY NOT-TAKING FUROSEMIDE 20 MG TABLET 1 TABLET ORALLY ONCE A DAY MEDICATION LIST REVIEWED AND RECONCILED WITH THE PATIENT PAST MEDICAL HISTORY DEPRESSION ARTHRITIS OSTEO EPILEPSY HYPERCHOLESTEROLEMIA AFIB PNEUMONIA EPISODE FOR LOW BACK PAIN BACTRICA IN STOMACH ALLERGIES SOMA: "MADE ME WHAKED" - CONTRAINDICATION SURGICAL HISTORY TONSILLECTOMY W/ ADENOIDECTOMY GAMMA KNIFE. BRAIN ANEURYSM COLONOSCOPY/POLYPECTOMY CYSTOSCOPY 12/08/2019 TRUS BIOPSY (PROSTATE) CYSTO STENT REMOVAL 01/27/2020 LOW BLOOD COUNT 01/08/2021 SOCIAL HISTORY GENERAL: TOBACCO USE ARE YOU A:CURRENT SMOKER ARE YOU INTERESTED IN QUITTING?THINKING ABOUT QUITTING PREVIOUS QUIT ATTEMPTS?YES, WITHIN THE LAST 6 MONTHS. COUNSELED THE PATIENT ON SMOKING CESSATION, EDUCATION [id number]/22/2021 HOW MANY CIGARETTES A DAY DO YOU SMOKE?6-10 HOW SOON AFTER YOU WAKE UP DO YOU SMOKE YOUR FIRST CIGARETTE?31-60 MIN HOW OFTEN DO YOU SMOKE CIGARETTES?SOME DAYS, BUT NOT EVERY DAY LATEX QUESTIONNAIRE LATEX ALLERGY : HAVE YOU EVER DEVELOPED ANY TYPE OF REACTION AFTER HANDLING LATEX PRODUCTS SUCH RUBBER GLOVES, CONDOMS, DIAPHRAGMS, BALLOONS, SOCKS, OR UNDERWEAR?NO LATEX ALLERGY : HAVE YOU EVER DEVELOPED ANY TYPE OF REACTION DURING OR AFTER DENTAL APPOINTMENT, VAGINAL/RECTAL EXAMINATION, SURGICAL PROCEDURE, OR ANY OTHER EXPOSURE?NO LATEX RISK : HAVE YOU EVER HAD ANY DIFFICULTY BREATHING OR HIVES AFTER EATING OR HANDLING ANY FRUITS, OR VEGETABLES; SUCH KIWI, BANANAS, STONE FRUITS, OR CHESTNUTSNO LATEX RISK : DO YOU HAVE A PREVIOUS PERSONAL HISTORY OF MORE THAN NINE SURGERIES, SPINA BIFIDA, OR REPEATED CATHERIZATIONS? NO LATEX RISK : ARE YOU FREQUENTLY EXPOSED TO LATEX PRODUCTS IN YOUR OCCUPATION?NO DATE ASKED : 02/08/2021 ALCOHOL USE: YES. ALCOHOL SCREENING DID YOU HAVE A DRINK CONTAINING ALCOHOL IN THE PAST YEAR?YES HOW OFTEN DID YOU HAVE SIX OR MORE DRINKS ON ONE OCCASION IN THE PAST YEAR?LESS THAN MONTHLY (1 POINT) HOW MANY DRINKS DID YOU HAVE ON A TYPICAL DAY WHEN YOU WERE DRINKING IN THE PAST YEAR?3 OR 4 (1 POINT) HOW OFTEN DID YOU HAVE A DRINK CONTAINING ALCOHOL IN THE PAST YEAR?TWO TO FOUR TIMES A MONTH (2 POINTS) POINTS4 INTERPRETATIONPOSITIVE RECREATIONAL DRUG USE DRUG USE?NO CAFFEINE CAFFEINE USE?YES HOW OFTEN AND HOW MUCH? COFFEE 1 CUP DAILY SEXUAL HX HAD SEX IN THE LAST 12 MONTHS (VAGINAL, ORAL, OR ANAL)?NO HAVE YOU EVER HAD AN STD?NO RESTORATIONISM RESTORATIONISM NO RESTORATIONIST BELIEFS THAT WOULD IMPACT HEALTH CARE. LANGUAGE LANGUAGES SPOKEN:[place] LEARNING BARRIERS / SPECIAL NEEDS CHANGE FROM LAST VISIT?YES BARRIERS TO LEARNING?NO HEARING IMPAIRED?NO VISION IMPAIRED?YES :CORRECTIVE LENSES COGNITIVELY IMPAIRED?NO READINESS TO LEARN?YES LEARNING PREFERENCES?NO LEARNING CAPABILITIES PRESENT?YES EMOTIONAL BARRIERS?NO SPECIAL DEVICES?NO BOWL TURNER NEEDED?NO DOMESTIC VIOLENCE STATUS: LIVES WITH SPOUSE DO YOU FEEL SAFE IN YOUR ENVIRONMENT?YES - HAS THE PATIENT BEEN EDUCATED REGARDING HIS/HER PLAN OF CARE?YES HAS THE PATIENT BEEN EDUCATED REGARDING PAIN, THE RISK FOR PAIN, THE IMPORTANCE OF EFFECTIVE PAIN MANAGEMENT, AND THE PAIN ASSESSMENT PROCESS?YES ADVANCE DIRECTIVE ADVANCE DIRECTIVE DISCUSSED WITH PATIENT:YES YANNI GOMEZ HOSPITALIZATION/MAJOR DIAGNOSTIC PROCEDURE SURGERY RELATED SEVERAL RIB FX LOW BLOOD COUNT 01/08/2021 REVIEW OF SYSTEMS CONSTITUTIONAL: ANY RECENT FEVER NO . CHILLS NO . WEIGHT CHANGE OF UNKNOWN REASONS NO . GASTROENTEROLOGY: NEW UNEXPLAINABLE CHANGES IN BOWEL CONTROL NO . CONSTIPATION NO . GENITOURINARY: ANY NEW CHANGE IN BLADDER CONTROL? NO . NEUROLOGY: NEW ONSET DIZZINESS OR NEUROLOGICAL CHANGES NOT MENTIONED NO . NEW NUMBNESS OR PAIN PATTERNS NOT MENTIONED AND PERTINENT TO TODAY'S VISIT NO . CARDIOLOGY: NEW CHEST PRESSURE NO . PATIENT DENIES NO . RESPIRATORY: UNEXPLAINABLE COUGH NO . NEW SHORTNESS OF BREATH NO . VITAL SIGNS WT 189 LBS, HT 70 IN, BMI 27.12 INDEX, BP 132/70 MM HG, HR 79 /MIN, RR 18 /MIN, TEMP 98 F, OXYGEN SAT % 96%, SAFE IN ENV? (Y/N) [employer]. EXAMINATION GENERAL EXAMINATION: GENERALAWAKE,ALERT ,PLEASANT . PSYCHAFFECT NORMAL . LUNGS:LUNG KAUR ARE CLEAR TO AUSCULTATION BILATERALLY. GOOD MOVEMENT OF AIR . HEART:S1, S2 IN A REGULAR RATE AND RHYTHM. NO SIGNIFICANT MURMURS, RUBS OR GALLOPS NOTED . ASSESSMENTS SPONDYLOSIS OF LUMBOSACRAL JOINT - M47.817 (PRIMARY) TREATMENT SPONDYLOSIS OF LUMBOSACRAL JOINT CONTINUE LYRICA CAPSULE, 200 MG, 1 CAPSULE, ORALLY, BID MDD2 CONTINUE CYCLOBENZAPRINE HCL TABLET, 10 MG, 1 TABLET AT BEDTIME NEEDED, ORALLY, Q8H PRN FOR SEVERE PAIN MDD3 REFILL HYDROCODONE-ACETAMINOPHEN TABLET, 7.5-325 MG, 1 TABLET NEEDED, ORALLY, Q8H PRN MDD3 345 TABS SHOULD LAST 30 DAYS, 30 DAYS, 45, REFILLS 0 NOTES: ISTOP REGISTRY REVIEWED AND DEMONSTRATES COMPLLIANCE. BRINGS IN MEDICATIONS WHICH IS APPROPRIATE FOR WHAT WAS DISPENSED. RECENT URINE TOXICOLOGY REVIEWED. NO UNAUTHORIZED MEDICATIONS. NO ILLICIT SUBSTANCES AND PRESCRIBED MEDICATIONS WERE PRESENT. , RISKS OF NARCOTIC/OPIOD MEDICATIONS INCLUDES BUT IS NOT LIMITED TO RISK OF DEPENDANCE/DEVELOPMENT OF ADDICTION, MOOD DISTURBANCE AND DEPRESSION, OSTEOPOROSIS, HORMONAL AND LABIDAL CHANGES, RESPIRATORY DEPRESSION AND . PATIENT IS ADVISED NOT TO DRIVE OR DRINK ALCOHOL WHILE ON THESE MEDICATIONS. PROCEDURE CODES FA211 ESTABILISHED PATIENT [facility] F[facility]ILITY CHARGE DISPOSITION & COMMUNICATION FOLLOW UP 3 MONTHS (REASON: MED MGMNT/UTOX) ELECTRONICALLY SIGNED BY CLAUDE VANG ON 02/09/2021 AT 01:03 PM EDT DISCLAIMER : THIS IS A VISIT SUMMARY EXTRACTED FROM THE [employer] CHART. IT IS NOT A COPY OF THE [employer] PROGRESS NOTE. FRANK
== END ==
LOC: M PAIN 13:45
PROVIDERS: ATTEND Nurse Practitioner Family
DX: M47.817 Spondylosis without myelopathy or radiculopathy, lumbosacral region (principal); G89.29 Other chronic pain; G40.909 Epilepsy, unspecified, not intractable, without status epilepticus; F17.210 Nicotine dependence, cigarettes, uncomplicated; Z86.59 Personal history of other mental and behavioral disorders; Z88.8 Allergy status to other drugs, medicaments and biological substances; Z79.01 Long term (current) use of anticoagulants; Z79.899 Other long term (current) drug therapy

== ENCOUNTER → 2021-02-24 | Outpatient (CLI) | payer MEDICARE, OTHER ==
--- NOTE | 2021-02-24 15:11 | REP ---
INDICATION: PAIN. COMPARISON: None. TECHNIQUE: AP, lateral, sunrise and tunnel views of the right knee FINDINGS: [id number] tricompartmental degenerative changes are noted. Findings include increased sclerosis to the tibial plateau and posterior patellar margin with associated mild joint space narrowing. Lateral view demonstrates spurring along the superior patellar contour. Tunnel view demonstrates no significant loose body. No acute fracture or dislocation. No definite effusion. IMPRESSION: [id number] tricompartmental degenerative changes given the patient's age. <Electronically signed by Felix Ford > 02/24/21 [id number]
== END ==
LOC: M SOG 14:47
PROVIDERS: ATTEND Orthopaedic Surgery Sports Medicine
DX: M25.561 Pain in right knee (principal); M17.11 Unilateral primary osteoarthritis, right knee

== ENCOUNTER → 2021-05-11 | Outpatient (CLI) | payer MEDICARE, OTHER | LOC: M PAIN 14:00 | PROVIDERS: ATTEND Anesthesiology | DX: M47.817 Spondylosis without myelopathy or radiculopathy, lumbosacral region (principal); F32.9 Major depressive disorder, single episode, unspecified; G40.909 Epilepsy, unspecified, not intractable, without status epilepticus; E78.00 Pure hypercholesterolemia, unspecified; I48.91 Unspecified atrial fibrillation; F17.210 Nicotine dependence, cigarettes, uncomplicated; Z79.01 Long term (current) use of anticoagulants; Z79.891 Long term (current) use of opiate analgesic; Z79.899 Other long term (current) drug therapy; Z88.8 Allergy status to other drugs, medicaments and biological substances ==

== ENCOUNTER → 2021-05-25 | Outpatient (CLI) | payer MEDICARE, OTHER ==
--- NOTE | 2021-05-25 14:01 | REP ---
INDICATION: DYSPNEA COMPARISON: 06/04/2020 TECHNIQUE: Axial noncontrast images from the thoracic inlet to the upper abdomen with coronal and sagittal reformations. This CT examination was performed using the following dose reduction techniques: Automated exposure control, adjustment of mA and/or kv according to the patient's size, and use of iterative reconstruction technique. FINDINGS: Lung santiago demonstrate chronic emphysematous changes with mild linear chronic fibro atelectatic changes at the bases (right greater than left). No acute consolidation, suspicious nodule or mass. No effusion. No pneumothorax. Tracheobronchial tree is patent. No significant adenopathy. Mediastinum demonstrates stable normal thoracic aorta, pulmonary vasculature, and heart/pericardium. Moderate to large hiatal hernia again noted. Osseous structures again demonstrate old healed rib fractures. IMPRESSION: Chronic appearing changes. No acute mediastinal or pleuroparenchymal process. <Electronically signed by Felix Ford > 05/25/21 [id number]
== END ==
LOC: M PLAIMG 13:11
PROVIDERS: ATTEND Nurse Practitioner Family
DX: R06.00 Dyspnea, unspecified (principal); J43.9 Emphysema, unspecified

== ENCOUNTER → 2021-08-23 | Outpatient (CLI) | payer MEDICARE, OTHER | LOC: M PAIN 14:00 | PROVIDERS: ATTEND Nurse Practitioner Family | DX: M79.18 Myalgia, other site (principal); M54.50 Low back pain, unspecified; M47.816 Spondylosis without myelopathy or radiculopathy, lumbar region; G40.909 Epilepsy, unspecified, not intractable, without status epilepticus; F17.210 Nicotine dependence, cigarettes, uncomplicated; Z86.59 Personal history of other mental and behavioral disorders; Z88.8 Allergy status to other drugs, medicaments and biological substances; Z79.01 Long term (current) use of anticoagulants; Z79.899 Other long term (current) drug therapy ==

== ENCOUNTER → 2021-11-21 | Outpatient (CLI) | payer MEDICARE, OTHER ==
[~2021-11-21] MED LIST changes: -OMEP-221 PO; +OMEP40CA5 PO
[2021-11-21 12:51] LABS: HEMATOCRIT 39.5 % (42.0-52.0); HEMOGLOBIN 11.6 g/dl (13.5-17.5); MEAN CORPUSCULAR HEMOGLOBIN 23.2 pg (27.0-33.0); MEAN CORPUSCULAR HGB CONC 29.4 g/dl (32.0-36.5); PLATELET COUNT, AUTOMATED 232 10^3/uL (150-450); WHITE BLOOD COUNT 9.8 10^3/uL (4.0-10.0)
[2021-11-21 13:19] LABS: ALBUMIN 3.3 GM/DL (3.2-5.2); ALT/SGPT 26 U/L (12-78); BILIRUBIN,TOTAL 0.3 MG/DL (0.2-1.0); BLOOD UREA NITROGEN 17 MG/DL (7-18); CALCIUM LEVEL 8.8 MG/DL (8.8-10.2); CARBON DIOXIDE LEVEL 27 MEQ/L (21-32); CHLORIDE LEVEL 109 MEQ/L (98-107); CREATININE FOR GFR 0.76 MG/DL (0.70-1.30); GLOMERULAR FILTRATION RATE > 60.0 (>42); GLUCOSE, FASTING 106 MG/DL (70-100); NT-PRO BNP 18 PG/ML (<125); POTASSIUM SERUM 4.4 MEQ/L (3.5-5.1); SODIUM LEVEL 140 MEQ/L (136-145); TOTAL PROTEIN 7.5 GM/DL (6.4-8.2)
== END ==
LOC: M RAD 11:26
PROVIDERS: ATTEND Physician Assistant
DX: R06.02 Shortness of breath (principal)

== ENCOUNTER → 2021-11-21 | Outpatient (CLI) | payer MEDICARE, OTHER | LOC: M RAD 11:19 | PROVIDERS: ATTEND Internal Medicine Pulmonary Disease | DX: R05.9 Cough, unspecified (principal); R91.8 Other nonspecific abnormal finding of lung field; F17.210 Nicotine dependence, cigarettes, uncomplicated; K44.9 Diaphragmatic hernia without obstruction or gangrene; J84.10 Pulmonary fibrosis, unspecified; N28.1 Cyst of kidney, acquired; K76.89 Other specified diseases of liver; M40.204 Unspecified kyphosis, thoracic region; R06.02 Shortness of breath ==

== ENCOUNTER → 2021-12-08 | Outpatient (CLI) | payer MEDICARE, OTHER ==
[2021-12-08 15:28] LABS: BASO # 0.1 10^3/uL (0.0-0.2); BASO % 1.4 % (0.0-1.0); EOS # 0.5 10^3/uL (0.0-0.5); EOS % 6.4 % (0.0-3.0); HEMATOCRIT 37.3 % (42.0-52.0); HEMOGLOBIN 11.1 g/dl (13.5-17.5); LYMPH # 2.7 10^3/uL (1.5-5.0); LYMPH % 39.3 % (24.0-44.0); MEAN CORPUSCULAR HGB CONC 29.8 g/dl (32.0-36.5); MEAN CORPUSCULAR VOLUME 77.4 fl (80.0-96.0); MONO # 0.7 10^3/uL (0.0-0.8); MONO % 10.2 % (2.0-8.0); NEUTROPHILS % 42.4 % (36.0-66.0); PLATELET COUNT, AUTOMATED 289 10^3/uL (150-450); RED BLOOD COUNT 4.82 10^6/uL (4.30-6.10)
[2021-12-08 16:01] LABS: ALBUMIN 3.6 GM/DL (3.2-5.2); BILIRUBIN,DIRECT 0.1 MG/DL (0.0-0.2); BILIRUBIN,TOTAL 0.3 MG/DL (0.2-1.0); PERCENT SATURATION 9.7 % (19.7-50.0); TOTAL PROTEIN 7.4 GM/DL (6.4-8.2)
[2021-12-08 16:07] LABS: FOLATE 9.3 NG/ML
== END ==
LOC: M LAB 13:59
PROVIDERS: ATTEND Nurse Practitioner Family
DX: D64.9 Anemia, unspecified (principal)

== ENCOUNTER → 2021-12-08 | Outpatient (CLI) | payer MEDICARE, OTHER ==
[~2021-12-08] MED LIST changes: +ISOVUE-370 76% 100ML VIAL As Ordered ONE
== END ==
LOC: M RAD 13:55
PROVIDERS: ATTEND Physician Assistant
DX: R06.02 Shortness of breath (principal); K44.9 Diaphragmatic hernia without obstruction or gangrene
CPT/HCPCS: 71275; Q9967

== ENCOUNTER → 2021-12-19 | Outpatient (CLI) | payer MEDICARE, OTHER ==
[~2021-12-19] MED LIST changes: -ISOVUE-370 76% 100ML VIAL As Ordered ONE
== END ==
LOC: M PAIN 11:15
PROVIDERS: ATTEND Nurse Practitioner Family
DX: M51.06 Intervertebral disc disorders with myelopathy, lumbar region (principal); M79.10 Myalgia, unspecified site; M79.18 Myalgia, other site; F32.A Depression, unspecified; G40.909 Epilepsy, unspecified, not intractable, without status epilepticus; E78.00 Pure hypercholesterolemia, unspecified; I48.91 Unspecified atrial fibrillation; F17.210 Nicotine dependence, cigarettes, uncomplicated; Z79.01 Long term (current) use of anticoagulants; Z79.891 Long term (current) use of opiate analgesic; Z79.899 Other long term (current) drug therapy; Z88.8 Allergy status to other drugs, medicaments and biological substances

== ENCOUNTER → 2022-01-25 | Outpatient (REF) | payer MEDICARE, OTHER ==
[2022-01-25 18:02] LABS: PERCENT SATURATION 4.7 % (19.7-50.0)
[2022-01-25 18:30] LABS: FOLATE 5.6 NG/ML
[2022-01-27 21:07] LABS: ENDOMYSIAL ABY IgA Negative (Negative); TISSUE TRANSGLUTAMINASE IgA <2 U/mL (0-3)
== END ==
LOC: M LAB REF 16:45
PROVIDERS: ATTEND Internal Medicine
DX: D64.9 Anemia, unspecified (principal)

== ENCOUNTER 2022-02-13 11:56 | Outpatient (CLI) | payer MEDICARE, OTHER ==
[~2022-02-13] VITALS: Ht 170.2 cm; Wt 79.5 kg
[2022-02-13] MEDS ORDERED: IRON SUCROSE 475 MG in NS 250 ML IV ONE (12:00)
[2022-02-13] MEDS ORDERED: IRON SUCROSE 25 MG in NS 25 ML IV ONE (12:00)
[2022-02-13 12:21] VITALS: BP 118/67
[2022-02-13 13:30] VITALS: BP 138/68
[2022-02-13 14:30] VITALS: BP 125/74
[2022-02-13 15:30] VITALS: BP 120/80
[2022-02-13 16:51] VITALS: BP 143/73
== END 2022-02-13 12:10 | disposition home or self-care (01) ==
LOC: M INFU 11:56
PROVIDERS: ATTEND Internal Medicine
DX: D50.9 Iron deficiency anemia, unspecified (principal); Z88.8 Allergy status to other drugs, medicaments and biological substances
CPT/HCPCS: 96365; 96366; J1756

== ENCOUNTER → 2022-02-27 | Outpatient (REF) | payer MEDICARE, OTHER ==
[2022-02-28 13:34] LABS: PERCENT SATURATION 14.6 % (19.7-50.0)
== END ==
LOC: M LAB REF 12:07
PROVIDERS: ATTEND Internal Medicine
DX: I10 Essential (primary) hypertension (principal); D50.9 Iron deficiency anemia, unspecified

== ENCOUNTER → 2022-03-17 | Outpatient (REF) | payer MEDICARE, OTHER | LOC: M LAB REF 13:47 | PROVIDERS: ATTEND Internal Medicine | DX: K21.9 Gastro-esophageal reflux disease without esophagitis (principal) ==

== ENCOUNTER 2022-05-09 10:34 | Emergency (ER) | payer MEDICARE, OTHER ==
[~2022-05-09] VITALS: Ht 167.6 cm; Wt 86.2 kg
[2022-05-09] MEDS ORDERED: BREO1INH (11:16)
[2022-05-09] MEDS ORDERED: TIZA2TA (11:16)
[2022-05-09] MEDS ORDERED: TRAZ-252 (11:16)
[2022-05-09] MEDS ORDERED: ANEXSIA, NORCO 7.5MG/325MG TABLET(HYDROCODONE/APAP) PO ONE (13:00)
[2022-05-09] MEDS ORDERED: HYDR-4517 PO (13:50)
[2022-05-09 13:55] VITALS: BP 140/78
== END 2022-05-09 14:05 | disposition home or self-care (01) ==
LOC: M ED 10:34
DX: S20.224A Contusion of middle back wall of thorax, initial encounter (principal); W18.30XA Fall on same level, unspecified, initial encounter; Y92.099 Unspecified place in other non-institutional residence as the place of occurrence of the external cause; J45.909 Unspecified asthma, uncomplicated; J44.9 Chronic obstructive pulmonary disease, unspecified; K21.9 Gastro-esophageal reflux disease without esophagitis; F41.9 Anxiety disorder, unspecified; F32.9 Major depressive disorder, single episode, unspecified; F17.200 Nicotine dependence, unspecified, uncomplicated; Z79.01 Long term (current) use of anticoagulants; Z79.899 Other long term (current) drug therapy; Z88.8 Allergy status to other drugs, medicaments and biological substances

== ENCOUNTER 2022-05-17 09:40 | Observation (INO) | payer MEDICARE, OTHER ==
[~2022-05-17] VITALS: Ht 167.6 cm; Wt 83.8 kg
[~2022-05-17 09:40] MED LIST changes: +BREO1INH; +HYDR-4517 PO; +TIZA2TA; +TRAZ-252
[2022-05-17] MEDS ORDERED: VITA100T59 PO (09:54)
[2022-05-17] MEDS ORDERED: MORPHINE 2 MG/ML 1ML VIAL IV ONE ×2 (12:05→20:15)
[2022-05-17] MEDS ORDERED: diazePAM 2 MG TAB PO ONE (12:05)
[2022-05-17] MEDS ORDERED: ONDANSETRON 4MG 2ML VIAL IV ONE (12:05)
[2022-05-17] MEDS ORDERED: PILL CUTTER 1 EACH XX ONE (12:18)
[2022-05-17 12:30] LABS: BASO # 0.1 10^3/uL (0.0-0.2); EOS # 0.3 10^3/uL (0.0-0.5); EOS % 3.4 % (0.0-3.0); HEMATOCRIT 49.5 % (42.0-52.0); LYMPH # 2.5 10^3/uL (1.5-5.0); MEAN CORPUSCULAR HEMOGLOBIN 27.2 pg (27.0-33.0); MEAN CORPUSCULAR HGB CONC 30.3 g/dl (32.0-36.5); MEAN CORPUSCULAR VOLUME 89.7 fl (80.0-96.0); MONO # 0.6 10^3/uL (0.0-0.8); MONO % 6.7 % (2.0-8.0); NEUTROPHILS # 4.9 10^3/uL (1.5-8.5); NEUTROPHILS % 58.7 % (36.0-66.0); PLATELET COUNT, AUTOMATED 396 10^3/uL (150-450); RED BLOOD COUNT 5.52 10^6/uL (4.30-6.10); WHITE BLOOD COUNT 8.3 10^3/uL (4.0-10.0)
[2022-05-17 12:53] LABS: ERYTHROCYTE SEDIMENTATION RATE 5 mm/hr (0-20)
[2022-05-17 13:07] LABS: BLOOD UREA NITROGEN 11 MG/DL (7-18); C REACTIVE PROTEIN QUANTITATIV 1.33 MG/DL (0.00-0.30); CALCIUM LEVEL 9.9 MG/DL (8.8-10.2); CARBON DIOXIDE LEVEL 30 MEQ/L (21-32); CHLORIDE LEVEL 103 MEQ/L (98-107); CREATININE FOR GFR 0.78 MG/DL (0.70-1.30); GLOMERULAR FILTRATION RATE > 60.0 (>42); GLUCOSE, FASTING 110 MG/DL (70-100); POTASSIUM SERUM 4.2 MEQ/L (3.5-5.1); SODIUM LEVEL 136 MEQ/L (136-145)
[2022-05-17] MEDS ORDERED: HYDROMORPHONE HCL 0.5 MG/ 0.5 ML SYRINGE (J1170 PER 1) IV ONE ×2 (13:15→15:55)
[2022-05-17 13:35] LABS: APPEARANCE, URINE MANUAL CLEAR (CLEAR); BILIRUBIN, URINE MANUAL NEGATIVE (NEGATIVE); BLOOD URINE MANUAL NEGATIVE (NEGATIVE); COLOR, URINE MANUAL YELLOW (YELLOW); GLUCOSE, URINE (UA) MANUAL NEGATIVE (NEGATIVE); KETONE, URINE MANUAL NEGATIVE (NEGATIVE); LEUKOCYTE ESTERASE, URINE MAN NEGATIVE (NEGATIVE); NITRITE, URINE MANUAL NEGATIVE (NEGATIVE); SPECIFIC GRAVITY,URINE MANUAL 1.025 (1.002-1.035); UROBILINOGEN, URINE MANUAL NORMAL (NORMAL)
[2022-05-17 13:36] LABS: PROTEIN, URINE MANUAL TRACE mg/dL (NEGATIVE)
[2022-05-17 13:46] LABS: BACTERIA, URINE NONE SEEN; HYALINE CAST, URINE NONE SEEN /lpf (0-1); MUCUS, URINE LARGE AMOUNT (NEGATIVE); RBC, URINE 0-1 /hpf (0-3); SQUAMOUS EPITHELIAL CELL URINE SMALL AMOUNT /hpf (SMALL AMT); WBC, URINE 0-1 /hpf (0-3)
[2022-05-17 16:46] LABS: ALT/SGPT 24 U/L (12-78); BILIRUBIN,DIRECT 0.2 MG/DL (0.0-0.2); BILIRUBIN,TOTAL 0.4 MG/DL (0.2-1.0); LIPASE 103 U/L (73-393); TOTAL PROTEIN 8.5 GM/DL (6.4-8.2)
[2022-05-17] MEDS ORDERED: LIDOCAINE 5% (LIDODERM) PATCH TD ONE (20:15)
[2022-05-17] MEDS ORDERED: ISOVUE-370 76% 100ML VIAL As Ordered ONE (20:27)
[2022-05-17] MEDS ORDERED: KETOROLAC 30 MG/ML 1ML VIAL IV ONE (21:50)
[2022-05-17] MEDS ORDERED: METHOCARBAMOL 1,000 MG/10 ML VIAL (J2800) IV ONE (21:50)
[2022-05-17] MEDS ORDERED: ACETAMINOPHEN TAB 650MG DOSE (2X325MG) PO PRN (21:50)
[2022-05-17 22:04] LABS: RSV AMPLIFICATION NEGATIVE (NEGATIVE)
[2022-05-17] MEDS ORDERED: ANEXSIA, NORCO 7.5MG/325MG TABLET(HYDROCODONE/APAP) PO PRN ×2 (22:35)
[2022-05-17] MEDS: DOCUSATE SODIUM 100MG CAPSULE PO SCH (23:46)
[2022-05-18] MEDS ORDERED: ATOR1TAB21 PO (01:03)
[2022-05-18] MEDS ORDERED: CALC500T38 PO (01:03)
[2022-05-18] MEDS ORDERED: NICO1DIS11 TD (01:03)
[2022-05-18] MEDS ORDERED: FERR150C PO (01:03)
[2022-05-18] MEDS ORDERED: HYDR-4514 PO (01:03)
[2022-05-18] MEDS ORDERED: TRAZ-252 PO (01:03)
[2022-05-18] MEDS ORDERED: HOME MED LIST COMPLETE! XX SCH (01:10)
[2022-05-18] MEDS ORDERED: traZODone 25MG PER 1/2 TABLET PO PRN (02:10)
[2022-05-18] MEDS ORDERED: NICOTINE 21MG/24HR 1 EA TRANSDERMAL TD PRN (02:10)
[2022-05-18] MEDS ORDERED: KETOROLAC 30 MG/ML 1ML VIAL IV SCH (04:00)
[2022-05-18] MEDS ORDERED: CYCLOBENZAPRINE 5MG TABLET PO SCH (06:00)
[2022-05-18 06:21] LABS: INR 1.08; PROTHROMBIN TIME 14.4 SECONDS (12.7-14.5)
[2022-05-18 06:22] LABS: PARTIAL THROMBOPLASTIN TIME 38.4 SECONDS (25.9-37.0)
[2022-05-18 06:29] LABS: BLOOD UREA NITROGEN 13 MG/DL (7-18); CALCIUM LEVEL 9.1 MG/DL (8.8-10.2); CARBON DIOXIDE LEVEL 28 MEQ/L (21-32); CHLORIDE LEVEL 104 MEQ/L (98-107); GLOMERULAR FILTRATION RATE > 60.0 (>42); GLUCOSE, FASTING 93 MG/DL (70-100); POTASSIUM SERUM 3.8 MEQ/L (3.5-5.1); SODIUM LEVEL 138 MEQ/L (136-145)
[2022-05-18 06:59] LABS: HEMATOCRIT 43.6 % (42.0-52.0); HEMOGLOBIN 13.4 g/dl (13.5-17.5); MEAN CORPUSCULAR HEMOGLOBIN 27.3 pg (27.0-33.0); MEAN CORPUSCULAR HGB CONC 30.7 g/dl (32.0-36.5); PLATELET COUNT, AUTOMATED 300 10^3/uL (150-450); WHITE BLOOD COUNT 7.9 10^3/uL (4.0-10.0)
[2022-05-18] MEDS ORDERED: **NOTE PATIENT COMMENT** MISC XX ONE (08:00)
[2022-05-18] MEDS ORDERED: APIXABAN 5 MG TAB (ELIQUIS) PO SCH (09:00)
[2022-05-18] MEDS ORDERED: CARVedilol 3.125 MG TAB PO SCH (09:00)
[2022-05-18] MEDS ORDERED: **NOTE PATIENT COMMENT** MISC XX SCH (09:00)
[2022-05-18] MEDS: DOCUSATE SODIUM 100MG CAPSULE PO SCH (09:27)
[2022-05-18 09:28] VITALS: BP 139/88
[2022-05-18] MEDS ORDERED: CYCL5TAB PO (10:27)
[2022-05-18 11:18] VITALS: BP 134/82
[2022-05-18] MEDS ORDERED: FLUBLOK(EGG FREE)(QUAD)INFLUENZA VACC 0.5ML SYRINGE 18YRS & OLDER IM.IMMUN ONE (14:00)
[2022-05-18] MEDS ORDERED: LIDOCAINE 5% (LIDODERM) PATCH TD SCH (21:00)
[2022-05-18] MEDS ORDERED: OMEPRAZOLE 20MG CAP PO SCH (21:00)
[2022-05-18] MEDS ORDERED: ATORVASTATIN 20 MG TAB PO SCH (21:00)
== END 2022-05-18 12:15 | disposition home or self-care (01) ==
LOC: M ED 09:40 → M ED INP 21:48 → ENRESERV 05-18 09:40
PROVIDERS: ADMIT Internal Medicine; ATTEND Internal Medicine
DX: M54.50 Low back pain, unspecified (principal); W18.30XA Fall on same level, unspecified, initial encounter; E78.5 Hyperlipidemia, unspecified; I48.20 Chronic atrial fibrillation, unspecified; Z79.01 Long term (current) use of anticoagulants; K44.9 Diaphragmatic hernia without obstruction or gangrene; K76.0 Fatty (change of) liver, not elsewhere classified; R10.9 Unspecified abdominal pain; Z86.79 Personal history of other diseases of the circulatory system; F17.210 Nicotine dependence, cigarettes, uncomplicated; Z88.8 Allergy status to other drugs, medicaments and biological substances; Z79.899 Other long term (current) drug therapy; G40.909 Epilepsy, unspecified, not intractable, without status epilepticus
CPT/HCPCS: 36415; 72146; 72148; 74177; 80048; 80076; 81000; 83605; 83690; 83735; 85025; 85027; 85610; 85652; 85730; 86140; 87631; 96374; 96375; 96376; 97116; 97161; 99284; G0378; J1170; J1885; J2270; J2405; J2800; Q9967

== ENCOUNTER → 2022-05-29 | Outpatient (CLI) | payer MEDICARE, OTHER ==
[~2022-05-29] MED LIST changes: +ATOR1TAB21 PO; +CALC500T38 PO; +CYCL5TAB PO; +HYDR-4514 PO; +NICO1DIS11 TD; +TRAZ-252 PO; +VITA100T59 PO
[2022-05-29 16:49] LABS: PERCENT SATURATION 15.3 % (19.7-50.0)
== END ==
LOC: M WUC 13:22
PROVIDERS: ATTEND Internal Medicine
DX: R07.81 Pleurodynia (principal); D50.9 Iron deficiency anemia, unspecified; I77.810 Thoracic aortic ectasia; K44.9 Diaphragmatic hernia without obstruction or gangrene; Z87.81 Personal history of (healed) traumatic fracture

== ENCOUNTER → 2022-12-18 | Outpatient (REF) | payer MEDICARE, OTHER ==
[2022-12-18 17:06] LABS: PERCENT SATURATION 14.2 % (19.7-50.0)
[2022-12-18 17:09] LABS: FERRITIN 51.7 NG/ML (10.5-307.3)
== END ==
LOC: M LAB REF 16:12
PROVIDERS: ATTEND Internal Medicine
DX: D50.9 Iron deficiency anemia, unspecified (principal)

== ENCOUNTER → 2023-05-01 | Outpatient (REF) | payer MEDICARE, OTHER ==
[~2023-05-01] MED LIST changes: -PREG200C PO; +PREG200C2 PO
== END ==
LOC: M LAB REF 16:20
PROVIDERS: ATTEND Physician Assistant
DX: L03.114 Cellulitis of left upper limb (principal)

== ENCOUNTER → 2023-11-01 | Outpatient (REF) | payer MEDICARE, OTHER ==
[2023-11-01 17:05] LABS: PERCENT SATURATION 23.6 % (19.7-50.0)
[2023-11-01 17:07] LABS: FERRITIN 44.2 NG/ML (10.5-307.3)
== END ==
LOC: M LAB REF 16:32
PROVIDERS: ATTEND Internal Medicine
DX: D50.9 Iron deficiency anemia, unspecified (principal)

== ENCOUNTER → 2023-11-08 | Outpatient (REF) | payer MEDICARE, OTHER | LOC: M LAB REF 12:35 | PROVIDERS: ATTEND Internal Medicine | DX: R68.82 Decreased libido (principal) ==

== ENCOUNTER → 2023-12-19 | Outpatient (CLI) | payer MEDICARE, OTHER | LOC: M RAD 13:08 | PROVIDERS: ATTEND Internal Medicine | DX: Z12.2 Encounter for screening for malignant neoplasm of respiratory organs (principal); F17.210 Nicotine dependence, cigarettes, uncomplicated; I70.0 Atherosclerosis of aorta; K44.9 Diaphragmatic hernia without obstruction or gangrene; J47.9 Bronchiectasis, uncomplicated; R91.1 Solitary pulmonary nodule; N28.1 Cyst of kidney, acquired; R05.9 Cough, unspecified; R06.00 Dyspnea, unspecified ==

== ENCOUNTER → 2024-05-06 | Outpatient (REF) | payer MEDICARE, OTHER ==
[~2024-05-06] MED LIST changes: +GABA-1490 PO; -GABA600T4 PO; -ROSU40TA4 PO; +ROSU40TA81 PO
[2024-05-06 19:10] LABS: PERCENT SATURATION 20.6 % (19.7-50.0)
== END ==
LOC: M LAB REF 16:34
PROVIDERS: ATTEND Internal Medicine
DX: D50.9 Iron deficiency anemia, unspecified (principal)

== ENCOUNTER 2024-06-05 15:02 | Observation (INO) | payer MEDICARE, OTHER ==
[~2024-06-05] VITALS: Ht 167.6 cm; Wt 82.0 kg
[2024-06-05 16:34] LABS: BASO # 0.1 10^3/uL (0.0-0.2); BASO % 0.6 % (0.0-1.0); EOS # 0.2 10^3/uL (0.0-0.5); EOS % 1.7 % (0.0-3.0); HEMATOCRIT 47.6 % (42.0-52.0); HEMOGLOBIN 15.6 g/dl (13.5-17.5); LYMPH # 1.7 10^3/uL (1.5-5.0); LYMPH % 13.2 % (24.0-44.0); MEAN CORPUSCULAR HEMOGLOBIN 31.4 pg (27.0-33.0); MEAN CORPUSCULAR HGB CONC 32.8 g/dl (32.0-36.5); MEAN CORPUSCULAR VOLUME 95.8 fl (80.0-96.0); NEUTROPHILS # 9.7 10^3/uL (1.5-8.5); NEUTROPHILS % 76.2 % (36.0-66.0); PLATELET COUNT, AUTOMATED 281 10^3/uL (150-450); RED BLOOD COUNT 4.97 10^6/uL (4.30-6.10); WHITE BLOOD COUNT 12.7 10^3/uL (4.0-10.0)
[2024-06-05 16:45] LABS: THYROID STIMULATING HORMONE 1.452 uIU/ML (0.55-4.78)
[2024-06-05] MEDS: METOPROLOL 5 MG/5 ML VIAL IV SCH (16:53)
[2024-06-05 16:55] LABS: BLOOD UREA NITROGEN 13 MG/DL (9-23); CALCIUM LEVEL 9.8 MG/DL (8.3-10.6); CARBON DIOXIDE LEVEL 24 MMOL/L (20-31); CHLORIDE LEVEL 110 MMOL/L (98-107); CREATININE FOR GFR 0.63 MG/DL (0.70-1.30); FREE T4 1.37 NG/DL (0.89-1.76); GLOMERULAR FILTRATION RATE > 60.0 (>42); GLUCOSE, FASTING 104 MG/DL (74-106); MAGNESIUM LEVEL 1.9 MG/DL (1.8-2.4); POTASSIUM SERUM 5.4 MMOL/L (3.5-5.1); SODIUM LEVEL 139 MMOL/L (136-145)
[2024-06-05] MEDS: NS 1,000 ML IV ONE (17:06)
[2024-06-05 17:25] LABS: INR 1.18; PARTIAL THROMBOPLASTIN TIME 31.9 SECONDS (24.8-34.2); PROTHROMBIN TIME 14.6 SECONDS (12.5-14.5)
[2024-06-05] MEDS: NS 1,000 ML IV SCH (18:58)
[2024-06-05] MEDS: CARVedilol 3.125 MG TAB PO ONE (18:58)
[2024-06-05] MEDS ORDERED: ARNU1INH PO (19:25)
[2024-06-05] MEDS ORDERED: HOME MED LIST COMPLETE! XX SCH (19:25)
[2024-06-05] MEDS ORDERED: ACETAMINOPHEN 325 MG TAB PO PRN (19:40)
[2024-06-05] MEDS ORDERED: FLUTICASONE HFA 110MCG 12GM INHALER (FLOVENT) INH SCH (20:00)
[2024-06-05] MEDS: NS 1,000 ML IV STA (20:35)
[2024-06-05] MEDS ORDERED: LR 1,000 ML IV ONE (21:00)
[2024-06-05] MEDS: DIGOXIN INJ 0.5 MG/2 ML AMP IV STA (21:21)
[2024-06-05] MEDS ORDERED: DIGOXIN INJ 0.5 MG/2 ML AMP IV PRN (22:00)
[2024-06-05] MEDS ORDERED: NICOTINE 21MG/24HR 1 EA TRANSDERMAL TD PRN (22:10)
[2024-06-06] MEDS: levETIRAcetam INJection 1,000 MG in D5W 100 ML IV ONE (00:26)
[2024-06-06] MEDS: APIXABAN 5 MG TAB (ELIQUIS) PO SCH (00:27)
[2024-06-06] MEDS: ATORVASTATIN 20 MG TAB PO SCH (00:27)
[2024-06-06] MEDS: DICLOFENAC EPOLAMINE 1.3% PATCH TOP SCH (00:27)
[2024-06-06] MEDS: NS 1,000 ML IV ONE (01:27)
[2024-06-06 02:12] LABS: BLOOD UREA NITROGEN 11 MG/DL (9-23); CALCIUM LEVEL 8.5 MG/DL (8.3-10.6); CARBON DIOXIDE LEVEL 25 MMOL/L (20-31); CHLORIDE LEVEL 116 MMOL/L (98-107); CREATININE FOR GFR 0.64 MG/DL (0.70-1.30); GLOMERULAR FILTRATION RATE > 60.0 (>42); GLUCOSE, FASTING 109 MG/DL (74-106); POTASSIUM SERUM 3.9 MMOL/L (3.5-5.1); SODIUM LEVEL 144 MMOL/L (136-145)
[2024-06-06] MEDS: DIGOXIN INJ 0.5 MG/2 ML AMP IV SCH (03:43)
[2024-06-06 06:21] LABS: HEMATOCRIT 42.4 % (42.0-52.0); HEMOGLOBIN 13.7 g/dl (13.5-17.5); MEAN CORPUSCULAR HEMOGLOBIN 31.7 pg (27.0-33.0); MEAN CORPUSCULAR HGB CONC 32.3 g/dl (32.0-36.5); MEAN CORPUSCULAR VOLUME 98.1 fl (80.0-96.0); PLATELET COUNT, AUTOMATED 232 10^3/uL (150-450); RED BLOOD COUNT 4.32 10^6/uL (4.30-6.10); WHITE BLOOD COUNT 10.1 10^3/uL (4.0-10.0)
[2024-06-06 06:40] LABS: BLOOD UREA NITROGEN 9 MG/DL (9-23); CALCIUM LEVEL 8.5 MG/DL (8.3-10.6); CARBON DIOXIDE LEVEL 24 MMOL/L (20-31); CHLORIDE LEVEL 117 MMOL/L (98-107); CREATININE FOR GFR 0.62 MG/DL (0.70-1.30); GLOMERULAR FILTRATION RATE > 60.0 (>42); GLUCOSE, FASTING 108 MG/DL (74-106); SODIUM LEVEL 145 MMOL/L (136-145)
[2024-06-06] MEDS ORDERED: PILL CUTTER 1 EACH XX ONE (08:32)
[2024-06-06] MEDS: levETIRAcetam 250MG TABLET (KEPPRA) PO SCH (08:34)
[2024-06-06] MEDS: FLUTICASONE HFA 110MCG 12GM INHALER (FLOVENT) INH SCH (09:20)
[2024-06-06 14:56] VITALS: BP 121/56; TEMP 97.8; O2SAT 92
[2024-06-06] MEDS ORDERED: LEVALBUTEROL 1.25MG 0.5ML CONCENTRATE NEB INH PRN (15:15)
[2024-06-06] MEDS: ANEXSIA, NORCO 7.5MG/325MG TABLET(HYDROCODONE/APAP) PO PRN (15:57)
[2024-06-06 16:10] VITALS: BP 97/56; TEMP 98.1; O2SAT 94
[2024-06-06 20:07] VITALS: BP 101/52; TEMP 97.6; O2SAT 95
[2024-06-06] MEDS: traZODone 50 MG TAB PO SCH (20:46)
[2024-06-06] MEDS: CARVedilol 3.125 MG TAB PO SCH (20:47)
[2024-06-06] MEDS: OMEPRAZOLE 20MG CAP PO SCH (20:47)
[2024-06-06 23:55] VITALS: BP 101/57; TEMP 97.7; O2SAT 96
[2024-06-07 04:37] VITALS: BP 125/76; TEMP 98; O2SAT 93
[2024-06-07 05:46] LABS: HEMATOCRIT 41.5 % (42.0-52.0); HEMOGLOBIN 13.4 g/dl (13.5-17.5); MEAN CORPUSCULAR HEMOGLOBIN 31.8 pg (27.0-33.0); MEAN CORPUSCULAR HGB CONC 32.3 g/dl (32.0-36.5); MEAN CORPUSCULAR VOLUME 98.3 fl (80.0-96.0); PLATELET COUNT, AUTOMATED 215 10^3/uL (150-450); RED BLOOD COUNT 4.22 10^6/uL (4.30-6.10); WHITE BLOOD COUNT 7.7 10^3/uL (4.0-10.0)
[2024-06-07 06:10] LABS: BLOOD UREA NITROGEN 14 MG/DL (9-23); CALCIUM LEVEL 8.8 MG/DL (8.3-10.6); CARBON DIOXIDE LEVEL 26 MMOL/L (20-31); CHLORIDE LEVEL 115 MMOL/L (98-107); CREATININE FOR GFR 0.74 MG/DL (0.70-1.30); GLOMERULAR FILTRATION RATE > 60.0 (>42); GLUCOSE, FASTING 91 MG/DL (74-106); MAGNESIUM LEVEL 1.9 MG/DL (1.8-2.4); POTASSIUM SERUM 4.1 MMOL/L (3.5-5.1); SODIUM LEVEL 144 MMOL/L (136-145)
[2024-06-07 07:55] VITALS: BP 120/58; TEMP 97.5; O2SAT 94
[2024-06-07] MEDS ORDERED: KEPP1TAB2 PO (08:41)
[2024-06-07 09:41] VITALS: BP 120/58
[2024-06-07 12:00] VITALS: BP 111/60; TEMP 98; O2SAT 95
== END 2024-06-07 14:05 | disposition home or self-care (01) ==
LOC: M ED 15:02 → M ED INP 19:33 → M PCU 06-06 14:50
PROVIDERS: ADMIT Student in an Organized Health Care Education/Training Program; ATTEND Internal Medicine Nephrology
DX: G40.501 Epileptic seizures related to external causes, not intractable, with status epilepticus (principal); I48.0 Paroxysmal atrial fibrillation; E78.5 Hyperlipidemia, unspecified; G47.00 Insomnia, unspecified; Z86.79 Personal history of other diseases of the circulatory system; G40.909 Epilepsy, unspecified, not intractable, without status epilepticus; M54.50 Low back pain, unspecified; J30.2 Other seasonal allergic rhinitis; Z79.01 Long term (current) use of anticoagulants
CPT/HCPCS: 36415; 70450; 71045; 72125; 80048; 83735; 84439; 84443; 84484; 85025; 85027; 85610; 85730; 93005; 93041; 93306; 94640; 94664; 94760; 95819; 96361; 96374; 96375; 96376; 99285; G0378; J1160; J1953

== ENCOUNTER 2024-10-14 17:46 | Emergency (ER) | payer MEDICARE, OTHER ==
[~2024-10-14] VITALS: Ht 167.6 cm; Wt 81.5 kg
[~2024-10-14 17:46] MED LIST changes: +ARNU1INH PO; -CYCL5TAB PO; +CYCL5TAB4 PO; +KEPP1TAB2 PO; -LEVO750T14 PO; +LEVO75TAB PO
[2024-10-14 17:54] VITALS: TEMP 98
[2024-10-14] MEDS: ASPIRIN 81MG CHEW TABLET PO ONE (19:04)
[2024-10-14 19:08] LABS: BLOOD UREA NITROGEN 21 MG/DL (9-23); CALCIUM LEVEL 8.9 MG/DL (8.3-10.6); CARBON DIOXIDE LEVEL 24 MMOL/L (20-31); CHLORIDE LEVEL 105 MMOL/L (98-107); CK-MB VALUE MASS < 1.0 NG/ML (<3.6); CPK CREATINE PHOSPHOKINASE 97 U/L (46-171); CREATININE FOR GFR 0.65 MG/DL (0.70-1.30); GLOMERULAR FILTRATION RATE > 60.0 (>42); GLUCOSE, FASTING 108 MG/DL (74-106); MB/CK RELATIVE INDEX 1.03 (< OR =4); POTASSIUM SERUM 4.8 MMOL/L (3.5-5.1); SODIUM LEVEL 141 MMOL/L (136-145)
[2024-10-14 19:23] LABS: THYROID STIMULATING HORMONE 1.224 uIU/ML (0.55-4.78)
[2024-10-14 19:46] LABS: BASO # 0.1 10^3/uL (0.0-0.2); BASO % 0.8 % (0.0-1.0); EOS # 0.3 10^3/uL (0.0-0.5); HEMATOCRIT 44.1 % (42.0-52.0); HEMOGLOBIN 14.4 g/dl (13.5-17.5); LYMPH # 2.3 10^3/uL (1.5-5.0); LYMPH % 30.1 % (24.0-44.0); MEAN CORPUSCULAR HEMOGLOBIN 31.9 pg (27.0-33.0); MEAN CORPUSCULAR HGB CONC 32.7 g/dl (32.0-36.5); MEAN CORPUSCULAR VOLUME 97.8 fl (80.0-96.0); MONO # 0.8 10^3/uL (0.0-0.8); MONO % 10.1 % (2.0-8.0); NEUTROPHILS # 4.1 10^3/uL (1.5-8.5); NEUTROPHILS % 54.5 % (36.0-66.0); PLATELET COUNT, AUTOMATED 250 10^3/uL (150-450); RED BLOOD COUNT 4.51 10^6/uL (4.30-6.10); WHITE BLOOD COUNT 7.5 10^3/uL (4.0-10.0)
[2024-10-14 20:00] LABS: CK-MB VALUE MASS < 1.0 NG/ML (<3.6)
[2024-10-14 20:05] LABS: CPK CREATINE PHOSPHOKINASE 84 U/L (46-171); MB/CK RELATIVE INDEX 1.19 (< OR =4)
[2024-10-14 20:21] VITALS: BP 137/62
[2024-10-14 20:31] VITALS: O2SAT 97
== END 2024-10-14 20:44 | disposition home or self-care (01) ==
LOC: M ED 17:46
DX: F41.9 Anxiety disorder, unspecified (principal); I48.91 Unspecified atrial fibrillation; E78.5 Hyperlipidemia, unspecified; J44.9 Chronic obstructive pulmonary disease, unspecified; F17.200 Nicotine dependence, unspecified, uncomplicated; Z79.01 Long term (current) use of anticoagulants; Z79.899 Other long term (current) drug therapy; Z88.8 Allergy status to other drugs, medicaments and biological substances

== ENCOUNTER 2025-07-03 16:59 | Inpatient (IN) | payer MEDICARE, OTHER ==
[~2025-07-03] VITALS: Ht 167.6 cm; Wt 75.6 kg
[~2025-07-03 16:59] MED LIST changes: -DEPA250T32 PO; +DIVA-65 PO
[2025-07-03] MEDS ORDERED: ESCITALOPRAM (17:15)
[2025-07-03] MEDS: NS 500 ML IV ONE (17:25)
[2025-07-03] MEDS: TETANUS/DIPHTH/ACEL. PERTUSSIS 0.5 ML SYR IM.IMMUN ONE (17:25)
[2025-07-03] MEDS ORDERED: ISOVUE-370 76% 100 ML VIAL As Ordered ONE (17:35)
[2025-07-03 17:43] LABS: VENOUS BASE EXCESS -3.7 (-2.0-2.0); VENOUS HCO3 22.6 MMOL/L (23.0-27.0); VENOUS O2 SATURATION 96.2 % (60.0-80.0); VENOUS PARTIAL PRESSURE CO2 45.4 mmHg (38.0-50.0); VENOUS PARTIAL PRESSURE O2 91.2 mmHg (30.0-50.0); VENOUS PH 7.315 UNITS (7.330-7.430); VENOUS STANDARD HCO3 21.4 MMOL/L; VENOUS TOTAL CO2 24.0 MMOL/L (24.0-28.0)
[2025-07-03 17:55] LABS: BASO # 0.1 10^3/uL (0.0-0.2); BASO % 0.5 % (0.0-1.0); EOS # 0.2 10^3/uL (0.0-0.5); EOS % 1.8 % (0.0-3.0); LYMPH # 2.3 10^3/uL (1.5-5.0); LYMPH % 17.2 % (24.0-44.0); MONO # 0.9 10^3/uL (0.0-0.8); MONO % 6.9 % (2.0-8.0); NEUTROPHILS # 9.6 10^3/uL (1.5-8.5); NEUTROPHILS % 73.1 % (36.0-66.0); PLATELET COUNT, AUTOMATED 310 10^3/uL (150-450); PLATELET COUNT, AUTOMATED 311 10^3/uL (150-450)
[2025-07-03] MEDS: MORPHINE 2 MG/ML 1 ML VIAL IV PRN ×2 (17:57→22:53)
[2025-07-03 18:23] LABS: INR 0.99
[2025-07-03 18:27] LABS: ETHYL ALCOHOL (ETHANOL) < 0.003 % (0.000-0.010)
[2025-07-03 18:29] LABS: ALT/SGPT 24 U/L (7.0-40); AST/SGOT 25 U/L (<34); CALCIUM LEVEL 8.5 MG/DL (8.3-10.6); CARBON DIOXIDE LEVEL 24 MMOL/L (20-31); CHLORIDE LEVEL 103 MMOL/L (98-107); CK-MB VALUE MASS 1.9 NG/ML (<3.6); CPK CREATINE PHOSPHOKINASE 117 U/L (46-171); CREATININE FOR GFR 0.72 MG/DL (0.70-1.30); GLOMERULAR FILTRATION RATE > 90.0 (>42); MB/CK RELATIVE INDEX 1.62 (< OR =4); POTASSIUM SERUM 4.3 MMOL/L (3.5-5.1); SODIUM LEVEL 138 MMOL/L (136-145)
[2025-07-03] MEDS: MORPHINE 4 MG/ML 1 ML VIAL IV ONE (18:40)
[2025-07-03 19:39] LABS: CK-MB VALUE MASS 1.8 NG/ML (<3.6)
[2025-07-03 19:40] LABS: CPK CREATINE PHOSPHOKINASE 115.0 U/L (46-171); MB/CK RELATIVE INDEX 1.56 (< OR =4)
[2025-07-03] MEDS ORDERED: LEXA5TAB13 PO (19:51)
[2025-07-03] MEDS ORDERED: HOME MED LIST COMPLETE! XX SCH (19:55)
[2025-07-03 20:12] LABS: BASO # 0.1 10^3/uL (0.0-0.2); BASO % 0.5 % (0.0-1.0); EOS # 0.1 10^3/uL (0.0-0.5); EOS % 0.9 % (0.0-3.0); LYMPH # 1.5 10^3/uL (1.5-5.0); LYMPH % 10.3 % (24.0-44.0); MONO # 0.7 10^3/uL (0.0-0.8); MONO % 4.8 % (2.0-8.0); NEUTROPHILS # 12.3 10^3/uL (1.5-8.5); NEUTROPHILS % 83.2 % (36.0-66.0); PLATELET COUNT, AUTOMATED 283 10^3/uL (150-450)
[2025-07-03 20:37] LABS: APPEARANCE, URINE CLEAR (CLEAR); BACTERIA, URINE AUTO NEGATIVE (NEGATIVE); BILIRUBIN, URINE AUTO NEGATIVE (NEGATIVE); BLOOD, URINE BLOOD 2+ (NEGATIVE); GLUCOSE, URINE (UA) AUTO NEGATIVE (NEGATIVE); KETONE, URINE AUTO 1+ mg/dL (NEGATIVE); LEUKOCYTE ESTERASE, URINE AUTO NEGATIVE (NEGATIVE); MUCUS, URINE SMALL (NEGATIVE); NITRITE, URINE AUTO NEGATIVE (NEGATIVE); PROTEIN, URINE AUTO NEGATIVE (NEGATIVE); RBC, URINE AUTO 4 /HPF (0-3); SPECIFIC GRAVITY URINE AUTO 1.035 (1.002-1.035); SQUAMOUS EPITHELIAL CELL UR AU 0 /HPF (0-6); UROBILINOGEN, URINE AUTO 0.2 mg/dL (0.0-2.0); WBC, URINE AUTO 1 /HPF (0-3)
[2025-07-03] MEDS: APIXABAN 5 MG TAB PO SCH (21:00)
[2025-07-03] MEDS ORDERED: MOM 30 ML SUSPENSION UDC PO PRN (21:15)
[2025-07-03] MEDS: ACETAMINOPHEN 500 MG TAB PO SCH (22:52)
[2025-07-03 23:40] VITALS: BP 109/71; TEMP 98.8; O2SAT 96
[2025-07-04] MEDS: MORPHINE 2 MG/ML 1 ML VIAL IV PRN (01:44)
[2025-07-04 04:13] VITALS: BP 142/75; TEMP 98.3; O2SAT 96
[2025-07-04 05:49] LABS: BASO # 0.0 10^3/uL (0.0-0.2); BASO % 0.4 % (0.0-1.0); EOS # 0.2 10^3/uL (0.0-0.5); EOS % 1.9 % (0.0-3.0); LYMPH # 2.6 10^3/uL (1.5-5.0); LYMPH % 27.2 % (24.0-44.0); MONO # 1.0 10^3/uL (0.0-0.8); MONO % 9.8 % (2.0-8.0); NEUTROPHILS # 5.9 10^3/uL (1.5-8.5); NEUTROPHILS % 60.3 % (36.0-66.0); PLATELET COUNT, AUTOMATED 303 10^3/uL (150-450)
[2025-07-04 06:15] LABS: ALT/SGPT 19 U/L (7.0-40); AST/SGOT 23 U/L (<34); CALCIUM LEVEL 8.7 MG/DL (8.3-10.6); CARBON DIOXIDE LEVEL 25 MMOL/L (20-31); CHLORIDE LEVEL 106 MMOL/L (98-107); CREATININE FOR GFR 0.67 MG/DL (0.70-1.30); GLOMERULAR FILTRATION RATE > 90.0 (>42); POTASSIUM SERUM 4.1 MMOL/L (3.5-5.1); SODIUM LEVEL 141 MMOL/L (136-145)
[2025-07-04] MEDS: ESCITALOPRAM OXALATE 5 MG TABLET PO SCH (09:42)
[2025-07-04] MEDS: ATORVASTATIN 20 MG TAB PO SCH (09:42)
[2025-07-04 12:02] VITALS: BP 117/64; TEMP 97.7; O2SAT 93
[2025-07-04 20:20] VITALS: BP 121/65; TEMP 98; O2SAT 96
[2025-07-05 04:21] VITALS: BP 124/66; TEMP 98.3; O2SAT 94
[2025-07-05 06:04] LABS: PLATELET COUNT, AUTOMATED 274 10^3/uL (150-450)
[2025-07-05 06:28] LABS: CALCIUM LEVEL 8.3 MG/DL (8.3-10.6); CARBON DIOXIDE LEVEL 26 MMOL/L (20-31); CHLORIDE LEVEL 107 MMOL/L (98-107); CREATININE FOR GFR 0.68 MG/DL (0.70-1.30); GLOMERULAR FILTRATION RATE > 90.0 (>42); MAGNESIUM LEVEL 1.7 MG/DL (1.8-2.4); POTASSIUM SERUM 3.7 MMOL/L (3.5-5.1); SODIUM LEVEL 141 MMOL/L (136-145)
[2025-07-05] MEDS: MAG SULF 1GM/100ML (MAG RUN) 1 GM in IV 1 EA IV SCH (07:58)
[2025-07-05 07:59] VITALS: BP 118/67
[2025-07-05] MEDS ORDERED: ELIQ5TAB PO (10:31)
[2025-07-05] MEDS ORDERED: MM S100C PO (10:31)
== END 2025-07-05 11:37 | disposition home or self-care (01) | DRG 605 ==
LOC: M ED 16:59 → EDBD 16:59 → M ED INP 21:10 → M MSPAV 23:10
PROVIDERS: ADMIT Internal Medicine Nephrology; ATTEND Internal Medicine
DX: S70.12XA Contusion of left thigh, initial encounter (principal); I48.91 Unspecified atrial fibrillation; E78.5 Hyperlipidemia, unspecified; J44.9 Chronic obstructive pulmonary disease, unspecified; S50.02XA Contusion of left elbow, initial encounter; W01.0XXA Fall on same level from slipping, tripping and stumbling without subsequent striking against object, initial encounter; Y92.009 Unspecified place in unspecified non-institutional (private) residence as the place of occurrence of the external cause; F17.210 Nicotine dependence, cigarettes, uncomplicated; M54.9 Dorsalgia, unspecified; G89.29 Other chronic pain; G47.00 Insomnia, unspecified; Z79.01 Long term (current) use of anticoagulants; Z79.899 Other long term (current) drug therapy; F39 Unspecified mood [affective] disorder; N40.0 Benign prostatic hyperplasia without lower urinary tract symptoms